=== PATIENT | female | born 1940 | race Caucasian/White ===

== ENCOUNTER 2017-12-04 14:44 | Inpatient (IN) | payer MEDICARE ==
--- NOTE | 2017-12-04 15:11 | RAD ---
PORTABLE CHEST 1 VIEW: Date: 12/04/17 Time: 1455 hours HISTORY: Shortness of breath. FINDINGS: The heart size is enlarged. The lungs are expanded without focal areas of consolidation, pneumothorax , or pleural effusions. There are bilateral shoulder arthroplasties and postop changes in the lower c ervical spine. IMPRESSION: Cardiomegaly. POS: BONILLA
[2017-12-04] MEDS ORDERED: methylPREDNISolone Sod Succ/PF 125 MG/2 ML VIAL ONE (15:17)
[2017-12-04 15:50] LABS: ALT (SGPT) 21 U/L (8-55); AST (SGOT) 22 U/L (5-34); Albumin 2.6 g/dL (3.4-4.8); Alkaline Phosphatase 228 U/L (40-150); Anion Gap 14 mmol/L (10-20); BUN (Urea Nitrogen) 74 mg/dL (9.8-20.1); Bilirubin, Total 1.3 mg/dL (0.2-1.2); Calc. Creatinine Clearance 0 mL/min (70-130); Calcium 8.4 mg/dL (7.8-10.44); Carbon Dioxide 23 mmol/L (23-31); Chloride 99 mmol/L (98-107); Estimated GFR-MDRD 12; Globulin 5.3 g/dL (2.4-3.5); Glucose 90 mg/dL (83-110); Potassium 3.6 mmol/L (3.5-5.1); Protein, Total 7.9 g/dL (6.0-8.3); Sodium 132 mmol/L (136-145)
[2017-12-04 15:55] LABS: CKMB 5.6 ng/mL (0-6.6); Troponin I 0.101 ng/mL (< 0.028)
[2017-12-04 16:10] LABS: #Basophils 0.1 thou/uL (0.0-0.2); #Eosinphils 0.4 thou/uL (0.0-0.7); #Lymphocytes 1.3 thou/uL (1.20-3.40); #Monocytes 1.3 thou/uL (0.11-0.59); #Neutrophils 11.7 thou/uL (1.40-6.50); %Basophils 0.4 % (0.0-1.0); %Lymphocytes 8.7 % (21.0-51.0); %Monocytes 8.6 % (0.0-10.0); %Neutrophils 79.3 % (42.0-75.0); Hemoglobin 7.7 g/dL (12.0-16.0); Mean Corpuscular HGB CONC 33.4 g/dL (32.0-36.0); Mean Corpuscular Hemoglobin 33.6 pg (27.0-31.0); Mean Platelet Volume 7.3 fL (7.4-10.4); Platelet Count 163 thou/uL (130-400); RBC Distribution Width 14.3 % (11.5-14.5); Red Blood Cell (RBC) Count 2.28 mill/uL (4.20-5.40); White Blood Cell (WBC) Count 14.8 thou/uL (4.8-10.8)
[2017-12-04] MEDS ORDERED: Ondansetron HCl/PF 4 MG/2 ML Vial IVP PRN ×2 (16:51)
[2017-12-04] MEDS ORDERED: Calcium Carbonate 500 MG ChewTAB PO PRN (16:51)
[2017-12-04] MEDS ORDERED: Nitroglycerin 0.4 MG TAB (25 Tab Bottle) SL PRN (16:51)
[2017-12-04] MEDS ORDERED: Mag-Al 1200 mg/1200 mg/30 ML UDCUP PO PRN (16:51)
[2017-12-04] MEDS ORDERED: Senokot 8.6 MG TAB PO PRN (16:51)
[2017-12-04] MEDS ORDERED: hydrALAZINE 20 MG/ML VIAL SLOW IVP PRN (16:51)
[2017-12-04] MEDS ORDERED: Benzonatate 100 MG CAP PO PRN (16:51)
[2017-12-04] MEDS ORDERED: Bisacodyl 5 MG TAB PO PRN (16:51)
[2017-12-04] MEDS ORDERED: cloNIDine 0.1 MG TAB PO PRN (16:51)
[2017-12-04] MEDS ORDERED: Furosemide 40 MG/4 ML VIAL SLOW IVP SCH (17:00)
[2017-12-04] MEDS ORDERED: Nitroglycerin 2% Ointment 1 INCH/1 GM Packet ONE (17:40)
[2017-12-04 17:56] LABS: Iron 36 ug/dL (50-170); Iron Binding Capacity, Total 201 mcg/dL (265-497)
--- NOTE | 2017-12-04 18:28 | HP ---
PRIMARY CARE PHYSICIAN: Zacarias Fontenot D.O. CHIEF COMPLAINT: Worsening shortness of breath and generalized weakness. HISTORY OF PRESENT ILLNESS: Ms. Green is a very pleasant 77-year-old female with past medical histor y of hypertension and asthma as well as history of chronic anemia, who presented to the emergency [facility] with above-mentioned complaint. History is mainly obtained by the patient herself and electronic edical records have been reviewed. Case has been discussed with admitting ER physician, Dr. Almonte. According to Ms. Green, she has been feeling poorly for quite some time now. She feels like she has no energy and has been progressively getting weak for the last 2-3 months. She started to feel reall y short of breath about 1 week ago and has been using all of her inhalers and nebulizers more frequen tly to no avail. Her breathing got worse and she presented to the ER with that. She otherwise denie s any chest pain, orthopnea, PND, or lower extremity swelling. She denies any fever, but did have so me chills a few days ago. She also feels that her urine smells bad, but denies any dysuria, frequenc y, or urgency. She denies any hematochezia, melena or hematemesis. She has no sick contacts. No ot her recent illnesses. She denies any cough. In the emergency room, she was found to be quite hypoxic with oxygen saturation of 84% on room air. Further workup included blood work which showed hemoglobin of 7.7 with a baseline around 8.5-9.5. Singh balderas was also found to have acute renal insufficiency with BUN of 74, creatinine of 3.62 as well as card iac enzyme in the indeterminate range of 0.101 and BNP of 855. Chest x-ray was done, which showed ca rdiomegaly but was otherwise unremarkable. Ms. Green reports that she follows up with [facility] at [facility] for History of paroxysmal atrial fibrillation that happened 1 year ago when she had pneumonia. It has not reoccurred. She act ually saw the assembler wire mesh gate only a week ago and her EKG was normal. EKG in our emergency room shows s inus rhythm, otherwise. In the emergency room, she has received aspirin, sublingual nitroglycerin, Solu-Medrol, nebulizer and Zofran. She is now being admitted for further evaluation of her dyspnea and acute hypoxia. PAST MEDICAL HISTORY: 1. Hypertension. 2. Asthma. 3. History of small bowel obstruction, status post repair in 1985. 4. Chronic iron deficiency anemia. PAST SURGICAL HISTORY: 1. Bilateral shoulder replacement. 2. L5-S1 laminectomy and diskectomy. 3. 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 4. Anterior cervical diskectomy and fusion in 2009. 5. Left humerus fracture with repair with plates and screws. 6. The patient had a colonoscopy done 10 years ago, which was normal. PSYCHIATRIC HISTORY: No anxiety, no depression. SOCIAL HISTORY: She is and lives with her family. She is independent with her ADLs and IADL s. No history of drug, tobacco or alcohol abuse. FAMILY HISTORY: Significant for colon cancer in her daughter, who at the age of 56. Two of her nephews also had colon cancer. ALLERGIES: HYDROCODONE. CURRENT MEDICATIONS: Lisinopril/hydrochlorothiazide 20/12.5 mg b.i.d., enalapril 10 mg daily, metopr olol tartrate 100 mg b.i.d., amlodipine 5 mg daily, albuterol 2 times a day, diclofenac sodium 75 mg b.i.d., dapsone 100 mg b.i.d., zolpidem 10 mg daily, iron unknown dose, Prilosec over the counter, mu ltivitamin. REVIEW OF SYSTEMS: The following complete review of systems was negative, unless otherwise mentioned in the HPI or below: Constitutional: Weight loss or gain, ability to conduct usual activities. Skin: Rash, itching. Eyes: Double vision, pain. ENT/Mouth: Nose bleeding, neck stiffness, pain, tenderness. Cardiovascular: Palpitations, dyspnea on exertion, orthopnea. Respiratory: Shortness of breath, wheezing, cough, hemoptysis, fever or night sweats. Gastrointestinal: Poor appetite, abdominal pain, heartburn, nausea, vomiting, constipation, or diarrhea. Genitourinary: Urgency, frequency, dysuria, nocturia. Musculoskeletal: Pain, swelling. Neurologic/Psychiatric: Anxiety, depression. Allergy/Immunologic: Skin rash, bleeding tendency. LABORATORY DATA: CBC shows leukocytosis with WBCs of 14.8 with left shift with neutrophils of 79%. Hemoglobin 7.7, it is largely macrocytic in nature. Platelet count normal. Serum chemistry shows so dium of 132, BUN 74, creatinine 3.62, total bilirubin 1.3, alkaline phosphatase 228. CK-MB normal. Troponin 0.101. BNP 855. Urinalysis is not available. Chest x-ray by my review shows no evidence o f pulmonary edema, effusion or infiltrate. Cardiomegaly is noticed. Twelve lead EKG by my review sh ows normal sinus rhythm without any acute ST or T-wave changes. T-waves are flattened in the inferio r leads. PHYSICAL EXAMINATION: VITAL SIGNS: Upon presentation, heart rate 76, saturating 84% on room air, blood pressure 140/60, pu lse of 74, respirations 15, temperature 98.1. GENERAL: She does look pale and easily gets winded with conversation as she is not wearing oxygen at the time of my interview. She is otherwise awake, alert, oriented x3, in no acute distress. HEENT: Mucous membranes are slightly dry. She appears to have some oral thrush on the tongue. No s cleral icterus. Conjunctival pallor is noticed. Head is normocephalic, atraumatic. Pupils equal, r eactive to light and accommodation. NECK: Supple without any lymphadenopathy, JVD or bruit. CARDIOVASCULAR: Rate and rhythm is regular without any murmur, rubs or gallops. RESPIRATORY: Clear to auscultation bilaterally without any wheezing, rales or rhonchi. ABDOMEN: Soft, nontender, nondistended with positive bowel sounds. No guarding, rebound or rigidity . EXTREMITIES: Free of any cyanosis, clubbing, or edema. NEUROLOGIC: Nonfocal. SKIN: Free of any rashes or bruises. I feel warm and dry to touch. PSYCHIATRIC: Normal affect. IMPRESSION AND PLAN: 1. Acute hypoxic respiratory failure. This seems to be multifactorial at this time. She most likel y has acute asthma exacerbation compounded by her anemia. Also at this time, cardiac causes could no t also be ruled out because of elevated BNP and troponin. We will continue to treat her with schedul ed and as needed nebulizers along with IV steroids for now. We will also obtain a transthoracic echo cardiogram to rule out cardiomyopathy or valvular abnormalities. She will also be worked up for her anemia, which seems to have worsened over the course of last few months. We will send iron indices a s well as B12 and folic acid. Transfuse if her hemoglobin drops below 7. Transfuse with IV iron if iron levels are low. Also, check for occult blood in the stools. I have alerted the patient that singh balderas should undergo a repeat colonoscopy as soon as this acute episode is over given her significant his tory of colon cancer. At this time, she denies any hematochezia or melena. 2. Acute renal insufficiency. This is most likely a combination of poor oral intake leading to dehy dration as well as continued use of TRINITY inhibitors and NSAIDs. I am not sure of the patient is on 2 different types of NSAIDs including the enalapril and the lisinopril, but those are listed in her migel e medications as per the ER record. At this time, we will hold all offending agents and avoid any fu rther nephrotoxic agents. She will be gently hydrated with IV fluids and we will consult Nephrology for further recommendations. Also check her urinalysis to rule out chronic kidney disease leading to glucosuria, proteinuria or infection. Also obtain a renal ultrasound to rule out any hydronephrosis or obstruction. Continue to monitor on a daily basis. 3. Troponin elevation, most likely secondary to dehydration and demand ischemia. She does not have any history of chronic coronary artery disease. We will obtain a transthoracic echocardiogram and co ntinue to trend serial cardiac enzymes. Continue aspirin full dose at this time. If necessary, we w ill request consultation with Cardiology. 4. Leukocytosis with left shift. Suspect urinary tract infection. Await final urinalysis and if po sitive, we will send it for culture and start empiric antibiotics. No other clear indication for any other infection at this time. 5. Elevated BNP. The patient does not appear to be volume overloaded. She actually appears volume contracted. At this time, we will obtain a transthoracic echocardiogram and resuscitate her with IV fluids. She does not have any history of congestive heart failure. 6. Acute asthma exacerbation. Continue with IV steroids, nebulizers and supplemental oxygen as abov e. 7. History of small bowel obstruction. 8. Code status: FULL CODE. Discussed with the patient.
[2017-12-04] MEDS ORDERED: IRON SUCROSE COMPLEX 100 MG/5 ML SLOW IVP SCH (19:00)
[2017-12-04] MEDS ORDERED: Sodium Ferric Gluconate 250 MG in Sodium Chloride 0.9% 100 ML IVPB SCH (19:15)
[2017-12-04 19:22] LABS: Troponin I 0.097 ng/mL (< 0.028)
[2017-12-04] MEDS: Famotidine 20 MG TAB PO SCH (20:10)
[2017-12-04 20:11] LABS: Folate (Folic Acid) 15.3 ng/mL (7.0-31.4)
[2017-12-04] MEDS: Sodium Chloride 0.9% 1,000 ML IV SCH (20:33)
--- NOTE | 2017-12-04 20:33 | ULT ---
RENAL ULTRASOUND: HISTORY: Acute kidney insufficiency. COMPARISON: None. TECHNIQUE: Sagittal and transverse imaging of the kidney is performed. FINDINGS: There is bilateral renal cortical thinning. No hydronephrosis. The right kidney measures 4.3 x 5 x 11.1 cm. The left kidney measures 5 x 4.9 x 11.5 cm. Pre-void volume is 136 mL. Bilateral ureteral jets are visualized. IMPRESSION: No hydronephrosis. POS: BONILLA
[2017-12-04] MEDS: Albumin 25% 25 GM/100 ML BOT IVPB SCH (23:50)
[2017-12-04] MEDS: Acetaminophen 325 MG TAB PO PRN (23:51)
[2017-12-04] MEDS: Diabetic Tussin 200 MG/10 ML UDCUP PO PRN (23:51)
[2017-12-05 00:38] LABS: Bilirubin Negative (Negative); Blood, Urine Moderate (Negative); Clarity CLEAR (Clear); Glucose, Urine (Dipstick) Negative (Negative); Leukocyte Small (Negative); Nitrite Negative (Negative); Protein, Urine (Dipstick) Negative (Neg-Trace); Specific Gravity, Urine 1.015 (1.002-1.036)
[2017-12-05 00:42] LABS: Bacteria/HPF 4+ HPF (None Seen); Hyaline Casts/LPF 0-3 HYALINE CAST LPF (0-3 Hyaline); Squamous Epithelial 0-3 HPF (0-3)
[2017-12-05 01:18] LABS: Renal Epithelial None Seen HPF (0-3); Transitional Epithelial NONE SEEN HPF (0-3)
[2017-12-05 01:47] LABS: Creatinine, Urine 50.88 mg/dL (47-110)
--- NOTE | 2017-12-05 01:56 | CON ---
DATE OF CONSULTATION: 12/04/2017 HISTORY OF PRESENT ILLNESS: Ms. Green is a 77-year-old white female who went to the ER with complain ts of shortness of breath on exertion. According to her, it started about a few days ago. Usually t he shortness of breath is precipitated by exertion. However, she denies any shortness of breath. Of interest, this patient has a history of asthma. She denies any associated chest pain, nausea, vomit ing with this. REVIEW OF SYSTEMS: Positive for shortness of breath on exertion, no chest pain, no diarrhea, no cons tipation, no headache, no diplopia, no fever or chills, no productive cough, no headache, no syncopal episode, no gross hematuria, no dysuria, no urinary frequency, no abdominal pain. Appetite and ener gy level is fair. Occasional joint pains. No new skin rash, no sore throat, no diplopia. HOME MEDICATIONS: Enalapril 10 mg daily, diclofenac 75 mg p.o. b.i.d., dapsone 100 mg p.o. b.i.d., a mlodipine 5 mg daily, lisinopril/hydrochlorothiazide 20/12.5 one tab b.i.d., ferrous sulfate 65 mg da sandeep, Prilosec 20 mg daily, multivitamin daily, metoprolol succinate 100 mg p.o. b.i.d. PAST MEDICAL HISTORY: Longstanding hypertension, DJD, asthma, status post rotator cuff injury, statu s post small-bowel obstruction, and chronic iron deficiency. PAST SURGICAL HISTORY: Status post colonoscopy, status post L5-S1 laminectomy, status post bilateral shoulder replacement, status post tumor removal of the right side of the spine, status post anterior cervical diskectomy and fusion, status post exploratory laparotomy secondary to bowel obstruction, s tatus post hysterectomy, status post left ORIF at the proximal humerus, recently status post hardware removal with reverse shoulder arthroplasty. SOCIAL HISTORY: The patient is and lives with her . She lives in [facility]. 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 Status post blood transfusion. No history of smoking, no IV drug abuse, no alcohol use. FAMILY HISTORY: No family history of ESRD. ALLERGIES: HYDROCODONE. TRAUMA: None. IMMUNIZATIONS: Up to date. HOSPITALIZATIONS: Please see past medical history. PHYSICAL EXAMINATION: VITAL SIGNS: Blood pressure is 132/62, heart rate 77, respiratory rate 18, temperature 97.8, and pul se ox 91%. GENERAL: Awake, alert, comfortable, not in distress. SKIN: Adequate turgor. HEENT: Slightly pale conjunctivae, anicteric sclerae. NECK: No neck mass, no carotid bruits, no JVD. CHEST: No deformities. LUNGS: Clear breath sounds, no wheezing, no crackles. HEART: Normal sinus rhythm. No murmur, no gallops, no rubs. ABDOMEN: Globular, soft, nontender, no masses. EXTREMITIES: No edema, no deformities. NEUROLOGIC: Awake, oriented to 3 spheres. Moving all extremities. No tremors, no asterixis, no josefina jose. LABORATORY DATA AND X-RAY FINDINGS: Laboratories of 12/04/2017, white count 14.8, hemoglobin 7.7. S odium 132, potassium 3.6, chloride 99, carbon dioxide 23, BUN 74, creatinine 3.62, glucose 90, calciu m 8.4, AST 22, ALT 21, albumin is 2.6, globulin 5.3. BNP is 855.6, 11/22/2017 creatinine 1.21. Chest x-ray of 12/04/2017 shows cardiomegaly; however, no infiltrates, no evidence of pleural effusio n. Renal ultrasound pending. ASSESSMENT AND PLAN: 1. Acute kidney injury - based on the history and physical exam, I am very suspicious for a hemodyna mically mediated renal dysfunction. Please note this patient has been taking TRINITY inhibitors and ARB as well as NSAIDs prior to the said admission. I would suggest we hold off those medications for the moment. In addition, I have started her on salt poor albumin infusion 25 grams IV q.6 hours. 2. Chronic anemia, currently on IV iron supplementation. 3. Shortness of breath exertion - rule out exacerbation of her asthma with history of chronic obstru ctive pulmonary disease. If needed, we may also need to rule out the possibility of any underlying c oronary artery disease with this patient. For the moment, agree with current management. There is n o indication for any dialytic intervention. Please note the urine chemistry has been ordered and uri nalysis.
[2017-12-05] MEDS: Albumin 25% 25 GM/100 ML BOT IVPB SCH ×3 (05:06→17:46)
[2017-12-05 05:32] LABS: Anion Gap 13 mmol/L (10-20); BUN (Urea Nitrogen) 69 mg/dL (9.8-20.1); Calc. Creatinine Clearance 23 mL/min (70-130); Carbon Dioxide 21 mmol/L (23-31); Chloride 102 mmol/L (98-107); Estimated GFR-MDRD 14; Glucose 138 mg/dL (83-110); Potassium 4.1 mmol/L (3.5-5.1); Sodium 132 mmol/L (136-145)
[2017-12-05 05:41] LABS: Band 11 % (5-11); Hemoglobin 6.5 g/dL (12.0-16.0); Lymphocytes 5 % (21-51); MDiff Complete? YES; Mean Corpuscular HGB CONC 33.1 g/dL (32.0-36.0); Mean Corpuscular Hemoglobin 33.4 pg (27.0-31.0); Mean Platelet Volume 7.3 fL (7.4-10.4); Myelocyte 1 % (0-0); Neutrophil 83 % (42-75); Platelet Count 136 thou/uL (130-400); RBC Distribution Width 14.4 % (11.5-14.5); Red Blood Cell (RBC) Count 1.95 mill/uL (4.20-5.40); White Blood Cell (WBC) Count 9.9 thou/uL (4.8-10.8)
[2017-12-05] MEDS: Sodium Chloride 0.9% 1,000 ML IV SCH ×2 (07:58→21:57)
[2017-12-05 08:09] LABS: Hemoglobin 6.5 g/dL (12.0-16.0)
[2017-12-05] MEDS: Amlodipine 5 MG TAB PO SCH (08:36)
[2017-12-05] MEDS: Ferrous Sulfate 325 MG TAB PO SCH (08:36)
[2017-12-05] MEDS: Multivit, Therapeutic 1 TAB PO SCH (08:37)
[2017-12-05] MEDS: Enoxaparin Sodium 30 MG/0.3 ML SYRINGE SC SCH (08:37)
--- NOTE | 2017-12-05 08:44 | PRG ---
DATE OF SERVICE: 12/05/2017 SUBJECTIVE: Ms. Green is a 77-year-old white female who was initially admitted for shortness of sisi th on exertion. We were consulted for acute kidney injury. I evaluated the patient last night. I f elt that the patient may have simply a hemodynamically mediated renal dysfunction. She was taking di uretics, TRINITY inhibitors and NSAIDs at home. This was discontinued. We are currently giving her yariel talloids and colloids. Also, this morning I noted her to have a significant anemia with hemoglobin 6 .5. No complaints of chest pain or any worsening shortness of breath. PHYSICAL EXAMINATION: VITAL SIGNS: Blood pressure is 145/65, heart rate 77, respiratory rate 20, temperature 97.9, pulse o x 90%. GENERAL: Noted to be awake, supine, comfortable, not in overt distress. SKIN: Adequate turgor. HEENT: Pale conjunctivae, anicteric sclerae. NECK: No neck mass, no carotid bruits, no JVD. CHEST: No deformities. LUNGS: Clear breath sounds, no wheezing, no crackles. HEART: Normal sinus rhythm. No murmur, no gallops, no rubs. ABDOMEN: Globular, soft, nontender, no masses. EXTREMITIES: No edema. MEDICATIONS: 12/05/2017 - Reviewed. LABORATORY: 12/05/2017 - White count 9.9, hemoglobin 6.5, sodium 132, potassium 4.1, chloride 102, c arbon dioxide 21, BUN 69, creatinine 3.14, glucose 138, calcium 8.0. TSH 1.9. Urinalysis shows RBC 7-10, WBC 11-20, 4+ bacteria, specific gravity 1.015, urine sodium 38, urine creatinine 50. Renal ultrasound of 12/04/2017 showed no hydronephrosis. There is finding of bilateral renal cortica l thinning. ASSESSMENT AND PLAN: 1. Acute kidney injury - I suspect a superimposed hemodynamically mediated renal dysfunction. Remi nue IV hydration with crystalloids and colloids. Continue to optimize hemodynamics. We will transfu se 2 units of packed RBC due to the severe anemia. In addition, continue to hold off any diuretics o r TRINITY inhibitors. 2. Chronic renal failure - renal ultrasound shows cortical thinning. This patient may have an under lying chronic renal problem. Please note that she has been on chronic NSAIDs in the past. Chronic i nterstitial nephritis remains a possibility. 3. Anemia. Two units of packed red blood cells today. Check stools for occult blood. Overall, I agree with current management.
[2017-12-05] MEDS ORDERED: cefTRIAXone\\ROCEPHIN 1 GM in Sodium Chloride 0.9% 100 ML IVPB SCH (08:45)
[2017-12-05] MEDS ORDERED: Aspirin 325 mg Enteric Coated Tablet PO SCH (09:00)
[2017-12-05] MEDS: cefTRIAXone\\ROCEPHIN 1 GM, Syringe 0.4 ML in Sterile Water 9.6 ML SLOW IVP SCH (09:45)
--- NOTE | 2017-12-05 13:15 | PDOC.PN ---
- Subjective Encounter Start Date: 12/05/17 Encounter Start Time: 13:13 Subjective: feels a little better.still weak and SOB - Objective MAR Reviewed: Yes Vital Signs & Weight: Vital Signs (12 hours) Temp Pulse Pulse Resp BP BP Pulse Ox 12/05/17 12:30 98.2 F 76 20 131/63 90 L 12/05/17 10:40 80 16 12/05/17 10:15 98.0 F 77 19 148/66 H 90 L 12/05/17 09:49 98.0 F 75 20 149/66 H 90 L 12/05/17 07:51 97.9 F 77 20 145/65 H 90 L 12/05/17 06:55 92 L 12/05/17 06:51 76 16 92 L 12/05/17 04:39 97.7 F 75 18 127/60 90 L 12/05/17 02:55 93 L 12/05/17 02:24 76 16 92 L Weight Weight 212 lb 3.2 oz I&O: 12/04/17 12/05/17 12/06/17 06:59 06:59 06:59 Intake Total 900 350 Output Total 550 Balance 350 350 Result Diagrams: 12/05/17 08:00 12/05/17 04:54 Additional Labs: Laboratory Tests 11/23/15 12/04/17 12/04/17 11:10 15:03 15:03 Creatinine 1.21 H 3.62 H Iron TIBC % Saturation Troponin I 0.101 H Vitamin B12 Folate TSH 3rd Generation 12/04/17 12/04/17 12/04/17 17:19 17:19 17:19 Creatinine Iron 36 L TIBC 201 L % Saturation 18 Troponin I Vitamin B12 1465 H Folate 15.30 TSH 3rd Generation [id number] 12/04/17 12/04/17 12/05/17 18:46 20:52 04:54 Creatinine 3.14 H Iron TIBC % Saturation Troponin I 0.097 H 0.080 H Vitamin B12 Folate TSH 3rd Generation Phys Exam - Physical Examination Constitutional: NAD HEENT: PERRLA, moist MMs, sclera anicteric, oral pharynx no lesions Neck: no nodes, no JVD, supple, full ROM Respiratory: no rales, no rhonchi, wheezing present, clear to auscultation bilateral Cardiovascular: RRR, no significant murmur Gastrointestinal: soft, non-tender, no distention, positive bowel sounds Musculoskeletal: no edema, pulses present Neurological: non-focal, normal sensation, moves all 4 limbs Psychiatric: normal affect, A&O x 3 Skin: no rash Dx/Plan (1) Acute respiratory failure with hypoxia Code(s): J96.01 - ACUTE RESPIRATORY FAILURE WITH HYPOXIA Status: Acute Comment: neil due to Acute asthma exacerbation.ECHO pending to r/o cardiac cause (2) CHRISTINA (acute kidney injury) Code(s): N17.9 - ACUTE KIDNEY FAILURE, UNSPECIFIED Status: Acute Comment: Likley multifactorial with dehydration,use of TRINITY-I,diuretics & NSAIDs with hypoperfusion due to anemia (3) Anemia Code(s): D64.9 - ANEMIA, UNSPECIFIED Status: Acute Qualifiers: Anemia type: iron deficiency Iron deficiency anemia type: unspecified iron deficiency Qualified Code(s): D50.9 - Iron deficiency anemia, unspecified Comment: s/p IV Iron yesterday. (4) UTI (urinary tract infection) Status: Acute Comment: Cx sent.start empiric ABx (5) Troponin level elevated Code(s): R74.8 - ABNORMAL LEVELS OF OTHER SERUM ENZYMES Status: Acute Comment: demand ischemia from anemia and hypoxia.ECHO pending (6) Acute asthma exacerbation Code(s): J45.901 - UNSPECIFIED ASTHMA WITH (ACUTE) EXACERBATION Status: Acute (7) Elevated brain natriuretic peptide (BNP) level Code(s): R79.89 - OTHER SPECIFIED ABNORMAL FINDINGS OF BLOOD CHEMISTRY Status : Acute (8) HTN (hypertension) Code(s): I10 - ESSENTIAL (PRIMARY) HYPERTENSION Status: Acute - Plan PT/OT, respiratory therapy, incentive spirometry, out of bed/ambulate, DVT proph w/SCDs start empiric Rocephin till final urine Cx ar eback. -: 2 units PRBc today as H/H even lower today -: renal Fx stable .cont IVF.watchful for fluid overload. -: nephrology following-appreciate input. -: cont solumedrol and duonebs,O2 prn. * .cardiac enzymes trended down. * Follow results of echo. * am labs * cont home meds as below Review of Systems - Review of Systems Constitutional: weakness, malaise. negative: fever, chills, sweats, other ENT: negative: Ear Pain, Ear Discharge, Nose Pain, Nose Discharge, Nose Congestion, Mouth Pain, Mouth Swelling, Throat Pain, Throat Swelling, Other Respiratory: Shortness of Breath, SOB with Excertion. negative: Cough, Dry, Hemoptysis, Pleuritic Pain, Sputum, Wheezing Cardiovascular: light headedness. negative: chest pain, palpitations, orthopnea , paroxysmal nocturnal dyspnea, edema, other Gastrointestinal: negative: Nausea, Vomiting, Abdominal Pain, Diarrhea, Constipation, Melena, Hematochezia, Other Genitourinary: negative: Dysuria, Frequency, Incontinence, Hematuria, Retention , Other Musculoskeletal: negative: Neck Pain, Shoulder Pain, Arm Pain, Back Pain, Hand Pain, Leg Pain, Foot Pain, Other Skin: negative: Rash, Lesions, Charles, Bruising, Other Neurological: negative: Weakness, Numbness, Incoordination, Change in Speech, Confusion, Seizures, Other - Medications/Allergies Allergies/Adverse Reactions: Allergies Allergy/AdvReac Type Severity Reaction Status Date / Time hydrocodone bitartrate Allergy Intermediate Emesis Verified 12/04/17 20:39 [From Vicodin] Medications: Current Medications Acetaminophen (Tylenol) 650 mg PO Q4H PRN PRN Reason: Headache/Fever or Pain Last Admin: 12/04/17 23:51 Dose: 650 mg Al Hydroxide/Mg Hydroxide (Maalox) 30 ml PO Q6H PRN PRN Reason: Heartburn or Indigestion Albumin Human (Albumin 25%) 25 gm IVPB Q6HR [facility] Stop: 12/07/17 23:59 Last Admin: 12/05/17 13:02 Dose: 25 gm Albuterol/Ipratropium (Duoneb) 3 ml NEB [id number] PRN PRN Reason: SOB &/or Wheezing Albuterol/Ipratropium (Duoneb) 3 ml NEB [id number] [facility] Last Admin: 12/05/17 10:40 Dose: 3 ml Amlodipine Besylate (Norvasc) 5 mg PO DAILY [facility] Last Admin: 12/05/17 08:36 Dose: 5 mg Aspirin (Ecotrin) 325 mg PO DAILY [facility] Last Admin: 12/05/17 08:36 Dose: 325 mg Benzonatate (Tessalon) 100 mg PO Q4H PRN PRN Reason: Cough Bisacodyl (Dulcolax) 10 mg PO DAILYPRN PRN PRN Reason: Constipation Calcium Carbonate (Tums) 1,000 mg PO Q4H PRN PRN Reason: Heartburn or Indigestion Clonidine (Catapres) 0.1 mg PO Q4H PRN PRN Reason: Systolic BP > 160 Dapsone (Dapsone) 100 mg PO BID [facility] Last Admin: 12/05/17 08:36 Dose: 100 mg Enoxaparin Sodium (Lovenox) 30 mg SC 0900 [facility] Last Admin: 12/05/17 08:37 Dose: 30 mg Famotidine (Pepcid) 20 mg PO QPM [facility] Last Admin: 12/04/17 20:10 Dose: 20 mg Ferrous Sulfate (Feosol) 325 mg PO QA-[facility] Last Admin: 12/05/17 08:36 Dose: 325 mg Guaifenesin (Robitussin Sf) 200 mg PO Q4H PRN PRN Reason: Cough Last Admin: 12/04/17 23:51 Dose: 200 mg Hydralazine HCl (Apresoline) 10 mg SLOW IVP Q4H PRN PRN Reason: Systolic BP > 170 Sodium Chloride (Normal Saline 0.9%) 1,000 mls @ 75 mls/hr IV .[id number] [facility] Last Admin: 12/05/17 07:58 Dose: 1,000 mls Ceftriaxone Sodium 1 gm/ (Syringe 0.4 ml/ Sterile Water) 10 mls @ 120 mls/hr SLOW IVP 1000 [facility] Last Admin: 12/05/17 09:45 Dose: 10 mls Loratadine (Claritin) 10 mg PO DAILYPRN PRN PRN Reason: Sinus Symptoms Methylprednisolone Sodium Succinate (Solu-Medrol) 40 mg IVP Q12H [facility] Last Admin: 12/05/17 13:02 Dose: 40 mg Metoprolol Succinate (Toprol Xl) 100 mg PO BID [facility] Last Admin: 12/05/17 08:36 Dose: 100 mg Multivitamins (Theragran) 1 tab PO DAILY [facility] Last Admin: 12/05/17 08:37 Dose: 1 tab Nitroglycerin (Nitrostat) 0.4 mg SL Q5MIN PRN PRN Reason: Chest Pain Ondansetron HCl (Zofran) 4 mg IVP Q6H PRN PRN Reason: Nausea/Vomiting Pantoprazole Sodium (Protonix) 40 mg PO DAILY [facility] Last Admin: 12/05/17 08:37 Dose: 40 mg Senna (Senokot) 2 tab PO HSPRN PRN PRN Reason: Constipation Sodium Chloride (Flush - Normal Saline) 10 ml IVF Q12HR [facility] Last Admin: 12/05/17 08:54 Dose: Not Given Sodium Chloride (Flush - Normal Saline) 10 ml IVF PRN PRN PRN Reason: Saline Flush
[2017-12-05] MEDS: Famotidine 20 MG TAB PO SCH (20:07)
[2017-12-05] MEDS: Acetaminophen 325 MG TAB PO PRN (20:08)
[2017-12-06] MEDS: Albumin 25% 25 GM/100 ML BOT IVPB SCH ×5 (00:06→23:52)
[2017-12-06 05:37] LABS: Anion Gap 17 mmol/L (10-20); BUN (Urea Nitrogen) 68 mg/dL (9.8-20.1); Calc. Creatinine Clearance 26 mL/min (70-130); Calcium 8.4 mg/dL (7.8-10.44); Carbon Dioxide 17 mmol/L (23-31); Chloride 104 mmol/L (98-107); Estimated GFR-MDRD 16; Glucose 137 mg/dL (83-110); Potassium 4.2 mmol/L (3.5-5.1); Sodium 134 mmol/L (136-145)
[2017-12-06 07:43] LABS: Hemoglobin 7.6 g/dL (12.0-16.0); Mean Corpuscular HGB CONC 33.9 g/dL (32.0-36.0); Mean Corpuscular Hemoglobin 32.7 pg (27.0-31.0); Mean Corpuscular Volume 96.4 fl (81.0-99.0); Mean Platelet Volume 7.9 fL (7.4-10.4); Platelet Count 166 thou/uL (130-400); RBC Distribution Width 16.9 % (11.5-14.5); Red Blood Cell (RBC) Count 2.32 mill/uL (4.20-5.40); White Blood Cell (WBC) Count 11.1 thou/uL (4.8-10.8)
[2017-12-06 09:15] LABS: Anisocytosis SLIGHT = 6-15 cells (100X) (0-5/hpf); Band 13 % (5-11); Lymphocytes 1 % (21-51); MDiff Complete? YES; Monocytes 6 % (0-10); Neutrophil 80 % (42-75); PLT Morphology Comment Appears Adequate; Polychromasia SLIGHT = 2-3 cells (100X) (0-2/hpf)
[2017-12-06] MEDS ORDERED: Epoetin (ESRD) 20,000 UNITS/ML SC SCH (09:15)
[2017-12-06] MEDS: Ferrous Sulfate 325 MG TAB PO SCH (09:21)
[2017-12-06] MEDS: Amlodipine 5 MG TAB PO SCH (09:21)
[2017-12-06] MEDS: Multivit, Therapeutic 1 TAB PO SCH (09:22)
[2017-12-06] MEDS: Acetaminophen 325 MG TAB PO PRN ×2 (09:24→13:44)
[2017-12-06] MEDS: Enoxaparin Sodium 30 MG/0.3 ML SYRINGE SC SCH (09:25)
--- NOTE | 2017-12-06 09:37 | PRG ---
DATE OF SERVICE: 12/06/2017 SUBJECTIVE: Ms. Green is a 77-year-old white female who was initially admitted for shortness of sisi th from presumed asthma exacerbation/? COPD. Cardiac echo was recently done which showed a normal EF . We have seen this patient for acute kidney injury on top of presumed chronic renal failure. Creat inine is slowly improving with volume repletion. She was also noted to be symptomatically anemic and was given 2 units of packed RBC yesterday. This morning, she is feeling better. She denies any wor sening shortness of breath or having chest pain. PHYSICAL EXAMINATION: VITAL SIGNS: Blood pressure is 160/74, heart rate 64, respiratory rate 24, pulse ox ranging from 90% -95%, and temperature 97.7. GENERAL: Awake, alert, sitting comfortable, not in overt distress. SKIN: Adequate turgor. HEENT: Slightly pale conjunctivae, anicteric sclerae. NECK: No neck mass, no carotid bruits, no JVD. CHEST: No deformities. LUNGS: Clear breath sounds. Occasional wheezing, but no crackles. HEART: Normal sinus rhythm. No murmur, no gallops, no rubs. ABDOMEN: Globular, soft, nontender, no masses. EXTREMITIES: No edema. MEDICATIONS: Medications of 12/06/2017 reviewed. LABORATORY DATA: Laboratories of 12/06/2017; white count 11.1, hemoglobin 7.6. Sodium 134, potassiu m 4.2, chloride 104, carbon dioxide 17, BUN is 68, creatinine 2.84, GFR 16 mL per minute, calcium 8.4 . TSH 1.9, troponin I 0.08. White count 11.1, hemoglobin 7.6. IMAGING DATA: Cardiac echo, normal EF. ASSESSMENT AND PLAN: 1. Acute kidney injury - superimposed prerenal azotemia. TRINITY inhibitors and nonsteroidal anti-infla mmatory drugs are currently on hold. Continue current management, continue gentle volume repletion. Continue to optimize hemodynamics. 2. Anemia, much improved - status post blood transfusion on iron supplementation. Awaiting results of stool cards for occult blood. 3. Chronic renal failure. Renal ultrasound showed thinning of renal cortex suggesting she has under lying chronic renal failure. Etiology of the chronic renal failure remains undefined. Possibility o f hypertensive nephropathy versus chronic interstitial nephritis remains with this patient. 4. Overall, agree with current management. Recheck basic metabolic panel and CBC in a.m. We will a lso do PTH and serum phosphorus.
[2017-12-06] MEDS: cefTRIAXone\\ROCEPHIN 1 GM, Syringe 0.4 ML in Sterile Water 9.6 ML SLOW IVP SCH (10:49)
--- NOTE | 2017-12-06 13:57 | PDOC.PN ---
- Subjective Encounter Start Date: 12/06/17 Encounter Start Time: 13:56 Subjective: still c/o feeling SOb but better overall -: no CP/fever/chills - Objective MAR Reviewed: Yes Vital Signs & Weight: Vital Signs (12 hours) Temp Pulse Resp BP Pulse Ox 12/06/17 12:15 98.7 F 69 22 H 152/73 H 12/06/17 10:22 72 16 12/06/17 09:21 74 12/06/17 09:10 97.7 F 24 L 24 H 160/74 H 90 L 12/06/17 08:00 97.7 F 74 24 H 90 L 12/06/17 06:21 95 12/06/17 06:13 71 16 12/06/17 05:49 93 L 12/06/17 04:00 97.4 F L 69 17 138/66 12/06/17 02:50 93 L 12/06/17 02:26 75 16 93 L Weight Weight 212 lb 3.2 oz I&O: 12/05/17 12/06/17 12/07/17 06:59 06:59 06:59 Intake Total 900 2840 Output Total 550 1350 Balance 350 1490 Result Diagrams: 12/06/17 04:02 12/06/17 04:02 Additional Labs: Microbiology 12/06/17 09:30 Stool Stool Occult Blood ([facility]ISE) - Final 12/05/17 00:02 Urine clean catch Urine Culture - Preliminary Gram Negative [facility] Tests 12/04/17 12/05/17 12/06/17 15:03 04:54 04:02 Creatinine 3.62 H 3.14 H 2.84 H Phys Exam - Physical Examination Constitutional: NAD HEENT: PERRLA, moist MMs, sclera anicteric, oral pharynx no lesions Neck: no nodes, no JVD, supple, full ROM Respiratory: no wheezing, no rales, no rhonchi, clear to auscultation bilateral Cardiovascular: RRR, no significant murmur, no rub, gallop Gastrointestinal: soft, non-tender, no distention, positive bowel sounds Musculoskeletal: no edema, pulses present Neurological: non-focal, normal sensation, moves all 4 limbs Psychiatric: normal affect, A&O x 3 Skin: no rash Dx/Plan (1) Acute respiratory failure with hypoxia Code(s): J96.01 - ACUTE RESPIRATORY FAILURE WITH HYPOXIA Status: Acute Comment: neil due to Acute asthma exacerbation.ECHO with mild iastolic dysfunction (2) CHRISTINA (acute kidney injury) Code(s): N17.9 - ACUTE KIDNEY FAILURE, UNSPECIFIED Status: Acute Comment: Neil multifactorial with dehydration,use of TRINITY-I,diuretics & NSAIDs with hypoperfusion due to anemia (3) Anemia Code(s): D64.9 - ANEMIA, UNSPECIFIED Status: Acute Qualifiers: Anemia type: iron deficiency Iron deficiency anemia type: unspecified iron deficiency Qualified Code(s): D50.9 - Iron deficiency anemia, unspecified Comment: s/p IV Iron yesterday.s/p 2 unit PRBC yesterday.FOBT negative.cont PO iron (4) UTI (urinary tract infection) Status: Acute Comment: Cx with GNR so far.Cont empiric ABx (5) Troponin level elevated Code(s): R74.8 - ABNORMAL LEVELS OF OTHER SERUM ENZYMES Status: Acute Comment: demand ischemia from anemia and hypoxia (6) Acute asthma exacerbation Code(s): J45.901 - UNSPECIFIED ASTHMA WITH (ACUTE) EXACERBATION Status: Acute (7) Elevated brain natriuretic peptide (BNP) level Code(s): R79.89 - OTHER SPECIFIED ABNORMAL FINDINGS OF BLOOD CHEMISTRY Status : Acute (8) HTN (hypertension) Code(s): I10 - ESSENTIAL (PRIMARY) HYPERTENSION Status: Acute - Plan continue antibiotics, PT/OT, respiratory therapy, incentive spirometry, out of bed/ambulate, DVT proph w/SCDs give trial of 1 dos elasix-discussed w Dr. rocha.suspect fluid overload -: cont nebs,steroids,O2 prn -: H/H daily.better post transfusion.neil chr JOSE D -: renal Fx improving w IVF.monitor.DC all TRINITY-I,nsaids permanantly -: restart albuterol PO per pt request.am labs * . Review of Systems - Review of Systems Constitutional: weakness, malaise Respiratory: Shortness of Breath, SOB with Excertion. negative: Cough, Dry, Hemoptysis, Pleuritic Pain, Sputum, Wheezing Cardiovascular: negative: chest pain, palpitations, orthopnea, paroxysmal nocturnal dyspnea, edema, light headedness, other Gastrointestinal: negative: Nausea, Vomiting, Abdominal Pain, Diarrhea, Constipation, Melena, Hematochezia, Other Genitourinary: negative: Dysuria, Frequency, Incontinence, Hematuria, Retention , Other Musculoskeletal: negative: Neck Pain, Shoulder Pain, Arm Pain, Back Pain, Hand Pain, Leg Pain, Foot Pain, Other Skin: negative: Rash, Lesions, Charles, Bruising, Other Neurological: negative: Weakness, Numbness, Incoordination, Change in Speech, Confusion, Seizures, Other - Medications/Allergies Allergies/Adverse Reactions: Allergies Allergy/AdvReac Type Severity Reaction Status Date / Time hydrocodone bitartrate Allergy Intermediate Emesis Verified 12/04/17 20:39 [From Vicodin] Medications: Current Medications Acetaminophen (Tylenol) 650 mg PO Q4H PRN PRN Reason: Headache/Fever or Pain Last Admin: 12/06/17 13:44 Dose: 650 mg Al Hydroxide/Mg Hydroxide (Maalox) 30 ml PO Q6H PRN PRN Reason: Heartburn or Indigestion Albumin Human (Albumin 25%) 25 gm IVPB Q6HR [facility] Stop: 12/07/17 23:59 Last Admin: 12/06/17 13:39 Dose: 25 gm Albuterol Sulfate (Ventolin) 4 mg PO TID [facility] Albuterol Sulfate (Ventolin) 4 mg PO NOW [facility] Stop: 12/06/17 16:00 Albuterol/Ipratropium (Duoneb) 3 ml NEB [id number] [facility] Last Admin: 12/06/17 10:22 Dose: 3 ml Amlodipine Besylate (Norvasc) 5 mg PO DAILY [facility] Last Admin: 12/06/17 09:21 Dose: 5 mg Benzonatate (Tessalon) 100 mg PO Q4H PRN PRN Reason: Cough Bisacodyl (Dulcolax) 10 mg PO DAILYPRN PRN PRN Reason: Constipation Calcium Carbonate (Tums) 1,000 mg PO Q4H PRN PRN Reason: Heartburn or Indigestion Clonidine (Catapres) 0.1 mg PO Q4H PRN PRN Reason: Systolic BP > 160 Dapsone (Dapsone) 100 mg PO BID [facility] Last Admin: 12/06/17 09:24 Dose: 100 mg Enoxaparin Sodium (Lovenox) 30 mg SC 0900 [facility] Last Admin: 12/06/17 09:25 Dose: 30 mg Epoetin Mahin (Procrit) 7,500 units SC Q7D [facility] Famotidine (Pepcid) 20 mg PO QPM [facility] Last Admin: 12/05/17 20:07 Dose: 20 mg Ferrous Sulfate (Feosol) 325 mg PO QAM-WM [facility] Last Admin: 12/06/17 09:21 Dose: 325 mg Furosemide (Lasix) 40 mg SLOW IVP ONE [facility] Guaifenesin (Robitussin Sf) 200 mg PO Q4H PRN PRN Reason: Cough Last Admin: 12/04/17 23:51 Dose: 200 mg Hydralazine HCl (Apresoline) 10 mg SLOW IVP Q4H PRN PRN Reason: Systolic BP > 170 Sodium Chloride (Normal Saline 0.9%) 1,000 mls @ 75 mls/hr IV .[id number] [facility] Last Admin: 12/05/17 21:57 Dose: Not Given Ceftriaxone Sodium 1 gm/ (Syringe 0.4 ml/ Sterile Water) 10 mls @ 120 mls/hr SLOW IVP 1000 [facility] Last Admin: 12/06/17 10:49 Dose: 10 mls Loratadine (Claritin) 10 mg PO DAILYPRN PRN PRN Reason: Sinus Symptoms Methylprednisolone Sodium Succinate (Solu-Medrol) 40 mg IVP Q12H [facility] Last Admin: 12/06/17 12:06 Dose: 40 mg Metoprolol Succinate (Toprol Xl) 100 mg PO BID [facility] Last Admin: 12/06/17 09:21 Dose: 100 mg Multivitamins (Theragran) 1 tab PO DAILY [facility] Last Admin: 12/06/17 09:22 Dose: 1 tab Nitroglycerin (Nitrostat) 0.4 mg SL Q5MIN PRN PRN Reason: Chest Pain Ondansetron HCl (Zofran) 4 mg IVP Q6H PRN PRN Reason: Nausea/Vomiting Pantoprazole Sodium (Protonix) 40 mg PO DAILY [facility] Last Admin: 12/06/17 09:21 Dose: 40 mg Senna (Senokot) 2 tab PO HSPRN PRN PRN Reason: Constipation Sodium Chloride (Flush - Normal Saline) 10 ml IVF Q12HR [facility] Last Admin: 12/06/17 09:27 Dose: Not Given Sodium Chloride (Flush - Normal Saline) 10 ml IVF PRN PRN PRN Reason: Saline Flush
[2017-12-06] MEDS ORDERED: Furosemide 40 MG/4 ML VIAL SLOW IVP SCH (14:00)
[2017-12-06] MEDS: Sodium Chloride 0.9% 1,000 ML IV SCH ×2 (17:42→21:22)
[2017-12-06] MEDS ORDERED: ALPRAZolam 0.25 MG TAB PO SCH (18:30)
[2017-12-06] MEDS: Famotidine 20 MG TAB PO SCH (21:19)
[2017-12-06] MEDS ORDERED: ALPRAZolam 0.25 MG TAB PO PRN (22:13)
[2017-12-07 05:10] LABS: Hemoglobin 7.4 g/dL (12.0-16.0)
[2017-12-07 05:34] LABS: Anion Gap 16 mmol/L (10-20); BUN (Urea Nitrogen) 65 mg/dL (9.8-20.1); Calc. Creatinine Clearance 26 mL/min (70-130); Calcium 8.8 mg/dL (7.8-10.44); Carbon Dioxide 17 mmol/L (23-31); Chloride 107 mmol/L (98-107); Estimated GFR-MDRD 16; Glucose 146 mg/dL (83-110); Phosphorus 3.7 mg/dL (2.3-4.7); Potassium 4.2 mmol/L (3.5-5.1); Sodium 136 mmol/L (136-145)
[2017-12-07] MEDS: Diabetic Tussin 200 MG/10 ML UDCUP PO PRN (08:22)
[2017-12-07] MEDS: cefTRIAXone\\ROCEPHIN 1 GM, Syringe 0.4 ML in Sterile Water 9.6 ML SLOW IVP SCH (08:22)
[2017-12-07] MEDS: Enoxaparin Sodium 30 MG/0.3 ML SYRINGE SC SCH (08:23)
[2017-12-07] MEDS: Ferrous Sulfate 325 MG TAB PO SCH (08:24)
[2017-12-07] MEDS: Amlodipine 5 MG TAB PO SCH (08:24)
[2017-12-07] MEDS: Multivit, Therapeutic 1 TAB PO SCH (08:24)
[2017-12-07] MEDS ORDERED: Sodium Chloride 0.9% 1,000 ML IV SCH (10:00)
--- NOTE | 2017-12-07 10:59 | PDOC.PN ---
- Subjective Encounter Start Date: 12/07/17 Encounter Start Time: 07:40 -: old records requested/rev pt is anxious, shaky, hypertensive, renal function improving, hypoxic - Objective MAR Reviewed: Yes Vital Signs & Weight: Vital Signs (12 hours) Temp Pulse Resp BP BP BP Pulse Ox 12/07/17 10:18 71 166/80 H 12/07/17 08:24 86 192/84 H 12/07/17 07:55 88 L 12/07/17 07:54 86 24 H 12/07/17 07:22 97.5 F L 74 20 192/84 H 92 L 12/07/17 04:00 98.0 F 74 20 152/73 H 92 L 12/06/17 23:39 98 Weight Weight 212 lb 3.2 oz I&O: 12/06/17 12/07/17 12/08/17 06:59 06:59 06:59 Intake Total 2840 2760 Output Total 1350 1100 Balance 1490 1660 Result Diagrams: 12/07/17 03:56 12/07/17 03:56 Radiology Reviewed by me: Yes (chest xray, echo) EKG Reviewed by me: Yes (nsr) Phys Exam - Physical Examination Constitutional: NAD HEENT: PERRLA, moist MMs, sclera anicteric Neck: no nodes, no JVD, supple, full ROM Respiratory: no rales, wheezing present Cardiovascular: RRR, no significant murmur, no rub Gastrointestinal: soft, non-tender, no distention, positive bowel sounds Musculoskeletal: no edema, pulses present Neurological: non-focal, normal sensation Lymphatic: no nodes Psychiatric: normal affect, A&O x 3 Skin: no rash, normal turgor Dx/Plan (1) CHRISTINA (acute kidney injury) Code(s): N17.9 - ACUTE KIDNEY FAILURE, UNSPECIFIED Status: Acute Comment: slowly improving, has CKD as well (2) Acute asthma exacerbation Code(s): J45.901 - UNSPECIFIED ASTHMA WITH (ACUTE) EXACERBATION Status: Acute Qualifiers: Asthma severity: moderate (3) Acute on chronic diastolic (congestive) heart failure Code(s): I50.33 - ACUTE ON CHRONIC DIASTOLIC (CONGESTIVE) HEART FAILURE Status : Acute (4) Acute respiratory failure with hypoxia Code(s): J96.01 - ACUTE RESPIRATORY FAILURE WITH HYPOXIA Status: Acute Comment: likley due to Acute asthma exacerbation.ECHO with mild iastolic dysfunction (5) Anemia Code(s): D64.9 - ANEMIA, UNSPECIFIED Status: Acute Qualifiers: Anemia type: iron deficiency Iron deficiency anemia type: unspecified iron deficiency Qualified Code(s): D50.9 - Iron deficiency anemia, unspecified Comment: (6) Moderate tricuspid regurgitation Code(s): I07.1 - RHEUMATIC TRICUSPID INSUFFICIENCY Status: Acute (7) Troponin level elevated Code(s): R74.8 - ABNORMAL LEVELS OF OTHER SERUM ENZYMES Status: Acute Comment: demand ischemia from anemia and hypoxia (8) UTI (urinary tract infection) Status: Acute Comment: (9) HTN (hypertension) Code(s): I10 - ESSENTIAL (PRIMARY) HYPERTENSION Status: Chronic (10) Obesity (BMI 30.0-34.9) Code(s): E66.9 - OBESITY, UNSPECIFIED Status: Chronic - Plan cont current plan of care, plan discussed w/ family, continue antibiotics, respiratory therapy * medication reviewed as below * symptomatic treatment * add xanax 0.5 mg po tid as per home dose * monitor renal function * wean off oxygen as tolerated * discussed with family * continue rocephin * continue respiratory therapy * reduce solumedrol * not ready for discharge. Review of Systems - Review of Systems Constitutional: negative: fever, chills, sweats, weakness, malaise, other Eyes: negative: Pain, Vision Change, Conjunctivae Inflammation, Eyelid Inflammation, Redness, Other ENT: negative: Ear Pain, Ear Discharge, Nose Pain, Nose Discharge, Nose Congestion, Mouth Pain, Mouth Swelling, Throat Pain, Throat Swelling, Other Respiratory: Cough, Shortness of Breath, SOB with Excertion. negative: Dry, Hemoptysis, Pleuritic Pain, Sputum, Wheezing Cardiovascular: negative: chest pain, palpitations, orthopnea, paroxysmal nocturnal dyspnea, edema, light headedness, other Gastrointestinal: negative: Nausea, Vomiting, Abdominal Pain, Diarrhea, Constipation, Melena, Hematochezia, Other Musculoskeletal: negative: Neck Pain, Shoulder Pain, Arm Pain, Back Pain, Hand Pain, Leg Pain, Foot Pain, Other Skin: negative: Rash, Lesions, Charles, Bruising, Other Neurological: negative: Weakness, Numbness, Incoordination, Change in Speech, Confusion, Seizures, Other - Medications/Allergies Allergies/Adverse Reactions: Allergies Allergy/AdvReac Type Severity Reaction Status Date / Time hydrocodone bitartrate Allergy Intermediate Emesis Verified 12/04/17 20:39 [From Vicodin] Medications: Current Medications Acetaminophen (Tylenol) 650 mg PO Q4H PRN PRN Reason: Headache/Fever or Pain Last Admin: 12/06/17 13:44 Dose: 650 mg Al Hydroxide/Mg Hydroxide (Maalox) 30 ml PO Q6H PRN PRN Reason: Heartburn or Indigestion Albuterol Sulfate (Ventolin) 4 mg PO TID [facility] Last Admin: 12/07/17 08:24 Dose: 4 mg Albuterol/Ipratropium (Duoneb) 3 ml NEB [id number] [facility] Last Admin: 12/07/17 07:54 Dose: 3 ml Alprazolam (Xanax) 0.5 mg PO TID [facility] Alprazolam (Xanax) 0.5 mg PO HSPRN PRN PRN Reason: Anxiety/Insomnia Amlodipine Besylate (Norvasc) 5 mg PO DAILY [facility] Last Admin: 12/07/17 08:24 Dose: 5 mg Benzonatate (Tessalon) 100 mg PO Q4H PRN PRN Reason: Cough Bisacodyl (Dulcolax) 10 mg PO DAILYPRN PRN PRN Reason: Constipation Calcium Carbonate (Tums) 1,000 mg PO Q4H PRN PRN Reason: Heartburn or Indigestion Clonidine (Catapres) 0.1 mg PO Q4H PRN PRN Reason: Systolic BP > 160 Last Admin: 12/06/17 22:51 Dose: 0.1 mg Dapsone (Dapsone) 100 mg PO BID [facility] Last Admin: 12/07/17 08:23 Dose: 100 mg Enoxaparin Sodium (Lovenox) 30 mg SC 0900 [facility] Last Admin: 12/07/17 08:23 Dose: 30 mg Epoetin Mahin (Procrit) 7,500 units SC Q7D [facility] Last Admin: 12/06/17 17:43 Dose: 7,500 units Famotidine (Pepcid) 20 mg PO QPM [facility] Last Admin: 12/06/17 21:19 Dose: 20 mg Ferrous Sulfate (Feosol) 325 mg PO QAM-F [facility] Last Admin: 12/07/17 08:24 Dose: 325 mg Guaifenesin (Robitussin Sf) 200 mg PO Q4H PRN PRN Reason: Cough Last Admin: 12/07/17 08:22 Dose: 200 mg Hydralazine HCl (Apresoline) 10 mg SLOW IVP Q4H PRN PRN Reason: Systolic BP > 170 Ceftriaxone Sodium 1 gm/ (Syringe 0.4 ml/ Sterile Water) 10 mls @ 120 mls/hr SLOW IVP 1000 [facility] Last Admin: 12/07/17 08:22 Dose: 10 mls Sodium Chloride (Normal Saline 0.9%) 1,000 mls @ 50 mls/hr IV .Q20H [facility] Last Admin: 12/07/17 10:27 Dose: Not Given Loratadine (Claritin) 10 mg PO DAILYPRN PRN PRN Reason: Sinus Symptoms Methylprednisolone Sodium Succinate (Solu-Medrol) 20 mg IVP Q8HR [facility] Metoprolol Succinate (Toprol Xl) 100 mg PO BID [facility] Last Admin: 12/07/17 08:24 Dose: 100 mg Multivitamins (Theragran) 1 tab PO DAILY [facility] Last Admin: 12/07/17 08:24 Dose: 1 tab Nitroglycerin (Nitrostat) 0.4 mg SL Q5MIN PRN PRN Reason: Chest Pain Ondansetron HCl (Zofran) 4 mg IVP Q6H PRN PRN Reason: Nausea/Vomiting Pantoprazole Sodium (Protonix) 40 mg PO DAILY [facility] Last Admin: 12/07/17 08:24 Dose: 40 mg Senna (Senokot) 2 tab PO HSPRN PRN PRN Reason: Constipation Sodium Chloride (Flush - Normal Saline) 10 ml IVF Q12HR [facility] Last Admin: 12/07/17 08:25 Dose: Not Given Sodium Chloride (Flush - Normal Saline) 10 ml IVF PRN PRN PRN Reason: Saline Flush
--- NOTE | 2017-12-07 12:46 | PRG ---
DATE OF SERVICE: 12/07/2017 SUBJECTIVE: Ms. Green is a 77-year-old white female, who was seen for her acute kidney injury on top of her chronic renal failure. She has been having intermittent episodes of shortness of breath. Pl ease note her cardiac echo showed a normal ejection fraction. She has been treated with DuoNeb as we ll as p.r.n. Lasix. This morning, her breathing is a little better. She complained of some leg cram ps. OBJECTIVE: VITAL SIGNS: Blood pressure is 166/80, heart rate is 86, respiratory rate 24, and O2 sat is ranging from 88% to 92%. GENERAL: Noted to be awake, sitting comfortable, not in overt distress. SKIN: Adequate turgor. HEENT: She has slightly pale conjunctivae, anicteric sclerae. NECK: No neck mass, no carotid bruits, no JVD. CHEST: No deformities. LUNGS: Decreased breath sounds. Occasional wheezing. HEART: Normal sinus rhythm. No murmur, no gallops, no rubs. ABDOMEN: Globular, soft, nontender, no masses. EXTREMITIES: No edema. MEDICATIONS: On 12/07/2017 was reviewed. LABORATORY DATA: On 12/07/2017, hemoglobin 7.4. Sodium 136, potassium 4.2, chloride 107, carbon dioxide 17, BUN is 65, creatinine 2.79, glucose 146, calcium is 8.8, phosphorus is 3.7, PTH is 207.1. Cardiac echo on 12/05/2017, normal EF. ASSESSMENT AND PLAN: 1. Anemia, multifactorial etiology. I have initiated Epogen with this patient. She continues to re ceive iron supplementation, p.r.n. blood transfusion. 2. Acute kidney injury on top of her chronic renal failure - superimposed prerenal azotemia. She ngo s received salt poor albumin. Renal function is stabilizing. Renal ultrasound did show increased ec hogenicity and some cortical thinning suggesting she does have chronic renal failure. The exact etio logy of her chronic renal failure remains undetermined, although hypertensive nephropathy is a possib ility with this patient. 3. Shortness of breath - consider the possibility of chronic obstructive pulmonary disease exacerbat ion. Currently, patient on steroids and DuoNeb. She is also on p.r.n. Lasix. We will recheck base met and CBC in a.m. Agree with current management. There is no indication for any dialytic intervention.
[2017-12-07] MEDS: Acetaminophen 325 MG TAB PO PRN ×2 (12:58→17:44)
[2017-12-07] MEDS ORDERED: ALPRAZolam 0.5 MG TAB PO SCH (15:00)
[2017-12-07] MEDS ORDERED: Sodium Bicarbonate Tab 325 MG TAB PO SCH (15:30)
[2017-12-07 15:38] LABS: Actual Bicarbonate (HCO3a) 18.8 mEq/L (22-26); Base Excess (BEa) -5.1 mEq/L (0 (+/-) 2.5); Hematocrit-ABG 28.4 % (36.0-47.0); Hemoglobin (Hb) 7.9 g/dL (12.0-16.0); O2 Tension (PaO2) 87.8 mmHg (80.0-100.0); pH, Arterial 7.41 (7.35-7.45)
[2017-12-07 15:39] LABS: Calcium, Ionized 1.2 mmol/L (1.12-1.30); Puncture Site RRA
[2017-12-07] MEDS ORDERED: Furosemide 100 MG/10 ML VIAL SLOW IVP SCH (16:15)
[2017-12-07] MEDS ORDERED: Morphine 4 MG/ML VIAL SLOW IVP SCH (16:45)
--- NOTE | 2017-12-07 17:15 | RAD ---
PORTABLE CHEST 12/07/17 PROVIDED CLINICAL HISTORY: Dyspnea. FINDINGS: Comparison 12/04/17. The cardiac silhouette remains enlarged. Prominence of the pulmonary vasculature and pulmonary inters titium noted. Obscuration of the left hemidiaphragm may reflect left basilar pleural and/or parenchym al opacity. No evidence for pneumothorax. IMPRESSION: 1. Findings suggesting congestive failure. 2. Left basilar pleural and/or parenchymal opacity. Followup is recommended. POS: [facility]
[2017-12-07] MEDS: Mometasone/Formoterol 120 PUFF INHALER INH SCH (18:28)
[2017-12-07] MEDS: Famotidine 20 MG TAB PO SCH (21:09)
[2017-12-07] MEDS: Sodium Bicarbonate Tab 325 MG TAB PO SCH (21:09)
[2017-12-07] MEDS: Nitroglycerin 2% Ointment 1 INCH/1 GM Packet TOP SCH (21:35)
[2017-12-07] MEDS: ALPRAZolam 0.5 MG TAB PO PRN (21:38)
[2017-12-08 04:49] LABS: #Eosinphils 0.1 thou/uL (0.0-0.7); #Lymphocytes 1.1 thou/uL (1.20-3.40); #Monocytes 0.9 thou/uL (0.11-0.59); #Neutrophils 9.2 thou/uL (1.40-6.50); %Basophils 0.1 % (0.0-1.0); %Eosinophils 0.8 % (0.0-10.0); %Monocytes 8.2 % (0.0-10.0); %Neutrophils 80.8 % (42.0-75.0); Hemoglobin 7.8 g/dL (12.0-16.0); Mean Corpuscular HGB CONC 33.2 g/dL (32.0-36.0); Mean Corpuscular Volume 99.5 fl (81.0-99.0); Mean Platelet Volume 6.8 fL (7.4-10.4); Platelet Count 262 thou/uL (130-400); RBC Distribution Width 17.3 % (11.5-14.5); Red Blood Cell (RBC) Count 2.36 mill/uL (4.20-5.40); White Blood Cell (WBC) Count 11.4 thou/uL (4.8-10.8)
[2017-12-08] MEDS: Diabetic Tussin 200 MG/10 ML UDCUP PO PRN (04:53)
[2017-12-08 05:07] LABS: Anion Gap 15 mmol/L (10-20); BUN (Urea Nitrogen) 66 mg/dL (9.8-20.1); Calc. Creatinine Clearance 29 mL/min (70-130); Calcium 9.1 mg/dL (7.8-10.44); Carbon Dioxide 19 mmol/L (23-31); Chloride 109 mmol/L (98-107); Estimated GFR-MDRD 19; Glucose 105 mg/dL (83-110); Phosphorus 3.9 mg/dL (2.3-4.7); Potassium 3.9 mmol/L (3.5-5.1); Sodium 139 mmol/L (136-145)
[2017-12-08] MEDS: Nitroglycerin 2% Ointment 1 INCH/1 GM Packet TOP SCH ×3 (05:13→22:20)
[2017-12-08] MEDS ORDERED: Furosemide 100 MG/10 ML VIAL SLOW IVP SCH (05:15)
--- NOTE | 2017-12-08 06:04 | PDOC.PN ---
- Subjective Encounter Start Date: 12/08/17 Encounter Start Time: 11:00 pt developed afib last night, still wheezing and still dyspnea - Objective MAR Reviewed: Yes Vital Signs & Weight: Vital Signs (12 hours) Temp Pulse Resp BP Pulse Ox 12/07/17 23:57 72 20 12/07/17 20:00 98.4 F 72 20 159/94 H 92 L 12/07/17 18:26 75 20 91 L Weight Weight 212 lb 3.2 oz I&O: 12/06/17 12/07/17 12/08/17 06:59 06:59 06:59 Intake Total 2840 2760 1430 Output Total 1350 1100 500 Balance 1490 1660 930 Result Diagrams: 12/08/17 04:13 12/08/17 04:13 EKG Reviewed by me: Yes (afib) Phys Exam - Physical Examination Constitutional: NAD HEENT: PERRLA, moist MMs, sclera anicteric Neck: no JVD, supple Respiratory: wheezing present rales+ Cardiovascular: no significant murmur, irregular Gastrointestinal: soft, non-tender, no distention, positive bowel sounds Musculoskeletal: no edema, pulses present Neurological: non-focal, normal sensation Lymphatic: no nodes Psychiatric: normal affect Skin: no rash, normal turgor Dx/Plan (1) Acute on chronic diastolic (congestive) heart failure Code(s): I50.33 - ACUTE ON CHRONIC DIASTOLIC (CONGESTIVE) HEART FAILURE Status : Acute (2) Acute asthma exacerbation Code(s): J45.901 - UNSPECIFIED ASTHMA WITH (ACUTE) EXACERBATION Status: Acute Qualifiers: Asthma severity: moderate (3) Acute respiratory failure with hypoxia Code(s): J96.01 - ACUTE RESPIRATORY FAILURE WITH HYPOXIA Status: Acute Comment: likley due to Acute asthma exacerbation.ECHO with mild iastolic dysfunction (4) CHRISTINA (acute kidney injury) Code(s): N17.9 - ACUTE KIDNEY FAILURE, UNSPECIFIED Status: Acute Comment: slowly improving, has CKD as well (5) Anemia Code(s): D64.9 - ANEMIA, UNSPECIFIED Status: Acute Qualifiers: Anemia type: iron deficiency Iron deficiency anemia type: unspecified iron deficiency Qualified Code(s): D50.9 - Iron deficiency anemia, unspecified Comment: (6) Moderate tricuspid regurgitation Code(s): I07.1 - RHEUMATIC TRICUSPID INSUFFICIENCY Status: Acute (7) Troponin level elevated Code(s): R74.8 - ABNORMAL LEVELS OF OTHER SERUM ENZYMES Status: Acute Comment: demand ischemia from anemia and hypoxia (8) UTI (urinary tract infection) Status: Acute Comment: (9) HTN (hypertension) Code(s): I10 - ESSENTIAL (PRIMARY) HYPERTENSION Status: Chronic (10) Obesity (BMI 30.0-34.9) Code(s): E66.9 - OBESITY, UNSPECIFIED Status: Chronic - Plan cont current plan of care, plan discussed w/ family, respiratory therapy * continue lasix * will need imcu transfer given respiratory distress * will need bipap * cardiology consult for afib * medication reviewed as below * symptomatic treatment * discussed with daughter. * one dose of zaroxolyn * monitor labs * pulmonary recommendation appreciated Review of Systems - Review of Systems Constitutional: negative: fever, chills, sweats, weakness, malaise, other Eyes: negative: Pain, Vision Change, Conjunctivae Inflammation, Eyelid Inflammation, Redness, Other ENT: negative: Ear Pain, Ear Discharge, Nose Pain, Nose Discharge, Nose Congestion, Mouth Pain, Mouth Swelling, Throat Pain, Throat Swelling, Other Respiratory: Cough, Shortness of Breath, SOB with Excertion, Wheezing. negative : Dry, Hemoptysis, Pleuritic Pain, Sputum Cardiovascular: orthopnea. negative: chest pain, palpitations, paroxysmal nocturnal dyspnea, edema, light headedness, other Gastrointestinal: negative: Nausea, Vomiting, Abdominal Pain, Diarrhea, Constipation, Melena, Hematochezia, Other Genitourinary: negative: Dysuria, Frequency, Incontinence, Hematuria, Retention , Other Musculoskeletal: negative: Neck Pain, Shoulder Pain, Arm Pain, Back Pain, Hand Pain, Leg Pain, Foot Pain, Other Skin: negative: Rash, Lesions, Charles, Bruising, Other - Medications/Allergies Allergies/Adverse Reactions: Allergies Allergy/AdvReac Type Severity Reaction Status Date / Time hydrocodone bitartrate Allergy Intermediate Emesis Verified 12/04/17 20:39 [From Vicodin] Medications: Current Medications Acetaminophen (Tylenol) 650 mg PO Q4H PRN PRN Reason: Headache/Fever or Pain Last Admin: 12/07/17 17:44 Dose: 650 mg Al Hydroxide/Mg Hydroxide (Maalox) 30 ml PO Q6H PRN PRN Reason: Heartburn or Indigestion Albuterol/Ipratropium (Duoneb) 3 ml NEB [id number] [facility] Last Admin: 12/07/17 23:57 Dose: 3 ml Albuterol/Ipratropium (Duoneb) 3 ml NEB [id number] PRN PRN Reason: SOB &/or Wheezing Last Admin: 12/07/17 15:56 Dose: 3 ml Alprazolam (Xanax) 0.5 mg PO HSPRN PRN PRN Reason: Anxiety/Insomnia Last Admin: 12/07/17 21:38 Dose: 0.5 mg Bisacodyl (Dulcolax) 10 mg PO DAILYPRN PRN PRN Reason: Constipation Calcium Carbonate (Tums) 1,000 mg PO Q4H PRN PRN Reason: Heartburn or Indigestion Clonidine (Catapres) 0.1 mg PO Q4H PRN PRN Reason: Systolic BP > 160 Last Admin: 12/06/17 22:51 Dose: 0.1 mg Dapsone (Dapsone) 100 mg PO BID [facility] Last Admin: 12/07/17 21:10 Dose: 100 mg Enoxaparin Sodium (Lovenox) 30 mg SC 0900 [facility] Last Admin: 12/07/17 08:23 Dose: 30 mg Epoetin Mahin (Procrit) 7,500 units SC Q7D [facility] Last Admin: 12/06/17 17:43 Dose: 7,500 units Famotidine (Pepcid) 20 mg PO QPM [facility] Last Admin: 12/07/17 21:09 Dose: 20 mg Ferrous Sulfate (Feosol) 325 mg PO QAM-[facility] Last Admin: 12/07/17 08:24 Dose: 325 mg Furosemide (Lasix) 60 mg SLOW IVP DAILY [facility] Guaifenesin (Robitussin Sf) 200 mg PO Q4H PRN PRN Reason: Cough Last Admin: 12/08/17 04:53 Dose: 200 mg Hydralazine HCl (Apresoline) 10 mg SLOW IVP Q4H PRN PRN Reason: Systolic BP > 170 Last Admin: 12/07/17 12:57 Dose: 10 mg Loratadine (Claritin) 10 mg PO DAILYPRN PRN PRN Reason: Sinus Symptoms Mometasone Furoate/Formoterol Fumar (Dulera 200 Mcg/5 Mcg Inhaler) 2 puff INH BID-RT [facility] Last Admin: 12/07/17 18:28 Dose: 2 puff Multivitamins (Theragran) 1 tab PO DAILY [facility] Last Admin: 12/07/17 08:24 Dose: 1 tab Nitroglycerin (Nitrostat) 0.4 mg SL Q5MIN PRN PRN Reason: Chest Pain Nitroglycerin (Nitro-Bid 2% Ointment) 0.5 inch TOP Q8HR [facility] Last Admin: 12/08/17 05:13 Dose: 0.5 inch Ondansetron HCl (Zofran) 4 mg IVP Q6H PRN PRN Reason: Nausea/Vomiting Pantoprazole Sodium (Protonix) 40 mg PO DAILY [facility] Last Admin: 12/07/17 08:24 Dose: 40 mg Senna (Senokot) 2 tab PO HSPRN PRN PRN Reason: Constipation Sodium Bicarbonate (Bicarbonate, Sodium) 650 mg PO BID [facility] Last Admin: 12/07/17 21:09 Dose: 650 mg Sodium Chloride (Flush - Normal Saline) 10 ml IVF Q12HR [facility] Last Admin: 12/07/17 21:10 Dose: 10 ml Sodium Chloride (Flush - Normal Saline) 10 ml IVF PRN PRN PRN Reason: Saline Flush
[2017-12-08] MEDS: Mometasone/Formoterol 120 PUFF INHALER INH SCH ×2 (08:03→19:03)
[2017-12-08] MEDS ORDERED: Metolazone 5 MG TAB PO SCH (08:15)
[2017-12-08] MEDS: Ferrous Sulfate 325 MG TAB PO SCH (10:04)
[2017-12-08] MEDS: Furosemide 100 MG/10 ML VIAL SLOW IVP SCH (10:04)
[2017-12-08] MEDS: Multivit, Therapeutic 1 TAB PO SCH (10:04)
[2017-12-08] MEDS: Sodium Bicarbonate Tab 325 MG TAB PO SCH ×2 (10:05→20:20)
[2017-12-08] MEDS: Enoxaparin Sodium 30 MG/0.3 ML SYRINGE SC SCH (10:05)
--- NOTE | 2017-12-08 11:07 | CON ---
DATE OF CONSULTATION: 12/07/2017 SERVICE: Pulmonary Medicine. REASON FOR CONSULTATION: Respiratory failure. HISTORY OF PRESENT ILLNESS: The patient is a 77-year-old white female with past medical history significant for chronic bronchitis/asthma. This has been treated for a long period of time with p.o. and HFA albuterol. She will use on an as needed basis. Roughly 2 days prior to admission, she woke up in the middle of the night acutely winded. She presented to the Emergency Department with what felt like an asthma attack at that time. She was coughing, but not bringing up anything more than white phlegm. She was put in the hospital with a COPD exacerbation. She was given some IV fluids for hydration. She was started on some antibiotics as well as steroids. After the first day, she got a little bit better, but over the last 2 days, she subsequently got worse. She denies any current fevers or chills. She is not coughing up any sputum. She had no fevers or overnight events. She is not having any dysuria, nausea, vomiting, or diarrhea. She says that she feels like her lungs are filling up with fluid and that she needed her Lasix again. PAST MEDICAL HISTORY: 1. Hypertension. 2. Asthma with likely chronic obstruction. 3. Iron deficiency anemia. 4. Chronic kidney disease, new diagnosis. 5. History of small-bowel obstruction status post repair. PAST SURGICAL HISTORY: 1. Shoulder replacement, bilateral. 2. L5-S1 laminectomy and diskectomy. 3. 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 4. Anterior cervical diskectomy and fusion in 2009. 5. Left humerus fracture with open reduction internal fixation. 6. Remote colonoscopy. SOCIAL HISTORY: Negative for alcohol, tobacco, or illicit drug use. She is independent in her ADLs. She has no exposure to chemicals, dust asbestos, or tuberculosis. Whenever she is exposed to freshly mowed lawn, that her typical asthma trigger. She has never had any nighttime symptoms. FAMILY HISTORY: Noncontributory. ALLERGIES: HYDROCODONE. MEDICATIONS: List of her inpatient and outpatient medications were reviewed. Multiple updates were made. REVIEW OF SYSTEMS: General, head, ears, eyes, nose, throat, cardiovascular, respiratory, GI, , musculoskeletal, neurologic and skin is negative except as mentioned in the HPI. PHYSICAL EXAMINATION: VITAL SIGNS: Afebrile, pulse 72, blood pressure 156/76, respirations 20, and saturation 90% on 4 liters nasal cannula. GENERAL: The patient is in mild to moderate respiratory distress. She is using accessory muscles. HEENT: Normocephalic, atraumatic. Sclerae are white, conjunctivae pink. Oral and nasal mucosa is moist without lesions. LUNGS: Reduced air entry. There is a prolonged expiratory phase. Polyphonic wheezing are present, which masks the bibasilar crackles. HEART: Normal rate, regular. ABDOMEN: Soft, nontender, nondistended. Bowel sounds are positive. MUSCULOSKELETAL: No cyanosis or clubbing. There is 2+ pitting in the bilateral lower extremities. NEUROLOGIC: Grossly nonfocal. LABORATORY DATA: WBC 11.1, hemoglobin 7.6 and roughly stable. Platelets 166, 000. Band count is up trending to 13%. PH 7.41, pCO2 of 30, pO2 of 87, corresponding to saturation 97% on 36% FiO2. Creatinine 2.79 and gently down trending, BUN 65. Basic metabolic profile and phosphorus are unremarkable. PTH is 207, troponin 0.08. Iron and TIBC are low. Present saturation is also low. BNP 855 from the 12/04/2017. B12 and folate fall within the normal limits. TSH is also normal. Original cardiac enzymes were downtrending down to 0.08. Lactate was unremarkable. Liver function studies were unremarkable except for minimally elevated alkaline phosphatase. IMAGIN. Chest x-ray demonstrates bilateral pleural effusions, which are freely layering. She is got pulmonary vascular congestion. 2. Echocardiogram demonstrates normal ejection fraction with 1/3 diastolic dysfunction. 3. Renal ultrasound demonstrates no obstruction, but there is cortical thinning suggestive of chronic medical renal disease. ASSESSMENT: 1. Acute hypoxic respiratory failure. 2. Acute on chronic diastolic heart failure. 3. Chronic kidney disease, suspected. 4. Anemia, normocytic. 5. Non-ST elevation myocardial infarction. 6. Asthma with acute exacerbation, nearly completed that treatment course. PLAN: I will convert the steroids over to p.o. prednisone, this will only be provided in the morning. Antibiotics will be discontinued. We will give her dose of Lasix right now and first thing in the morning. If she gets any worse, we will move her to the [facility] in order to provide her with noninvasive ventilation. My suspicion, however, is that she will turn around fairly quickly. I will continue her nebulized medications, will back off q.6 hours. We will provide her with p.r.n. albuterol if needed. Pulmonary Critical Care will continue to follow along for the time being. 70 minutes have been devoted to this patient in various activities. I personally reviewed all imaging studies and laboratory data noted within this document. For fifty percent of this time, I was interacting with the patient at the bedside or coordinating care with the care team. For the remainder of the time I was immediately available to the patient in the hospital unit. JOSE
[2017-12-08] MEDS: Loratadine 10 MG TAB PO PRN (15:08)
[2017-12-08] MEDS: ALPRAZolam 0.5 MG TAB PO PRN (15:08)
[2017-12-08] MEDS: Dextrose 5% in Water 1,000 ML IV SCH (15:23)
[2017-12-08] MEDS ORDERED: Magnesium Sulfate 2 GM in Sodium Chloride 0.9% 250 ML 250 ML IVPB SCH (15:45)
[2017-12-08] MEDS ORDERED: Digoxin 0.5 MG/2 ML AMP SLOW IVP SCH (16:00)
[2017-12-08] MEDS: Metoprolol Tartrate 50 MG TAB PO SCH (20:20)
[2017-12-08] MEDS: Cefdinir 300 MG CAP PO SCH (20:20)
[2017-12-08] MEDS: Famotidine 20 MG TAB PO SCH (20:20)
[2017-12-09] MEDS: Acetaminophen 325 MG TAB PO PRN ×2 (03:28→23:16)
[2017-12-09] MEDS: Nitroglycerin 2% Ointment 1 INCH/1 GM Packet TOP SCH ×2 (05:57→14:26)
[2017-12-09] MEDS: Mometasone/Formoterol 120 PUFF INHALER INH SCH ×2 (07:32→19:43)
[2017-12-09 07:56] LABS: #Basophils 0.1 thou/uL (0.0-0.2); #Eosinphils 0.3 thou/uL (0.0-0.7); #Lymphocytes 1.3 thou/uL (1.20-3.40); #Neutrophils 9.1 thou/uL (1.40-6.50); %Basophils 1.2 % (0.0-1.0); %Eosinophils 2.8 % (0.0-10.0); %Lymphocytes 10.9 % (21.0-51.0); %Monocytes 8.2 % (0.0-10.0); %Neutrophils 76.9 % (42.0-75.0); Hemoglobin 8.2 g/dL (12.0-16.0); Mean Corpuscular HGB CONC 32.8 g/dL (32.0-36.0); Mean Corpuscular Hemoglobin 32.5 pg (27.0-31.0); Mean Corpuscular Volume 99.1 fl (81.0-99.0); Mean Platelet Volume 6.3 fL (7.4-10.4); Platelet Count 285 thou/uL (130-400); RBC Distribution Width 17.3 % (11.5-14.5); Red Blood Cell (RBC) Count 2.51 mill/uL (4.20-5.40); White Blood Cell (WBC) Count 11.8 thou/uL (4.8-10.8)
[2017-12-09 08:11] LABS: Anion Gap 10 mmol/L (10-20); BUN (Urea Nitrogen) 64 mg/dL (9.8-20.1); Calc. Creatinine Clearance 26 mL/min (70-130); Carbon Dioxide 27 mmol/L (23-31); Chloride 104 mmol/L (98-107); Estimated GFR-MDRD 17; Glucose 131 mg/dL (83-110); Potassium 3.8 mmol/L (3.5-5.1); Sodium 137 mmol/L (136-145)
[2017-12-09] MEDS: Calcitriol 0.25 MCG CAP PO SCH (09:09)
[2017-12-09] MEDS: Ferrous Sulfate 325 MG TAB PO SCH (09:09)
[2017-12-09] MEDS: Cefdinir 300 MG CAP PO SCH ×2 (09:09→20:27)
[2017-12-09] MEDS: Multivit, Therapeutic 1 TAB PO SCH (09:09)
[2017-12-09] MEDS: Enoxaparin Sodium 30 MG/0.3 ML SYRINGE SC SCH (09:10)
[2017-12-09] MEDS: Sodium Bicarbonate Tab 325 MG TAB PO SCH ×2 (09:10→20:27)
[2017-12-09] MEDS: Furosemide 100 MG/10 ML VIAL SLOW IVP SCH (09:11)
[2017-12-09] MEDS: Metoprolol Tartrate 50 MG TAB PO SCH ×2 (09:21→20:27)
--- NOTE | 2017-12-09 10:40 | PDOC.PN ---
- Subjective Encounter Start Date: 12/09/17 Encounter Start Time: 10:00 today pt feels better, last night she converted to nsr - Objective MAR Reviewed: Yes Vital Signs & Weight: Vital Signs (12 hours) Temp Pulse Resp BP Pulse Ox 12/09/17 07:32 79 20 98 12/09/17 07:31 98.9 F 71 19 155/67 H 95 12/09/17 07:29 79 20 98 12/09/17 06:01 66 15 145/63 H 96 12/09/17 04:07 98.1 F 70 16 149/66 H 96 12/09/17 02:25 68 16 162/65 H 94 L 12/09/17 02:05 63 95 12/09/17 02:04 95 12/09/17 00:14 98.2 F 63 16 147/69 H 96 Weight Weight 201 lb 8 oz I&O: 12/08/17 12/09/17 12/10/17 06:59 06:59 06:59 Intake Total 1670 1202 Output Total 1500 2700 Balance 170 -1498 Result Diagrams: 12/09/17 07:40 12/09/17 07:40 Phys Exam - Physical Examination Constitutional: NAD HEENT: PERRLA, moist MMs, sclera anicteric Neck: no JVD, supple Respiratory: no rales, wheezing present Cardiovascular: RRR, no significant murmur, no rub Gastrointestinal: soft, non-tender, no distention, positive bowel sounds Musculoskeletal: no edema, pulses present Neurological: non-focal, normal sensation Lymphatic: no nodes Psychiatric: normal affect Skin: no rash, normal turgor Dx/Plan (1) Acute on chronic diastolic (congestive) heart failure Code(s): I50.33 - ACUTE ON CHRONIC DIASTOLIC (CONGESTIVE) HEART FAILURE Status : Acute (2) Acute asthma exacerbation Code(s): J45.901 - UNSPECIFIED ASTHMA WITH (ACUTE) EXACERBATION Status: Acute Qualifiers: Asthma severity: moderate (3) Acute respiratory failure with hypoxia Code(s): J96.01 - ACUTE RESPIRATORY FAILURE WITH HYPOXIA Status: Acute Comment: likley due to Acute asthma exacerbation.ECHO with mild iastolic dysfunction (4) CHRISTINA (acute kidney injury) Code(s): N17.9 - ACUTE KIDNEY FAILURE, UNSPECIFIED Status: Acute Comment: slowly improving, has CKD as well (5) Anemia Code(s): D64.9 - ANEMIA, UNSPECIFIED Status: Acute Qualifiers: Anemia type: iron deficiency Iron deficiency anemia type: unspecified iron deficiency Qualified Code(s): D50.9 - Iron deficiency anemia, unspecified Comment: (6) Moderate tricuspid regurgitation Code(s): I07.1 - RHEUMATIC TRICUSPID INSUFFICIENCY Status: Acute (7) Troponin level elevated Code(s): R74.8 - ABNORMAL LEVELS OF OTHER SERUM ENZYMES Status: Acute Comment: demand ischemia from anemia and hypoxia (8) UTI (urinary tract infection) Status: Acute Comment: (9) HTN (hypertension) Code(s): I10 - ESSENTIAL (PRIMARY) HYPERTENSION Status: Chronic (10) Obesity (BMI 30.0-34.9) Code(s): E66.9 - OBESITY, UNSPECIFIED Status: Chronic (11) Paroxysmal atrial fibrillation Code(s): I48.0 - PAROXYSMAL ATRIAL FIBRILLATION Status: Acute - Plan cont current plan of care, plan discussed w/ family, respiratory therapy * continue bipap * cardiology to see * she will need chronic anticoagulation * medication reviewed as below * symptomatic treatment * will monitor in IMCU * still has dyspnea and wheezing * discussed with family. Review of Systems - Review of Systems Constitutional: negative: fever, chills, sweats, weakness, malaise, other Eyes: negative: Pain, Vision Change, Conjunctivae Inflammation, Eyelid Inflammation, Redness, Other ENT: negative: Ear Pain, Ear Discharge, Nose Pain, Nose Discharge, Nose Congestion, Mouth Pain, Mouth Swelling, Throat Pain, Throat Swelling, Other Respiratory: Shortness of Breath, SOB with Excertion, Wheezing. negative: Cough , Dry, Hemoptysis, Pleuritic Pain, Sputum Cardiovascular: negative: chest pain, palpitations, orthopnea, paroxysmal nocturnal dyspnea, edema, light headedness, other Gastrointestinal: negative: Nausea, Vomiting, Abdominal Pain, Diarrhea, Constipation, Melena, Hematochezia, Other Genitourinary: negative: Dysuria, Frequency, Incontinence, Hematuria, Retention , Other Musculoskeletal: negative: Neck Pain, Shoulder Pain, Arm Pain, Back Pain, Hand Pain, Leg Pain, Foot Pain, Other Skin: negative: Rash, Lesions, Charles, Bruising, Other - Medications/Allergies Allergies/Adverse Reactions: Allergies Allergy/AdvReac Type Severity Reaction Status Date / Time hydrocodone bitartrate Allergy Intermediate Emesis Verified 12/04/17 20:39 [From Vicodin] Medications: Current Medications Acetaminophen (Tylenol) 650 mg PO Q4H PRN PRN Reason: Headache/Fever or Pain Last Admin: 12/09/17 03:28 Dose: 650 mg Al Hydroxide/Mg Hydroxide (Maalox) 30 ml PO Q6H PRN PRN Reason: Heartburn or Indigestion Albuterol/Ipratropium (Duoneb) 3 ml NEB [id number] Last Admin: 12/09/17 07:29 Dose: 3 ml Albuterol/Ipratropium (Duoneb) 3 ml NEB [id number] PRN PRN Reason: SOB &/or Wheezing Last Admin: 12/07/17 15:56 Dose: 3 ml Alprazolam (Xanax) 0.5 mg PO HSPRN PRN PRN Reason: Anxiety/Insomnia Last Admin: 12/08/17 15:08 Dose: 0.5 mg Bisacodyl (Dulcolax) 10 mg PO DAILYPRN PRN PRN Reason: Constipation Calcitriol (Rocaltrol) 0.25 mcg PO DAILY [facility] Last Admin: 12/09/17 09:09 Dose: 0.25 mcg Calcium Carbonate (Tums) 1,000 mg PO Q4H PRN PRN Reason: Heartburn or Indigestion Cefdinir (Omnicef) 300 mg PO BID [facility] Stop: 12/13/17 21:01 Last Admin: 12/09/17 09:09 Dose: 300 mg Clonidine (Catapres) 0.1 mg PO Q4H PRN PRN Reason: Systolic BP > 160 Last Admin: 12/06/17 22:51 Dose: 0.1 mg Dapsone (Dapsone) 100 mg PO BID [facility] Last Admin: 12/09/17 09:10 Dose: 100 mg Enoxaparin Sodium (Lovenox) 30 mg SC 0900 [facility] Last Admin: 12/09/17 09:10 Dose: 30 mg Epoetin Mahin (Procrit) 7,500 units SC Q7D [facility] Last Admin: 12/06/17 17:43 Dose: 7,500 units Famotidine (Pepcid) 20 mg PO QPM [facility] Last Admin: 12/08/17 20:20 Dose: 20 mg Ferrous Sulfate (Feosol) 325 mg PO QAM-WM [facility] Last Admin: 12/09/17 09:09 Dose: 325 mg Furosemide (Lasix) 60 mg SLOW IVP DAILY [facility] Last Admin: 12/09/17 09:11 Dose: 60 mg Guaifenesin (Robitussin Sf) 200 mg PO Q4H PRN PRN Reason: Cough Last Admin: 12/08/17 04:53 Dose: 200 mg Hydralazine HCl (Apresoline) 10 mg SLOW IVP Q4H PRN PRN Reason: Systolic BP > 170 Last Admin: 12/07/17 12:57 Dose: 10 mg Dextrose/Water (D5w) 1,000 mls @ 25 mls/hr IV .Q24H [facility] Last Admin: 12/08/17 15:23 Dose: 1,000 mls Loratadine (Claritin) 10 mg PO DAILYPRN PRN PRN Reason: Sinus Symptoms Last Admin: 12/08/17 15:08 Dose: 10 mg Metoprolol Tartrate (Lopressor) 50 mg PO BID [facility] Last Admin: 12/09/17 09:21 Dose: 50 mg Mometasone Furoate/Formoterol Fumar (Dulera 200 Mcg/5 Mcg Inhaler) 2 puff INH BID-RT [facility] Last Admin: 12/09/17 07:32 Dose: 2 puff Multivitamins (Theragran) 1 tab PO DAILY [facility] Last Admin: 12/09/17 09:09 Dose: 1 tab Nitroglycerin (Nitrostat) 0.4 mg SL Q5MIN PRN PRN Reason: Chest Pain Nitroglycerin (Nitro-Bid 2% Ointment) 0.5 inch TOP Q8HR [facility] Last Admin: 12/09/17 05:57 Dose: 0.5 inch Ondansetron HCl (Zofran) 4 mg IVP Q6H PRN PRN Reason: Nausea/Vomiting Pantoprazole Sodium (Protonix) 40 mg PO DAILY [facility] Last Admin: 12/09/17 09:10 Dose: 40 mg Senna (Senokot) 2 tab PO HSPRN PRN PRN Reason: Constipation Sodium Bicarbonate (Bicarbonate, Sodium) 650 mg PO BID [facility] Last Admin: 12/09/17 09:10 Dose: 650 mg Sodium Chloride (Flush - Normal Saline) 10 ml IVF Q12HR [facility] Last Admin: 12/09/17 09:11 Dose: 10 ml Sodium Chloride (Flush - Normal Saline) 10 ml IVF PRN PRN PRN Reason: Saline Flush
--- NOTE | 2017-12-09 10:52 | PRG ---
DATE OF SERVICE: 12/09/2017 SUBJECTIVE: Ms. Green is a 77-year-old white female that was seen by the Renal Service for acute kid herman injury on top of her chronic renal failure. Yesterday, she developed SVT. Her heart rate is now much improved. She has been started Lopressor at 50 mg b.i.d. Cardiology is going to follow up thi s patient. No other complaints. She feels better. She also had a superimposed congestive heart failure and cur rently on a diuretic regimen. OBJECTIVE: VITAL SIGNS: Blood pressure is 155/67, heart rate 71, respiratory rate 19, temperature 98.9, and pul se ox 94%. GENERAL: Awake, alert, comfortable, not in distress. SKIN: Adequate turgor. HEENT: Slightly pale conjunctivae, anicteric sclerae. NECK: No neck mass, no carotid bruits, no JVD. CHEST: No deformities. LUNGS: Decreased breath sounds. HEART: Normal sinus rhythm. No murmur, no gallops, no rubs. ABDOMEN: Globular, soft, nontender, no masses. EXTREMITIES: No edema. MEDICATIONS: On 12/09/2017 - Reviewed. LABORATORY DATA: On 12/09/2017 - White count 11.8, hemoglobin 3.2. Sodium 137, potassium 3.8, chlor lianna 104, carbon dioxide 27, BUN 64, and creatinine 2.67. Calcium 9.7. ASSESSMENT AND PLAN: 1. Shortness of breath multifactorial. Chronic obstructive pulmonary disease exacerbation with poss ible congestive heart failure, currently on diuretic regimen and on neb treatment. Feeling better. 2. Supraventricular tachycardia - resolved. Currently on beta donald. Cardiology is to follow. 3. Chronic anemia - patient on Epogen and iron supplementation. 4. Hypertension, fair control. 5. Acute kidney injury/chronic renal failure. Stabilizing renal function. But I did note the creat inine is slightly high at 2.67 from 2.5 yesterday. This could be a reflection of the current diureti c regimen. Please note patient came in with a creatinine 3.14. My suspicion is that chronic renal f ailure secondary to hypertensive nephropathy. Continue supportive care.
--- NOTE | 2017-12-09 12:14 | PRG ---
DATE OF SERVICE: 12/09/2017 SERVICE: Pulmonary Medicine. INTERVAL HISTORY: The patient is doing fine from a breathing standpoint. She denies any chest pain, nausea, vomiting, fevers or chills. She is actually coughing up quite a bit of yellow sputum. If s he does this, she feels better. She is no longer in atrial fibrillation and her rate is under much b cosmo control. She has been working to move around a little bit. She wore BiPAP last night. PHYSICAL EXAMINATION: VITAL SIGNS: Afebrile, pulse 69, blood pressure 140/51, respirations 18, saturation 92% on 3 liters nasal cannula. GENERAL: The patient is awake, alert, no apparent distress. LUNGS: Excellent air entry bilaterally. There is a prolonged expiratory phase. Wheezing and rhonch i are both present. They clear with cough. Dependent crackles are minimal. HEART: Normal rate and regular. ABDOMEN: Soft, nontender, nondistended. Bowel sounds are positive. MUSCULOSKELETAL: No cyanosis or clubbing. There is no pitting in the bilateral lower extremities. NEUROLOGIC: Grossly nonfocal. LABORATORY DATA: WBC 11.8, hemoglobin 8.2, platelets 285,000. Creatinine 2.67 and up trending gentl y, BUN 64, sodium 137, chloride 104. Bicarbonate has improved to 27, magnesium 1.6. E. coli is grow ing mostly sensitive organism. ASSESSMENT: 1. Acute hypoxic respiratory failure. 2. Acute on chronic diastolic heart failure. 3. Atrial fibrillation with rapid ventricular response. 4. Chronic kidney disease, suspected. 5. Normocytic anemia. 6. Non-ST elevation myocardial infarction. 7. Asthma with acute exacerbation. 8. Urinary tract infection. PLAN: We will continue our antibiotics, steroids, and nebulized medications. I will leave the patie nt in the IMCU for an additional 24 hours while we work on mobilizing her. She remains rate controll ed. I do believe that she has chronic renal failure. At this point, we will continue to diurese her down to euvolemia, but do once daily. I will continue to free water for an additional 24 hours.
--- NOTE | 2017-12-09 12:38 | PRG ---
DATE OF SERVICE: 12/09/2017 SUBJECTIVE: Ms. Green is a 77-year-old white female being followed up for her acute kidney injury on top of her chronic renal failure. Renal function has been stabilizing. Pulmonary saw and evaluated her. A repeat chest x-ray shows CHF. Her cardiac echo was within normal, but there may be a degree of diastolic dysfunction. She has received some more diuretics. She also went into AFib recently. OBJECTIVE: VITAL SIGNS: Blood pressure is 194/96, heart rate 82, respiratory rate 20, pulse ox 92%. GENERAL: Exam noted to be awake, supine, comfortable, not in overt distress. SKIN: Adequate turgor. HEENT: Slightly pale conjunctivae. Anicteric sclerae. NECK: No neck mass. No carotid bruits. No JVD. LUNGS: Decreased breath sounds. Occasional wheezing. HEART: Normal sinus rhythm. No murmur, no gallops, no rubs. ABDOMEN: Globular, soft, nontender. No masses. EXTREMITIES: No edema. No deformities. MEDICATIONS: On 12/08/2017 - reviewed. LABORATORY DATA: On 12/08/2017 - White count 11.4, hemoglobin 7.8, hematocrit 23.5. Sodium 139, pot assium 3.9, chloride 109, carbon dioxide 19, BUN 66, creatinine 2.5. Calcium 9.1, phosphorus 3.9. P TH is 146.4. A chest x-ray showed CHF. ASSESSMENT AND PLAN: 1. Shortness of breath - multifactorial etiology. Repeat chest x-ray now shows some fluid. Pulmona ry following. The patient is being diuresed. 2. New onset atrial fibrillation - patient on Lovenox. Cardiology consult as needed. 3. Anemia, currently on weekly Epogen. 4. Acute kidney injury on top of her chronic renal failure - slowly improving renal function. Creat inine now noted at 2.5. Continue supportive care. She does have evidence of chronic renal failure b ased on the renal ultrasound, which showed increased echogenicity and thinning of the cortex. Awaiting Cardiology input for the new onset AFib. I agree with current management.
[2017-12-09 13:07] LABS: ANA Symphony (Qualitative) Negative (Negative)
[2017-12-09] MEDS: Loratadine 10 MG TAB PO PRN (16:00)
[2017-12-09] MEDS: Famotidine 20 MG TAB PO SCH (20:27)
[2017-12-09] MEDS: Dextrose 5% in Water 1,000 ML IV SCH (20:32)
--- NOTE | 2017-12-10 04:29 | CON ---
DATE OF CONSULTATION: 12/09/2017 HISTORY: Delisa Green is a 77-year-old white female with history of asthma, chronic anemia, and hypertension who presented to the emergency room complaining of shortness of breath and some edema. She has been trying nebulizers and inhalers at home for increased shortness of breath which has not help. She denies any chest discomfort. She came to the emergency room and was found to have O2 saturation of 84% on room air. She also was anemic with hemoglobin of 7.7. She has history of paroxysmal atrial fibrillation and had one episode a year ago with pneumonia. She denies ever being placed on any anticoagulants. Then, yesterday morning at approximately 06:30, she went into atrial fibrillation. She has since converted back to sinus rhythm. PAST MEDICAL HISTORY: Hypertension, asthma, and history of one previous episode of atrial fibrillation before the one on this admission. 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 MEDICATIONS: At home include; albuterol 4 mg t.i.d., Norvasc 5 mg daily, dapsone 100 b.i.d., ferrous sulfate 65 daily, lisinopril/hydrochlorothiazide 20/ 12.5 daily, metoprolol 100 b.i.d., multivitamin daily, and Prilosec 20 daily. ALLERGIES: HYDROCODONE. SOCIAL HISTORY: She does not smoke or drink. FAMILY HISTORY: Negative for myocardial infarction. REVIEW OF SYSTEMS: A 12-point review of systems is unremarkable. PHYSICAL EXAMINATION: VITAL SIGNS: Blood pressure 169/75, pulse is 75. HEENT: PERRL. CHEST: Reveal expiratory wheezing. CARDIOVASCULAR: S1 and S2 are normal, without any S3, S4 or murmurs. Carotid upstrokes are normal without bruits. ABDOMEN: Normal bowel sounds, without tenderness. EXTREMITIES: Revealed trace pretibial edema. NEUROLOGIC: Grossly intact. LABORATORY DATA: EKG revealed normal sinus rhythm with nonspecific T-wave changes. Sodium 137, potassium 3.8, chloride 104, carbon dioxide 27, BUN 64, and creatinine 2.67. Cardiac enzymes revealed troponin I 0.097. Hemoglobin 8.2 , hematocrit 24.9, white count 11,800, and platelets 285,000. Echocardiogram revealed evidence for diastolic dysfunction, ejection fraction of 60%-65%, left atrial enlargement, mitral annular calcification, mild to moderate mitral regurgitation, and aortic valvular sclerosis. IMPRESSION: 1. Paroxysmal atrial fibrillation. She had an episode approximately a year ago and another one here. She has never been on anticoagulants and is probably a very poor candidate for that with her severe chronic iron deficiency anemia. 2. Diastolic heart failure. 3. Acute hypoxic respiratory failure, which is multifactorial. 4. Severe anemia. 5. Renal insufficiency. 6. History of asthma. 7. Hypertension. PLAN: Ms. Green appears to be a poor candidate for chronic anticoagulation with severe anemia. She has had 2 episodes of atrial fibrillation by 1 year. She denies any palpitations at home, although it is certainly possible that she may be having silent episodes. Since she has converted back to sinus rhythm at this time, I would continue with her same medications. She will continue to be gently diuresed. LISETD
--- NOTE | 2017-12-10 04:45 | CON ---
DATE OF FOLLOW UP NOTE: 12/08/2017 SERVICE: Pulmonary Medicine. INTERVAL HISTORY: The patient was doing fairly well yesterday from a respiratory standpoint. Overnight, she had a little bit of confusion. She was agitated and pulling on lines. Either way, this morning, she had a little bit of increase of work of breathing, though she appears much more comfortable to me. She denies any current fevers or chills. She is coughing up a little bit of sputum. We moved her to the [facility] for closer observation. OBJECTIVE: VITAL SIGNS: Afebrile, pulse 120, blood pressure 144/98, respirations 17, saturation 94% on 2 L nasal cannula. GENERAL: The patient is awake and alert. She is in mild distress. HEENT: Normocephalic, atraumatic. Sclerae white. Conjunctiva pink. Oral mucosa is moist without lesions. LUNGS: Much improved air entry. There is a prolonged expiratory phase and polyphonic wheezing. Dependent crackles are still present. HEART: Tachycardic, irregular. ABDOMEN: Soft, nontender, nondistended. Bowel sounds are positive. MUSCULOSKELETAL: No cyanosis or clubbing. Pitting edema has resolved. GENITOURINARY: No Calderon. NEUROLOGIC: Grossly nonfocal. LABORATORIES: Hemoglobin 7.8, WBC 11.4, platelets 262,000. A pH 7.41, pCO2 30 , PO2 87. Creatinine 2.50, BUN 66. Anion gap is 15 and down trending. Bicarb has improved up to 19, chloride and sodium up trending as well. Magnesium 1.6. Urinalysis is positive. The urine culture is growing E. Coli. This is an essentially a pansensitive organisms and is susceptible to the second and third generation cephalosporins. ASSESSMENT: 1. Acute hypoxic respiratory failure. 2. Acute on chronic diastolic heart failure. 3. Atrial fibrillation with RVR. 4. Acute kidney injury on chronic kidney disease. 5. Anemia, normocytic. 6. Non ST-elevation myocardial infarction. 7. Asthma with acute exacerbation. 8. Urinary tract infection secondary to Escherichia coli. 9. Delirium with intermittent agitation and sedation. PLAN: I will continue her inhaled steroids, nebulized medications, and antibiotics. We will treat her urinary tract infection for total duration of 7 days. I will put her on and off of BiPAP. We are going to give her medications for rate control. I will ask later medications for rate control. Pulmonary Critical Care will continue to follow along while she remains in the IMCU. JOSE
[2017-12-10] MEDS: Mometasone/Formoterol 120 PUFF INHALER INH SCH ×2 (07:27→19:08)
[2017-12-10 08:38] LABS: #Eosinphils 0.4 thou/uL (0.0-0.7); #Lymphocytes 1.6 thou/uL (1.20-3.40); #Monocytes 0.9 thou/uL (0.11-0.59); #Neutrophils 9.7 thou/uL (1.40-6.50); %Basophils 0.1 % (0.0-1.0); %Eosinophils 3.2 % (0.0-10.0); %Lymphocytes 12.6 % (21.0-51.0); %Monocytes 6.8 % (0.0-10.0); %Neutrophils 77.3 % (42.0-75.0); Hemoglobin 8.9 g/dL (12.0-16.0); Mean Corpuscular HGB CONC 32.1 g/dL (32.0-36.0); Mean Corpuscular Hemoglobin 32.3 pg (27.0-31.0); Mean Platelet Volume 6.8 fL (7.4-10.4); Platelet Count 336 thou/uL (130-400); RBC Distribution Width 17.1 % (11.5-14.5); Red Blood Cell (RBC) Count 2.77 mill/uL (4.20-5.40); White Blood Cell (WBC) Count 12.5 thou/uL (4.8-10.8)
[2017-12-10 09:01] LABS: Anion Gap 14 mmol/L (10-20); BUN (Urea Nitrogen) 54 mg/dL (9.8-20.1); Calc. Creatinine Clearance 30 mL/min (70-130); Calcium 8.9 mg/dL (7.8-10.44); Carbon Dioxide 26 mmol/L (23-31); Chloride 98 mmol/L (98-107); Estimated GFR-MDRD 21; Glucose 164 mg/dL (83-110); Potassium 3.8 mmol/L (3.5-5.1); Sodium 134 mmol/L (136-145)
[2017-12-10] MEDS: Sodium Bicarbonate Tab 325 MG TAB PO SCH ×2 (09:46→21:22)
[2017-12-10] MEDS: Cefdinir 300 MG CAP PO SCH ×2 (09:47→21:22)
[2017-12-10] MEDS: Multivit, Therapeutic 1 TAB PO SCH (09:47)
[2017-12-10] MEDS: Calcitriol 0.25 MCG CAP PO SCH (09:47)
[2017-12-10] MEDS: Metoprolol Tartrate 50 MG TAB PO SCH ×2 (09:47→21:22)
[2017-12-10] MEDS: Ferrous Sulfate 325 MG TAB PO SCH (09:47)
[2017-12-10] MEDS: Enoxaparin Sodium 30 MG/0.3 ML SYRINGE SC SCH (09:48)
[2017-12-10] MEDS: Furosemide 100 MG/10 ML VIAL SLOW IVP SCH (09:48)
--- NOTE | 2017-12-10 09:53 | PRG ---
DATE OF SERVICE: 12/10/2017 SERVICE: Pulmonary Medicine. INTERVAL HISTORY: The patient is doing fantastic from a respiratory standpoint. She denies any ches t pain, nausea, vomiting, or chills. Otherwise, she is moving in the right direction. She has been able to get up to the bathroom with a little bit of assistance. PHYSICAL EXAMINATION: VITAL SIGNS: Afebrile with T-max of 99.1, pulse 76, blood pressure 156/64, respirations 20, saturati on 92% on 4 liters nasal cannula. GENERAL: The patient is awake, alert, no apparent distress. LUNGS: Excellent air entry. There is no prolonged expiratory phase or wheezing present. HEART: Normal rate and regular. ABDOMEN: Soft, nontender, and nondistended. Bowel sounds are positive. MUSCULOSKELETAL: No cyanosis or clubbing. There is no pitting in the bilateral lower extremities. NEUROLOGIC: Grossly nonfocal. LABORATORY DATA: WBC 12.5, hemoglobin 8.9, and platelets 336,000. Creatinine 2.27, BUN 54, sodium 1 34, magnesium 1.6. SHANE screen is positive. She has an anti-double stranded antibody at 14. Urine c ulture is positive for E. coli which is essentially sensitive to cephalosporins. ASSESSMENT: 1. Acute hypoxic respiratory failure. 2. Acute on chronic diastolic heart failure. 3. Atrial fibrillation with rapid ventricular response. 4. Chronic kidney disease, suspected. 5. Abnormal SHANE. 6. Non-ST elevation myocardial infarction. 7. Asthma with acute exacerbation. 8. Urinary tract infection secondary to Escherichia coli. DISCUSSION AND PLAN: We will continue our antibiotics, nebulized medications and steroids. She is r eturning to euvolemia. As such, I will back off on her Lasix and change her over to p.o. She can be transitioned to the floor today. Otherwise, supportive measurements measures will be continued.
--- NOTE | 2017-12-10 11:58 | PRG ---
DATE OF SERVICE: 12/10/2017 RENAL MEDICINE SUBJECTIVE: Ms. Green a 77-year-old white female who was seen for her acute kidney injury on top of her chronic renal failure. During this hospitalization, she also developed transient atrial fibrilla tion which resolved. Cardiology has evaluated her. Due to her significant anemia, no recommendation for anticoagulation. She has also gone into acute respiratory distress and was empirically treated for CHF from a diastolic dysfunction. This morning she is breathing better. No other complaints, no chest pain. Her shortness of breath is baseline. PHYSICAL EXAMINATION: VITAL SIGNS: Blood pressure is 156/64, heart rate 76, respiratory rate 20, temperature 99.1, pulse o x 92%. GENERAL: Noted to be awake, supine, comfortable. SKIN: Adequate turgor. HEENT: She has slightly pale conjunctivae, anicteric sclerae. NECK: No neck mass, no carotid bruits, no JVD. CHEST: No deformities. LUNGS: Decreased breath sounds. HEART: Normal sinus rhythm. No murmurs, no gallops, no rubs. ABDOMEN: Globular, soft, nontender. No masses. EXTREMITIES: No edema. MEDICATIONS: Medications of 12/10/2017 reviewed. LABORATORY DATA: Laboratories of 12/10/2017; white count 12.5, hemoglobin 8.9, and hematocrit 27.8. Sodium 134, potassium 3.8, chloride 98, carbon dioxide 26, BUN 54, creatinine 2.27, glucose 164, elvis cium 8.9. ASSESSMENT AND PLAN: 1. Acute kidney injury on top of her chronic renal failure, stabilizing renal function. Patient mos t likely has underlying prerenal azotemia on top of her hypertensive nephropathy. Continue supportiv e care. No indication for any dialytic intervention. 2. Anemia - on iron supplementation and patient has been started on weekly Epogen. 3. Atrial fibrillation - transient in nature. Due to the resolution of atrial fibrillation, this ma y help with the cardiac output resulting improved creatinine. 4. Diastolic congestive heart failure - stable, clinically improving. Currently on a diuretic regim en. 5. Secondary hyperparathyroidism - patient has been started on calcitriol at 0.25 mcg tab every day. Agree with current management.
[2017-12-10] MEDS: Acetaminophen 325 MG TAB PO PRN (12:32)
[2017-12-10] MEDS: Loratadine 10 MG TAB PO PRN (12:32)
[2017-12-10] MEDS ORDERED: Diltiazem HCl 125 MG, Admixture Fee 1 EACH in Sodium Chloride 0.9% 100 ML IVPB SCH (21:00)
[2017-12-11] MEDS: Acetaminophen 325 MG TAB PO PRN ×2 (01:47→21:37)
[2017-12-11 05:17] LABS: #Eosinphils 0.2 thou/uL (0.0-0.7); #Lymphocytes 1.4 thou/uL (1.20-3.40); #Neutrophils 8.2 thou/uL (1.40-6.50); %Basophils 0.1 % (0.0-1.0); %Lymphocytes 13.2 % (21.0-51.0); %Monocytes 8.9 % (0.0-10.0); %Neutrophils 75.7 % (42.0-75.0); Hemoglobin 8.4 g/dL (12.0-16.0); Mean Corpuscular HGB CONC 32.1 g/dL (32.0-36.0); Mean Corpuscular Hemoglobin 32.3 pg (27.0-31.0); Mean Platelet Volume 6.6 fL (7.4-10.4); Platelet Count 318 thou/uL (130-400); RBC Distribution Width 17.1 % (11.5-14.5); Red Blood Cell (RBC) Count 2.59 mill/uL (4.20-5.40); White Blood Cell (WBC) Count 10.9 thou/uL (4.8-10.8)
[2017-12-11 05:28] LABS: Anion Gap 12 mmol/L (10-20); BUN (Urea Nitrogen) 51 mg/dL (9.8-20.1); Calc. Creatinine Clearance 34 mL/min (70-130); Calcium 8.5 mg/dL (7.8-10.44); Carbon Dioxide 30 mmol/L (23-31); Chloride 98 mmol/L (98-107); Estimated GFR-MDRD 24; Glucose 114 mg/dL (83-110); Potassium 3.6 mmol/L (3.5-5.1); Sodium 136 mmol/L (136-145)
[2017-12-11] MEDS: Mometasone/Formoterol 120 PUFF INHALER INH SCH ×2 (06:57→18:41)
[2017-12-11] MEDS: Multivit, Therapeutic 1 TAB PO SCH (08:45)
[2017-12-11] MEDS: Furosemide 40 MG TAB PO SCH (08:45)
[2017-12-11] MEDS: Metoprolol Tartrate 50 MG TAB PO SCH ×2 (08:45→20:39)
[2017-12-11] MEDS: Sodium Bicarbonate Tab 325 MG TAB PO SCH ×2 (08:45→20:39)
[2017-12-11] MEDS: Calcitriol 0.25 MCG CAP PO SCH (08:45)
[2017-12-11] MEDS: Enoxaparin Sodium 30 MG/0.3 ML SYRINGE SC SCH (08:45)
[2017-12-11] MEDS: Cefdinir 300 MG CAP PO SCH ×2 (08:45→20:39)
[2017-12-11] MEDS: Ferrous Sulfate 325 MG TAB PO SCH (08:45)
--- NOTE | 2017-12-11 08:53 | PRG ---
DATE OF SERVICE: 12/11/2017 SUBJECTIVE: Ms. Green is a 77-year-old white female being followed by the Renal Service for acute ki dney injury on top of her chronic renal failure. Initially, the feeling was that she may have a supe rimposed hemodynamically mediated renal dysfunction on top of her chronic renal failure. She was als o found to have a diastolic congestive heart failure. Furthermore, she may have an underlying chroni c obstructive pulmonary disease/asthma. She is being treated for her CHF and ? asthma exacerbation. Clinically improving over time. 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 She does have atria l fibrillation - transient - and the feeling by Cardiology is that she is not a candidate for anticoa gulation due to her chronic anemia. We have also started her on Epogen. During the subsequent feliberto p, she was found to have on renal ultrasound bilateral renal cortical thinning that this suggestive o f chronic renal failure with this patient. Furthermore, an SHANE screen was done and she was positive and had an elevated anti-double stranded DNA. Her breathing this morning is much improved. Her creatinine is also significantly much improved. PHYSICAL EXAMINATION: VITAL SIGNS: Blood pressure is 146/65, heart rate 77, respiratory rate 20, temperature 98.6, pulse o x 95%. GENERAL: Noted to be awake, comfortable, not in distress. SKIN: Adequate turgor. HEENT: Slightly pale conjunctivae, anicteric sclerae. NECK: No neck mass, no carotid bruits, no JVD. CHEST: No deformities. LUNGS: Clear breath sounds. No wheezing, no crackles. HEART: Normal sinus rhythm. No murmur, no gallops or rubs. ABDOMEN: Globular, soft, nontender, no masses. EXTREMITIES: No edema, no deformities. MEDICATIONS: 12/11/2017 - Reviewed. LABORATORY: 12/11/2017 - White count 10.9, hemoglobin 8.4, hematocrit 26.1. Sodium 136, potassium 3 .6, chloride 98, carbon dioxide 30, BUN 51, creatinine 1.99, glucose 114, calcium 8.5. ASSESSMENT AND PLAN: 1. Acute kidney injury - superimposed hemodynamically mediated renal dysfunction. The congestive he art failure may have contributed to decreased renal perfusion. However, with improving congestive he art failure, her renal function is slowly improving. The creatinine of 1.99 is the best value so far . There is no indication for any dialytic intervention. 2. Chronic renal failure - unclear etiology, although hypertensive nephropathy is a close differenti al with this patient. Chronic interstitial nephritis source also a possibility. With the finding of a positive SHANE and an elevated anti-double stranded DNA, the possibility of lupus nephritis remains on this patient. Of interest, the patient is not spilling any protein. This makes it less likely th at we should initiate any immunosuppressive medication at the present time with this patient. She pr obably will need a rheumatological evaluation. I am hesitant to proceed with a renal biopsy due to t he cortical thinning and this might not be beneficial at the present time. I will be discussing this at length with the patient and her friend. 3. Anemia. We are continuing weekly Epogen with this patient with p.r.n. blood transfusion. We will be rechecking a base met CBC in the a.m.
--- NOTE | 2017-12-11 13:12 | PDOC.PN ---
- Subjective Encounter Start Date: 12/10/17 Encounter Start Time: 10:00 Patient is seen today, drowsy and Disoriented. No other concern snoted. - Objective MAR Reviewed: Yes Vital Signs & Weight: Vital Signs (12 hours) Temp Pulse Resp BP Pulse Ox 12/11/17 12:13 74 16 92 L 12/11/17 07:39 98.6 F 77 20 146/65 H 95 12/11/17 06:57 71 18 93 L 12/11/17 06:56 71 16 93 L 12/11/17 03:05 99.2 F 77 15 151/69 H 96 12/11/17 01:21 77 16 96 Weight Weight 195 lb 14.4 oz I&O: 12/10/17 12/11/17 12/12/17 06:59 06:59 06:59 Intake Total 25083 891 Output Total 300 1250 Balance 63682 -359 Result Diagrams: 12/11/17 04:30 12/11/17 04:30 Radiology Reviewed by me: Yes Phys Exam - Physical Examination HEENT: PERRLA, moist MMs Neck: no nodes, no JVD Respiratory: no wheezing, no rales Cardiovascular: RRR, no significant murmur Gastrointestinal: soft, non-tender Musculoskeletal: no edema, pulses present Dx/Plan (1) CHRISTINA (acute kidney injury) Code(s): N17.9 - ACUTE KIDNEY FAILURE, UNSPECIFIED Status: Acute Comment: slowly improving, has CKD as well (2) Acute asthma exacerbation Code(s): J45.901 - UNSPECIFIED ASTHMA WITH (ACUTE) EXACERBATION Status: Acute Qualifiers: Asthma severity: moderate Comment: Improved with IV steroids and NEbs (3) Acute on chronic diastolic (congestive) heart failure Code(s): I50.33 - ACUTE ON CHRONIC DIASTOLIC (CONGESTIVE) HEART FAILURE Status : Acute Comment: Continue on IV lasix, will dania monitor Renal fcuntions. (4) Acute respiratory failure with hypoxia Code(s): J96.01 - ACUTE RESPIRATORY FAILURE WITH HYPOXIA Status: Acute Comment: likley due to Acute asthma exacerbation.ECHO with mild iastolic dysfunction (5) Anemia Code(s): D64.9 - ANEMIA, UNSPECIFIED Status: Acute Qualifiers: Anemia type: iron deficiency Iron deficiency anemia type: unspecified iron deficiency Qualified Code(s): D50.9 - Iron deficiency anemia, unspecified Comment: (6) Troponin level elevated Code(s): R74.8 - ABNORMAL LEVELS OF OTHER SERUM ENZYMES Status: Acute Comment: demand ischemia from anemia and hypoxia (7) UTI (urinary tract infection) Status: Acute Comment: Ecoli senstive to Cephalopsporins. - Plan cont current plan of care, plan discussed w/ family, continue antibiotics, PT/OT , social services aide, respiratory therapy, incentive spirometry, DVT proph w/ lovenox * . - Discharge Day Encounter end time: 10:35 Review of Systems - Review of Systems Eyes: negative: Pain, Vision Change, Conjunctivae Inflammation, Eyelid Inflammation, Redness, Other ENT: negative: Ear Pain, Ear Discharge, Nose Pain, Nose Discharge, Nose Congestion, Mouth Pain, Mouth Swelling, Throat Pain, Throat Swelling, Other Respiratory: negative: Cough, Dry, Shortness of Breath, Hemoptysis, SOB with Excertion, Pleuritic Pain, Sputum, Wheezing Cardiovascular: negative: chest pain, palpitations, orthopnea, paroxysmal nocturnal dyspnea, edema, light headedness, other Gastrointestinal: negative: Nausea, Vomiting, Abdominal Pain, Diarrhea, Constipation, Melena, Hematochezia, Other Musculoskeletal: negative: Neck Pain, Shoulder Pain, Arm Pain, Back Pain, Hand Pain, Leg Pain, Foot Pain, Other - Medications/Allergies Allergies/Adverse Reactions: Allergies Allergy/AdvReac Type Severity Reaction Status Date / Time hydrocodone bitartrate Allergy Intermediate Emesis Verified 12/04/17 20:39 [From Vicodin] Medications: Current Medications Acetaminophen (Tylenol) 650 mg PO Q4H PRN PRN Reason: Headache/Fever or Pain Last Admin: 12/11/17 01:47 Dose: 650 mg Al Hydroxide/Mg Hydroxide (Maalox) 30 ml PO Q6H PRN PRN Reason: Heartburn or Indigestion Albuterol/Ipratropium (Duoneb) 3 ml NEB [id number] Last Admin: 12/11/17 12:13 Dose: 3 ml Albuterol/Ipratropium (Duoneb) 3 ml NEB [id number] PRN PRN Reason: SOB &/or Wheezing Last Admin: 12/07/17 15:56 Dose: 3 ml Alprazolam (Xanax) 0.5 mg PO HSPRN PRN PRN Reason: Anxiety/Insomnia Last Admin: 12/08/17 15:08 Dose: 0.5 mg Bisacodyl (Dulcolax) 10 mg PO DAILYPRN PRN PRN Reason: Constipation Calcitriol (Rocaltrol) 0.25 mcg PO DAILY [facility] Last Admin: 12/11/17 08:45 Dose: 0.25 mcg Calcium Carbonate (Tums) 1,000 mg PO Q4H PRN PRN Reason: Heartburn or Indigestion Cefdinir (Omnicef) 300 mg PO BID [facility] Stop: 12/13/17 21:01 Last Admin: 12/11/17 08:45 Dose: 300 mg Clonidine (Catapres) 0.1 mg PO Q4H PRN PRN Reason: Systolic BP > 160 Last Admin: 12/06/17 22:51 Dose: 0.1 mg Dapsone (Dapsone) 100 mg PO BID [facility] Last Admin: 12/11/17 08:45 Dose: 100 mg Enoxaparin Sodium (Lovenox) 30 mg SC 0900 [facility] Last Admin: 12/11/17 08:45 Dose: 30 mg Epoetin Mahin (Procrit) 7,500 units SC Q7D [facility] Last Admin: 12/06/17 17:43 Dose: 7,500 units Ferrous Sulfate (Feosol) 325 mg PO QAM-[facility] Last Admin: 12/11/17 08:45 Dose: 325 mg Furosemide (Lasix) 40 mg PO DAILY-[facility] Last Admin: 12/11/17 08:45 Dose: 40 mg Guaifenesin (Robitussin Sf) 200 mg PO Q4H PRN PRN Reason: Cough Last Admin: 12/08/17 04:53 Dose: 200 mg Hydralazine HCl (Apresoline) 10 mg SLOW IVP Q4H PRN PRN Reason: Systolic BP > 170 Last Admin: 12/07/17 12:57 Dose: 10 mg Diltiazem HCl 125 mg/Miscellaneous Medication 1 each/ Sodium Chloride 125 mls @ 5 mls/hr IVPB INF [facility] PRN Reason: Protocol Last Admin: 12/10/17 21:21 Dose: 125 mls Loratadine (Claritin) 10 mg PO DAILYPRN PRN PRN Reason: Sinus Symptoms Last Admin: 12/10/17 12:32 Dose: 10 mg Metoprolol Tartrate (Lopressor) 50 mg PO BID [facility] Last Admin: 12/11/17 08:45 Dose: 50 mg Mometasone Furoate/Formoterol Fumar (Dulera 200 Mcg/5 Mcg Inhaler) 2 puff INH BID-RT [facility] Last Admin: 12/11/17 06:57 Dose: 2 puff Multivitamins (Theragran) 1 tab PO DAILY [facility] Last Admin: 12/11/17 08:45 Dose: 1 tab Nitroglycerin (Nitrostat) 0.4 mg SL Q5MIN PRN PRN Reason: Chest Pain Ondansetron HCl (Zofran) 4 mg IVP Q6H PRN PRN Reason: Nausea/Vomiting Pantoprazole Sodium (Protonix) 40 mg PO DAILY [facility] Last Admin: 12/11/17 08:45 Dose: 40 mg Senna (Senokot) 2 tab PO HSPRN PRN PRN Reason: Constipation Sodium Bicarbonate (Bicarbonate, Sodium) 650 mg PO BID [facility] Last Admin: 12/11/17 08:45 Dose: 650 mg Sodium Chloride (Flush - Normal Saline) 10 ml IVF Q12HR [facility] Last Admin: 12/11/17 08:46 Dose: 10 ml Sodium Chloride (Flush - Normal Saline) 10 ml IVF PRN PRN PRN Reason: Saline Flush
[2017-12-11] MEDS: Loratadine 10 MG TAB PO PRN (13:38)
--- NOTE | 2017-12-11 14:34 | PDOC.PN ---
- Subjective Encounter Start Date: 12/11/17 Encounter Start Time: 13:00 Patent is seen today, alert and orientd. She is on 4l of oxygen, no Home oxygen. Pt wants o go home when ready. - Objective MAR Reviewed: Yes Vital Signs & Weight: Vital Signs (12 hours) Temp Pulse Resp BP Pulse Ox 12/11/17 12:40 98.2 F 72 22 H 147/65 H 95 12/11/17 12:13 74 16 92 L 12/11/17 07:40 98.2 F 72 22 H 95 12/11/17 07:39 98.6 F 77 20 146/65 H 95 12/11/17 06:57 71 18 93 L 12/11/17 06:56 71 16 93 L 12/11/17 03:05 99.2 F 77 15 151/69 H 96 Weight Weight 195 lb 14.4 oz I&O: 12/10/17 12/11/17 12/12/17 06:59 06:59 06:59 Intake Total 32518 891 Output Total 300 1250 Balance 51245 -359 Result Diagrams: 12/11/17 04:30 12/11/17 04:30 Radiology Reviewed by me: Yes Phys Exam - Physical Examination HEENT: PERRLA, moist MMs Neck: no nodes, no JVD Respiratory: no wheezing, no rales, clear to auscultation bilateral Cardiovascular: RRR, no significant murmur Gastrointestinal: soft, non-tender Musculoskeletal: no edema, pulses present Neurological: non-focal, normal sensation Dx/Plan (1) CHRISTINA (acute kidney injury) Code(s): N17.9 - ACUTE KIDNEY FAILURE, UNSPECIFIED Status: Acute Comment: slowly improving, has CKD as well (2) Acute asthma exacerbation Code(s): J45.901 - UNSPECIFIED ASTHMA WITH (ACUTE) EXACERBATION Status: Acute Qualifiers: Asthma severity: moderate Comment: Improved with IV steroids and NEbs, remains on 4 LO oxygen will wean it down to keep Sats>92% (3) Acute on chronic diastolic (congestive) heart failure Code(s): I50.33 - ACUTE ON CHRONIC DIASTOLIC (CONGESTIVE) HEART FAILURE Status : Acute Comment: Continue on IV lasix, will closley monitor Renal fcuntions. (4) Acute respiratory failure with hypoxia Code(s): J96.01 - ACUTE RESPIRATORY FAILURE WITH HYPOXIA Status: Acute Comment: likley due to Acute asthma exacerbation.ECHO with mild iastolic dysfunction, If remains on oxygen, will have to arrnage Home oxygen. (5) Anemia Code(s): D64.9 - ANEMIA, UNSPECIFIED Status: Acute Qualifiers: Anemia type: iron deficiency Iron deficiency anemia type: unspecified iron deficiency Qualified Code(s): D50.9 - Iron deficiency anemia, unspecified Comment: (6) Troponin level elevated Code(s): R74.8 - ABNORMAL LEVELS OF OTHER SERUM ENZYMES Status: Acute Comment: demand ischemia from anemia and hypoxia (7) UTI (urinary tract infection) Status: Acute Comment: Ecoli senstive to Cephalopsporins. 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 - Discharge Day Encounter end time: 13:35 Review of Systems - Review of Systems Eyes: negative: Pain, Vision Change, Conjunctivae Inflammation, Eyelid Inflammation, Redness, Other ENT: negative: Ear Pain, Ear Discharge, Nose Pain, Nose Discharge, Nose Congestion, Mouth Pain, Mouth Swelling, Throat Pain, Throat Swelling, Other Respiratory: Cough, SOB with Excertion Cardiovascular: negative: chest pain, palpitations, orthopnea, paroxysmal nocturnal dyspnea, edema, light headedness, other Gastrointestinal: negative: Nausea, Vomiting, Abdominal Pain, Diarrhea, Constipation, Melena, Hematochezia, Other Genitourinary: negative: Dysuria, Frequency, Incontinence, Hematuria, Retention , Other Musculoskeletal: negative: Neck Pain, Shoulder Pain, Arm Pain, Back Pain, Hand Pain, Leg Pain, Foot Pain, Other - Medications/Allergies Allergies/Adverse Reactions: Allergies Allergy/AdvReac Type Severity Reaction Status Date / Time hydrocodone bitartrate Allergy Intermediate Emesis Verified 12/04/17 20:39 [From Vicodin] Medications: Current Medications Acetaminophen (Tylenol) 650 mg PO Q4H PRN PRN Reason: Headache/Fever or Pain Last Admin: 12/11/17 01:47 Dose: 650 mg Al Hydroxide/Mg Hydroxide (Maalox) 30 ml PO Q6H PRN PRN Reason: Heartburn or Indigestion Albuterol/Ipratropium (Duoneb) 3 ml NEB [id number] Last Admin: 12/11/17 12:13 Dose: 3 ml Albuterol/Ipratropium (Duoneb) 3 ml NEB [id number] PRN PRN Reason: SOB &/or Wheezing Last Admin: 12/07/17 15:56 Dose: 3 ml Alprazolam (Xanax) 0.5 mg PO HSPRN PRN PRN Reason: Anxiety/Insomnia Last Admin: 12/08/17 15:08 Dose: 0.5 mg Bisacodyl (Dulcolax) 10 mg PO DAILYPRN PRN PRN Reason: Constipation Calcitriol (Rocaltrol) 0.25 mcg PO DAILY [facility] Last Admin: 12/11/17 08:45 Dose: 0.25 mcg Calcium Carbonate (Tums) 1,000 mg PO Q4H PRN PRN Reason: Heartburn or Indigestion Cefdinir (Omnicef) 300 mg PO BID [facility] Stop: 12/13/17 21:01 Last Admin: 12/11/17 08:45 Dose: 300 mg Clonidine (Catapres) 0.1 mg PO Q4H PRN PRN Reason: Systolic BP > 160 Last Admin: 12/06/17 22:51 Dose: 0.1 mg Dapsone (Dapsone) 100 mg PO BID [facility] Last Admin: 12/11/17 08:45 Dose: 100 mg Enoxaparin Sodium (Lovenox) 30 mg SC 0900 [facility] Last Admin: 12/11/17 08:45 Dose: 30 mg Epoetin Mahin (Procrit) 7,500 units SC Q7D [facility] Last Admin: 12/06/17 17:43 Dose: 7,500 units Ferrous Sulfate (Feosol) 325 mg PO QAM-WM [facility] Last Admin: 12/11/17 08:45 Dose: 325 mg Furosemide (Lasix) 40 mg PO DAILY-AC [facility] Last Admin: 12/11/17 08:45 Dose: 40 mg Guaifenesin (Robitussin Sf) 200 mg PO Q4H PRN PRN Reason: Cough Last Admin: 12/08/17 04:53 Dose: 200 mg Hydralazine HCl (Apresoline) 10 mg SLOW IVP Q4H PRN PRN Reason: Systolic BP > 170 Last Admin: 12/07/17 12:57 Dose: 10 mg Diltiazem HCl 125 mg/Miscellaneous Medication 1 each/ Sodium Chloride 125 mls @ 5 mls/hr IVPB INF KOBI PRN Reason: Protocol Last Admin: 12/10/17 21:21 Dose: 125 mls Loratadine (Claritin) 10 mg PO DAILYPRN PRN PRN Reason: Sinus Symptoms Last Admin: 12/11/17 13:38 Dose: 10 mg Metoprolol Tartrate (Lopressor) 50 mg PO BID [facility] Last Admin: 12/11/17 08:45 Dose: 50 mg Mometasone Furoate/Formoterol Fumar (Dulera 200 Mcg/5 Mcg Inhaler) 2 puff INH BID-RT [facility] Last Admin: 12/11/17 06:57 Dose: 2 puff Multivitamins (Theragran) 1 tab PO DAILY [facility] Last Admin: 12/11/17 08:45 Dose: 1 tab Nitroglycerin (Nitrostat) 0.4 mg SL Q5MIN PRN PRN Reason: Chest Pain Ondansetron HCl (Zofran) 4 mg IVP Q6H PRN PRN Reason: Nausea/Vomiting Pantoprazole Sodium (Protonix) 40 mg PO DAILY [facility] Last Admin: 12/11/17 08:45 Dose: 40 mg Senna (Senokot) 2 tab PO HSPRN PRN PRN Reason: Constipation Sodium Bicarbonate (Bicarbonate, Sodium) 650 mg PO BID [facility] Last Admin: 12/11/17 08:45 Dose: 650 mg Sodium Chloride (Flush - Normal Saline) 10 ml IVF Q12HR [facility] Last Admin: 12/11/17 08:46 Dose: 10 ml Sodium Chloride (Flush - Normal Saline) 10 ml IVF PRN PRN PRN Reason: Saline Flush
--- NOTE | 2017-12-11 22:32 | PRG ---
DATE OF SERVICE: 12/11/2017 SERVICE: Pulmonary Medicine. INTERVAL HISTORY: The patient is doing fantastic from a respiratory standpoint. Her strength is imp roving. She is actually got up and walked around with physical therapy today. She felt extraordinar sandeep weak, but she was able to do this. Otherwise, there has been no significant interval change to h er condition. She denies any chest pain or productive sputum. PHYSICAL EXAMINATION: VITAL SIGNS: Afebrile, pulse 81, blood pressure 145/66, respirations 20, saturation 96% on 4 liters nasal cannula. GENERAL: The patient is awake, alert, in no apparent distress. LUNGS: Decent air entry. There is prolonged expiratory phase with minimal wheezing. Dependent crac kles are present. No rhonchi today. HEART: Normal rate, regular. ABDOMEN: Soft, nontender, nondistended. Bowel sounds are positive. MUSCULOSKELETAL: No cyanosis or clubbing. No pitting in the bilateral lower extremities. NEUROLOGIC: Grossly nonfocal. LABORATORY DATA: WBC 10.9, hemoglobin 8.4, and platelets 318,000. Creatinine 1.99, which continues to improve. Basic metabolic profile is otherwise unremarkable. Urinalysis is unremarkable. E. coli is growing in the urine, which is essentially pansensitive except to the fluoroquinolones. ASSESSMENT: 1. Acute hypoxic respiratory failure, resolving. 2. Acute on chronic diastolic heart failure. 3. Atrial fibrillation with rapid ventricular response, currently normal sinus rhythm. 4. Chronic kidney disease, suspected. 5. Abnormal SHANE. 6. Non-ST elevation myocardial infarction. 7. Asthma with acute exacerbation, resolving. 8. Urinary tract infection secondary to Escherichia coli. 9. Severe sepsis. PLAN: I will continue her antibiotics, nebulized medications, and steroids. We will continue to diu rese her until she returns to euvolemia which she is fast approaching. We will work with physical eris in order to regain lost strength. I prefer that she not take cough suppressant. She is having a cough occasionally bring up a little bit of clear sputum. As such, we will provide her with a dos e of Mucinex to help liberate that stuff.
[2017-12-12 05:10] LABS: #Eosinphils 0.2 thou/uL (0.0-0.7); #Lymphocytes 1.4 thou/uL (1.20-3.40); #Monocytes 1.2 thou/uL (0.11-0.59); #Neutrophils 5.4 thou/uL (1.40-6.50); %Basophils 0.4 % (0.0-1.0); %Eosinophils 2.8 % (0.0-10.0); %Lymphocytes 16.8 % (21.0-51.0); %Monocytes 14.6 % (0.0-10.0); %Neutrophils 65.4 % (42.0-75.0); Hemoglobin 7.9 g/dL (12.0-16.0); Mean Corpuscular Hemoglobin 32.2 pg (27.0-31.0); Mean Platelet Volume 6.4 fL (7.4-10.4); Platelet Count 301 thou/uL (130-400); RBC Distribution Width 16.3 % (11.5-14.5); Red Blood Cell (RBC) Count 2.44 mill/uL (4.20-5.40); White Blood Cell (WBC) Count 8.3 thou/uL (4.8-10.8)
[2017-12-12 05:25] LABS: Anion Gap 12 mmol/L (10-20); BUN (Urea Nitrogen) 48 mg/dL (9.8-20.1); Calc. Creatinine Clearance 35 mL/min (70-130); Calcium 8.8 mg/dL (7.8-10.44); Carbon Dioxide 33 mmol/L (23-31); Chloride 98 mmol/L (98-107); Estimated GFR-MDRD 26; Glucose 103 mg/dL (83-110); Potassium 3.5 mmol/L (3.5-5.1); Sodium 139 mmol/L (136-145)
[2017-12-12] MEDS: Mometasone/Formoterol 120 PUFF INHALER INH SCH ×2 (06:26→19:40)
[2017-12-12] MEDS: Enoxaparin Sodium 30 MG/0.3 ML SYRINGE SC SCH (08:07)
[2017-12-12] MEDS: Metoprolol Tartrate 50 MG TAB PO SCH ×2 (08:08→20:30)
[2017-12-12] MEDS: Furosemide 40 MG TAB PO SCH (08:08)
[2017-12-12] MEDS: Sodium Bicarbonate Tab 325 MG TAB PO SCH ×2 (08:08→20:30)
[2017-12-12] MEDS: Multivit, Therapeutic 1 TAB PO SCH (08:08)
[2017-12-12] MEDS: Cefdinir 300 MG CAP PO SCH ×2 (08:08→20:29)
[2017-12-12] MEDS: guaiFENesin ER 600 MG TAB PO SCH ×2 (08:08→20:30)
[2017-12-12] MEDS: Calcitriol 0.25 MCG CAP PO SCH (08:08)
[2017-12-12] MEDS: Ferrous Sulfate 325 MG TAB PO SCH (08:08)
--- NOTE | 2017-12-12 09:41 | PRG ---
DATE OF SERVICE: 12/12/2017 SERVICE: Renal Medicine. SUBJECTIVE: Ms. Green is a 77-year-old white female, which has been seen by the Renal Service for her acute kidney injury on top of her chronic renal failure. Over the last several days, her renal function has been stabilizing. Her creatinine today of 1.9 is of best value. She has been stable with this creatinine for the last 48 hours. In addition, she developed transient atrial fibrillation, which has resolved spontaneously. She was felt by Cardiology not to be a candidate for anticoagulation. She also was in CHF with COPD exacerbation. From a pulmonary standpoint, she is much improved. No new complaints today. She is still needing O2 supplementation. PHYSICAL EXAMINATION: VITAL SIGNS: Blood pressure 154/72, heart rate 73, respiratory rate 20, temperature 97.5, pulse ox 97%. GENERAL EXAM: Noted to be awake, sitting comfortable, not in distress. SKIN: Adequate turgor. HEENT: Slightly pale conjunctivae. Anicteric sclerae. NECK: No neck mass, no carotid bruits, no JVD. CHEST: No deformities. LUNGS: Decreased breath sounds. HEART: Normal sinus rhythm. No murmur, no gallops, no rubs. ABDOMEN: Globular, soft, nontender, no masses. EXTREMITIES: Positive for edema, no deformities. Medications of 12/12/2017 reviewed. LABORATORY DATA: Laboratories 12/12/2017, white count 8.2, hemoglobin 7.9, hematocrit 24.6. Sodium 139, potassium 3.5, chloride 98, carbon dioxide 33, BUN 48, creatinine 1.91, GFR 26 mL per minute, glucose 103, calcium 8.8. ASSESSMENT AND PLAN: 1. Acute kidney injury/chronic renal failure, a superimposed prerenal azotemia , slowly improving over time. Creatinine now is noted at 1.91 and she is currently at stage 4 chronic renal failure, no indication for any dialytic intervention. Continue current management. 2. Positive SHANE - patient will have an outpatient rheumatological evaluation. 3. Shortness of breath - multifactorial etiology - congestive heart failure? of underlying chronic lung problem. Pulmonary following. Improving over time. 4. Chronic anemia - the patient has been maintained on weekly Epogen. In addition, she is to receive iron supplementation. Overall, agree with current management. We will check basic metabolic panel and CBC in a.m. MTDD
[2017-12-12] MEDS ORDERED: Potassium Chloride 20 MEQ TAB PO SCH (13:15)
--- NOTE | 2017-12-12 13:21 | PRG ---
DATE OF SERVICE: 12/12/2017 SERVICE: Pulmonary Medicine INTERVAL HISTORY: The patient is doing fantastic from a respiratory standpoint. Her strength is imp roving. She is moving around much easier. She has no complaints of chest pain, nausea, vomiting, fe vers or chills. PHYSICAL EXAMINATION: VITAL SIGNS: Afebrile, pulse 67, blood pressure 149/68, respirations 20, saturation 96% on 3 liters nasal cannula. GENERAL: The patient is alert, in no apparent distress. LUNGS: Decent air entry. There is minimally prolonged expiratory phase. No wheezing, rhonchi, or c rackles are appreciated. HEART: Normal rate, regular. ABDOMEN: Soft, nontender, nondistended. Bowel sounds are positive. MUSCULOSKELETAL: No cyanosis or clubbing. There is no pitting in the bilateral lower extremities. NEUROLOGIC: Nonfocal. LABORATORY DATA: WBC 8.3, hemoglobin 7.9 and stable, platelets 301,000. Creatinine 1.91 and roughly stable. Basic metabolic profile is otherwise unremarkable. Potassium 3.5. SHANE is positive. Urine culture is growing E. coli. ASSESSMENT: 1. Acute hypoxic respiratory failure, resolving. 2. Acute on chronic diastolic heart failure. 3. Atrial fibrillation with rapid ventricular response, currently normal sinus rhythm. 4. Chronic kidney disease suspected. 5. Abnormal SHANE. 6. Non-ST elevation myocardial infarction. 7. Asthma with acute exacerbation, resolved. 8. Urinary tract infection secondary to Escherichia coli. 9. Severe sepsis. PLAN: I will put the patient on Dulera. When she leaves the hospital, I would like for her to go ou t on Breo 200/25 one inhalation daily. I will have her walk on a daily basis. I will replace the po tassium, but from my perspective, from a purely respiratory perspective, she is stable for transition out of the hospital. I would like for her to follow up with me in the outpatient setting, so that jacinto balderas can optimize some of her lung medications. She is on p.o. albuterol 3 times daily and there is sim ply better medications out there these days that I would like to convert her onto, if she tolerates t hat transition.
--- NOTE | 2017-12-12 13:56 | PDOC.PN ---
- Subjective Encounter Start Date: 12/12/17 Encounter Start Time: 11:00 Patient is seen today, alert and oriented. No other concerns noted. She is admitted with Asthma Exacerbation, with continued use of Oxygen at 4 liters. - Objective MAR Reviewed: Yes Vital Signs & Weight: Vital Signs (12 hours) Temp Pulse Pulse Pulse Resp BP BP 12/12/17 13:16 73 16 12/12/17 11:55 98.3 F 67 20 12/12/17 10:16 63 144/65 H 12/12/17 08:10 72 80 154/72 H 138/65 12/12/17 08:05 97.5 F L 73 20 12/12/17 06:29 74 16 12/12/17 06:26 74 18 12/12/17 03:18 98.8 F 67 20 BP Pulse Ox Pulse Ox Pulse Ox 12/12/17 13:16 93 L 12/12/17 11:55 149/68 H 96 12/12/17 10:16 92 L 12/12/17 08:10 98 98 12/12/17 08:05 154/72 H 97 12/12/17 06:29 93 L 12/12/17 06:26 93 L 12/12/17 03:18 139/65 93 L Weight Weight 199 lb 11.2 oz I&O: 12/11/17 12/12/17 12/13/17 06:59 06:59 06:59 Intake Total 891 1255 Output Total 1250 900 Balance -359 355 Result Diagrams: 12/12/17 04:26 12/12/17 04:26 Radiology Reviewed by me: Yes Phys Exam - Physical Examination HEENT: PERRLA, moist MMs Neck: no nodes, no JVD, supple Respiratory: wheezing present Gastrointestinal: soft, non-tender Musculoskeletal: no edema, pulses present Neurological: non-focal, normal sensation Skin: no rash, normal turgor Dx/Plan (1) CHRISTINA (acute kidney injury) Code(s): N17.9 - ACUTE KIDNEY FAILURE, UNSPECIFIED Status: Acute Comment: slowly improving, has CKD as well, With [place] , DsDNA positive pt is closley evalauted (2) Acute asthma exacerbation Code(s): J45.901 - UNSPECIFIED ASTHMA WITH (ACUTE) EXACERBATION Status: Acute Qualifiers: Asthma severity: moderate Comment: Improved with IV steroids and NEbs, remains on 4 LO oxygen will wean it down to keep Sats>92% (3) Acute on chronic diastolic (congestive) heart failure Code(s): I50.33 - ACUTE ON CHRONIC DIASTOLIC (CONGESTIVE) HEART FAILURE Status : Acute Comment: Continue on IV lasix, will dania monitor Renal fcuntions. (4) Acute respiratory failure with hypoxia Code(s): J96.01 - ACUTE RESPIRATORY FAILURE WITH HYPOXIA Status: Acute Comment: likley due to Acute asthma exacerbation.ECHO with mild iastolic dysfunction, If remains on oxygen, will have to arrnage Home oxygen. (5) Anemia Code(s): D64.9 - ANEMIA, UNSPECIFIED Status: Acute Qualifiers: Anemia type: iron deficiency Iron deficiency anemia type: unspecified iron deficiency Qualified Code(s): D50.9 - Iron deficiency anemia, unspecified Comment: (6) Troponin level elevated Code(s): R74.8 - ABNORMAL LEVELS OF OTHER SERUM ENZYMES Status: Acute Comment: demand ischemia from anemia and hypoxia (7) UTI (urinary tract infection) Status: Acute Comment: Ecoli senstive to Cephalopsporins. - Plan cont current plan of care, continue antibiotics, out of bed/ambulate * . - Discharge Day Encounter end time: 11:30 Review of Systems - Review of Systems ENT: negative: Ear Pain, Ear Discharge, Nose Pain, Nose Discharge, Nose Congestion, Mouth Pain, Mouth Swelling, Throat Pain, Throat Swelling, Other Respiratory: Shortness of Breath, SOB with Excertion, Wheezing. negative: Cough , Dry, Hemoptysis, Pleuritic Pain, Sputum Cardiovascular: negative: chest pain, palpitations, orthopnea, paroxysmal nocturnal dyspnea, edema, light headedness, other Gastrointestinal: negative: Nausea, Vomiting, Abdominal Pain, Diarrhea, Constipation, Melena, Hematochezia, Other Genitourinary: negative: Dysuria, Frequency, Incontinence, Hematuria, Retention , Other Musculoskeletal: negative: Neck Pain, Shoulder Pain, Arm Pain, Back Pain, Hand Pain, Leg Pain, Foot Pain, Other - Medications/Allergies Allergies/Adverse Reactions: Allergies Allergy/AdvReac Type Severity Reaction Status Date / Time hydrocodone bitartrate Allergy Intermediate Emesis Verified 12/04/17 20:39 [From Vicodin] Medications: Current Medications Acetaminophen (Tylenol) 650 mg PO Q4H PRN PRN Reason: Headache/Fever or Pain Last Admin: 12/11/17 21:37 Dose: 650 mg Al Hydroxide/Mg Hydroxide (Maalox) 30 ml PO Q6H PRN PRN Reason: Heartburn or Indigestion Albuterol/Ipratropium (Duoneb) 3 ml NEB [id number] [facility] Last Admin: 12/12/17 13:16 Dose: 3 ml Albuterol/Ipratropium (Duoneb) 3 ml NEB [id number] PRN PRN Reason: SOB &/or Wheezing Last Admin: 12/07/17 15:56 Dose: 3 ml Alprazolam (Xanax) 0.5 mg PO HSPRN PRN PRN Reason: Anxiety/Insomnia Last Admin: 12/08/17 15:08 Dose: 0.5 mg Bisacodyl (Dulcolax) 10 mg PO DAILYPRN PRN PRN Reason: Constipation Calcitriol (Rocaltrol) 0.25 mcg PO DAILY [facility] Last Admin: 12/12/17 08:08 Dose: 0.25 mcg Calcium Carbonate (Tums) 1,000 mg PO Q4H PRN PRN Reason: Heartburn or Indigestion Cefdinir (Omnicef) 300 mg PO BID [facility] Stop: 12/13/17 21:01 Last Admin: 12/12/17 08:08 Dose: 300 mg Clonidine (Catapres) 0.1 mg PO Q4H PRN PRN Reason: Systolic BP > 160 Last Admin: 12/06/17 22:51 Dose: 0.1 mg Dapsone (Dapsone) 100 mg PO BID [facility] Last Admin: 12/12/17 09:00 Dose: 100 mg Enoxaparin Sodium (Lovenox) 30 mg SC 0900 [facility] Last Admin: 12/12/17 08:07 Dose: 30 mg Epoetin Mahin (Procrit) 7,500 units SC Q7D [facility] Last Admin: 12/06/17 17:43 Dose: 7,500 units Ferrous Sulfate (Feosol) 325 mg PO QAM-WM [facility] Last Admin: 12/12/17 08:08 Dose: 325 mg Furosemide (Lasix) 40 mg PO DAILY-AC [facility] Last Admin: 12/12/17 08:08 Dose: 40 mg Guaifenesin (Robitussin Sf) 200 mg PO Q4H PRN PRN Reason: Cough Last Admin: 12/08/17 04:53 Dose: 200 mg Guaifenesin (Mucinex) 600 mg PO Q12HR [facility] Last Admin: 12/12/17 08:08 Dose: 600 mg Hydralazine HCl (Apresoline) 10 mg SLOW IVP Q4H PRN PRN Reason: Systolic BP > 170 Last Admin: 12/07/17 12:57 Dose: 10 mg Loratadine (Claritin) 10 mg PO DAILYPRN PRN PRN Reason: Sinus Symptoms Last Admin: 12/11/17 13:38 Dose: 10 mg Metoprolol Tartrate (Lopressor) 50 mg PO BID [facility] Last Admin: 12/12/17 08:08 Dose: 50 mg Mometasone Furoate/Formoterol Fumar (Dulera 200 Mcg/5 Mcg Inhaler) 2 puff INH BID-RT [facility] Last Admin: 12/12/17 06:26 Dose: 2 puff Multivitamins (Theragran) 1 tab PO DAILY [facility] Last Admin: 12/12/17 08:08 Dose: 1 tab Nitroglycerin (Nitrostat) 0.4 mg SL Q5MIN PRN PRN Reason: Chest Pain Ondansetron HCl (Zofran) 4 mg IVP Q6H PRN PRN Reason: Nausea/Vomiting Pantoprazole Sodium (Protonix) 40 mg PO DAILY [facility] Last Admin: 12/12/17 08:08 Dose: 40 mg Potassium Chloride (K-Dur) 40 meq PO NOW [facility] Stop: 12/12/17 16:00 Senna (Senokot) 2 tab PO HSPRN PRN PRN Reason: Constipation Sodium Bicarbonate (Bicarbonate, Sodium) 650 mg PO BID [facility] Last Admin: 12/12/17 08:08 Dose: 650 mg Sodium Chloride (Flush - Normal Saline) 10 ml IVF Q12HR [facility] Last Admin: 12/12/17 08:09 Dose: 10 ml Sodium Chloride (Flush - Normal Saline) 10 ml IVF PRN PRN PRN Reason: Saline Flush
[2017-12-12 15:40] VITALS: BMI 28.6
[2017-12-12] MEDS: Loratadine 10 MG TAB PO PRN (20:29)
[2017-12-12] MEDS: Acetaminophen 325 MG TAB PO PRN (22:24)
[2017-12-13 05:06] LABS: #Eosinphils 0.2 thou/uL (0.0-0.7); #Lymphocytes 1.6 thou/uL (1.20-3.40); #Monocytes 1.1 thou/uL (0.11-0.59); #Neutrophils 4.7 thou/uL (1.40-6.50); %Eosinophils 2.7 % (0.0-10.0); %Lymphocytes 21.2 % (21.0-51.0); %Monocytes 14.7 % (0.0-10.0); %Neutrophils 61.4 % (42.0-75.0); Hemoglobin 7.2 g/dL (12.0-16.0); Mean Corpuscular HGB CONC 31.9 g/dL (32.0-36.0); Mean Platelet Volume 6.6 fL (7.4-10.4); Platelet Count 277 thou/uL (130-400); RBC Distribution Width 16.2 % (11.5-14.5); Red Blood Cell (RBC) Count 2.24 mill/uL (4.20-5.40); White Blood Cell (WBC) Count 7.6 thou/uL (4.8-10.8)
[2017-12-13 05:16] LABS: Anion Gap 8 mmol/L (10-20); BUN (Urea Nitrogen) 50 mg/dL (9.8-20.1); Calc. Creatinine Clearance 37 mL/min (70-130); Calcium 8.5 mg/dL (7.8-10.44); Carbon Dioxide 31 mmol/L (23-31); Chloride 98 mmol/L (98-107); Estimated GFR-MDRD 27; Glucose 105 mg/dL (83-110); Potassium 3.6 mmol/L (3.5-5.1); Sodium 133 mmol/L (136-145)
[2017-12-13] MEDS: Mometasone/Formoterol 120 PUFF INHALER INH SCH ×2 (07:37→18:57)
[2017-12-13] MEDS: Sodium Bicarbonate Tab 325 MG TAB PO SCH ×2 (08:30→21:09)
[2017-12-13] MEDS: Multivit, Therapeutic 1 TAB PO SCH (08:30)
[2017-12-13] MEDS: Metoprolol Tartrate 50 MG TAB PO SCH ×2 (08:31→21:08)
[2017-12-13] MEDS: Calcitriol 0.25 MCG CAP PO SCH (08:31)
[2017-12-13] MEDS: Ferrous Sulfate 325 MG TAB PO SCH (08:31)
[2017-12-13] MEDS: Cefdinir 300 MG CAP PO SCH ×2 (08:31→21:09)
[2017-12-13] MEDS: guaiFENesin ER 600 MG TAB PO SCH ×2 (08:31→21:08)
[2017-12-13] MEDS: Furosemide 40 MG TAB PO SCH (08:32)
[2017-12-13] MEDS ORDERED: Epoetin (NON-ESRD) 10,000 UNITS/ML VIAL SC SCH (09:00)
--- NOTE | 2017-12-13 09:31 | PRG ---
DATE OF SERVICE: 12/13/2017 RENAL MEDICINE SUBJECTIVE: Ms. Green is a 77-year-old white female who was initially admitted for shortness of sisi th. She was seen by the Renal Service for acute kidney injury on top of her chronic renal failure. She had a superimposed hemodynamically mediated renal dysfunction on top of her chronic renal failure . The etiology of her chronic renal failure is unclear although hypertensive nephropathy is a possib ility. However, with a positive SHANE and positive double stranded antiDNA, possibility of chronic matthew merulonephritis remains such as lupus nephritis. This patient will be referred to Hematology in an o utpatient setting. In the interim, she has also received several units of packed RBC. She has alrea dy been initiated on Epogen. Today, I will be increasing her Epogen to 10,000 units subcutaneously e very week. No other complaints. The patient is feeling better. Her shortness of breath is much imp roved. She is being followed up by pulmonary medicine. PHYSICAL EXAMINATION: VITAL SIGNS: Blood pressure is 132/60, heart rate 80, respiratory rate 18, temperature 98.6, pulse o x 91%. GENERAL: Awake, sitting comfortable, not in distress. SKIN: Adequate turgor. HEENT: Slightly pale conjunctivae, anicteric sclerae. NECK: No neck mass, no carotid bruits, no JVD. CHEST: No deformities. LUNGS: Clear breath sounds, no wheezing, no crackles. HEART: Normal sinus rhythm. No murmurs, no gallops, no rubs. ABDOMEN: Globular, soft, nontender. No masses. EXTREMITIES: No edema, no deformities. MEDICATIONS: Medications of 12/13/2017 reviewed. LABORATORY DATA: Laboratories of 12/13/2017; white count 7.6, hemoglobin 7.2. Sodium 133, potassium 3.6, chloride 98, carbon dioxide 31, BUN 50, creatinine 1.84, glucose 105 and calcium 8.5. ASSESSMENT AND PLAN: 1. Acute kidney injury - hemodynamically mediated renal dysfunction, much improved. 2. Chronic renal failure - unclear etiology. Hypertensive nephropathy is a possibility. In additio n, due to the positive SHANE, hematuria, possibility of possible underlying chronic glomerulonephritis - ? of lupus nephritis. 3. Positive SHANE - patient to be referred to Rheumatology as an outpatient. 4. Chronic anemia - Epogen has been initiated. We will increase Epogen to 10,000 units subcutaneous ly every week. This patient may eventually need referral to Hematology for her regular Procrit shots as an outpatient. 5. Shortness of breath, multifactorial etiology - clinically improving on neb treatment. Pulmonary following. Overall, agree with current management. Please note patient's renal function has stabilized. There is no indication for any dialytic intervention.
[2017-12-13] MEDS: Enoxaparin Sodium 30 MG/0.3 ML SYRINGE SC SCH (09:57)
[2017-12-13] MEDS ORDERED: Potassium Chloride 20 MEQ TAB PO SCH (14:00)
--- NOTE | 2017-12-13 14:13 | PRG ---
DATE OF SERVICE: 12/13/2017 SERVICE: Pulmonary Medicine. INTERVAL HISTORY: The patient is doing fantastic from a cardiovascular and respiratory standpoint. She is breathing comfortably. Her strength is improving dramatically. She is excited about possibly going home tomorrow. We have been weaning her oxygen as tolerated, but she still maintains a need f or about 1-2 liters nasal cannula. She has a cough and is bringing up a little bit of sputum. That being said, she is moving much better air and is not struggling to breathe. PHYSICAL EXAMINATION: VITAL SIGNS: Afebrile, pulse 76, blood pressure 154/71, respirations 18, saturation 93% on 2 liters nasal cannula. GENERAL: The patient is awake, alert, no apparent distress. LUNGS: Excellent air entry. Today, there is no prolonged expiratory phase or wheezing. A little bi t of rhonchi are present, but clear with cough. HEART: Normal rate and regular. ABDOMEN: Soft, nontender, nondistended. Bowel sounds are positive. MUSCULOSKELETAL: No cyanosis or clubbing. There is no pitting in the bilateral lower extremities. NEUROLOGIC: Grossly nonfocal. LABORATORY DATA: WBC 7.6, hemoglobin 7.2, and platelets 277,000. Creatinine 1.84 and gently down tr ending, BUN 50. Basic metabolic profile is otherwise unremarkable/stable. Occult blood is unremarka ble. E. coli is growing in the urine, which is sensitive to the cephalosporins. ASSESSMENT: 1. Acute hypoxic respiratory failure, resolving. 2. Acute on chronic diastolic heart failure. 3. Atrial fibrillation with rapid ventricular response, currently normal sinus rhythm. 4. Asthma with acute exacerbation, resolved. 5. Chronic kidney disease, suspected. 6. Abnormal SHANE. 7. Non-ST elevation myocardial infarction. 8. Severe sepsis, resolved. 9. Urinary tract infection secondary to Escherichia coli. PLAN: On discharge, the patient needs to go out on Breo 200/25 one inhalation daily. We will contin ue to encourage mobility as much as tolerated. From my perspective, she is stable for transition out of the hospital. She needs to return to see me in 2-3 weeks in the outpatient setting, so that we c an optimize some of her lung medications. Anemia workup needs to occur in the outpatient setting if it does not recover with Epogen. Laboratory holiday will be provided tomorrow morning.
--- NOTE | 2017-12-13 14:28 | PDOC.PN ---
- Subjective Encounter Start Date: 12/13/17 Encounter Start Time: 10:00 Patient is seen today, She is still on oxygen, admitted with Respiratory fsailure from Acute on Chronic asthma, Will plan for home oxygen evaluation. - Objective MAR Reviewed: Yes Vital Signs & Weight: Vital Signs (12 hours) Temp Pulse Resp BP BP Pulse Ox 12/13/17 14:17 85 20 92 L 12/13/17 12:31 98.5 F 76 18 154/71 H 93 L 12/13/17 08:25 98.6 F 80 18 132/60 91 L 12/13/17 07:41 93 L 12/13/17 07:39 72 18 93 L 12/13/17 07:37 77 16 93 L 12/13/17 03:16 97.9 F 72 17 138/64 91 L Weight Admit Weight 189 lb Weight 196 lb 8 oz I&O: 12/12/17 12/13/17 12/14/17 06:59 06:59 06:59 Intake Total 1255 1440 Output Total 900 1100 Balance 355 340 Result Diagrams: 12/13/17 04:15 12/13/17 04:16 Radiology Reviewed by me: Yes Phys Exam - Physical Examination HEENT: PERRLA, moist MMs Neck: no nodes, no JVD Respiratory: no wheezing, no rales Cardiovascular: RRR, no significant murmur Gastrointestinal: soft, non-tender Musculoskeletal: no edema, pulses present Neurological: non-focal, normal sensation Lymphatic: no nodes Psychiatric: normal affect Dx/Plan (1) CHRISTINA (acute kidney injury) Code(s): N17.9 - ACUTE KIDNEY FAILURE, UNSPECIFIED Status: Acute Comment: slowly improving, has CKD as well, With [place] , DsDNA positive pt is dania evalauted (2) Acute asthma exacerbation Code(s): J45.901 - UNSPECIFIED ASTHMA WITH (ACUTE) EXACERBATION Status: Acute Qualifiers: Asthma severity: moderate Comment: Improved with IV steroids and NEbs, remains on 4 LO oxygen will wean it down to keep Sats>92% (3) Acute on chronic diastolic (congestive) heart failure Code(s): I50.33 - ACUTE ON CHRONIC DIASTOLIC (CONGESTIVE) HEART FAILURE Status : Acute Comment: Continue on IV lasix, will dania monitor Renal fcuntions. (4) Acute respiratory failure with hypoxia Code(s): J96.01 - ACUTE RESPIRATORY FAILURE WITH HYPOXIA Status: Acute Comment: likley due to Acute asthma exacerbation.ECHO with mild iastolic dysfunction, If remains on oxygen, will have to arrnage Home oxygen. (5) Anemia Code(s): D64.9 - ANEMIA, UNSPECIFIED Status: Acute Qualifiers: Anemia type: iron deficiency Iron deficiency anemia type: unspecified iron deficiency Qualified Code(s): D50.9 - Iron deficiency anemia, unspecified Comment: (6) Troponin level elevated Code(s): R74.8 - ABNORMAL LEVELS OF OTHER SERUM ENZYMES Status: Acute Comment: demand ischemia from anemia and hypoxia (7) UTI (urinary tract infection) Status: Acute Comment: Ecoli senstive to Cephalopsporins. - Plan cont current plan of care, continue antibiotics, PT/OT, manager social (Home oxygen evalaution today,), respiratory therapy, DVT proph w/lovenox * . - Discharge Day Encounter end time: 10:35 Review of Systems - Review of Systems Eyes: negative: Pain, Vision Change, Conjunctivae Inflammation, Eyelid Inflammation, Redness, Other Respiratory: Shortness of Breath, SOB with Excertion. negative: Cough, Dry, Hemoptysis, Pleuritic Pain, Sputum, Wheezing Cardiovascular: negative: chest pain, palpitations, orthopnea, paroxysmal nocturnal dyspnea, edema, light headedness, other Gastrointestinal: negative: Nausea, Vomiting, Abdominal Pain, Diarrhea, Constipation, Melena, Hematochezia, Other Genitourinary: negative: Dysuria, Frequency, Incontinence, Hematuria, Retention , Other Musculoskeletal: negative: Neck Pain, Shoulder Pain, Arm Pain, Back Pain, Hand Pain, Leg Pain, Foot Pain, Other - Medications/Allergies Allergies/Adverse Reactions: Allergies Allergy/AdvReac Type Severity Reaction Status Date / Time hydrocodone bitartrate Allergy Intermediate Emesis Verified 12/04/17 20:39 [From Vicodin] Medications: Current Medications Acetaminophen (Tylenol) 650 mg PO Q4H PRN PRN Reason: Headache/Fever or Pain Last Admin: 12/12/17 22:24 Dose: 650 mg Al Hydroxide/Mg Hydroxide (Maalox) 30 ml PO Q6H PRN PRN Reason: Heartburn or Indigestion Albuterol/Ipratropium (Duoneb) 3 ml NEB [id number] Last Admin: 12/13/17 14:17 Dose: 3 ml Albuterol/Ipratropium (Duoneb) 3 ml NEB [id number] PRN PRN Reason: SOB &/or Wheezing Last Admin: 12/07/17 15:56 Dose: 3 ml Alprazolam (Xanax) 0.5 mg PO HSPRN PRN PRN Reason: Anxiety/Insomnia Last Admin: 12/08/17 15:08 Dose: 0.5 mg Bisacodyl (Dulcolax) 10 mg PO DAILYPRN PRN PRN Reason: Constipation Calcitriol (Rocaltrol) 0.25 mcg PO DAILY [facility] Last Admin: 12/13/17 08:31 Dose: 0.25 mcg Calcium Carbonate (Tums) 1,000 mg PO Q4H PRN PRN Reason: Heartburn or Indigestion Cefdinir (Omnicef) 300 mg PO BID [facility] Stop: 12/13/17 21:01 Last Admin: 12/13/17 08:31 Dose: 300 mg Clonidine (Catapres) 0.1 mg PO Q4H PRN PRN Reason: Systolic BP > 160 Last Admin: 12/06/17 22:51 Dose: 0.1 mg Dapsone (Dapsone) 100 mg PO BID [facility] Last Admin: 12/13/17 09:57 Dose: 100 mg Enoxaparin Sodium (Lovenox) 30 mg SC 0900 [facility] Last Admin: 12/13/17 09:57 Dose: 30 mg Epoetin Mahin (Procrit) 10,000 units SC Q7D [facility] Last Admin: 12/13/17 09:59 Dose: 10,000 units Ferrous Sulfate (Feosol) 325 mg PO QAM-WM [facility] Last Admin: 12/13/17 08:31 Dose: 325 mg Furosemide (Lasix) 40 mg PO DAILY-AC [facility] Last Admin: 12/13/17 08:32 Dose: 40 mg Guaifenesin (Robitussin Sf) 200 mg PO Q4H PRN PRN Reason: Cough Last Admin: 12/08/17 04:53 Dose: 200 mg Guaifenesin (Mucinex) 600 mg PO Q12HR [facility] Last Admin: 12/13/17 08:31 Dose: 600 mg Hydralazine HCl (Apresoline) 10 mg SLOW IVP Q4H PRN PRN Reason: Systolic BP > 170 Last Admin: 12/07/17 12:57 Dose: 10 mg Loratadine (Claritin) 10 mg PO DAILYPRN PRN PRN Reason: Sinus Symptoms Last Admin: 12/12/17 20:29 Dose: 10 mg Metoprolol Tartrate (Lopressor) 50 mg PO BID [facility] Last Admin: 12/13/17 08:31 Dose: 50 mg Mometasone Furoate/Formoterol Fumar (Dulera 200 Mcg/5 Mcg Inhaler) 2 puff INH BID-RT [facility] Last Admin: 12/13/17 07:37 Dose: 2 puff Multivitamins (Theragran) 1 tab PO DAILY [facility] Last Admin: 12/13/17 08:30 Dose: 1 tab Nitroglycerin (Nitrostat) 0.4 mg SL Q5MIN PRN PRN Reason: Chest Pain Ondansetron HCl (Zofran) 4 mg IVP Q6H PRN PRN Reason: Nausea/Vomiting Pantoprazole Sodium (Protonix) 40 mg PO DAILY [facility] Last Admin: 12/13/17 08:32 Dose: 40 mg Potassium Chloride (K-Dur) 40 meq PO NOW [facility] Stop: 12/13/17 16:00 Senna (Senokot) 2 tab PO HSPRN PRN PRN Reason: Constipation Sodium Bicarbonate (Bicarbonate, Sodium) 650 mg PO BID [facility] Last Admin: 12/13/17 08:30 Dose: 650 mg Sodium Chloride (Flush - Normal Saline) 10 ml IVF Q12HR [facility] Last Admin: 12/13/17 08:33 Dose: 10 ml Sodium Chloride (Flush - Normal Saline) 10 ml IVF PRN PRN PRN Reason: Saline Flush
[2017-12-13] MEDS: Loratadine 10 MG TAB PO PRN (17:38)
[2017-12-14] MEDS: Acetaminophen 325 MG TAB PO PRN (00:46)
[2017-12-14] MEDS: ALPRAZolam 0.5 MG TAB PO PRN (03:20)
[2017-12-14] MEDS: Mometasone/Formoterol 120 PUFF INHALER INH SCH (08:16)
[2017-12-14 10:36] LABS: #Basophils 0.1 thou/uL (0.0-0.2); #Eosinphils 0.1 thou/uL (0.0-0.7); #Lymphocytes 1.2 thou/uL (1.20-3.40); #Neutrophils 5.1 thou/uL (1.40-6.50); %Basophils 1.2 % (0.0-1.0); %Eosinophils 1.5 % (0.0-10.0); %Lymphocytes 15.7 % (21.0-51.0); %Monocytes 13.7 % (0.0-10.0); %Neutrophils 67.9 % (42.0-75.0); Hemoglobin 7.4 g/dL (12.0-16.0); Mean Corpuscular HGB CONC 33.6 g/dL (32.0-36.0); Mean Corpuscular Hemoglobin 33.7 pg (27.0-31.0); Mean Platelet Volume 6.4 fL (7.4-10.4); Platelet Count 252 thou/uL (130-400); Red Blood Cell (RBC) Count 2.19 mill/uL (4.20-5.40); White Blood Cell (WBC) Count 7.5 thou/uL (4.8-10.8)
[2017-12-14 10:55] LABS: Anion Gap 13 mmol/L (10-20); BUN (Urea Nitrogen) 39 mg/dL (9.8-20.1); Calc. Creatinine Clearance 37 mL/min (70-130); Calcium 8.9 mg/dL (7.8-10.44); Carbon Dioxide 27 mmol/L (23-31); Chloride 102 mmol/L (98-107); Estimated GFR-MDRD 27; Glucose 106 mg/dL (83-110); Potassium 4.1 mmol/L (3.5-5.1); Sodium 138 mmol/L (136-145)
[2017-12-14 11:24] VITALS: BP 161/73; TEMP 97.9
[2017-12-14] MEDS: Enoxaparin Sodium 30 MG/0.3 ML SYRINGE SC SCH (11:25)
[2017-12-14] MEDS: guaiFENesin ER 600 MG TAB PO SCH (11:26)
[2017-12-14] MEDS: Metoprolol Tartrate 50 MG TAB PO SCH (11:26)
[2017-12-14] MEDS: Calcitriol 0.25 MCG CAP PO SCH (11:26)
[2017-12-14] MEDS: Sodium Bicarbonate Tab 325 MG TAB PO SCH (11:27)
[2017-12-14] MEDS: Furosemide 40 MG TAB PO SCH (11:27)
[2017-12-14] MEDS: Multivit, Therapeutic 1 TAB PO SCH (11:27)
[2017-12-14] MEDS: Ferrous Sulfate 325 MG TAB PO SCH (11:27)
--- NOTE | 2017-12-14 13:45 | HP ---
HISTORY OF PRESENT ILLNESS: Ms. Green is a 77-year-old white female, who was initially seen by the [facility] for her acute kidney injury on top of her chronic renal failure. Renal function establi shed over time. She had a superimposed prerenal azotemia. She was also found to have shortness of b reath secondary to CHF/COPD exacerbation. She has also been seen to have chronic anemia. During the workup, she was found to have positive SHANE. Currently, this morning she is feeling better. Renal f unction is much improved. PHYSICAL EXAMINATION: VITAL SIGNS: Blood pressure is 129/61, heart rate 76, respiratory rate 18, pulse ox 96%, and tempera ture 97.7. GENERAL: Awake, alert, comfortable, not in distress. SKIN: Adequate turgor. HEENT: Slightly pale conjunctivae, anicteric sclerae. NECK: No neck mass, no carotid bruits, no JVD. CHEST: No deformities. LUNGS: Decreased breath sounds. HEART: Normal sinus rhythm. No murmur, no gallops or rubs. ABDOMEN: Globular, soft, nontender, no masses. EXTREMITIES: No edema, no deformities. LABORATORY AND X-RAY FINDINGS: On 12/13/2017, BUN 50, creatinine 1.84, potassium 3.6, hemoglobin 7.2 , hematocrit 22.4. ASSESSMENT AND PLAN: 1. Acute kidney injury, superimposed hemodynamically mediated renal function, much improved. 2. Chronic renal failure, uncertain etiology, although chronic glomerulonephritis versus hypertensiv e nephropathy is a past stability. Due to the positive antinuclear antibody and double stranded anti -DNA, patient will be referred to Hematology as an outpatient. 3. Chronic anemia, currently on Epogen and p.r.n blood transfusion. Consider referring to Hematolog y for maintenance of Epogen. 4. Shortness of breath, multifactorial etiology - congestive heart failure/chronic obstructive pulmo nary disease exacerbation. Overall, agree with current management. The patient instructed to follow up at the [facility] in 1 -2 weeks.
--- NOTE | 2017-12-14 14:17 | PRG ---
DATE OF SERVICE: 12/14/2017 SUBJECTIVE: This morning, she is better, less short of breath, less coughing, less wheezing. OBJECTIVE: VITAL SIGNS: Sats are 98.3% on room air, temperature 97, pulse 81, respiration rate 18, blood pressu re is 161/73. CHEST: No wheezing. CARDIAC: Normal S1, S2. ABDOMEN: Soft. LABORATORY DATA: Creatinine is 1.8. White count 7000, H&H 7 and 22, platelet count is normal. IMPRESSION: 1. Renal failure. 2. Respiratory failure with diastolic dysfunction. 3. Asthma. PLAN: She has been discharged home to be followed by Dr. Tillman. He suggested the patient go home on steroids. We will see you in office in a week.
--- NOTE | 2017-12-14 16:56 | DIS ---
DATE OF ADMISSION: 12/04/2017 DATE OF DISCHARGE: 12/14/2017 ADMITTING DIAGNOSIS: Acute hypoxic respiratory failure. DISCHARGE DIAGNOSIS: Acute hypoxic respiratory failure secondary to acute on chronic asthma. SECONDARY DIAGNOSES: 1. Hypertension. 2. 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 3. Iron deficiency anemia. 4. History of small-bowel obstruction, status post repair. CONSULTATIONS: Consultants involved in the care: 1. Rohan Tillman MD 2. Vini Abebe M.D. HISTORY OF PRESENT ILLNESS AND HOSPITAL COURSE: In brief, this is a 77-year-old white female with a past medical history of chronic bronchitis and asthma and has been treated with HFA albuterol. She w yoselin up in the middle of the night and acutely winded and she presented to the ED with acute asthma at [facility], [place] and she was brought to the ER and initially was diagnosed with COPD exacerbation and was started on IV fluids and hydration. She will also start on some antibiotics and IV steroids. The patient w as given a lot of fluids in the ER and following which she started noticing worsening pulmonary edema in her lungs and had signs of congestive heart failure. A chest x-ray at that time showed an eviden ce of bilateral pleural effusions and the patient was admitted to the IMCU. The patient was on BiPAP and was closely monitored. The patient showed good improvement with IV Lasix and with nebulizer rod atments along with IV steroids, but her kidney functions were getting worse and the patient had Nephr ology consultation and Dr. Abebe ordered some basic tests, which showed the patient had a very low GFR and SHANE was positive and double-stranded antibody was also positive, which were leading towards the l upus nephritis, but the patient's renal functions did improve slowly and her creatinine has been stab ilized at 1.8 on the day of discharge. The patient also had good improvement in her breathing and on the day of the discharge, she was sent home with home oxygen as the patient persistently dropped sat urations on walking less than 86%. The patient was discharged home in stable condition. PHYSICAL EXAMINATION: VITAL SIGNS: Blood pressure 161/73, heart rate is 81, respiratory rate is 18, and saturation 93%. CARDIOVASCULAR: S1, S2 normal. No murmurs, rubs or gallops. LUNGS: Bilateral air entry was equal. No wheezing, no crackles. ABDOMEN: Soft, nontender, no guarding, no rebound tenderness. Bowel sounds normal. MUSCULOSKELETAL: No calf tenderness. No pedal edema. No joint tenderness, no joint swelling. SKIN: No cyanosis, no erythema, no rash, no pallor. DISCHARGE MEDICATIONS: Omnicef 300 mg p.o. b.i.d. NEW MEDICATIONS: 1. Ferrous sulfate 65 mg p.o. b.i.d. 2. Lasix 20 mg p.o. daily. 3. Dulera 200/5 one puff inhalation b.i.d. 4. Potassium chloride 10 mEq p.o. daily. OTHER HOME MEDICATIONS: 1. Albuterol inhalation. 2. Amlodipine 5 mg p.o. daily. 3. Dapsone 100 mg p.o. b.i.d. 4. Enalapril 10 mg p.o. daily. 5. Lisinopril/hydrochlorothiazide 20/12.5 mg p.o. daily. 6. Metoprolol 100 mg p.o. b.i.d. 7. Omeprazole 20 mg p.o. daily. DISCHARGE INSTRUCTIONS: Continue activity as tolerated. Advised to follow up with the primary care physician in 1-2 weeks. Advised to follow up with Nephrology in 1-2 weeks. Advised to follow up fiona Tillman in 1 week. I spent 35 minutes with this patient on the day of discharge.
== END 2017-12-14 15:21 | disposition home or self-care (01) | DRG 280 ==
LOC: ERS 14:44 → 2NO 17:01 → IMCU/EMU 12-08 11:36 → 2NO 12-11 00:47
PROVIDERS: ADMIT Internal Medicine; ATTEND Internal Medicine
DX: I13.0 Hypertensive heart and chronic kidney disease with heart failure and stage 1 through stage 4 chronic kidney disease, or unspecified chronic kidney disease (principal); I50.33 Acute on chronic diastolic (congestive) heart failure; I21.4 Non-ST elevation (NSTEMI) myocardial infarction; J96.21 Acute and chronic respiratory failure with hypoxia; N17.9 Acute kidney failure, unspecified; J44.1 Chronic obstructive pulmonary disease with (acute) exacerbation; J45.901 Unspecified asthma with (acute) exacerbation; N39.0 Urinary tract infection, site not specified; I47.2 Ventricular tachycardia; N25.81 Secondary hyperparathyroidism of renal origin; N18.9 Chronic kidney disease, unspecified; I48.0 Paroxysmal atrial fibrillation; D50.9 Iron deficiency anemia, unspecified; E86.0 Dehydration; B96.20 Unspecified Escherichia coli [E. coli] as the cause of diseases classified elsewhere; I07.1 Rheumatic tricuspid insufficiency; E66.9 Obesity, unspecified; Z96.611 Presence of right artificial shoulder joint; Z96.612 Presence of left artificial shoulder joint
CPT/HCPCS: 36415; 36430; 71045; 76770; 80048; 80053; 81001; 82274; 82553; 82570; 82607; 82746; 82805; 83540; 83550; 83605; 83735; 83880; 83970; 84100; 84300; 84443; 84484; 85014; 85018; 85025; 86038; 86225; 86850; 86900; 86901; 87077; 87086; 87186; 93005; 93306; 93798; 94640; 94660; 96374; A4216; G8978-GP-CJ; G8978-GP-CL; G8979-GP-CJ; G8980-GP-CJ; G8987-GO-CJ; G8988-GO-CH; J0360; J0696; J0885; J1650; J1940; J2270; J2916; J2920; J2930; J3475; J7050; J7620; P9016; P9047; Q4081

== ENCOUNTER 2018-01-20 16:51 | Outpatient (CLI) | payer MEDICARE | END 2018-01-20 16:52 | disposition home or self-care (01) | LOC: BICRAD 16:51 | PROVIDERS: ATTEND Internal Medicine Medical Oncology | DX: C90.00 Multiple myeloma not having achieved remission (principal); D50.8 Other iron deficiency anemias; Z98.890 Other specified postprocedural states | CPT/HCPCS: 77075 ==

== ENCOUNTER 2018-05-15 13:17 | Outpatient (CLI) | payer MEDICARE ==
--- NOTE | 2018-05-15 16:35 | RAD ---
PA AND LATERAL VIEWS OF CHEST: Date: 05/15/18 HISTORY: Dyspnea. FINDINGS: Comparison made with exam of 12/07/17. The heart size is mildly enlarged. The aorta is tortuous. The lungs are well expanded without lobar c onsolidation, pneumothoraces, juanjose pulmonary edema, or pleural effusions. There are degenerative mita nges in the spine. There are bilateral shoulder arthroplasties. IMPRESSION: No acute process. POS: [facility]
== END 2018-05-15 13:18 | disposition home or self-care (01) ==
LOC: RAD 13:17
PROVIDERS: ATTEND Internal Medicine
DX: R06.00 Dyspnea, unspecified (principal)
CPT/HCPCS: 71046

== ENCOUNTER 2018-07-10 13:39 | Outpatient (CLI) | payer MEDICARE ==
--- NOTE | 2018-07-10 15:49 | ULT ---
LEFT LOWER EXTREMITY VENOUS DUPLEX EXAM: Date: 07/10/18 HISTORY: Leg pain and swelling. FINDINGS: Real-time color Doppler evaluation of the left lower extremity was performed from groin to calf. This includes evaluation of the common femoral, superficial and profunda femoral, saphenous, popliteal, a nd trifurcation veins. Fairly extensive thrombus within deep venous system begins at the common femor al vein with nonocclusive thrombus. Superficial femoral vein through the high is almost completely in cluded. There is some minimal flow demonstrated. Popliteal was noncompressible. IMPRESSION: Fairly extensive deep venous thrombosis of the left lower extremity. Findings telephoned to Dr. Coyle. CODE CR. POS: [facility]
== END 2018-07-10 13:40 | disposition home or self-care (01) ==
LOC: BICULT 13:39
PROVIDERS: ATTEND Internal Medicine Medical Oncology
DX: I82.402 Acute embolism and thrombosis of unspecified deep veins of left lower extremity (principal); M79.605 Pain in left leg; R60.0 Localized edema; M79.89 Other specified soft tissue disorders

== ENCOUNTER 2018-12-29 14:59 | Outpatient (CLI) | payer MEDICARE ==
--- NOTE | 2018-12-29 15:52 | ULT ---
BILATERAL LOWER EXTREMITY VENOUS ULTRASOUND: COMPARISON: 07/10/2018. HISTORY: Known DVT in the left leg. TECHNIQUE: Multiplanar, bridges scale, and color Doppler images were obtained in the bilateral lower extremity veno us ultrasound. Spectral analysis of the Doppler waveforms was performed. FINDINGS: The right lower extremity is unremarkable without evidence of thrombus. This involves the common fem oral vein, profunda femoral vein, superficial femoral vein, and popliteal vein. The right posterior tibial vein and greater saphenous vein are also patent. The left lower extremity again demonstrates a visible thrombus within the common femoral vein, profun da femoral vein, and superficial femoral vein. As well as partial thrombus in the [id number] vein on the left. The posterior tibial vein and greater saphenous vein are patent on the left. Posterior to the left knee there is a 3.6 cm cystic structure which likely represents a Gamboa's cyst. IMPRESSION: 1. Stable left lower extremity deep vein thrombosis. 2. Left Gamboa's cyst. POS: [facility]
== END 2018-12-29 15:00 | disposition home or self-care (01) ==
LOC: BICULT 14:59
PROVIDERS: ATTEND Internal Medicine Medical Oncology
DX: I82.90 Acute embolism and thrombosis of unspecified vein (principal); R60.0 Localized edema; M79.605 Pain in left leg; M79.604 Pain in right leg; I82.402 Acute embolism and thrombosis of unspecified deep veins of left lower extremity; M71.22 Synovial cyst of popliteal space [Baker], left knee
CPT/HCPCS: 93970

== ENCOUNTER 2019-03-04 10:42 | Outpatient (CLI) | payer MEDICARE ==
--- NOTE | 2019-03-04 10:59 | RAD ---
EXAM: 3 views of the fourth toe HISTORY: Fourth toe infection COMPARISON: None FINDINGS: There is no evidence of acute fracture or dislocation. A screw is seen in the proximal phal anx of the fourth toe. There are erosions and partial absence of the bone of the distal most portion of the fourth toe. Moderate diffuse soft tissue swelling is seen. IMPRESSION: Bony changes involving the distal aspect of the bone of the fourth toe are concerning for possible osteomyelitis.
== END 2019-03-04 10:43 | disposition home or self-care (01) ==
LOC: BICRAD 10:42
PROVIDERS: ATTEND Physician Assistant
DX: S90.934A Unspecified superficial injury of right lesser toe(s), initial encounter (principal); L08.9 Local infection of the skin and subcutaneous tissue, unspecified
CPT/HCPCS: 87070; 87077; 87205

== ENCOUNTER 2019-03-23 14:48 | Inpatient (IN) | payer MEDICARE, MEDICAID ==
[2019-03-23 16:22] LABS: #Eosinphils 0.1 thou/uL (0.0-0.7); #Lymphocytes 1.1 thou/uL (1.20-3.40); #Monocytes 0.7 thou/uL (0.11-0.59); #Neutrophils 6.6 thou/uL (1.40-6.50); %Basophils 0.1 % (0.0-1.0); %Eosinophils 0.7 % (0.0-10.0); %Lymphocytes 13.1 % (21.0-51.0); %Monocytes 8.3 % (0.0-10.0); %Neutrophils 77.9 % (42.0-75.0); Hemoglobin 10.8 g/dL (12.0-16.0); Mean Corpuscular HGB CONC 33.1 g/dL (32.0-36.0); Mean Corpuscular Hemoglobin 31.3 pg (27.0-31.0); Mean Corpuscular Volume 94.4 fL (78.0-98.0); Mean Platelet Volume 8.9 fL (7.4-10.4); Platelet Count 168 thou/uL (130-400); RBC Distribution Width 16.3 % (11.5-14.5); Red Blood Cell (RBC) Count 3.45 mill/uL (4.20-5.40); White Blood Cell (WBC) Count 8.5 thou/uL (4.8-10.8)
[2019-03-23] MEDS ORDERED: ISOVUE-370 76%-LOCM 1 ML ONE (16:29)
[2019-03-23] MEDS ORDERED: Iopamidol 370 76% 50 ML VIAL FS ONE (16:30)
[2019-03-23 16:43] LABS: ALT (SGPT) 11 U/L (8-55); AST (SGOT) 18 U/L (5-34); Albumin 3.4 g/dL (3.4-4.8); Alkaline Phosphatase 169 U/L (40-150); Anion Gap 11 mmol/L (10-20); BUN (Urea Nitrogen) 29 mg/dL (9.8-20.1); Bilirubin, Total 0.4 mg/dL (0.2-1.2); Calc. Creatinine Clearance 0 mL/min (70-130); Calcium 9.3 mg/dL (7.8-10.44); Carbon Dioxide 26 mmol/L (23-31); Chloride 94 mmol/L (98-107); Estimated GFR-MDRD 38; Globulin 3.4 g/dL (2.4-3.5); Glucose 116 mg/dL (83-110); Lipase 43 U/L (8-78); Potassium 4.1 mmol/L (3.5-5.1); Protein, Total 6.8 g/dL (6.0-8.3); Sodium 127 mmol/L (136-145)
[2019-03-23 18:20] LABS: Bilirubin Negative (Negative); Blood, Urine Large (Negative); Glucose, Urine (Dipstick) Negative (Negative); Leukocyte Large (Negative); Nitrite Negative (Negative); Protein, Urine (Dipstick) 30 mg/dL (Neg-Trace); Urobilinogen 0.2 mg/dL (Less than 2)
[2019-03-23 18:27] LABS: Clarity Turbid (Clear)
[2019-03-23 18:31] LABS: Bacteria/HPF 2+ HPF (None Seen); Squamous Epithelial 0-3 HPF (0-3); WBC/HPF Greater Than 50 HPF (0-3)
--- NOTE | 2019-03-23 19:21 | CT ---
CT ABDOMEN AND PELVIS WITH IV CONTRAST: 03/23/2019 PROVIDED CLINICAL HISTORY: Evidence for fistula. FINDINGS: The visualized lung bases are free of significant opacity. A simple appearing cyst involves the superior pole of the left kidney. Multiple calcified granulomat a are demonstrated, involving the spleen, which is at the upper limits of normal in size. The patien t is status post cholecystectomy with associated mild prominence of the intrahepatic and extrahepatic biliary system. The pancreas and adrenal glands appear unremarkable. There is mass-like soft tissue density present involving the descending duodenum, apparently producin g narrowing of the duodenal lumen. There is no evidence for associated gastric obstruction. There is inflammatory fat stranding present within the pelvis, about the sigmoid colon and rectosigmo id junction. Numerous sigmoid colonic diverticula are seen. There is gas density present within the vaginal cuff. There is no evidence for gas density within the urinary bladder. There is no evidence for small bowel or colonic obstruction. There is no free fluid or free air appa rent. Scattered vascular calcifications are seen. The osseous structures demonstrate no concerning lytic or blastic lesions. IMPRESSION: 1. Inflammatory fat stranding within the pelvis, about the sigmoid colon, presumably reflecting buitrago ges of diverticulitis. 2. Gas density within the vaginal cuff is nonspecific but, given the provided clinical history, sugg ests a colovaginal fistula. 3. Mass-like soft tissue prominence in the region of the descending duodenum. Follow-up upper gastr ointestinal study or endoscopy is recommended. POS: [facility]
[2019-03-23] MEDS ORDERED: MEROPENEM 1 GM/50 ML BAG IVPB SCH (20:15)
[2019-03-23] MEDS ORDERED: Sodium Chloride 0.9% 1,000 ML IV SCH (22:45)
[2019-03-24 00:42] VITALS: BMI 21.8
[2019-03-24] MEDS ORDERED: Calcium Carbonate 500 MG ChewTAB PO PRN (01:28)
[2019-03-24] MEDS ORDERED: Ondansetron PF 4 MG/2 ML Vial IVP PRN (01:28)
[2019-03-24] MEDS ORDERED: Acetaminophen 325 MG TAB PO PRN (01:28)
[2019-03-24] MEDS ORDERED: Ondansetron ODT 4 MG TAB PO PRN (01:28)
[2019-03-24] MEDS ORDERED: Mometasone/Formoterol 120 PUFF INHALER INH PRN (01:33)
[2019-03-24] MEDS ORDERED: hydrALAZINE 20 MG/ML VIAL SLOW IVP PRN (01:35)
[2019-03-24] MEDS: ALPRAZolam 0.25 MG TAB PO PRN ×2 (02:04→22:39)
--- NOTE | 2019-03-24 02:24 | HP ---
PRIMARY CARE PHYSICIAN: Lalo Bedolla DO. CHIEF COMPLAINT: Abdominal discomfort. The patient was sent from PCP's office to the emergency room. HISTORY OF PRESENT ILLNESS: The patient is a 78-year-old female, with multiple myeloma on chemotherapy, CKD, lower extremity DVT on 2.5 mg Eliquis daily, and hysterectomy in the past, presented to the emergency room from the primary care physician's office with above complaints. Over the past few days, the patient has been feeling generally weak and fatigued. Over the past 2 days, she noticed brownish discharge on her pad. She denies any odor or itching. She has a history of urinary incontinence. She also felt some pressure over the bladder recently. No significant abdominal pain reported. She had some chills with sweating yesterday. She did not record a temperature. She took some Tylenol at home. No nausea, vomiting, diarrhea, or constipation reported. She had a normal bowel movement yesterday. She denies having any EGD in the past. She had a colonoscopy 10 to 15 years ago at [facility], which was normal. She was told to have a repeat colonoscopy after 10 years. PAST MEDICAL HISTORY: 1. Multiple myeloma, on chemotherapy as well as dexamethasone. 2. Left lower extremity DVT, on anticoagulation. Eliquis dose was reduced to 2.5 mg daily due to bleeding per patient report. 3. Mild persistent asthma. 4. Hypertension. 5. Chronic insomnia. 6. Iron-deficiency anemia. 7. Hypertension. 8. Recent toe infection, resolved. The patient was seen by Podiatry. 9. CKD, followed by Dr. Abebe. PAST SURGICAL HISTORY: 1. Bilateral shoulder replacement. 2. L5-S1 laminectomy and diskectomy. 3. Anterior cervical diskectomy with fusion in 2009. 4. Left humerus fracture surgery. 5. Small bowel obstruction repair in 1985. 6. Hysterectomy. 7. Bilateral feet surgery. 8. Cataract surgery. ALLERGIES: THE PATIENT IS ALLERGIC TO HYDROCODONE THAT CAUSES VOMITING. CURRENT HOME MEDICATIONS: 1. Eliquis 2.5 mg daily. 2. Dexamethasone 24 mg every week. 3. Xanax 0.25 mg at bedtime. 4. Enalapril 5 mg daily. 5. Lisinopril/hydrochlorothiazide 20/12.5 mg daily. 6. Dulera 200 mcg/5 mcg two puffs b.i.d. as needed. 7. Singulair 10 mg at bedtime. 8. Multivitamin 1 tablet daily. 9. Prilosec 20 mg daily. 10. Valtrex 500 mg daily. 11. Ferrous sulfate 65 mg b.i.d.. SOCIAL HISTORY: The patient currently lives at home with her family. She is independent of activities of daily living. She is a nonsmoker. She is full code and makes her own decision with the help of her family. FAMILY HISTORY: Father with prostate cancer. Mother with breast cancer. Daughter of colon cancer. REVIEW OF SYSTEMS: All other review of systems was reviewed and were found negative. PHYSICAL EXAMINATION: VITAL SIGNS: Temperature 97.8, respirations 18, pulse of 105, blood pressure 125/76, O2 saturation 98% on room air. GENERAL: A 78-year-old female, in no apparent distress. HEENT: Head; atraumatic and normocephalic. Sclerae anicteric. Moist mucous membranes. No oral lesion. NECK: Supple. No JVD appreciated. No carotid bruit. LUNGS: Clear to auscultation bilaterally. No wheezing, rales, or rhonchi. HEART: S1, S2 present. Regular rate and rhythm. No murmurs, rubs, or gallops appreciated. ABDOMEN: Soft. Minimal tenderness over the suprapubic region in the left lower quadrant. No rebound or guarding. No costovertebral angle tenderness. EXTREMITIES: No edema or calf tenderness. GENITOURINARY: Examination performed at the primary care physician office was consistent with large amount of brown liquid stool noted in the vaginal vault with small amount of bleeding. There was tenderness to palpation in the vagina with bimanual palpation per primary care physician's office report. SKIN: Warm and dry. LYMPH NODES: No palpable lymph nodes in the neck. NEUROLOGIC: Grossly nonfocal. PSYCHIATRY: Alert, awake, and oriented x3. LABORATORY FINDINGS: WBC 8.5 with hemoglobin 10.8, hematocrit 32.6, platelet 168. Chemistry showed sodium 127, potassium 4.1, chloride 94, bicarb 26, BUN 29, creatinine 1.35. LFTs in normal range except for alkaline phosphatase 169. Lipase was normal. Urinalysis showed greater than 50 wbc's with 2+ bacteria, large amount of leukocyte esterase. The urine was turbid. CT scan of the abdomen and pelvis by my review showed changes consistent with possible diverticulitis in the sigmoid colon along with gas density within the vaginal cuff. There was also a masslike soft tissue prominence in the region of the descending duodenum. IMPRESSION: 1. Acute sigmoid diverticulitis. 2. 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 3. Suspected duodenal mass on the CT. 4. Multiple myeloma on chemotherapy. 5. History of deep venous thrombosis on low-dose Eliquis (2.5 mg) daily, last dose was on 23 March 2019 in a.m. 6. Mild persistent asthma. 7. Hypertension. 8. Chronic kidney disease stage 3, followed by Dr. Abebe. 9. Suspected urinary tract infection versus colonization from colovaginal fistula. 10. Amywv-ra-mhdvwms hyponatremia. Her sodium 4 days ago was 127. Usual sodium runs between 131 to 133. 11. Chronic anemia. 12. History of small bowel obstruction status post repair. PLAN: The patient will be monitored on the surgical floor. She will be kept n.p.o. IV hydration. Meropenem 1 g q.12 due to CKD. We will consult General Surgery, Gastroenterology as well as IMAGE EDITOR. Recheck PT/INR in a.m. We will consult dietitian for dietary modification for diverticulosis. We will hold steroids for now. The patient takes dexamethasone once a week. Plan of care was discussed with the patient in detail. She stated understanding. Job ID: [id number]
[2019-03-24] MEDS: Sodium Chloride 0.9% 1,000 ML IV SCH ×3 (03:23→19:27)
[2019-03-24] MEDS: MEROPENEM 1 GM/50 ML 1 GM in Premix Bag 1 BAG IVPB SCH ×2 (03:26→14:26)
[2019-03-24 07:17] LABS: #Eosinphils 0.1 thou/uL (0.0-0.7); #Lymphocytes 0.7 thou/uL (1.20-3.40); #Monocytes 0.4 thou/uL (0.11-0.59); #Neutrophils 2.8 thou/uL (1.40-6.50); %Basophils 0.4 % (0.0-1.0); %Eosinophils 1.3 % (0.0-10.0); %Lymphocytes 18.3 % (21.0-51.0); %Monocytes 10.8 % (0.0-10.0); %Neutrophils 69.2 % (42.0-75.0); Hemoglobin 9.7 g/dL (12.0-16.0); Mean Corpuscular HGB CONC 33.3 g/dL (32.0-36.0); Mean Corpuscular Hemoglobin 31.4 pg (27.0-31.0); Mean Corpuscular Volume 94.3 fL (78.0-98.0); Platelet Count 137 thou/uL (130-400); RBC Distribution Width 16.4 % (11.5-14.5); Red Blood Cell (RBC) Count 3.08 mill/uL (4.20-5.40)
[2019-03-24 07:21] LABS: Prothrombin Time 13.1 SEC (12.0-14.7)
[2019-03-24 07:39] LABS: Anion Gap 11 mmol/L (10-20); BUN (Urea Nitrogen) 20 mg/dL (9.8-20.1); Calc. Creatinine Clearance 48 mL/min (70-130); Calcium 8.9 mg/dL (7.8-10.44); Carbon Dioxide 24 mmol/L (23-31); Chloride 101 mmol/L (98-107); Estimated GFR-MDRD 50; Glucose 99 mg/dL (83-110); Magnesium 1.6 mg/dL (1.6-2.6); Potassium 4.2 mmol/L (3.5-5.1); Sodium 132 mmol/L (136-145)
--- NOTE | 2019-03-24 08:45 | PDOC.EVN ---
Event Note - Event Note Event Note: OBGYN Consult Time: 844 Reason for consult (informal): Possible RV fistula Patient consult requested by Дмитрий Latham (Medicine) Postmenopuasal patient with DVT HX and s/p prior HYST with multiple medical issues. 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 I tiger texted Dr Latham for report and gave this recommendation: RV fistula not repaired by our team but requires Urogyn referral. No specific eval necessary at this time but may need specialist referral. I have notified Dr Latham of this. If Gen Surgery seeks surgical eval, we will be present for that intraop eval.
--- NOTE | 2019-03-24 08:59 | PRG ---
DATE OF SERVICE: 03/24/2019 SUBJECTIVE: The patient is seen and examined at bedside. She does not have much complaints to offer. She does not have pain in her abdomen/pelvis. She is n.p.o., except medications. OBJECTIVE: VITAL SIGNS: Blood pressure is 136/75, pulse is 80, respirations are 16, O2 saturation is 96% on room air, and temperature is 97.5. HEENT: Head is atraumatic and normocephalic. Eyes are PERRLA. Sclerae are nonicteric. Oral mucosa is moist. NECK: Supple. LUNGS: Clear. HEART: S1 and S2 normal. ABDOMEN: Soft, nontender, nondistended. Bowel sounds are present. No organomegaly. EXTREMITIES: No clubbing, cyanosis, or edema. NEUROLOGICAL: She is alert and oriented x4. There are no any motor or sensory deficits present. Cranial nerves are intact. LABORATORY DATA: Her labs showed white count of 4.0, hemoglobin of 9.7, hematocrit of 29.0, platelet count is 137,000. Chemistry is normal, except for sodium which is 132. IMPRESSION: 1. Acute sigmoid diverticulitis. The pain is gone at this point. We are waiting for consultants to see the patient. 2. 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 M[employer]ICAN [employer] MAKER is consulted. 3. Suspected duodenal mass based on the CT of the abdomen findings. GI is consulted. 4. Multiple myeloma on chemotherapy. 5. History of deep venous thrombosis. 6. Hypertension. 7. Chronic kidney disease, stage 3. 8. Suspected urinary tract infection. 9. Acute on chronic hyponatremia, improved with IV fluids. Her sodium is up to 132 this morning. 10. Chronic anemia, likely related to multiple myeloma. 11. History of small bowel obstruction and status post repair. PLAN: Plan is to continue her IV fluids. Continue meropenem 1 g q.12 hours. We are awaiting for General surgery, Gastroenterology, and M[employer] MAKER consultation. I will keep her on n.p.o. for possible procedure this morning. Job ID: [id number]
[2019-03-24] MEDS ORDERED: Famotidine 20 MG TAB PO SCH (09:00)
[2019-03-24] MEDS: valACYclovir 500 MG TAB PO SCH (09:34)
[2019-03-24] MEDS: Multivitamin W/ Minerals 1 TAB PO SCH (09:34)
--- NOTE | 2019-03-24 14:32 | CON ---
DATE OF CONSULTATION: 03/24/2019 REQUESTING PHYSICIAN: Darrell Latham MD HISTORY OF PRESENT ILLNESS: This is a 78-year-old woman, who was in her usual state of health up until 4 days ago when she noticed brownish discharge from her vaginal pad. She did not have any urinary frequency, dysuria, or urgency. There was no smell to the discharge. The patient reported feeling some malaise the next day, Saturday, and has some chills overnight, although did not have any recorded fever. She presented to her primary care physician yesterday with the same complaint and had a pelvic examination performed, following which the patient was referred to the emergency department. She was evaluated and admitted to the Medicine Service. I have been asked to see the patient for surgical consultation. At the time of my evaluation, she is awake and alert. She denies any abdominal pain. She denies any urinary frequency, urgency, or dysuria. She has had no fevers or chills over the last 48 hours. The patient admits to 17-pound weight loss, which she attributes to recently diagnosed multiple myeloma, for which she has been on chemotherapy since March of 2018. OTHER PERTINENT PAST MEDICAL HISTORY: Includes essential hypertension, iron-deficiency anemia, and chronic kidney disease. PAST SURGICAL HISTORY: Pertinent for bilateral shoulder arthroplasty, L5-S1 laminectomy and diskectomy, anterior cervical diskectomy with fusion in 2009, total abdominal hysterectomy with bilateral salpingo-oophorectomy, exploratory laparotomy for small-bowel obstruction, and bilateral intraocular lens implant. SOCIAL HISTORY: She denies any cigarette smoking, ethanol, or illicit drug abuse. FAMILY HISTORY: Notable for mother and 3 sisters with breast carcinoma. She has 1 daughter, who in her 50s with complications of colon cancer. Father had history of prostate carcinoma. PRE-HOSPITALIZATION MEDICATIONS: Include: 1. Alprazolam 0.25 mg p.o. at bedtime. 2. Dexamethasone 24 mg q.7 days. 3. Ferrous sulfate 65 mg p.o. b.i.d. 4. Eliquis 2.5 mg p.o. daily. 5. Lisinopril/hydrochlorothiazide combination 20/12.5 mg p.o. daily. 6. Omeprazole 20 mg p.o. daily. ALLERGIES: ALLERGIES TO HYDROCODONE. REVIEW OF SYSTEMS: 10-point review of systems is essentially unremarkable except as stated in past medical history and chief complaint. PHYSICAL EXAMINATION: GENERAL: This reveals a 78-year-old normally-developed woman, who is otherwise coherent, interactive, and appears stated age. The patient is alert and oriented x3. She appears to be in no acute distress at the time of my evaluation. VITAL SIGNS: Today, include blood pressure 138/78, pulse is 84, respiratory rate is 18, temperature 97.9 degrees Fahrenheit, and oxygen saturation is 96% on room air. HEENT: Reveals normocephalic and atraumatic. Pupils are equal, round, and reactive to light and accommodation. HEART: Reveals regular rate and rhythm. No murmurs or gallops auscultated. LUNGS: Clear to auscultation bilaterally. Her breathing is regular and nonlabored. ABDOMEN: Soft, nontender, and nondistended. Bowel sounds in all 4 quadrants appear normoactive. Liver and spleen nonpalpable below costal margin. She has a healed infraumbilical midline incision consistent with previous history of total abdominal hysterectomy. NEUROLOGIC: Reveals no focal deficits present. LABORATORY FINDINGS: Today, include a CBC with 4000 white blood cells, hemoglobin and hematocrit 9.7 and 29.0 respectively. Platelet count is 137,000. Metabolic profile; sodium 132, potassium 4.2, chloride is 101, bicarb is 24, BUN is 20, creatinine is 1.07, and glucose is 99. I have personally reviewed the CT scan of the abdomen and pelvis, which is remarkable for inflammatory fat stranding within the pelvis involving the sigmoid colon. This is associated with multiple sigmoid colon diverticula. There is also some gas density within the vaginal cuff. There is also some abnormal soft tissue prominence in the third portion of the descending colon of undetermined etiology. IMPRESSION: 1. Acute on chronic sigmoid colon diverticulitis. 2. 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 3. Abnormal density within the duodenum, etiology is uncertain at this time. RECOMMENDATIONS: 1. Antibiotics for 10 days 2. GI consult for upper and lower endoscopy once diverticulitis resolves 3. Elective sigmoidectomy with Primary anastomosis and closure of colovaginal fistula Thanks again Dr Latham for allowing me to participate in the care of this patient. Job ID: [id number] [facility]
[2019-03-24] MEDS ORDERED: Montelukast Sodium 10 mg Tablet PO SCH (21:00)
--- NOTE | 2019-03-25 00:07 | CON ---
DATE OF CONSULTATION: 03/24/2019 REASON FOR CONSULTATION: Colovesicular fistula. HISTORY OF PRESENT ILLNESS: Ms. Green is a 78-year-old female, who was admitted from her physician's office yesterday. Over this past week again, she noticed passing brown stool and air with urination. She did notice some lower abdominal pelvic discomfort, but without any significant pain. She does not have any altered bowel function. She has not noted any abnormal vaginal discharge. She noticed brownish urine in her pad. She also noticed some brownish material with wiping after urination. The patient denies having had any previous diverticulitis. Her last colonoscopy was 10 years ago at [facility]. Last year, she lost her only daughter to colon cancer. Otherwise she is doing fine from a GI standpoint. She denies any nausea, vomiting, or abdominal pain. She has lost 17 pounds over the last year, which she attributed to stress from undergoing treatment for multiple myeloma. PAST MEDICAL HISTORY: 1. Multiple myeloma. 2. History of DVT, on Eliquis. 3. Mild asthma. 4. Hypertension. 5. Chronic kidney disease. 6. Status post lumbar laminectomy and diskectomy. 7. Shoulder replacement. 8. History of small bowel obstruction in 1985. 9. Status post hysterectomy. ALLERGY: Hydrocodone. MEDICATIONS: At home include: 1. Lisinopril/HCTZ. 2. Dulera. 3. Singulair. 4. Multivitamin. 5. Prilosec. 6. Valtrex. 7. Eliquis. 8. Dexamethasone. 9. Enalapril. SOCIAL HISTORY: The patient lives at home with her . She denies any tobacco or alcohol usage. FAMILY HISTORY: Daughter with colon cancer, otherwise no other GI problem, liver disease, or GI malignancy. REVIEW OF SYSTEMS: Ten-point review of systems did not show any other pertinent positives or negatives. PHYSICAL EXAMINATION: VITAL SIGNS: Temperature is 97.7, blood pressure 139/74, pulse of 92. GENERAL: She is alert, conversant, no distress. HEENT: Shows anicteric sclerae. Oropharynx is clear and moist. NECK: Supple. CV: Shows normal S1, S2. Regular rate and rhythm. CHEST: Shows breath sounds clear to auscultation. ABDOMEN: Soft, nontender. No distention. No tympany. She has active bowel sounds. EXTREMITIES: Shows no edema. LABORATORY DATA: CBC is normal except hemoglobin of 9.7 and MCV of 94.3. Electrolytes within normal range. Creatinine 1.07. Urinalysis is turbid with large amount of blood, leukocyte esterase, and WBCs. CT of abdomen and pelvis with IV contrast showed pericolonic inflammatory stranding in the region of the sigmoid colon along with diverticulosis in addition to gas density within the vaginal cuff. Incidentally, she has a mass-like soft tissue prominence in the descending duodenum. ASSESSMENT: 1. 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 2. CT suggestion of noncomplicated diverticulitis. Clinically, patient does not have much pain nor tenderness on exam. 3. Incidental finding of mass-like soft tissue prominence in the descending duodenum. Clinically, she does not have any upper GI symptoms. RECOMMENDATIONS: 1. The patient can be discharged to home in the next day or two on oral antibiotics (Cipro/metronidazole) for 10 days. 2. We will schedule outpatient EGD and colonoscopy in approximately 2 weeks. 3. If no significant finding on endoscopies, can proceed with surgery. Job ID: [id number]
[2019-03-25] MEDS: MEROPENEM 1 GM/50 ML 1 GM in Premix Bag 1 BAG IVPB SCH (02:31)
[2019-03-25] MEDS ORDERED: Cipro 250 MG TAB PO SCH ×2 (09:00→20:00)
[2019-03-25] MEDS ORDERED: metroNIDAZOLE 500 MG TAB PO SCH (09:00)
[2019-03-25] MEDS: valACYclovir 500 MG TAB PO SCH (09:07)
[2019-03-25] MEDS: Multivitamin W/ Minerals 1 TAB PO SCH (09:07)
[2019-03-25] MEDS: Sodium Chloride 0.9% 1,000 ML IV SCH (09:08)
[2019-03-25 09:09] LABS: #Eosinphils 0.1 thou/uL (0.0-0.7); #Lymphocytes 0.5 thou/uL (1.20-3.40); #Monocytes 0.4 thou/uL (0.11-0.59); %Basophils 0.6 % (0.0-1.0); %Eosinophils 2.6 % (0.0-10.0); %Lymphocytes 16.9 % (21.0-51.0); %Monocytes 12.6 % (0.0-10.0); %Neutrophils 67.3 % (42.0-75.0); Anion Gap 8 mmol/L (10-20); BUN (Urea Nitrogen) 17 mg/dL (9.8-20.1); Calc. Creatinine Clearance 51 mL/min (70-130); Calcium 8.9 mg/dL (7.8-10.44); Carbon Dioxide 25 mmol/L (23-31); Chloride 106 mmol/L (98-107); Estimated GFR-MDRD 53; Glucose 105 mg/dL (83-110); Hemoglobin 9.2 g/dL (12.0-16.0); MDiff Complete? YES; Mean Corpuscular HGB CONC 33.5 g/dL (32.0-36.0); Mean Corpuscular Hemoglobin 31.3 pg (27.0-31.0); Mean Corpuscular Volume 93.3 fL (78.0-98.0); Mean Platelet Volume 8.7 fL (7.4-10.4); Platelet Count 115 thou/uL (130-400); Platelet Morphology Comment Appears Decreased; Polychromasia SLIGHT = 2-3 cells (100X) (0-2/hpf); RBC Distribution Width 16.2 % (11.5-14.5); Red Blood Cell (RBC) Count 2.94 mill/uL (4.20-5.40); Sodium 135 mmol/L (136-145); White Blood Cell (WBC) Count 2.9 thou/uL (4.8-10.8)
[2019-03-25 11:07] VITALS: BP 154/78; TEMP 97.9
--- NOTE | 2019-03-25 13:21 | PRG ---
DATE OF SERVICE: SUBJECTIVE: This is a 78-year-old woman who remains on the surgical floor. The patient denies any overnight events. The patient continues to tolerate a diet. The patient continues to deny any abdominal pain, urinary frequency, urgency, or dysuria. The patient remains afebrile. OBJECTIVE: VITAL SIGNS: Blood pressure 136/75, temperature 97.7, pulse 73, respirations 18, SpO2 of 96% on room air. GENERAL: The patient awake, alert, in no distress, the patient interactive, the patient appears stated age. The patient is alert and oriented x4. No acute distress. HEENT: Normocephalic and atraumatic. HEART: Regular rate, regular rhythm. LUNGS: Clear bilaterally, breathing is regular and nonlabored. ABDOMEN: Soft, nontender, nondistended, healed abdominal umbilical midline incision consistent with previous history of total abdominal hysterectomy. NEUROLOGIC: No focal deficits. IMPRESSION: 1. Acute on chronic sigmoid colon diverticulitis. 2. 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 3. Abnormal density within the duodenum, etiology is unclear at this time. RECOMMENDATIONS: Cipro and Flagyl p.o. for 10 days. Follow up with Dr. Humphrey in the Surgery Clinic in 2 weeks. Elective sigmoidectomy with primary anastomosis and closure of colovaginal fistula. We will coordinate care with GI, so the patient is only prepped one time. Surgery will sign off at this time. The patient can be discharged home from a surgical standpoint. The patient was examined with Dr. Humphrey during morning rounds. Plan was discussed with the patient who agrees. Thank you again for allowing us to participate in the patient's care. Job ID: [id number] [facility]
--- NOTE | 2019-03-26 04:39 | DIS ---
DATE OF ADMISSION: 03/23/2019 DATE OF DISCHARGE: 03/25/2019 FINAL DIAGNOSES: 1. Acute diverticulitis, not complicated. 2. History of colovesicular fistula. 3. Multiple myeloma. 4. History of deep vein thrombosis, on Eliquis. 5. Hypertension. 6. Chronic kidney disease. 7. Mild asthma. CONSULTANTS: Dr. Lopez, Gastrointestinal Service and Dr. Humphrey, General Surgery. FINAL DIAGNOSES: 1. Suspected duodenal mass on the CT of the abdomen and pelvis. 2. Acute on chronic hyponatremia. 3. Chronic anemia. 4. History of small-bowel obstruction, status post repair. 5. 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 HOSPITAL COURSE: The patient is a 78-year-old female admitted to the hospital with abdominal pain. Apparently, she has multiple myeloma. She is on chemotherapy. Also, her diagnoses include CKD, lower extremity DVT, presently on Eliquis, hypertension, iron deficiency anemia. During ER evaluation, her white count was 8.5, hemoglobin 10.8, hematocrit 32.6, platelet count 168,000. Sodium 127, potassium 4.1, chloride 94, bicarb 26, BUN 29, creatinine 1.35. LFTs were within normal limits except for alkaline phosphatase which was 169. Lipase was normal. Urinalysis showed greater than 50 wbc's with 2+ bacteria, large amount of leukocyte esterase. The CT scan of the abdomen and pelvis showed changes consistent with possible diverticulitis in the sigmoid colon along with gas density within the vaginal cuff. Also, there was a masslike soft tissue prominence in the region of the descending duodenum. The patient got admitted to the hospital. She was placed on IV fluids, meropenem 1 g every 12 hours IV piggyback. General Surgery and wrapping machine helper were consulted along with [employer] COURT REPORTER. The patient was seen by Dr. Humphrey for General Surgery evaluation, he recommended continuation of antibiotics and then surgical evaluation and repairment to be done later after the patient is discharged from the hospital. Also, she was seen by Dr. Lopez, who recommended scoping after diverticulitis is under control which means approximately 2 weeks. PHYSICAL EXAMINATION: GENERAL: Physically, she is doing fine. She does not have much complaints to offer. No pain. VITAL SIGNS: At this point, her blood pressure is 163/73, pulse is 73, temperature is 97.7, respirations 18, O2 saturation 96% on room air. LUNGS: Clear. HEART: S1 and S2 normal. No S3. No S4. ABDOMEN: Soft, nontender, nondistended. Bowel sounds are present. No organomegaly. DISCHARGE CONDITION: The patient is sent home in good condition. ACTIVITIES: As tolerated. DIET: Low salt diet. FOLLOWUP: Follow up with Dr. Lopez in [address] Humphrey in 3 weeks. MEDICATIONS: At the time of discharge; 1. Cipro 500 mg twice a day for 10 days. 2. Metronidazole 500 mg 3 times a day for 10 days. 3. Enalapril 5 mg once a day. 4. Dulera 200 mcg/5 mcg inhalers 2 puffs twice a day. 5. Montelukast 10 mg once a day. 6. Multivitamin once a day. 7. Omeprazole 20 mg once a day. 8. Valacyclovir one tablet 500 mg once a day. 9. Alprazolam 0.25 mg 1 tablet at bedtime. 10. Apixaban 2.5 mg. 11. Eliquis daily. 12. Dexamethasone 4 mg 6 tablets q.7 days. 13. Ferrous sulfate 325 mg twice a day. 14. Lisinopril/hydrochlorothiazide one tablet daily. The patient was going to keep her regular appointments with her oncologist. STUDY PERFORMED: Time spent on this discharge is less than 30 minutes. Job ID: [id number]
== END 2019-03-25 12:00 | disposition home or self-care (01) | DRG 392 ==
LOC: ERS 14:48 → SURG A 22:18
PROVIDERS: ADMIT Family Medicine; ATTEND Family Medicine
DX: K57.32 Diverticulitis of large intestine without perforation or abscess without bleeding (principal); N82.3 Fistula of vagina to large intestine; C90.00 Multiple myeloma not having achieved remission; E87.1 Hypo-osmolality and hyponatremia; J45.30 Mild persistent asthma, uncomplicated; G47.00 Insomnia, unspecified; D50.9 Iron deficiency anemia, unspecified; D63.0 Anemia in neoplastic disease; N18.3 Chronic kidney disease, stage 3 (moderate); I12.9 Hypertensive chronic kidney disease with stage 1 through stage 4 chronic kidney disease, or unspecified chronic kidney disease; Z96.611 Presence of right artificial shoulder joint; Z96.612 Presence of left artificial shoulder joint; Z98.1 Arthrodesis status; Z90.710 Acquired absence of both cervix and uterus; Z79.899 Other long term (current) drug therapy; Z86.718 Personal history of other venous thrombosis and embolism; Z79.01 Long term (current) use of anticoagulants; Z88.8 Allergy status to other drugs, medicaments and biological substances; Z98.890 Other specified postprocedural states; Z90.722 Acquired absence of ovaries, bilateral; Z97.3 Presence of spectacles and contact lenses
CPT/HCPCS: 36415; 74177; 80048; 80053; 81003; 81015; 83690; 83735; 85025; 85610; 96365; 99214; G0463; J2185; Q9966; Q9967

== ENCOUNTER 2019-04-15 10:28 | Observation (INO) | payer MEDICARE ==
--- NOTE | 2019-04-15 11:04 | RAD ---
Exam: Chest one view: HISTORY: Back pain and generalized weakness Comparison FINDINGS: Bilateral reverse shoulder arthroplasty changes and anterior cervical fusion changes of the lower cer vical spine. Heart size is normal. The lungs are clear. IMPRESSION: No significant acute intrathoracic disease. Atherosclerosis of the aorta.
[2019-04-15 11:14] LABS: #Basophils 0.1 thou/uL (0.0-0.2); #Eosinphils 0.2 thou/uL (0.0-0.7); #Lymphocytes 2.1 thou/uL (1.20-3.40); #Monocytes 0.8 thou/uL (0.11-0.59); #Neutrophils 5.4 thou/uL (1.40-6.50); %Basophils 0.8 % (0.0-1.0); %Eosinophils 1.9 % (0.0-10.0); %Lymphocytes 25.1 % (21.0-51.0); %Monocytes 9.4 % (0.0-10.0); %Neutrophils 62.8 % (42.0-75.0); Hemoglobin 10.7 g/dL (12.0-16.0); Mean Corpuscular HGB CONC 32.7 g/dL (32.0-36.0); Mean Corpuscular Hemoglobin 30.3 pg (27.0-31.0); Mean Corpuscular Volume 92.7 fL (78.0-98.0); Platelet Count 235 thou/uL (130-400); RBC Distribution Width 16.5 % (11.5-14.5); Red Blood Cell (RBC) Count 3.54 mill/uL (4.20-5.40); White Blood Cell (WBC) Count 8.5 thou/uL (4.8-10.8)
[2019-04-15 11:30] LABS: ALT (SGPT) 13 U/L (8-55); AST (SGOT) 22 U/L (5-34); Albumin 3.7 g/dL (3.4-4.8); Alkaline Phosphatase 105 U/L (40-150); Anion Gap 16 mmol/L (10-20); BUN (Urea Nitrogen) 41 mg/dL (9.8-20.1); Bilirubin, Total 0.4 mg/dL (0.2-1.2); Calc. Creatinine Clearance 0 mL/min (70-130); Calcium 9.4 mg/dL (7.8-10.44); Carbon Dioxide 22 mmol/L (23-31); Chloride 96 mmol/L (98-107); Estimated GFR-MDRD 35; Globulin 2.9 g/dL (2.4-3.5); Glucose 138 mg/dL (83-110); Magnesium 1.6 mg/dL (1.6-2.6); Potassium 3.5 mmol/L (3.5-5.1); Protein, Total 6.6 g/dL (6.0-8.3); Sodium 130 mmol/L (136-145)
[2019-04-15 12:12] LABS: Bacteria/HPF 3+ HPF (None Seen); Bilirubin Negative (Negative); Blood, Urine Trace (Negative); Clarity Turbid (Clear); Glucose, Urine (Dipstick) Normal (Negative); Leukocyte Negative Leu/uL (Negative); Nitrite Negative (Negative); Protein, Urine (Dipstick) 50 mg/dL (Neg-Trace); RBC/HPF 0-3 HPF (0-3); Squamous Epithelial 0-3 HPF (0-3); Urobilinogen Normal mg/dL (Less than 2)
[2019-04-15] MEDS ORDERED: cefTRIAXone\\ROCEPHIN 2 GM VIAL ONE (12:52)
[2019-04-15] MEDS ORDERED: Sodium Chloride 0.9% 100 ML ONE (12:52)
--- NOTE | 2019-04-15 13:08 | CT ---
CT PULMONARY ANGIOGRAM WITH IV CONTRAST AND 3D POSTPROCESSING: Date: 04/15/19 HISTORY: Elevated D-Dimer of 11.34. Bilateral leg pain and weakness, and lower back pain. Multiple myeloma. FINDINGS: No filling defects are seen in the pulmonary arterial vasculature to suggest pulmonary embolism. The thoracic aorta is opacified without aneurysm or dissection. Vascular calcifications are present. No p leural or pericardial effusions are identified. No pneumothoraces or lobar consolidation seen. There is a calcified granuloma in the right upper lobe. Upper abdominal tomograms demonstrate calcified gra nulomas in the liver and spleen, and changes of previous cholecystectomy. There are degenerative buitrago ges in the spine. IMPRESSION: No CT evidence of pulmonary embolism. POS: [facility]
--- NOTE | 2019-04-15 13:09 | RAD ---
LUMBAR SPINE THREE VIEWS: 04/15/19 INDICATION: History of back pain and generalized weakness. COMPARISON: None. FINDINGS: There is mild levoscoliosis of the lumbar spine. There is advanced multilevel disc degenerative disea se at all lumbar intervertebral levels. There is grade I anterolisthesis of L4 on L5. There is mild r etrolisthesis of L2 on L3. No acute fracture is evident. IMPRESSION: Multilevel severe spondylosis. No acute fracture or subluxation. POS: [facility]
[2019-04-15] MEDS ORDERED: Ondansetron ODT 4 MG TAB PO PRN (14:17)
[2019-04-15] MEDS ORDERED: Ondansetron PF 4 MG/2 ML Vial IVP PRN (14:17)
[2019-04-15] MEDS ORDERED: Mometasone/Formoterol 120 PUFF INHALER INH PRN (14:27)
[2019-04-15 15:19] VITALS: BMI 22.5
[2019-04-15] MEDS: cefTRIAXone\\ROCEPHIN 1 GM in Sodium Chloride 0.9% 100 ML IVPB SCH (15:42)
[2019-04-15] MEDS: Lidocaine 5% Patch TD SCH (16:09)
[2019-04-15] MEDS ORDERED: ISOVUE-370 76%-LOCM 1 ML ONE (16:40)
[2019-04-15] MEDS ORDERED: FERROUS SULFATE 65 MG PO SCH (17:00)
[2019-04-15] MEDS ORDERED: Morphine 4 MG/ML VIAL ONE (17:48)
--- NOTE | 2019-04-15 19:10 | HP ---
PRIMARY CARE PHYSICIAN: Dave Strong. CHIEF COMPLAINT: Generalized weakness and lower back pain. HISTORY OF PRESENT ILLNESS: Ms. Green is a 78-year-old female with past medical history of multiple myeloma; left lower extremity DVT, on Eliquis; mild persistent asthma; hypertension; chronic insomnia; iron deficiency anemia; and CKD along with a newly diagnosed colovesicular fistula, who was scheduled for followup with GI and General Surgery next week for surgery. She had presented to [facility] earlier today due to worsening generalized weakness and lower back pain. She had denied any fall or recent trauma to her back, now she states that she has history of arthritis of her back that she has had back surgeries done in the past. She states that she was started on an antibiotic for this fistula due to it causing UTI last month. However, she had finished this oral antibiotic and had no known symptoms return. She also reports some frequency and urgency using the restroom along with some mild dysuria. Urinalysis in the ED showed 3+ bacteria, 7 to 10 wbc's, trace blood. She was treated with IV ceftriaxone along with some IV fluid with normal saline. Her workup included a portable chest x-ray, which was clear; a lumbar spine x-ray, which showed multilevel severe spondylolysis without acute fracture or subluxation; and a CTA of the chest that had ruled out PE due to the patient's D-dimer being elevated at 11.34, which was likely secondary to her known DVT. She states that over the last 2 to 3 days, she had felt the legs kind of given out on her and she had noticed that the lower back pain was worse than usual. She states that this has been somewhat a problem for her over the last 1 to 2 years and it usually comes and causes pain for a few days and it usually goes away on its own. She had denied any fever, chills, headache, blurred vision, dizziness, any chest pain, palpitations, shortness of breath, abdominal pain, nausea, vomiting, or any change in her stool. Her lab also showed that she had a mild CHRISTINA on CKD with a creatinine of 1.44 with a BUN of 41, and estimated GFR of 35, which looks to be right around her baseline. Lactic acid was normal at 1.7. REVIEW OF SYSTEMS: All other systems were reviewed and found to be negative unless mentioned in the HPI. PAST MEDICAL HISTORY: Multiple myeloma, left lower extremity DVT, asthma, hypertension, iron deficiency anemia, and CKD, which she sees Dr. Abebe for. PAST SURGICAL HISTORY: Bilateral shoulder replacement, L5-S1 laminectomy and diskectomy, anterior cervical diskectomy with fusion in 2009, left humerus fracture surgery, small bowel obstruction repair in 1985, hysterectomy, bilateral feet surgery, and cataract surgery. SOCIAL HISTORY: The patient lives at home with her . She is usually independent. She is a nonsmoker, nondrinker, and she is full code. PSYCHIATRIC HISTORY: None. ALLERGIES: HYDROCODONE. CURRENT HOME MEDICATIONS: 1. Eliquis 2.5 mg oral daily. 2. Dexamethasone 24 mg every week. 3. Xanax 0.25 mg oral at bedtime. 4. Enalapril 5 mg oral daily. 5. Lisinopril/hydrochlorothiazide 20/12.5 mg daily. 6. Dulera 200 mcg/5 mcg two puffs b.i.d. as needed. 7. Singulair 10 mg p.o. at bedtime. 8. Multivitamin one tab daily. 9. Prilosec 20 mg oral daily. 10. Valtrex 500 mg daily. 11. Ferrous sulfate 65 mg p.o. b.i.d. PHYSICAL EXAMINATION: VITAL SIGNS: Blood pressure 138/74, pulse 82, respirations 14, temperature 97.7, and O2 saturation 98% on room air. GENERAL: The patient is awake, alert, and oriented x3. She is currently lying comfortably in bed and in no acute distress. Her is at bedside. HEENT: Atraumatic and normocephalic. Pupils are round and reactive to light. Extraocular muscles intact. Moist mucous membranes noted. NECK: Soft and supple. Trachea midline. CARDIOVASCULAR: Positive S1 and S2. Regular rate and rhythm. No murmur auscultated. LUNGS: Clear to auscultation bilaterally. No wheezes, rales, or rhonchi. ABDOMEN: Soft, nontender. Bowel sounds present. No rebound. No guarding. No rigidity. EXTREMITIES: Moves all extremities equal. No edema. No calf tenderness. GENITOURINARY: Does have some mild suprapubic tenderness, however, no CVA tenderness noted. SKIN: Warm, dry, and intact. NEUROLOGIC: Cranial nerves 2 through 12 grossly intact. No focal deficits noted. Speech intact and normal. Gait not assessed. PSYCHIATRIC: Good mood and affect. LABORATORY DATA: WBC 8.5, RBC 3.54, hemoglobin 10.7, hematocrit 32.8, platelet 235. D-dimer 11.34. Sodium 130, potassium 3.5, anion gap 16, BUN 41, creatinine 1.44, estimated GFR 35, glucose 138. Lactic acid 1.7. Troponin less than 0.010. BNP 11.0. Urinalysis showed 3+ bacteria, 7 to 10 wbc, trace blood, 50 protein. DIAGNOSTIC IMAGING: Lumbar two to three view x-ray showed multilevel severe spondylosis with no acute fracture or subluxation noted. There was a grade 1 anterolisthesis of L4 and L5, mild retrolisthesis of L2 and L3. A portable chest x-ray showed no significant acute intrathoracic disease and CT of the chest showed no CT evidence of pulmonary embolism. ASSESSMENT AND PLAN: 1. Urinary tract infection. She will be treated with IV ceftriaxone and urine culture was sent and pending at this time. She will likely be switched over to oral antibiotic prior to discharge. 2. Acute on chronic back pain. We will order PT and OT and p.r.n. pain medications at this time. 3. Colovesicular fistula, currently stable at this time. She is to follow up with GI and General Surgery next week for further surgical repair. 4. Known deep venous thrombosis. The patient is on low-dose Eliquis. 5. History of asthma, currently stable at this time. Continue to monitor and add DuoNeb as needed. 6. Hypertension, currently stable. Continue home regimen. 7. Acute on chronic kidney disease stage 3. The patient follows with Dr. Abebe. Continue IV fluids at this time. Hold nephrotoxic medications and recheck BMP in the morning. 8. Acute on chronic hyponatremia. As above, continue on IV fluids and recheck BMP in the morning. 9. Deep venous thrombosis and gastrointestinal prophylaxis. CODE STATUS: 1. Code status, full code. 2. Surrogate decision maker is her , Heriberto. 3. Disposition, pending further workup and clinical findings, the patient will likely be discharged home in the next 1 to 2 days pending her progress. Job ID: [id number]
[2019-04-15] MEDS: Acetaminophen 325 MG TAB PO PRN (19:34)
[2019-04-15] MEDS: ALPRAZolam 0.25 MG TAB PO SCH (22:03)
[2019-04-15] MEDS: Montelukast Sodium 10 mg Tablet PO SCH (22:03)
[2019-04-16] MEDS ORDERED: Lidocaine Patch Removal 1 EACH TOP SCH (03:00)
[2019-04-16 06:18] LABS: #Eosinphils 0.1 thou/uL (0.0-0.7); #Lymphocytes 1.2 thou/uL (1.20-3.40); #Monocytes 0.7 thou/uL (0.11-0.59); #Neutrophils 3.2 thou/uL (1.40-6.50); %Basophils 0.4 % (0.0-1.0); %Eosinophils 2.4 % (0.0-10.0); %Lymphocytes 22.6 % (21.0-51.0); %Monocytes 12.8 % (0.0-10.0); %Neutrophils 61.9 % (42.0-75.0); Hemoglobin 9.3 g/dL (12.0-16.0); Mean Corpuscular HGB CONC 32.5 g/dL (32.0-36.0); Mean Corpuscular Hemoglobin 30.5 pg (27.0-31.0); Mean Platelet Volume 8.2 fL (7.4-10.4); Platelet Count 177 thou/uL (130-400); RBC Distribution Width 16.5 % (11.5-14.5); Red Blood Cell (RBC) Count 3.04 mill/uL (4.20-5.40); White Blood Cell (WBC) Count 5.1 thou/uL (4.8-10.8)
[2019-04-16 06:40] LABS: Anion Gap 12 mmol/L (10-20); BUN (Urea Nitrogen) 34 mg/dL (9.8-20.1); Calc. Creatinine Clearance 43 mL/min (70-130); Calcium 8.9 mg/dL (7.8-10.44); Carbon Dioxide 25 mmol/L (23-31); Chloride 99 mmol/L (98-107); Estimated GFR-MDRD 44; Glucose 105 mg/dL (83-110); Sodium 132 mmol/L (136-145)
[2019-04-16] MEDS: Acetaminophen 325 MG TAB PO PRN ×2 (08:36→20:32)
[2019-04-16] MEDS: Apixaban 2.5 MG TAB PO SCH (08:36)
[2019-04-16] MEDS: Famotidine 20 MG TAB PO SCH (08:36)
[2019-04-16] MEDS: valACYclovir 500 MG TAB PO SCH (08:36)
[2019-04-16] MEDS ORDERED: Docusate 100 MG CAP PO PRN (10:29)
[2019-04-16] MEDS ORDERED: Cyclobenzaprine 10 MG TAB PO PRN (10:42)
--- NOTE | 2019-04-16 10:45 | PDOC.HOSPP ---
- Subjective Encounter Date: 04/16/19 Subjective: still complain of her back pain - Objective Vital Signs & Weight: Vital Signs (12 hours) Temp Pulse Resp BP BP Pulse Ox 04/16/19 07:24 98.8 F 96 20 156/81 H 97 04/16/19 03:40 92 18 120/62 95 04/15/19 23:42 97.8 F 87 20 143/59 H 96 Weight Weight 152 lb 7 oz I&O: 04/15/19 04/16/19 04/17/19 06:59 06:59 06:59 Intake Total 200 Balance 200 Result Diagrams: 04/16/19 05:57 04/16/19 05:57 Hospitalist ROS - Medication Medications: Active Medications Generic Name Dose Route Start Last Admin Trade Name Freq PRN Reason Stop Dose Admin Acetaminophen 650 mg 04/15/19 14:17 04/16/19 08:36 Tylenol PO 650 mg Q4H PRN Administration Headache/Fever/Mild Pain (1-3) Alprazolam 0.25 mg 04/15/19 21:00 04/15/19 22:03 Xanax PO 0.25 mg HS KOBI Administration Apixaban 2.5 mg 04/16/19 09:00 04/16/19 08:36 Eliquis PO 2.5 mg DAILY KOBI Administration Famotidine 20 mg 04/16/19 09:00 04/16/19 08:36 Pepcid PO 20 mg DAILY KOBI Administration Ceftriaxone Sodium 1 gm/ 100 mls @ 200 mls/hr 04/15/19 13:00 04/15/19 15:42 Sodium Chloride IVPB Not Given Q24HR KOBI Lidocaine 1 patch 04/15/19 15:00 04/15/19 16:09 Lidoderm 5% Patch TD 1 patch Q24HR KOBI Administration Montelukast Sodium 10 mg 04/15/19 21:00 04/15/19 22:03 Singulair PO 10 mg HS KOBI Administration Valacyclovir HCl 500 mg 04/16/19 09:00 04/16/19 08:36 Valtrex PO 500 mg DAILY KOBI Administration - Exam General Appearance: NAD, awake alert Eye: PERRL, anicteric sclera ENT: normocephalic atraumatic, no oropharyngeal lesions, moist mucosa Neck: supple, symmetric, no JVD, no thyromegaly, no lymphadenopathy, no carotid bruit Heart: RRR, no murmur, no gallops, no rubs, normal peripheral pulses Respiratory: CTAB, no wheezes, no rales, no ronchi, normal chest expansion, no tachypnea, normal percussion Gastrointestinal: soft, non-tender, non-distended, normal bowel sounds, no palpable masses, no hepatomegaly, no splenomegaly, no bruit Extremities: no cyanosis, no clubbing, no edema Neurological: CN's grossly intact (slight weakness of the LLE), normal sensation to touch, no weakness, no focal deficits, no new deficit Hosp A/P (1) Back pain Code(s): M54.9 - DORSALGIA, UNSPECIFIED Status: Acute (2) UTI (urinary tract infection) Status: Acute (3) HTN (hypertension) Code(s): I10 - ESSENTIAL (PRIMARY) HYPERTENSION Status: Chronic - Plan patient main complaint is her back pain ---she is known to have MM----will do an MRI of the LS spine----will start Tramadol PRN which she takes at home---- add Flexeril PRN. weakly positive urine in a patient that has a recto-vesical fistula----I will continue Rocephin. SCD Asthma---stable --continue meds slight worsening of her kidney function----will continue withholding her TRINITY inhi and diuretics---will use hydralazine for the BP.
[2019-04-16] MEDS ORDERED: hydrALAZINE 20 MG/ML VIAL SLOW IVP PRN (10:50)
[2019-04-16] MEDS: traMADol HCl 50 MG TAB PO PRN ×2 (11:08→20:31)
[2019-04-16] MEDS ORDERED: Morphine 2 MG/ML SYRINGE SLOW IVP PRN (11:16)
[2019-04-16] MEDS: cefTRIAXone\\ROCEPHIN 1 GM in Sodium Chloride 0.9% 100 ML IVPB SCH (14:48)
[2019-04-16] MEDS: Lidocaine 5% Patch TD SCH (14:49)
--- NOTE | 2019-04-16 16:45 | MRI ---
MRI OF LUMBAR SPINE WITHOUT CONTRAST: 04/16/19 INDICATION: Low back pain radiating to the left hip and leg. COMPARISON: Radiographs dated . FINDINGS: The conus is seen to terminate at approximately T12-L1. There is anterolisthesis of L4 on L5. There i s mild retrolisthesis of L2 on L3. There is loss of the normal disc signal height at all lumbar inter vertebral levels. Small suspected cyst involving the superior pole of the left kidney. There is a broad based disc osteophyte complex and facet joint degenerative change at L5-S1 inducing mild left neural foraminal narrowing. At L4-5, there is moderate to severe central canal narrowing due to broad based bulge, grade I marty listhesis and facet degenerative change. There is moderate to severe bilateral neural foraminal narro wing. At L3-4, there is a broad based disc osteophyte complex and facet joint degenerative change inducing moderate right and mild left neural foraminal narrowing. At L2-3, there is a broad based bulge with mild facet joint degenerative change inducing mild to mode rate right and mild left neural foraminal narrowing with mild central canal narrowing. At L1-2, there is a broad based bulge but no appreciable central canal or neural foraminal narrowing. At T12-L1, there is a mild broad based bulge but no appreciable central canal or neural foraminal charline rowing. IMPRESSION: 1. Moderate to severe central canal narrowing at L4-5 due to facet joint degenerative change, li gamentum flavum hypertrophy, grade I anterolisthesis and broad based pseudobulge. 2. Prominent neural foraminal narrowing at L4-5. 3. Multilevel neural foraminal narrowing as detailed above. POS: TPC
[2019-04-16] MEDS: ALPRAZolam 0.25 MG TAB PO SCH (20:31)
[2019-04-16] MEDS: Montelukast Sodium 10 mg Tablet PO SCH (20:31)
[2019-04-17] MEDS: traMADol HCl 50 MG TAB PO PRN ×2 (03:03→09:11)
[2019-04-17] MEDS: Acetaminophen 325 MG TAB PO PRN ×2 (03:04→09:11)
[2019-04-17 05:04] LABS: #Eosinphils 0.2 thou/uL (0.0-0.7); #Lymphocytes 1.5 thou/uL (1.20-3.40); #Monocytes 0.7 thou/uL (0.11-0.59); #Neutrophils 2.9 thou/uL (1.40-6.50); %Basophils 0.5 % (0.0-1.0); %Eosinophils 3.1 % (0.0-10.0); %Lymphocytes 28.5 % (21.0-51.0); %Monocytes 13.5 % (0.0-10.0); %Neutrophils 54.4 % (42.0-75.0); Hemoglobin 9.5 g/dL (12.0-16.0); Mean Corpuscular HGB CONC 33.7 g/dL (32.0-36.0); Mean Corpuscular Hemoglobin 31.7 pg (27.0-31.0); Mean Platelet Volume 8.1 fL (7.4-10.4); Platelet Count 183 thou/uL (130-400); RBC Distribution Width 16.2 % (11.5-14.5); Red Blood Cell (RBC) Count 2.98 mill/uL (4.20-5.40); White Blood Cell (WBC) Count 5.3 thou/uL (4.8-10.8)
[2019-04-17 05:25] LABS: Anion Gap 12 mmol/L (10-20); BUN (Urea Nitrogen) 36 mg/dL (9.8-20.1); Calc. Creatinine Clearance 46 mL/min (70-130); Calcium 8.8 mg/dL (7.8-10.44); Carbon Dioxide 24 mmol/L (23-31); Chloride 101 mmol/L (98-107); Estimated GFR-MDRD 47; Glucose 98 mg/dL (83-110); Potassium 3.8 mmol/L (3.5-5.1); Sodium 133 mmol/L (136-145)
[2019-04-17] MEDS: Famotidine 20 MG TAB PO SCH (09:11)
[2019-04-17] MEDS: Apixaban 2.5 MG TAB PO SCH (09:11)
[2019-04-17] MEDS: valACYclovir 500 MG TAB PO SCH (09:11)
[2019-04-17 12:22] VITALS: BP 127/66; TEMP 97.7
[2019-04-17] MEDS: cefTRIAXone\\ROCEPHIN 1 GM in Sodium Chloride 0.9% 100 ML IVPB SCH (15:02)
--- NOTE | 2019-04-18 02:52 | DIS ---
DATE OF ADMISSION: 04/15/2019 DATE OF DISCHARGE: 04/17/2019 DISCHARGE DIAGNOSES: 1. Back pain. 2. Urinary tract infection. 3. Mild acute kidney injury. HOSPITAL COURSE: The patient is a 78-year-old female who initially presented to the hospital with complaints of significant lower back pain and generalized weakness. She initially was found to possibly have a urinary tract infection. She was given IV antibiotics and the patient is supposed to have her colovesicular fistula fixed next week by General Surgery. She also has history of DVT and she has been on Eliquis. The patient did undergo a CTA which did not indicate any acute pulmonary emboli. The patient continued to have significant lower back pain. Given history of multiple myeloma, she underwent a lumbar MRI which indicated that she had [id number] canal narrowing at L4-L5 and degenerative changes, ligamentum flavum hypertrophy, grade 1 anterolisthesis and broad-based pseudo bulge. This was explained to the patient. The patient on the day of discharge stated that she felt well. She has chronic weakness to her left lower extremity; however, this was not new. The patient stated that she will follow up with the neurosurgeon as an outpatient. The patient stated that her pain was improved. She was able to ambulate without any issues. The patient will follow up with the primary care doctor and also will follow up with Neurosurgery as needed. HOME MEDICATIONS: 1. Tramadol 50 mg q.6 hours p.r.n. 2. Flexeril 10 mg t.i.d. p.r.n. 3. Apixaban one p.o. daily. 4. Singulair one tab p.o. at bedtime. 5. Omeprazole 20 mg daily. 6. Valacyclovir one tab p.o. daily. 7. Multivitamin one p.o. daily. 8. Lisinopril/hydrochlorothiazide 20/12.5 one p.o. daily. PHYSICAL EXAMINATION: VITAL SIGNS: Temperature 97.7, pulse 81, respiratory rate 20, O2 sat 98% on room air, and blood pressure 127/66. GENERAL: She is awake, alert, and oriented x3. Does not appear in any distress. CV: S1, S2 present. No murmurs, rubs, or gallops. ABDOMEN: Soft and nontender. Bowel sounds are present x2. Her urine did not show any growth in 48 hours. Therefore, her antibiotics were discontinued. I have communicated this with the patient. The patient understands if she starts having symptoms of lower abdominal pain or back pain or any fevers or any dysuria, she is supposed to call her primary care doctor or her surgeon. I have also provided her with a number for Neurosurgery to follow up and if her symptoms of lower back pain or her weakness or incontinence occur, she needs to come into the ER for further evaluation. Job ID: [id number]
--- NOTE | 2019-04-19 01:03 | EKG ---
Test Reason : SEPSIS Blood Pressure : / mmHG Vent. Rate : 096 BPM Atrial Rate : 096 BPM P-R Int : 184 ms QRS Dur : 090 ms QT Int : 366 ms P-R-T Axes : 048 -24 027 degrees QTc Int : 462 ms Normal sinus rhythm Possible Left atrial enlargement Cannot rule out Inferior infarct , age undetermined Abnormal ECG Confirmed by DEBORA RO ([id number]), associate editor JANN BEY ([id number]) on 04/19/2019 1:02:11 AM Referred By: Confirmed By:DEBORA RO
== END 2019-04-17 14:25 | disposition home or self-care (01) ==
LOC: ERS 10:28 → 2SW 12:58
PROVIDERS: ADMIT Family Medicine; ATTEND Family Medicine
DX: N39.0 Urinary tract infection, site not specified (principal); G89.29 Other chronic pain; M54.5 Low back pain; I12.9 Hypertensive chronic kidney disease with stage 1 through stage 4 chronic kidney disease, or unspecified chronic kidney disease; N18.3 Chronic kidney disease, stage 3 (moderate); N17.9 Acute kidney failure, unspecified; D50.9 Iron deficiency anemia, unspecified; E87.1 Hypo-osmolality and hyponatremia; I70.0 Atherosclerosis of aorta; M41.9 Scoliosis, unspecified; M43.16 Spondylolisthesis, lumbar region; M47.816 Spondylosis without myelopathy or radiculopathy, lumbar region; Z79.01 Long term (current) use of anticoagulants; Z79.899 Other long term (current) drug therapy; Z88.5 Allergy status to narcotic agent
CPT/HCPCS: 36415; 51701; 71045; 71275; 72100; 72148; 80048; 80053; 81003; 81015; 83605; 83735; 83880; 84484; 85025; 85379; 87040; 87086; 93005; 96361; 96365; 96375; A4353; J0696; J2270; J3490; Q9966

== ENCOUNTER 2019-04-17 14:59 | Outpatient (CLI) | payer MEDICARE ==
[2019-04-17 17:13] LABS: PTT 34.6 SEC (22.9-36.1); Prothrombin Time 13.3 SEC (12.0-14.7)
== END 2019-04-17 15:00 | disposition home or self-care (01) ==
LOC: LABBT 14:59
PROVIDERS: ATTEND Surgery
DX: Z01.812 Encounter for preprocedural laboratory examination (principal); N82.3 Fistula of vagina to large intestine
CPT/HCPCS: 83036; 85610; 85730

== ENCOUNTER 2019-04-24 09:15 | Inpatient (IN) | payer MEDICARE ==
[2019-04-28] MEDS ORDERED: Fentanyl 100 MCG/2 ML VIAL ONE (08:14)
[2019-04-28] MEDS ORDERED: Dexamethasone 4 mg/ml Vial ONE (08:14)
[2019-04-28] MEDS ORDERED: Midazolam HCl 2 mg/2 ml Vial ONE (08:14)
[2019-04-28] MEDS ORDERED: cefOXitin 2 GM VIAL ONE (08:28)
[2019-04-28] MEDS ORDERED: Sodium Chloride 0.9% 100 ML ONE (08:29)
[2019-04-28] MEDS ORDERED: Bupivacaine/Epinephrine 0.25% 30 ML VIAL ONE (09:07)
[2019-04-28] MEDS ORDERED: SUGAMMADEX SODIUM 500 MG/5 ML VIAL ONE (10:09)
[2019-04-28] MEDS ORDERED: Dextrose 50% Abboject 50 ML SYRINGE SLOW IVP PRN (10:58)
[2019-04-28] MEDS ORDERED: Dextrose 5% in Water 1,000 ML IV PRN (10:58)
[2019-04-28] MEDS ORDERED: Promethazine HCl 25 MG/ML VIAL IM PRN (10:58)
[2019-04-28] MEDS ORDERED: Morphine 2 MG/ML SYRINGE SLOW IVP PRN (10:58)
[2019-04-28] MEDS ORDERED: Mometasone/Formoterol 120 PUFF INHALER INH PRN (10:58)
[2019-04-28] MEDS ORDERED: Morphine 4 MG/ML VIAL SLOW IVP PRN (10:58)
[2019-04-28] MEDS ORDERED: Ondansetron PF 4 MG/2 ML Vial IVP PRN (10:58)
[2019-04-28] MEDS ORDERED: hydrALAZINE 20 MG/ML VIAL SLOW IVP PRN (10:58)
[2019-04-28] MEDS ORDERED: Iopamidol 370 76% 100 ML VIAL ONE (11:06)
[2019-04-28 11:12] LABS: Hemoglobin 8.2 g/dL (12.0-16.0)
[2019-04-28] MEDS ORDERED: hydrALAZINE 20 MG/ML VIAL ONE (11:24)
[2019-04-28] MEDS ORDERED: Labetalol HCl 100 MG/20 ML VIAL ONE (12:16)
--- NOTE | 2019-04-28 16:03 | CT ---
CT ABDOMEN AND PELVIS WITH IV CONTRAST 04/28/2019 CLINICAL INFORMATION: Hemoperitoneum. Possible splenic injury. Patient fell 3 days ago. COMPARISON: 03/23/2019 and CTA chest on 04/15/2019 Technique: Multiple contiguous axial CT images are obtained through the abdomen and pelvis with IV contrast. Cor onal reformatted images are provided. FINDINGS: Lower Chest: Small right and tiny left pleural effusions are seen with associated passive atelectasis which were not identified on prior exams. No pneumothorax is seen at either lung base. Vessels: Vascular calcifications are seen in the abdominal aorta. There is a tubular appearing calcif ications seen in the left common femoral vein partially extending to the left superficial femoral vein which may be related to remote thrombus in this vein. This was also present on prior exam. Abdomen: Portal vein:Patent Gallbladder: Surgically absent. There is intra and extrahepatic biliary duct dilatation likely relate d to reservoir effect similar to prior exam. Liver: Few calcified granulomata are seen. There is no evidence of a parenchymal hematoma or lacerati on involving the liver. Spleen: Multiple splenic granulomata are present. The spleen is not enlarged, and no parenchymal sple angel laceration or hematoma is appreciated. Pancreas: within normal limits. Adrenals: within normal limits. Kidneys: The kidneys are lobulated bilaterally likely due to lobulation and probable areas of s carring. Cyst in the superior pole left kidney is again seen. Bowel: Normal caliber.. This previous examination questioned the possibility of a mass within the pro ximal duodenum, but this is not appreciated on today's examination. Appendix: Not visualized, but no secondary signs are seen to suggest appendicitis. Peritoneum: There is small amount of increased density fluid seen within the upper abdomen adjacent t o the liver and spleen suggesting small amount of hemorrhage. This was not present on study of 03/23/2019. In addition, there is intraperitoneal free gas present likely related to recent postsurgic al change. Mesentery and Retroperitoneum: No enlarged mesenteric or retroperitoneal lymph nodes. Abdominal Wall: Focus of gas is seen in the subcutaneous soft tissues left anterolateral abdominal wa ll likely due to recent postsurgical change. Pelvis: Reproductive Organs: Evidence of hysterectomy. Pelvis within normal limits. Bladder: Distended with gas in the nondependent portion urinary bladder. This may be related to recen t catheterization, clinical correlation is recommended. Bones: Multilevel degenerative changes are again seen in the spine and left convex scoliosis. Appeara nce of the osseous structures is unchanged from prior exam. IMPRESSION: 1. Small right and tiny left pleural effusions and associated passive atelectasis which was not prese nt on prior study. 2. Increased density fluid adjacent to the liver and spleen suggesting small amount of hemorrhage. Th is was not present on the prior exam. 3. Free intraperitoneal gas in the abdomen which is likely postsurgical in origin. 4. Distention urinary bladder with gas which is likely due to recent catheterization. 5. Above findings discussed with Dr. Kim on 04/28/2019 at 1557 hours.
[2019-04-28] MEDS ORDERED: Bupivacaine HCl 0.5%/Epinephrine 1:200,000/PF 30 ml Vial ONE (16:13)
[2019-04-28] MEDS ORDERED: Glycopyrrolate 0.2 MG/ML 5 ML SYRINGE ONE (16:16)
[2019-04-28] MEDS ORDERED: Ondansetron PF 4 MG/2 ML Vial ONE (16:16)
[2019-04-28] MEDS ORDERED: Lidocaine 1% PF 5 ML VIAL ONE (16:16)
[2019-04-28] MEDS ORDERED: PROPOFOL 200 MG/20 ML VIAL ONE (16:16)
[2019-04-28] MEDS ORDERED: Rocuronium Bromide 10 MG/ML (10ML VIAL) ONE (16:16)
[2019-04-28] MEDS: D5 1/2 NS w/20 mEq KCL 1,000 ML IV SCH (18:54)
[2019-04-28] MEDS: ALPRAZolam 0.25 MG TAB PO SCH (22:12)
[2019-04-28] MEDS: Montelukast Sodium 10 mg Tablet PO SCH (22:12)
[2019-04-29 05:31] LABS: #Basophils 0.1 thou/uL (0.0-0.2); #Lymphocytes 1.2 thou/uL (1.20-3.40); #Monocytes 0.4 thou/uL (0.11-0.59); #Neutrophils 3.6 thou/uL (1.40-6.50); %Basophils 1.1 % (0.0-1.0); %Eosinophils 0.1 % (0.0-10.0); %Lymphocytes 22.5 % (21.0-51.0); %Monocytes 7.4 % (0.0-10.0); %Neutrophils 68.9 % (42.0-75.0); Mean Corpuscular HGB CONC 32.4 g/dL (32.0-36.0); Mean Corpuscular Hemoglobin 30.6 pg (27.0-31.0); Mean Corpuscular Volume 94.6 fL (78.0-98.0); Mean Platelet Volume 7.7 fL (7.4-10.4); Platelet Count 157 thou/uL (130-400); RBC Distribution Width 16.3 % (11.5-14.5); Red Blood Cell (RBC) Count 2.62 mill/uL (4.20-5.40); White Blood Cell (WBC) Count 5.2 thou/uL (4.8-10.8)
[2019-04-29 05:52] LABS: Anion Gap 13 mmol/L (10-20); BUN (Urea Nitrogen) 16 mg/dL (9.8-20.1); Calc. Creatinine Clearance 42 mL/min (70-130); Calcium 7.9 mg/dL (7.8-10.44); Carbon Dioxide 21 mmol/L (23-31); Chloride 104 mmol/L (98-107); Estimated GFR-MDRD 44; Glucose 133 mg/dL (83-110); Potassium 3.5 mmol/L (3.5-5.1); Sodium 134 mmol/L (136-145)
[2019-04-29] MEDS ORDERED: Prevnar 13-Val Conj/PF 0.5 ML SYRINGE IM ONE (09:00)
[2019-04-29] MEDS: Famotidine 20 MG TAB PO SCH (09:11)
[2019-04-29] MEDS: Lisinopril/Hydrochlorothiazide 20 mg/12.5 mg Tablet PO SCH (09:11)
[2019-04-29] MEDS: Famotidine/PF 20 mg/2ml Vial SLOW IVP SCH (09:12)
[2019-04-29] MEDS: valACYclovir 500 MG TAB PO SCH (09:13)
[2019-04-29] MEDS: D5 1/2 NS w/20 mEq KCL 1,000 ML IV SCH ×2 (09:16→23:13)
[2019-04-29] MEDS ORDERED: traMADol HCl 50 MG TAB PO PRN (11:29)
--- NOTE | 2019-04-29 11:32 | PDOC.GSPN ---
Surgery Progress Note: Subj - Subjective Patient reports: no new complaints Surgery Progress Note: Obj - Vital signs Vital signs: Vital Signs - Most Recent Temp Pulse Resp BP Pulse Ox 97.8 F 83 16 134/74 95 04/29/19 07:37 04/29/19 09:11 04/29/19 07:37 04/29/19 09:11 04/29/19 07:37 - Physical Exam General: no distress Cardiovascular: regular rate and rhythm Respiratory: clear to auscultation Abdomen: soft, non tender Surgery Progress Note: Results - Labs Result Diagrams: 04/29/19 04:24 04/29/19 04:24 Lab results: Laboratory Results - last 24 hr 04/29/19 04/29/19 04:24 04:24 WBC 5.2 RBC 2.62 L Hgb 8.0 L Hct 24.7 L MCV 94.6 MCH 30.6 MCHC 32.4 RDW 16.3 H Plt Count 157 MPV 7.7 Neutrophils % 68.9 Lymphocytes % 22.5 Monocytes % 7.4 Eosinophils % 0.1 Basophils % 1.1 H Neutrophils # 3.6 Lymphocytes # 1.2 Monocytes # 0.4 Eosinophils # 0.0 Basophils # 0.1 Sodium 134 L Potassium 3.5 Chloride 104 Carbon Dioxide 21 L Anion Gap 13 BUN 16 Creatinine 1.18 H Estimated GFR (MDRD) 44 Glucose 133 H Calcium 7.9 Surgery Progress Note: A/P - Problem (1) Colovaginal fistula Current Visit: Yes Code(s): N82.4 - OTHER FEMALE INTESTINAL-GENITAL TRACT FISTULAE Status: Acute - Plan Plan: CT abdomen/pelvis shows no splenic laceration -Back on schedule for tomorrow
[2019-04-29] MEDS: traMADol HCl 50 MG TAB PO PRN ×2 (13:07→19:14)
[2019-04-29] MEDS: Acetaminophen 325 MG TAB PO PRN ×2 (13:08→19:15)
[2019-04-29] MEDS: Montelukast Sodium 10 mg Tablet PO SCH (21:45)
[2019-04-29] MEDS: ALPRAZolam 0.25 MG TAB PO SCH (21:46)
[2019-04-30] MEDS: Acetaminophen 325 MG TAB PO PRN ×2 (01:38→08:49)
[2019-04-30] MEDS: traMADol HCl 50 MG TAB PO PRN ×2 (01:39→08:49)
[2019-04-30] MEDS: Famotidine/PF 20 mg/2ml Vial SLOW IVP SCH (08:49)
[2019-04-30] MEDS: valACYclovir 500 MG TAB PO SCH (08:50)
[2019-04-30] MEDS: Lisinopril/Hydrochlorothiazide 20 mg/12.5 mg Tablet PO SCH (08:50)
[2019-04-30] MEDS: Famotidine 20 MG TAB PO SCH (08:51)
[2019-04-30] MEDS ORDERED: Fentanyl 100 MCG/2 ML VIAL ONE ×5 (10:34→16:14)
[2019-04-30] MEDS ORDERED: Bupivacaine HCl 0.5%/Epinephrine 1:200,000/PF 30 ml Vial ONE (11:16)
[2019-04-30] MEDS ORDERED: Lidocaine 1% PF 5 ML VIAL ONE (11:50)
[2019-04-30] MEDS ORDERED: Rocuronium Bromide 10 MG/ML (10ML VIAL) ONE (11:50)
[2019-04-30] MEDS ORDERED: Glycopyrrolate 0.2 MG/ML 5 ML SYRINGE ONE (11:50)
[2019-04-30] MEDS ORDERED: Ondansetron PF 4 MG/2 ML Vial ONE (11:50)
[2019-04-30] MEDS ORDERED: Dexamethasone 20 MG/5 ML VIAL ONE (11:50)
[2019-04-30] MEDS ORDERED: PROPOFOL 200 MG/20 ML VIAL ONE (11:50)
[2019-04-30] MEDS ORDERED: Midazolam HCl 2 mg/2 ml Vial ONE (12:01)
[2019-04-30] MEDS ORDERED: Dexamethasone 4 mg/ml Vial ONE (12:01)
[2019-04-30] MEDS ORDERED: Bupivacaine/Epinephrine 0.25% 30 ML VIAL ONE (12:11)
[2019-04-30] MEDS ORDERED: cefOXitin 2 GM VIAL ONE (12:44)
[2019-04-30] MEDS ORDERED: Sodium Chloride 0.9% 100 ML ONE (12:44)
[2019-04-30] MEDS: D5 1/2 NS w/20 mEq KCL 1,000 ML IV SCH ×2 (14:04→20:55)
[2019-04-30] MEDS ORDERED: Ondansetron HCl/PF 4 MG/2 ML Vial IVP PRN (16:42)
[2019-04-30] MEDS ORDERED: Promethazine HCl 25 MG/ML VIAL SLOW IVP PRN (16:42)
[2019-04-30] MEDS ORDERED: Promethazine HCl 25 MG/ML VIAL IM PRN (16:42)
[2019-04-30] MEDS: Acetaminophen 1,000 MG in Premix Bag 1 BAG IVPB SCH ×2 (17:18→23:15)
[2019-04-30] MEDS: hydrALAZINE 20 MG/ML VIAL SLOW IVP PRN ×2 (17:19→23:15)
[2019-04-30] MEDS: Ondansetron PF 4 MG/2 ML Vial IVP PRN (17:21)
[2019-04-30] MEDS: Fentanyl 100 MCG/2 ML VIAL SLOW IVP PRN ×2 (18:46→20:54)
[2019-04-30] MEDS: Montelukast Sodium 10 mg Tablet PO SCH (20:54)
[2019-04-30] MEDS: cefOXitin Sodium 1 GM in Sodium Chloride 0.9% 100 ML IVPB SCH (20:55)
[2019-04-30] MEDS: ALPRAZolam 0.25 MG TAB PO SCH (20:55)
[2019-04-30] MEDS: Promethazine HCl 25 MG/ML VIAL IM PRN (20:59)
[2019-05-01] MEDS: Fentanyl 100 MCG/2 ML VIAL SLOW IVP PRN ×5 (02:44→20:59)
[2019-05-01 05:06] LABS: #Monocytes 0.9 thou/uL (0.11-0.59); #Neutrophils 10.3 thou/uL (1.40-6.50); %Basophils 0.2 % (0.0-1.0); %Eosinophils 0.1 % (0.0-10.0); %Lymphocytes 8.1 % (21.0-51.0); %Monocytes 7.4 % (0.0-10.0); %Neutrophils 84.2 % (42.0-75.0); Hemoglobin 8.6 g/dL (12.0-16.0); Mean Corpuscular HGB CONC 32.6 g/dL (32.0-36.0); Mean Corpuscular Hemoglobin 30.7 pg (27.0-31.0); Mean Platelet Volume 7.4 fL (7.4-10.4); Platelet Count 181 thou/uL (130-400); RBC Distribution Width 16.5 % (11.5-14.5); White Blood Cell (WBC) Count 12.2 thou/uL (4.8-10.8)
[2019-05-01] MEDS: Ondansetron PF 4 MG/2 ML Vial IVP PRN (05:16)
[2019-05-01] MEDS: Acetaminophen 1,000 MG in Premix Bag 1 BAG IVPB SCH (05:16)
[2019-05-01] MEDS: cefOXitin Sodium 1 GM in Sodium Chloride 0.9% 100 ML IVPB SCH (05:17)
[2019-05-01 05:25] LABS: Anion Gap 13 mmol/L (10-20); BUN (Urea Nitrogen) 13 mg/dL (9.8-20.1); Calc. Creatinine Clearance 48 mL/min (70-130); Calcium 8.3 mg/dL (7.8-10.44); Carbon Dioxide 19 mmol/L (23-31); Chloride 106 mmol/L (98-107); Estimated GFR-MDRD 51; Glucose 158 mg/dL (83-110); Potassium 3.9 mmol/L (3.5-5.1); Sodium 134 mmol/L (136-145)
[2019-05-01] MEDS: Lisinopril/Hydrochlorothiazide 20 mg/12.5 mg Tablet PO SCH (07:49)
[2019-05-01] MEDS: Famotidine/PF 20 mg/2ml Vial SLOW IVP SCH (07:50)
[2019-05-01] MEDS ORDERED: Famotidine 20 MG TAB PO SCH (09:00)
[2019-05-01] MEDS ORDERED: traMADol HCl 50 MG TAB PO PRN (09:27)
[2019-05-01] MEDS: valACYclovir 500 MG TAB PO SCH (10:08)
[2019-05-01] MEDS: Amlodipine 5 MG TAB PO SCH (10:15)
[2019-05-01] MEDS ORDERED: Amlodipine 5 MG TAB PO SCH (10:15)
[2019-05-01] MEDS: traMADol HCl 50 MG TAB PO PRN ×2 (10:17→17:34)
[2019-05-01] MEDS: Acetaminophen 325 MG TAB PO PRN ×2 (10:18→17:34)
[2019-05-01] MEDS: D5 1/2 NS w/20 mEq KCL 1,000 ML IV SCH (10:24)
--- NOTE | 2019-05-01 11:02 | PDOC.GSPN ---
Surgery Progress Note: Subj - Subjective Patient reports: pain well controlled Surgery Progress Note: Obj - Vital signs Vital signs: Vital Signs - Most Recent Temp Pulse Resp BP Pulse Ox 98.5 F 100 20 166/89 H 96 05/01/19 08:00 05/01/19 10:19 05/01/19 08:00 05/01/19 08:00 05/01/19 08:00 - Physical Exam General: no distress Cardiovascular: regular rate and rhythm Respiratory: clear to auscultation Abdomen: soft, appropriately tender Wound: healing well, ostomy/colostomy (viable) Surgery Progress Note: Results - Labs Result Diagrams: 05/01/19 04:18 05/01/19 04:18 Lab results: Laboratory Results - last 24 hr 05/01/19 05/01/19 04:18 04:18 WBC 12.2 H RBC 2.80 L Hgb 8.6 L Hct 26.3 L MCV 94.0 MCH 30.7 MCHC 32.6 RDW 16.5 H Plt Count 181 MPV 7.4 Neutrophils % 84.2 H Lymphocytes % 8.1 L Monocytes % 7.4 Eosinophils % 0.1 Basophils % 0.2 Neutrophils # 10.3 H Lymphocytes # 1.0 L Monocytes # 0.9 H Eosinophils # 0.0 Basophils # 0.0 Sodium 134 L Potassium 3.9 Chloride 106 Carbon Dioxide 19 L Anion Gap 13 BUN 13 Creatinine 1.04 Estimated GFR (MDRD) 51 Glucose 158 H Calcium 8.3 Surgery Progress Note: A/P - Problem (1) Colovaginal fistula Current Visit: Yes Code(s): N82.4 - OTHER FEMALE INTESTINAL-GENITAL TRACT FISTULAE Status: Acute - Plan Plan: POD 1 sigmoid colectomy/colostomy (Too much inflammation for definitive surgery) -advance to full liquids -cystogram tomorrow before pulling catheter' -encouraged ambulation
--- NOTE | 2019-05-01 11:59 | OP ---
DATE OF PROCEDURE: 04/30/2019 PREOPERATIVE DIAGNOSES: Colovaginal fistula, acute on chronic diverticulitis. POSTOPERATIVE DIAGNOSES: Colovaginal fistula, acute on chronic diverticulitis. PROCEDURES PERFORMED: Open sigmoid colectomy and end colostomy (Atlu's procedure), repair of bladder. ANESTHESIA: General. ESTIMATED BLOOD LOSS: Minimal. COMPLICATIONS: None. SPECIMENS: None. DESCRIPTION OF PROCEDURE: The patient was taken to the operating room, laid supine on the operating room table. After a general anesthetic was obtained, a Calderon was placed. The abdomen was prepped and draped in a sterile fashion. The left subcostal 5-mm Optiview trocar was placed in usual fashion and high-flow pneumoperitoneum was obtained. The patient had significant dense lower abdominal adhesions. Decision was made to open. Midline incision was made from above umbilicus down towards the pubis. Cautery was used to dissect down and into the abdominal cavity very carefully. There were lots of adhesions to the posterior abdominal wall. These were taken down sharply. Towards the lower aspect of the incision, there was an area of dense adhesions with small intestine. The intestine was sharply dissected off the peritoneum. There appeared to be a small opening made into a cavity in this area and so after full dissection, it was deemed to be the dome of the bladder. The upper bladder was completely mobilized by getting in the space of Retzius and the small abdominal bladder opening was fully characterized. The rest of the adhesions in the abdomen were all taken down going down into the pelvis. The bladder was closed in 2 layers using running Vicryl. A Lembert second layer of Vicryl was performed as well. Bookwalter retractor was placed. The left colon was mobilized on the white line of Toldt. The left ureter was found and excluded from the dissection. Dissecting down into the pelvis, there was very dense adhesions found. The lowest point of the sigmoid, upper rectum junction was fused to the bladder posteriorly. The area of fistula was in the upper sigmoid that had looped down into the pelvis. This was easily taken down. However, the distal rectum was not going to be able to be dissected out given the amount of dense scarring in the area secondary to the fistula. Decision was made to resect the infected sigmoid and divert only. Contour stapler was fired across the lowest point of the sigmoid just above this area of severe inflammatory change. Mesentery was taken using Veronica clamps and silk ties. Just above the areas of most severe sigmoid chronic diverticulitis, stapler was fired as well. The specimen was sent to Path. Ellipse of the skin taken out in the left abdomen and the proximal colon brought up through here, this would be the location of the end colostomy. The abdomen was irrigated. All instrument counts, needle counts, and lap counts were correct. There was no ongoing bleeding. A small little bit of omental fat in the area of the bladder repair was sutured to the bladder using Vicryl suture. The midline fascia was closed using #1 PDS from the top and the bottom and tied in the middle. The subcutaneous tissues were irrigated and closed using 3-0 Vicryl, 4-0 Monocryl, and Dermabond. The colostomy was then matured in the usual fashion using 3-0 Vicryl and an ostomy device was placed. The patient was sent to Recovery in stable condition. All instrument counts, needle counts, and lap counts were correct. Job ID: [id number]
[2019-05-01] MEDS: Simethicone Chewable 80 MG TAB PO PRN ×3 (12:15→21:02)
[2019-05-01] MEDS: Enoxaparin Sodium 40 MG/0.4 ML SYRINGE SC SCH (20:59)
[2019-05-01] MEDS: Montelukast Sodium 10 mg Tablet PO SCH (20:59)
[2019-05-01] MEDS: ALPRAZolam 0.25 MG TAB PO SCH (20:59)
[2019-05-02] MEDS: traMADol HCl 50 MG TAB PO PRN ×4 (00:30→20:37)
[2019-05-02] MEDS: D5 1/2 NS w/20 mEq KCL 1,000 ML IV SCH (00:31)
[2019-05-02] MEDS: Acetaminophen 325 MG TAB PO PRN ×4 (00:31→20:37)
[2019-05-02 04:40] LABS: Anion Gap 10 mmol/L (10-20); BUN (Urea Nitrogen) 11 mg/dL (9.8-20.1); Calc. Creatinine Clearance 63 mL/min (70-130); Calcium 8.1 mg/dL (7.8-10.44); Carbon Dioxide 22 mmol/L (23-31); Chloride 102 mmol/L (98-107); Estimated GFR-MDRD 69; Glucose 110 mg/dL (83-110); Potassium 3.5 mmol/L (3.5-5.1); Sodium 130 mmol/L (136-145)
[2019-05-02 04:40] LABS: #Lymphocytes 1.1 thou/uL (1.20-3.40); #Monocytes 0.7 thou/uL (0.11-0.59); #Neutrophils 5.8 thou/uL (1.40-6.50); %Eosinophils 0.6 % (0.0-10.0); %Lymphocytes 13.8 % (21.0-51.0); %Monocytes 9.6 % (0.0-10.0); Hemoglobin 7.9 g/dL (12.0-16.0); Mean Corpuscular Hemoglobin 31.2 pg (27.0-31.0); Mean Corpuscular Volume 94.8 fL (78.0-98.0); Mean Platelet Volume 7.2 fL (7.4-10.4); Platelet Count 111 thou/uL (130-400); Platelet Morphology Comment Appears Decreased; RBC Distribution Width 16.4 % (11.5-14.5); Red Blood Cell (RBC) Count 2.52 mill/uL (4.20-5.40); White Blood Cell (WBC) Count 7.6 thou/uL (4.8-10.8)
[2019-05-02] MEDS: valACYclovir 500 MG TAB PO SCH (08:41)
[2019-05-02] MEDS: Lisinopril/Hydrochlorothiazide 20 mg/12.5 mg Tablet PO SCH (08:41)
[2019-05-02] MEDS: Famotidine/PF 20 mg/2ml Vial SLOW IVP SCH (08:41)
[2019-05-02] MEDS: Amlodipine 5 MG TAB PO SCH (08:41)
[2019-05-02] MEDS: Ondansetron PF 4 MG/2 ML Vial IVP PRN ×2 (10:08→17:52)
--- NOTE | 2019-05-02 10:25 | PRG ---
DATE OF SERVICE: 05/02/2019 SUBJECTIVE: Ms. Green is doing overall well. She is complaining of mild bloating. No nausea. She is ambulatory. OBJECTIVE: Her abdomen soft, minimally distended. She has small amount of air and stool in her bag. Her urine is clear. Her wounds are healing well. LABORATORY DATA: Her hemoglobin today is 7.9. Sodium is 130. ASSESSMENT: Postop sigmoid colectomy, colostomy, bladder repair. PLAN: Cystogram tomorrow. To evaluate bladder repair before pulling catheter. Stay on full liquids for now until bloating improves. Job ID: [id number]
[2019-05-02] MEDS: Simethicone Chewable 80 MG TAB PO PRN ×2 (15:02→20:37)
[2019-05-02] MEDS: ALPRAZolam 0.25 MG TAB PO SCH (20:36)
[2019-05-02] MEDS: Montelukast Sodium 10 mg Tablet PO SCH (20:36)
[2019-05-02] MEDS: Enoxaparin Sodium 40 MG/0.4 ML SYRINGE SC SCH (20:37)
[2019-05-03] MEDS: Ondansetron PF 4 MG/2 ML Vial IVP PRN ×2 (02:35→11:07)
[2019-05-03 06:07] LABS: #Eosinphils 0.4 thou/uL (0.0-0.7); #Lymphocytes 1.4 thou/uL (1.20-3.40); #Monocytes 0.9 thou/uL (0.11-0.59); #Neutrophils 6.4 thou/uL (1.40-6.50); %Basophils 0.1 % (0.0-1.0); %Eosinophils 4.3 % (0.0-10.0); %Lymphocytes 15.3 % (21.0-51.0); %Monocytes 9.6 % (0.0-10.0); %Neutrophils 70.8 % (42.0-75.0); Hemoglobin 7.7 g/dL (12.0-16.0); Mean Corpuscular Hemoglobin 31.2 pg (27.0-31.0); Mean Corpuscular Volume 94.6 fL (78.0-98.0); Mean Platelet Volume 7.2 fL (7.4-10.4); Platelet Count 156 thou/uL (130-400); RBC Distribution Width 16.2 % (11.5-14.5); Red Blood Cell (RBC) Count 2.46 mill/uL (4.20-5.40)
[2019-05-03 06:28] LABS: Anion Gap 11 mmol/L (10-20); BUN (Urea Nitrogen) 14 mg/dL (9.8-20.1); Calc. Creatinine Clearance 55 mL/min (70-130); Calcium 8.1 mg/dL (7.8-10.44); Carbon Dioxide 24 mmol/L (23-31); Chloride 98 mmol/L (98-107); Estimated GFR-MDRD 57; Glucose 107 mg/dL (83-110); Potassium 3.7 mmol/L (3.5-5.1); Sodium 129 mmol/L (136-145)
[2019-05-03] MEDS: Lisinopril/Hydrochlorothiazide 20 mg/12.5 mg Tablet PO SCH (08:47)
[2019-05-03] MEDS: valACYclovir 500 MG TAB PO SCH (08:47)
[2019-05-03] MEDS: Famotidine/PF 20 mg/2ml Vial SLOW IVP SCH (08:48)
[2019-05-03] MEDS: Amlodipine 5 MG TAB PO SCH (08:48)
[2019-05-03] MEDS: Acetaminophen 325 MG TAB PO PRN ×2 (09:02→17:46)
[2019-05-03] MEDS: traMADol HCl 50 MG TAB PO PRN ×2 (09:03→17:47)
[2019-05-03] MEDS: Simethicone Chewable 80 MG TAB PO PRN (09:35)
--- NOTE | 2019-05-03 09:58 | PRG ---
DATE OF SERVICE: 05/03/2019 SUBJECTIVE: Ms. Green feels good today. She says her nausea is improved. She has less bloating. OBJECTIVE: VITAL SIGNS: She is afebrile. Her vital signs are stable. ABDOMEN: Soft. She has active bowel sounds. She has minimal stool and air in her bag. Her wounds are healing well. ASSESSMENT: Postop sigmoid colectomy, colostomy, bladder repair. PLAN: Cystogram today, then remove Calderon. Advance to full liquid diet. Continue to mobilize. Job ID: [id number]
[2019-05-03] MEDS: Fentanyl 100 MCG/2 ML VIAL SLOW IVP PRN (11:12)
--- NOTE | 2019-05-03 11:18 | RAD ---
EXAM: XR Cystogram STANDARD PROVIDED CLINICAL HISTORY: Recent repair of urinary bladder and colectomy. COMPARISON: None FINDINGS: Calderon catheter is present within the urinary bladder which was placed prior to this procedure. The ur inary bladder was distended with approximately 250 mL of Isovue-300 contrast. AP and oblique imaging was performed. There is no extravasation of contrast seen from the urinary bladder. Urinary b ladder was drained, and there is no abnormal collection of contrast seen. Author image demonstrates left lower quadrant colostomy with vascular calcifications overlying the pel vis. Mild gaseous distention of loops of bowel are seen in the pelvis. IMPRESSION: 1. Distention of the urinary bladder without extravasation of contrast seen to suggest a leak.
[2019-05-03] MEDS ORDERED: ISOVUE-370 76%-LOCM 1 ML ONE (12:56)
[2019-05-03] MEDS: Enoxaparin Sodium 40 MG/0.4 ML SYRINGE SC SCH (20:40)
[2019-05-03] MEDS: ALPRAZolam 0.25 MG TAB PO SCH (20:42)
[2019-05-03] MEDS: Montelukast Sodium 10 mg Tablet PO SCH (20:42)
[2019-05-04] MEDS: traMADol HCl 50 MG TAB PO PRN ×4 (00:05→21:35)
[2019-05-04] MEDS: Acetaminophen 325 MG TAB PO PRN ×4 (00:06→21:35)
--- NOTE | 2019-05-04 08:27 | PDOC.GSPN ---
Surgery Progress Note: Subj - Subjective Patient reports: no new complaints, pain well controlled (No nausea) Surgery Progress Note: Obj - Vital signs Vital signs: Vital Signs - Most Recent Temp Pulse Resp BP Pulse Ox 97.7 F 88 14 124/72 96 05/04/19 07:52 05/04/19 07:52 05/04/19 07:52 05/04/19 07:52 05/04/19 07:52 - Physical Exam General: no distress Cardiovascular: regular rate and rhythm Respiratory: clear to auscultation Abdomen: soft, nondistended, appropriately tender Wound: healing well, ostomy/colostomy (mucosa swollen, no stool) Surgery Progress Note: Results - Labs Result Diagrams: 05/03/19 05:40 05/03/19 05:40 Surgery Progress Note: A/P - Problem (1) Colovaginal fistula Current Visit: Yes Code(s): N82.4 - OTHER FEMALE INTESTINAL-GENITAL TRACT FISTULAE Status: Acute - Plan Plan: Doing well Calderon out cysto normal advance to gi soft milk of magnesium to help start colostomy output
[2019-05-04] MEDS ORDERED: Milk Of Magnesia 30 ML UDCUP PO SCH (08:30)
[2019-05-04] MEDS: valACYclovir 500 MG TAB PO SCH (08:54)
[2019-05-04] MEDS: Amlodipine 5 MG TAB PO SCH (08:54)
[2019-05-04] MEDS: Lisinopril/Hydrochlorothiazide 20 mg/12.5 mg Tablet PO SCH (08:54)
[2019-05-04] MEDS: Famotidine/PF 20 mg/2ml Vial SLOW IVP SCH (08:54)
[2019-05-04] MEDS: Fentanyl 100 MCG/2 ML VIAL SLOW IVP PRN (13:08)
[2019-05-04] MEDS: Simethicone Chewable 80 MG TAB PO PRN ×3 (13:52→22:19)
[2019-05-04] MEDS: Ondansetron PF 4 MG/2 ML Vial IVP PRN (18:17)
[2019-05-04] MEDS: Enoxaparin Sodium 40 MG/0.4 ML SYRINGE SC SCH (21:35)
[2019-05-04] MEDS: Promethazine HCl 25 MG/ML VIAL IM PRN (21:40)
[2019-05-04] MEDS: Montelukast Sodium 10 mg Tablet PO SCH (22:19)
[2019-05-04] MEDS: ALPRAZolam 0.25 MG TAB PO SCH (22:20)
[2019-05-05] MEDS: Simethicone Chewable 80 MG TAB PO PRN ×3 (02:04→20:53)
[2019-05-05] MEDS: Ondansetron PF 4 MG/2 ML Vial IVP PRN ×3 (02:04→20:53)
[2019-05-05] MEDS: traMADol HCl 50 MG TAB PO PRN ×2 (04:55→18:04)
[2019-05-05] MEDS: Acetaminophen 325 MG TAB PO PRN ×2 (04:55→18:03)
[2019-05-05] MEDS: Amlodipine 5 MG TAB PO SCH (08:29)
[2019-05-05] MEDS: Lisinopril/Hydrochlorothiazide 20 mg/12.5 mg Tablet PO SCH (08:29)
[2019-05-05] MEDS: valACYclovir 500 MG TAB PO SCH (08:30)
[2019-05-05] MEDS: Famotidine/PF 20 mg/2ml Vial SLOW IVP SCH (08:30)
[2019-05-05] MEDS ORDERED: Milk Of Magnesia 30 ML UDCUP PO SCH (10:15)
--- NOTE | 2019-05-05 10:23 | PRG ---
DATE OF SERVICE: 05/05/2019 SUBJECTIVE: Ms. Green vomited once overnight. She is hungry. She has no nausea this morning. Still not having any colostomy output. OBJECTIVE: VITAL SIGNS: Her pulse is 110, but her blood pressure is 122/77, she is afebrile, and O2 saturation 98% on room air. GENERAL: She is voiding regularly. ABDOMEN: Soft. No significant distention. She does have active bowel sounds. There is a small amount of air but no stool in her colostomy bag. ASSESSMENT: Postop sigmoid colectomy, colostomy with lysis of adhesions, resolving ileus, although had nausea and vomited once and no significant ostomy output. PLAN: Another dose of milk of magnesia today. She needs to stay until she has more colostomy output. Job ID: [id number]
[2019-05-05] MEDS: Montelukast Sodium 10 mg Tablet PO SCH (21:15)
[2019-05-05] MEDS: ALPRAZolam 0.25 MG TAB PO SCH (22:13)
[2019-05-05] MEDS: Promethazine HCl 25 MG/ML VIAL IM PRN (22:42)
[2019-05-06] MEDS: traMADol HCl 50 MG TAB PO PRN ×3 (01:43→21:24)
[2019-05-06] MEDS: Acetaminophen 325 MG TAB PO PRN ×3 (01:43→21:25)
[2019-05-06] MEDS: Simethicone Chewable 80 MG TAB PO PRN ×2 (01:44→20:18)
[2019-05-06 06:27] LABS: #Basophils 0.1 thou/uL (0.0-0.2); #Eosinphils 0.4 thou/uL (0.0-0.7); #Monocytes 0.8 thou/uL (0.11-0.59); #Neutrophils 6.8 thou/uL (1.40-6.50); %Lymphocytes 11.1 % (21.0-51.0); %Monocytes 8.2 % (0.0-10.0); %Neutrophils 74.7 % (42.0-75.0); Hemoglobin 8.1 g/dL (12.0-16.0); Mean Corpuscular HGB CONC 33.9 g/dL (32.0-36.0); Mean Corpuscular Hemoglobin 31.4 pg (27.0-31.0); Mean Corpuscular Volume 92.8 fL (78.0-98.0); Mean Platelet Volume 7.2 fL (7.4-10.4); Platelet Count 209 thou/uL (130-400); RBC Distribution Width 16.3 % (11.5-14.5); Red Blood Cell (RBC) Count 2.59 mill/uL (4.20-5.40)
[2019-05-06 06:58] LABS: Anion Gap 10 mmol/L (10-20); BUN (Urea Nitrogen) 21 mg/dL (9.8-20.1); Calc. Creatinine Clearance 42 mL/min (70-130); Carbon Dioxide 27 mmol/L (23-31); Chloride 93 mmol/L (98-107); Estimated GFR-MDRD 43; Glucose 117 mg/dL (83-110); Potassium 3.9 mmol/L (3.5-5.1); Sodium 126 mmol/L (136-145)
[2019-05-06] MEDS: valACYclovir 500 MG TAB PO SCH (08:33)
[2019-05-06] MEDS: Amlodipine 5 MG TAB PO SCH (08:34)
[2019-05-06] MEDS: Famotidine/PF 20 mg/2ml Vial SLOW IVP SCH (08:35)
[2019-05-06] MEDS: Lisinopril/Hydrochlorothiazide 20 mg/12.5 mg Tablet PO SCH (08:35)
[2019-05-06] MEDS: Ondansetron PF 4 MG/2 ML Vial IVP PRN ×2 (08:36→20:18)
[2019-05-06] MEDS: Apixaban 2.5 MG TAB PO SCH (08:39)
--- NOTE | 2019-05-06 11:16 | PDOC.GSPN ---
Surgery Progress Note: Subj - Subjective Narrative: Still complaining of mild nausea. She is having more colostomy output now. No vomitting Surgery Progress Note: Obj - Vital signs Vital signs: Vital Signs - Most Recent Temp Pulse Resp BP Pulse Ox 98.2 F 89 15 152/85 H 96 05/06/19 08:02 05/06/19 08:35 05/06/19 08:02 05/06/19 08:35 05/06/19 08:02 - Physical Exam General: no distress Cardiovascular: regular rate and rhythm Respiratory: clear to auscultation Abdomen: soft, positive bowel sounds, appropriately tender, distended Wound: healing well, ostomy/colostomy (viable with stool in bag) Surgery Progress Note: Results - Labs Result Diagrams: 05/06/19 05:38 05/06/19 05:38 Lab results: Laboratory Results - last 24 hr 05/06/19 05/06/19 05:38 05:38 WBC 9.0 RBC 2.59 L Hgb 8.1 L Hct 24.0 L MCV 92.8 MCH 31.4 H MCHC 33.9 RDW 16.3 H Plt Count 209 MPV 7.2 L Neutrophils % 74.7 Lymphocytes % 11.1 L Monocytes % 8.2 Eosinophils % 5.0 Basophils % 1.0 Neutrophils # 6.8 H Lymphocytes # 1.0 L Monocytes # 0.8 H Eosinophils # 0.4 Basophils # 0.1 Sodium 126 L Potassium 3.9 Chloride 93 L Carbon Dioxide 27 Anion Gap 10 BUN 21 H Creatinine 1.21 H Estimated GFR (MDRD) 43 Glucose 117 H Calcium 9.0 Surgery Progress Note: A/P - Problem (1) Colovaginal fistula Current Visit: Yes Code(s): N82.4 - OTHER FEMALE INTESTINAL-GENITAL TRACT FISTULAE Status: Acute - Plan Plan: Expected postop ileus slowly resolving. -I suspect she will be ready for DC tomorrow.
[2019-05-06] MEDS: Fentanyl 100 MCG/2 ML VIAL SLOW IVP PRN (12:29)
[2019-05-06] MEDS: Promethazine HCl 25 MG/ML VIAL IM PRN ×2 (12:32→21:19)
[2019-05-06] MEDS: Montelukast Sodium 10 mg Tablet PO SCH (20:18)
[2019-05-06] MEDS: ALPRAZolam 0.25 MG TAB PO SCH (21:10)
[2019-05-07] MEDS: Lisinopril/Hydrochlorothiazide 20 mg/12.5 mg Tablet PO SCH (09:20)
[2019-05-07] MEDS: Amlodipine 5 MG TAB PO SCH (09:21)
[2019-05-07] MEDS: Apixaban 2.5 MG TAB PO SCH (09:21)
[2019-05-07] MEDS: valACYclovir 500 MG TAB PO SCH (09:22)
[2019-05-07] MEDS: Famotidine/PF 20 mg/2ml Vial SLOW IVP SCH (09:22)
--- NOTE | 2019-05-07 10:47 | PDOC.GSPN ---
Surgery Progress Note: Subj - Subjective Narrative: Still having nausea at times Surgery Progress Note: Obj - Vital signs Vital signs: Vital Signs - Most Recent Temp Pulse Resp BP Pulse Ox 97.9 F 103 H 14 148/80 H 98 05/07/19 08:16 05/07/19 09:21 05/07/19 08:16 05/07/19 08:16 05/07/19 08:16 - Physical Exam General: no distress Cardiovascular: regular rate and rhythm Respiratory: clear to auscultation Abdomen: soft, non tender, nondistended Wound: ostomy/colostomy (stool in bag) Surgery Progress Note: Results - Labs Result Diagrams: 05/06/19 05:38 05/06/19 05:38 Surgery Progress Note: A/P - Problem (1) Colovaginal fistula Current Visit: Yes Code(s): N82.4 - OTHER FEMALE INTESTINAL-GENITAL TRACT FISTULAE Status: Acute - Plan Plan: Expected postop ileus slowly resolving. -I suspect she will be ready for DC tomorrow.
[2019-05-07 14:44] VITALS: BMI 21.3
[2019-05-07] MEDS: Acetaminophen 325 MG TAB PO PRN ×2 (14:54→23:11)
[2019-05-07] MEDS: traMADol HCl 50 MG TAB PO PRN ×2 (14:54→20:52)
[2019-05-07] MEDS: Mag-Al 1200 mg/1200 mg/30 ML UDCUP PO PRN ×3 (14:55→20:52)
[2019-05-07] MEDS: Simethicone Chewable 80 MG TAB PO PRN ×2 (18:07→23:11)
[2019-05-07] MEDS: Montelukast Sodium 10 mg Tablet PO SCH (20:53)
[2019-05-07] MEDS: ALPRAZolam 0.25 MG TAB PO SCH (20:53)
[2019-05-08] MEDS: traMADol HCl 50 MG TAB PO PRN ×2 (05:27→14:36)
[2019-05-08] MEDS: Mag-Al 1200 mg/1200 mg/30 ML UDCUP PO PRN ×2 (05:27→11:09)
[2019-05-08] MEDS: Acetaminophen 325 MG TAB PO PRN ×2 (05:27→14:36)
[2019-05-08 07:54] VITALS: TEMP 97.8
[2019-05-08] MEDS: Lisinopril/Hydrochlorothiazide 20 mg/12.5 mg Tablet PO SCH (09:02)
[2019-05-08] MEDS: Amlodipine 5 MG TAB PO SCH (09:03)
[2019-05-08] MEDS: Famotidine/PF 20 mg/2ml Vial SLOW IVP SCH (09:03)
[2019-05-08] MEDS: valACYclovir 500 MG TAB PO SCH (09:03)
[2019-05-08] MEDS: Apixaban 2.5 MG TAB PO SCH (09:12)
--- NOTE | 2019-05-08 10:55 | DIS ---
DATE OF ADMISSION: 04/28/2019 DATE OF DISCHARGE: 05/08/2019 ADMIT DIAGNOSIS: Colovaginal fistula. DISCHARGE DIAGNOSIS: Colovaginal fistula. PROCEDURES: Sigmoid colectomy and colostomy by Julio without complication. CONDITION ON DISCHARGE: Improved. STAFF: Julio. HOSPITAL COURSE: The patient's postop course was complicated by expected postoperative ileus, this slowly resolved. On the day of discharge, she is doing well and is tolerating regular diet. She is having stool function. Her wound is clear. No evidence of infection. She is being discharged to home. She has tramadol at home already, so no prescription for pain medicine is sent. She will follow up with me in 2 weeks. Job ID: [id number]
[2019-05-08 11:55] VITALS: BP 121/73
--- NOTE | 2019-05-11 04:13 | PQF ---
[employer] Crystal Reports Valente WalterLILLI TAPIA MD [id number] SURG A- [id number] CLINICAL DOCUMENTATION CLARIFICATION FORM: POST DISCHARGE Addendum to original discharge summary date: ____ Late entry note date: __ DATE: 05/11/2019 ATTN: LILLI CHEN MD Please exercise your independent, professional judgment in responding to the clarification form. Clinical indicators are provided on the bottom of this form for your review Please check appropriate box(s): [ ] Hyponatremia please specify etiology, if known [ ] Hyponatremia due to SIADH (Syndrome of Inappropriate Secretion of Antidiuretic Hormone) [ ] Other diagnosis [ X ] Unable to determine In addition, please specify: Present on Admission (POA): [ ] Yes [ ] No [ X ] Unable to determine CLINICAL INDICATORS - SIGNS / SYMPTOMS / LABS -Sodium: 129L, 126L, Laboratory, 05/03, 05/06 -Expected postoperative ileus-DS, 05/08, LILLI CHEN MD -Colovaginal fistula-OP report, 04/30, LILLI CHEN MD RISK FACTORS - Open sigmoid colectomy and colostomy-OP report, 04/30, LILLI CHEN MD - Acute on chronic diverticulitis- OP report, 04/30, LILLI CHEN MD TREATMENTS: - Sodium chloride.IV-MAR, 04/30 (This form is maintained as a part of the permanent medical record) 2014 [employer]. All Rights Reserved Yane Liao [not provided] [not provided] JOSE
== END 2019-05-08 15:30 | disposition home or self-care (01) | DRG 330 ==
LOC: SURG A 04-28 06:44
PROVIDERS: ADMIT Surgery; ATTEND Surgery
PROC: 0DTN0ZZ Resection of Sigmoid Colon, Open Approach (ICD-10-PCS; principal; 2019-05-01)
PROC: 0D1N0Z4 Bypass Sigmoid Colon to Cutaneous, Open Approach (ICD-10-PCS; 2019-05-01)
PROC: 0TQB0ZZ Repair Bladder, Open Approach (ICD-10-PCS; 2019-05-01)
PROC: 0DJD4ZZ Inspection of Lower Intestinal Tract, Percutaneous Endoscopic Approach (ICD-10-PCS; 2019-05-01)
PROC: BT101ZZ Fluoroscopy of Bladder using Low Osmolar Contrast (ICD-10-PCS; 2019-05-03)
DX: N82.3 Fistula of vagina to large intestine (principal); K56.7 Ileus, unspecified; C90.00 Multiple myeloma not having achieved remission; K57.80 Diverticulitis of intestine, part unspecified, with perforation and abscess without bleeding; Z96.611 Presence of right artificial shoulder joint; Z96.612 Presence of left artificial shoulder joint; F41.9 Anxiety disorder, unspecified; I10 Essential (primary) hypertension; D50.9 Iron deficiency anemia, unspecified; Z90.49 Acquired absence of other specified parts of digestive tract; Z90.710 Acquired absence of both cervix and uterus; Z88.8 Allergy status to other drugs, medicaments and biological substances
CPT/HCPCS: 36415; 36416; 51600; 74177; 74430; 80048; 85014; 85018; 85025; 86850; 86900; 86901; 88305; 88307; 88312; J0131; J0360; J0670; J0694; J1100; J1650; J2001; J2250; J2270; J2405; J2550; J2704; J3010; J3490; Q9966; Q9967; S0028

== ENCOUNTER 2019-04-27 06:41 | Day surgery (SDC) | payer MEDICARE ==
[2019-04-17 15:23] VITALS: BMI 22.7
[2019-04-27] MEDS ORDERED: Famotidine/PF 20 mg/2ml Vial ONE (07:16)
--- NOTE | 2019-04-27 11:25 | OP ---
DATE OF PROCEDURE: 04/27/2019 PROCEDURE PERFORMED: Esophagogastroduodenoscopy with biopsy and push enteroscopy and colonoscopy. PREOPERATIVE DIAGNOSIS: Abnormal CT scan of the abdomen showing a possible soft tissue mass in the third portion of the duodenum. 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 DESCRIPTION OF PROCEDURE: Informed consent was obtained from the patient. She was sedated with total intravenous anesthesia. A bite block was placed and the colonoscope was then passed to the proximal jejunum. The mucosa of the jejunum and the entire duodenum was normal. The pylorus was normal. The stomach had diffuse erythematous gastritis, which was slightly atrophic. Biopsies were obtained to rule out Helicobacter pylori. Retroflexed views in the stomach were normal. The GE junction and esophagus were normal. The patient was turned around. Rectal exam was performed and was unremarkable. The colonoscope was advanced to the distal sigmoid; however, there was a fixed flexure through which the colonoscope could not be advanced proximally. I made an exchange then for the more flexible diagnostic upper endoscope. The endoscope was then advanced all the way to the terminal ileum. The preparation quality was fair originally, and extensive irrigation and suctioning was performed such that the overall prep was good in the end. There were two stool balls in the sigmoid colon that obscured visualization into small areas, but otherwise the entire colonic mucosa was well visualized. The mucosa of the terminal ileum was normal. The ileocecal valve and appendiceal orifice were clearly identified. The colonic mucosa was normal throughout. Retroflex views in the rectum were normal. IMPRESSION: 1. Nonerosive diffuse erythematous gastritis, atrophic, biopsied to rule out Helicobacter pylori. 2. Otherwise, normal push enteroscopy to the proximal jejunum. There is no mass in the third portion of the duodenum. 3. Fixed distal sigmoid flexure through which the colonoscope could not be advanced. 4. Complete colonoscopy to the terminal ileum was performed with the yet more flexible diagnostic upper endoscope. The terminal ileum and colonic mucosa were normal throughout. Retroflexed views in the rectum were normal. PLAN: 1. Await histopathology. 2. Surgery is scheduled for tomorrow for colovaginal fistula. 3. Repeat colonoscopy in 10 years for screening; however, based on age, this actually should not be necessary. Job ID: [id number]
[2019-04-27] MEDS ORDERED: PROPOFOL 200 MG/20 ML VIAL ONE (16:37)
[2019-04-28] MEDS ORDERED: Midazolam HCl 2 mg/2 ml Vial ONE (09:02)
[2019-04-28] MEDS ORDERED: Fentanyl 100 MCG/2 ML VIAL ONE (09:02)
== END 2019-04-27 11:30 | disposition home or self-care (01) ==
LOC: SDC 06:41
PROVIDERS: ATTEND Internal Medicine Gastroenterology
PROC: 0DB58ZX Excision of Esophagus, Via Natural or Artificial Opening Endoscopic, Diagnostic (ICD-10-PCS; principal; 2019-04-27)
PROC: 0DJD8ZZ Inspection of Lower Intestinal Tract, Via Natural or Artificial Opening Endoscopic (ICD-10-PCS; 2019-04-27)
DX: K57.92 Diverticulitis of intestine, part unspecified, without perforation or abscess without bleeding (principal); N32.1 Vesicointestinal fistula; K31.89 Other diseases of stomach and duodenum; I12.9 Hypertensive chronic kidney disease with stage 1 through stage 4 chronic kidney disease, or unspecified chronic kidney disease; N18.9 Chronic kidney disease, unspecified; K21.9 Gastro-esophageal reflux disease without esophagitis; D64.9 Anemia, unspecified; M19.90 Unspecified osteoarthritis, unspecified site; Z79.01 Long term (current) use of anticoagulants; Z79.899 Other long term (current) drug therapy; Z88.5 Allergy status to narcotic agent
CPT/HCPCS: 88305; 88312; S0028

== ENCOUNTER 2019-07-31 10:30 | Inpatient (IN) | payer MEDICARE ==
[2019-08-03 13:27] VITALS: BMI 20.7
[2019-08-06] MEDS ORDERED: ceFOXitin 2 GM/50 ML Duplex BAG ONE (06:29)
[2019-08-06] MEDS ORDERED: Midazolam HCl 2 mg/2 ml Vial ONE ×2 (06:51→08:15)
[2019-08-06] MEDS ORDERED: Fentanyl 100 MCG/2 ML VIAL ONE ×4 (06:51→12:26)
[2019-08-06] MEDS ORDERED: Lidocaine 1% (PF) 30 ML VIAL ONE (06:52)
[2019-08-06] MEDS ORDERED: Lidocaine 1% w/Epinephrine 1:100K 20 ML VIAL ONE (08:13)
[2019-08-06] MEDS ORDERED: Bupivacaine 0.25% HCL 30 ML VIAL ONE (08:13)
[2019-08-06] MEDS ORDERED: Hetastarch 6% 500 ML 500 ML ONE (10:48)
[2019-08-06] MEDS ORDERED: Promethazine HCl 25 MG/ML VIAL IM PRN (11:59)
[2019-08-06] MEDS ORDERED: Ondansetron HCl/PF 4 MG/2 ML Vial IVP PRN (11:59)
[2019-08-06] MEDS ORDERED: Promethazine HCl 25 MG/ML VIAL SLOW IVP PRN (11:59)
--- NOTE | 2019-08-06 12:01 | OP ---
DATE OF PROCEDURE: 08/06/2019 This is a 79-year-old white female. This is an intraoperative consult and a procedure note. This patient was in the OR asleep, having a colostomy takedown by Dr. Kim. She in April of this year had diverticular abscess draining into the vagina, so she had a colovaginal fistula, and he at that point removed the fistulous tract and did a colostomy and she is coming back in now for takedown of the colostomy and reanastomosis. Down in the pelvis on the left side, there was an area of concern for ureteral injury. It did not appear to be full thickness, but Dr. Kim noted it and asked me to come and evaluate. I have looked at her in the OR. It is not a full thickness. It does not appear that the mucosa itself has been violated. The surrounding ureter appears healthy. There is not a lot of adventitial tissue just right around this site, but there is a good segment of omentum that can easily be brought down in this region. She has no history of pelvic radiation. She was already prepped and draped actually vaginally, so we were able to just do a cystoscopy, examined her bladder. There was no evidence of bladder tumor, foreign body, stone, or bladder fistula. The ureteral orifices were normal in position. There were 2 of them. The left ureter was cannulated with a guidewire and fed up the ureter. Looking at the ureter as we fed up the ureter from inside of her belly, easily went by this point and there was not any evidence of tear in the mucosa in this region. A small dilan in just the adventitia of the ureter in this region was not widely , but actually right next to itself on both the proximal and distal aspect of it. We went ahead and fed a 5-Djiboutian Pollack catheter over the wire. The patient is about 5 feet 7 or 8 inches, and we selected a 26-Djiboutian double-J stent to use. The open-ended catheter was removed and then the stent was passed over the guidewire, pushed up to place with the aid of a pusher, so that the proximal end presumably has coiled in the renal pelvis and distal end coiled in the bladder. There was no difficulty in passing this. We then went ahead and rescrubbed and joined Dr. Kim, looked at the area now that the stent was in. It was not felt there was enough of any injury there to put any stitches into the ureter wall itself. The edge where the slight little dilan had been was not through into the lumen and the edges were just pretty much well-approximated already. I do not feel like we helped by trying to put a stitch in, but most maybe would cause further trouble. There was plenty of omentum and Dr. Kim will tack some omentum down around this to separate this area from the colon after he does the colon reanastomosis. I do not see obvious reason for drain to be placed unless he is going to place one from his procedure. I talked with him and recommended we will leave the stent in for 6 weeks and will remove it in the operating room and do a retrograde study to be sure this area drains well. I did review her CAT scan after and she has normal kidneys and ureters on her CAT scan in April. No evidence of hydronephrosis or stones or renal masses. She has some lobulation, but nothing else of any significance from a genitourinary standpoint. Job ID: [id number]
[2019-08-06] MEDS ORDERED: PHENYLEPHRINE-NS 100 MCG/ML 10 ML SYRINGE ONE ×2 (12:05→13:48)
--- NOTE | 2019-08-06 12:11 | RAD ---
XR Abdomen 1 View/KUB CLINICAL INDICATION: Ureteral stent FINDINGS: Left ureteral stent is present, proximal coil overlying left renal shadow, and distal coil overlying expected region of urinary bladder. Nonspecific bowel gas pattern. Metallic clips are present right upper abdomen. Degenerative change of the osseous structures, and levoscoliosis of the imaged lumbar spine. Small calcific patient overlying left upper abdomen suggest granulomatous calcification. IMPRESSION: Left ureteral stent in place.
[2019-08-06] MEDS ORDERED: Fentanyl 100 MCG/2 ML VIAL SLOW IVP PRN (13:05)
[2019-08-06] MEDS ORDERED: Mometasone/Formoterol 120 PUFF INHALER INH PRN (13:05)
[2019-08-06] MEDS ORDERED: Ondansetron PF 4 MG/2 ML Vial ONE ×2 (13:07→13:48)
[2019-08-06] MEDS ORDERED: Promethazine HCl 25 MG/ML VIAL ONE (13:20)
[2019-08-06] MEDS ORDERED: Dexamethasone 20 MG/5 ML VIAL ONE (13:48)
[2019-08-06] MEDS ORDERED: ePHEDrine/0.9% NaCl/PF SYRINGE 50 mg/10 ml ONE (13:48)
[2019-08-06] MEDS ORDERED: Glycopyrrolate 0.2 MG/ML 5 ML SYRINGE ONE (13:48)
[2019-08-06] MEDS ORDERED: PROPOFOL 200 MG/20 ML VIAL ONE (13:48)
[2019-08-06] MEDS ORDERED: Rocuronium Bromide 10 MG/ML (10ML VIAL) ONE (13:48)
[2019-08-06] MEDS ORDERED: Lidocaine 1% PF 5 ML VIAL ONE (13:48)
[2019-08-06] MEDS ORDERED: Ketorolac Tromethamine 30 MG/ML VIAL ONE (13:48)
[2019-08-06] MEDS ORDERED: Bupivacaine HCl 0.5%/Epinephrine 1:200,000/PF 30 ml Vial ONE (13:50)
[2019-08-06] MEDS ORDERED: cefOXitin 2 GM in Sodium Chloride 0.9% 100 ML IVPB SCH (14:00)
[2019-08-06] MEDS: D5 1/2 NS w/20 mEq KCL 1,000 ML IV SCH (14:46)
[2019-08-06] MEDS: Acetaminophen 1,000 MG in Premix Bag 1 BAG IVPB SCH ×2 (14:48→20:07)
[2019-08-06] MEDS: cefOXitin Sodium/Dextrose,Iso 2 GM in Premix Bag 1 BAG IVPB SCH ×2 (14:52→22:15)
[2019-08-06] MEDS: Ondansetron PF 4 MG/2 ML Vial IVP PRN (17:28)
[2019-08-06] MEDS: Promethazine HCl 25 MG/ML VIAL IM PRN (19:25)
[2019-08-06] MEDS: Lisinopril/Hydrochlorothiazide 20 mg/12.5 mg Tablet PO SCH (20:07)
[2019-08-06] MEDS: Famotidine 20 MG TAB PO SCH (20:07)
[2019-08-06] MEDS: Montelukast Sodium 10 mg Tablet PO SCH (20:08)
[2019-08-06] MEDS: Mirtazapine 15 MG TAB PO SCH (20:08)
[2019-08-06] MEDS: Famotidine/PF 20 mg/2ml Vial SLOW IVP SCH (20:14)
[2019-08-07] MEDS: Acetaminophen 1,000 MG in Premix Bag 1 BAG IVPB SCH ×2 (02:16→14:11)
[2019-08-07] MEDS: D5 1/2 NS w/20 mEq KCL 1,000 ML IV SCH ×3 (02:25→16:01)
[2019-08-07 06:26] LABS: Hemoglobin 5.4 g/dL (12.0-16.0); Mean Corpuscular HGB CONC 33.3 g/dL (32.0-36.0); Mean Corpuscular Hemoglobin 31.8 pg (27.0-31.0); Mean Corpuscular Volume 95.7 fL (78.0-98.0); Mean Platelet Volume 7.6 fL (7.4-10.4); Platelet Count 116 thou/uL (130-400); White Blood Cell (WBC) Count 11.3 thou/uL (4.8-10.8)
[2019-08-07 06:41] LABS: #Lymphocytes 0.7 thou/uL (1.20-3.40); #Monocytes 0.8 thou/uL (0.11-0.59); #Neutrophils 9.9 thou/uL (1.40-6.50); %Basophils 0.2 % (0.0-1.0); %Eosinophils 0.1 % (0.0-10.0); %Lymphocytes 5.7 % (21.0-51.0); %Monocytes 6.6 % (0.0-10.0); %Neutrophils 87.4 % (42.0-75.0)
[2019-08-07 06:43] LABS: Anion Gap 9 mmol/L (10-20); BUN (Urea Nitrogen) 18 mg/dL (9.8-20.1); Calc. Creatinine Clearance 20 mL/min (70-130); Calcium 6.7 mg/dL (7.8-10.44); Carbon Dioxide 21 mmol/L (23-31); Chloride 103 mmol/L (98-107); Estimated GFR-MDRD 20; Glucose 167 mg/dL (83-110); Potassium 3.9 mmol/L (3.5-5.1); Sodium 129 mmol/L (136-145)
[2019-08-07 07:19] LABS: Hemoglobin 5.7 g/dL (12.0-16.0)
[2019-08-07] MEDS: Ondansetron PF 4 MG/2 ML Vial IVP PRN (09:45)
--- NOTE | 2019-08-07 09:45 | OP ---
DATE OF PROCEDURE: 08/06/2019 PREOPERATIVE DIAGNOSES: 1. History of sigmoid diverticulitis with colovaginal fistula. 2. Attention to colostomy. POSTOPERATIVE DIAGNOSES: 1. History of sigmoid diverticulitis with colovaginal fistula. 2. Attention to colostomy. 3. Rule out iatrogenic injury to left ureter. PROCEDURES PERFORMED: 1. Colostomy takedown involving extensive lysis of intraabdominal adhesions. 2. Small bowel resection and anastomosis. 3. Repair of enterotomy, multiple. ANESTHESIA: General. ESTIMATED BLOOD LOSS: 250 mL. COMPLICATIONS: In mobilizing small bowel out of the pelvis, there was potential for left ureter injury, and so intraoperative urology consult, Dr. Blum came in and placed a stent. It turns out it was not a full-thickness injury. DESCRIPTION OF PROCEDURE: The patient was taken to the operating room and laid supine on the operating room table. After general anesthetic was obtained, a Calderon was placed. She is placed in lithotomy position. Her abdomen was prepped and draped in a sterile fashion. A midline incision was made, cautery dissected down into the abdominal cavity. There were some intraabdominal adhesion and lysis was extensive. There was significant small bowel adhesions present. Some of the small bowel was down into the pelvis in the area of previous inflammatory change. In mobilizing some small bowel out of the left hemipelvis after it was pulled up, the ureter was found to have potential injury. Dr. Blum was called, who performed an intraoperative consult and left stent placement. It turned out there was no significant injury, but a stent was left in. The rectum was mobilized at the previous rectal stump and a Contour stapler was fired across the rectum just distal to the rectosigmoid junction. The colostomy segment was taken down and dropped back down into the abdominal cavity. The patient had previous splenic flexure mobilization. The adhesions from this mobilizations were taken down, allowing the colon to reach down in the pelvis under no tension. The 31 EEA was used to perform the anastomosis. The anvil was passed proximally through the end of the colostomy segment, its sharp pin brought on the antimesenteric surface of the colon proximal. Contour stapler was fired just distal to that. This colon segment was able to be brought down into the pelvis under no tension. The base of the EEA was brought up through the anus and sharp end brought on the antimesenteric surface of the rectal stump below. Anastomosis was performed. There was no air leakage by testing it underwater. In the most dense area of adhesiolysis, there was 2 small bowel enterotomies and a full-thickness injury to the small bowel. The 2 enterotomies were closed using 3-0 Vicryl and then 3-0 silk sutures. A small bowel resection was performed in the area of greater than 50% circumferential injury. A VANDA 75 was fired across the small bowel proximal and distal. The mesentery was taken using the LigaSure. The small bowel ends were brought together in antimesenteric fashion. Anastomosis was performed in a [id number] manner. The common enterotomy was closed using TA60 stapler. There were no obvious injuries to the small bowel. The small bowel was run to the ligament of Treitz and the ileocecal valve without evidence of further injury. The abdomen was irrigated. In taking down the splenic flexure again, there was a small serosal tear of the spleen. It was controlled using Surgicel. There was no ongoing bleeding. The omentum was able to be dropped down on top of the area of thinning of the ureteral wall. All instrument counts, needle counts, and lap counts were correct. The former colostomy site fascia was closed anterior and posterior using PDS. Midline fascia was closed using #1 PDS from the top and bottom and tied in the middle. Subcutaneous tissues were irrigated copiously and the skin was closed using 3-0 Vicryl, 4-0 Monocryl, and Dermabond. The colostomy skin was closed using pursestring of Prolene. A [place] was placed in the middle of the wound. Sterile dressings were placed. The patient was sent to Recovery in stable condition. All instrument counts, needle counts, and lap counts were correct. Job ID: [id number]
[2019-08-07] MEDS: valACYclovir 500 MG TAB PO SCH (09:48)
[2019-08-07] MEDS: Famotidine 20 MG TAB PO SCH ×2 (09:48→20:19)
[2019-08-07] MEDS: traMADol HCl 50 MG TAB PO PRN ×2 (09:48→15:40)
[2019-08-07] MEDS: Lisinopril/Hydrochlorothiazide 20 mg/12.5 mg Tablet PO SCH ×2 (09:48→19:51)
--- NOTE | 2019-08-07 11:14 | PDOC.GSPN ---
Surgery Progress Note: Subj - Subjective Narrative: Pain controlled. Patient would like to switch to oral. Tolerating clears without nausea Surgery Progress Note: Obj - Vital signs Vital signs: Vital Signs - Most Recent Temp Pulse Resp BP Pulse Ox 98.5 F 88 16 134/68 98 08/07/19 10:02 08/07/19 10:02 08/07/19 10:02 08/07/19 10:02 08/07/19 09:21 - Physical Exam General: no distress Respiratory: clear to auscultation Abdomen: soft, appropriately tender Wound: healing well Surgery Progress Note: Results - Labs Result Diagrams: 08/07/19 06:42 08/07/19 05:48 Lab results: Laboratory Results - last 24 hr 08/07/19 08/07/19 08/07/19 05:48 05:48 06:42 WBC 11.3 H RBC 1.70 L Hgb 5.4 L* 5.7 L* Hct 16.2 L 17.7 L MCV 95.7 MCH 31.8 H MCHC 33.3 RDW 15.0 H Plt Count 116 L MPV 7.6 Neutrophils % 87.4 H Neutrophils % (Manual) Not Reportable Lymphocytes % 5.7 L Monocytes % 6.6 Eosinophils % 0.1 Basophils % 0.2 Neutrophils # 9.9 H Lymphocytes # 0.7 L Monocytes # 0.8 H Eosinophils # 0.0 Basophils # 0.0 Sodium 129 L Potassium 3.9 Chloride 103 Carbon Dioxide 21 L Anion Gap 9 L BUN 18 Creatinine 2.36 H Estimated GFR (MDRD) 20 Glucose 167 H Calcium 6.7 L Blood Type Antibody Screen Crossmatch 08/07/19 07:55 WBC RBC Hgb Hct MCV MCH MCHC RDW Plt Count MPV Neutrophils % Neutrophils % (Manual) Lymphocytes % Monocytes % Eosinophils % Basophils % Neutrophils # Lymphocytes # Monocytes # Eosinophils # Basophils # Sodium Potassium Chloride Carbon Dioxide Anion Gap BUN Creatinine Estimated GFR (MDRD) Glucose Calcium Blood Type O POSITIVE Antibody Screen NEGATIVE Crossmatch See Detail Surgery Progress Note: A/P - Problem (1) Colovaginal fistula Current Visit: No Code(s): N82.4 - OTHER FEMALE INTESTINAL-GENITAL TRACT FISTULAE Status: Acute Assessment and Plan: Now post op colostomy takedown - Plan Plan: POD 1 -clears today -Hgb down. 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 Transfuse 2 units -Stent placed during surgery for left ureter involvment, watch creatinine, uop ok -Encouraged her to be up and ambulate today -add tramadol
[2019-08-07] MEDS: Famotidine/PF 20 mg/2ml Vial SLOW IVP SCH ×2 (11:35→19:52)
--- NOTE | 2019-08-07 13:22 | PRG ---
DATE OF SERVICE: 08/07/2019 She is postoperative day one from a colostomy takedown and cysto and left stent placement. She is afebrile and vital signs appear stable. Says she is relatively comfortable today, not having any great deal of discomfort. She has produced what looks like about only 250 mL of urine output yesterday, so she may be somewhat behind in her fluid. She has had a low hemoglobin today and she has had problems with low hemoglobins, was down in the 5 range and she has been transfused with 2 units of blood. Her normal hemoglobin is in the 8 to 9 range. It looks like she has a mildly elevated white count. Her platelet count was normal. Creatinine is also increased, normally it is around 1.1, it is in the 2.3 range and this also may be related to fluid hydration status and prerenal causes. I would assume that this was correct. Her urine to me looks clear. I talked with her about her surgery and the need for stent for about six weeks and we will get a visit set up to see her in about four weeks in my office and at that time, we will check her urine culture and get her set up for cysto and removal of the stent. I am going to sign off at this time. However, as I will be leaving [facility], however, there is Urology available should they be necessary, please just contact the urologist on-call regarding further urologic care on her behalf. Job ID: [id number]
[2019-08-07] MEDS: Fentanyl 100 MCG/2 ML VIAL SLOW IVP PRN ×4 (14:02→21:24)
[2019-08-07] MEDS: Acetaminophen 1,000 MG in Premix Bag 1 BAG IVPB PRN (19:42)
[2019-08-07] MEDS: Montelukast Sodium 10 mg Tablet PO SCH (19:52)
[2019-08-07] MEDS: Mirtazapine 15 MG TAB PO SCH (19:53)
[2019-08-07] MEDS: hydrALAZINE 20 MG/ML VIAL SLOW IVP PRN (20:10)
[2019-08-07] MEDS ORDERED: Naloxone HCl 0.4 mg/ml Vial IV PRN (21:22)
[2019-08-07] MEDS ORDERED: Ondansetron PF 4 MG/2 ML Vial IVP PRN (21:22)
[2019-08-07] MEDS ORDERED: Promethazine HCl 25 MG/ML VIAL IM PRN (21:22)
[2019-08-07] MEDS ORDERED: Zolpidem Tartrate 5 MG TAB PO PRN (21:22)
[2019-08-07] MEDS ORDERED: diphenhydrAMINE 25 MG CAP PO PRN (21:22)
[2019-08-07] MEDS ORDERED: diphenhydrAMINE 50 MG/ML VIAL IVP PRN (21:22)
[2019-08-07] MEDS ORDERED: diphenhydrAMINE 50 MG/ML VIAL IM PRN (21:22)
[2019-08-07] MEDS ORDERED: Communication Order-Pharmacy FS SCH (21:30)
[2019-08-07] MEDS: fentaNYL Citrate/PF 2,000 MCG in Sodium Chloride 0.9% 60 ML IV PRN (22:10)
[2019-08-08] MEDS: D5 1/2 NS w/20 mEq KCL 1,000 ML IV SCH ×3 (02:23→15:24)
[2019-08-08 07:11] LABS: #Eosinphils 0.1 thou/uL (0.0-0.7); #Lymphocytes 0.7 thou/uL (1.20-3.40); #Monocytes 0.8 thou/uL (0.11-0.59); #Neutrophils 8.6 thou/uL (1.40-6.50); %Basophils 0.1 % (0.0-1.0); %Eosinophils 0.9 % (0.0-10.0); %Lymphocytes 7.2 % (21.0-51.0); %Monocytes 7.4 % (0.0-10.0); %Neutrophils 84.4 % (42.0-75.0); Hemoglobin 8.2 g/dL (12.0-16.0); Mean Corpuscular HGB CONC 33.2 g/dL (32.0-36.0); Mean Corpuscular Hemoglobin 30.9 pg (27.0-31.0); Mean Platelet Volume 7.7 fL (7.4-10.4); Platelet Count 155 thou/uL (130-400); RBC Distribution Width 15.2 % (11.5-14.5); Red Blood Cell (RBC) Count 2.66 mill/uL (4.20-5.40); White Blood Cell (WBC) Count 10.2 thou/uL (4.8-10.8)
[2019-08-08 07:27] LABS: Anion Gap 10 mmol/L (10-20); BUN (Urea Nitrogen) 23 mg/dL (9.8-20.1); Calc. Creatinine Clearance 22 mL/min (70-130); Calcium 7.3 mg/dL (7.8-10.44); Carbon Dioxide 20 mmol/L (23-31); Chloride 104 mmol/L (98-107); Estimated GFR-MDRD 22; Glucose 98 mg/dL (83-110); Potassium 4.4 mmol/L (3.5-5.1); Sodium 130 mmol/L (136-145)
[2019-08-08] MEDS: Acetaminophen 1,000 MG in Premix Bag 1 BAG IVPB PRN (08:14)
[2019-08-08] MEDS: Ondansetron PF 4 MG/2 ML Vial IVP PRN ×2 (08:16→15:38)
--- NOTE | 2019-08-08 09:05 | PRG ---
DATE OF SERVICE: 08/08/2019 SUBJECTIVE: Ms. Green feels slightly better today. She is still having some hiccuping. No significant nausea. She has not been out of bed. 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 OBJECTIVE: VITAL SIGNS: Her pulse is 99, respirations 18, blood pressure is 165/82. Urine output is good at 650 overnight. Her IV fluids are running at 75. ABDOMEN: Soft. Her midline wound is healing well without evidence of infection. There is some drainage in the dressings on the left lower quadrant. LABORATORY DATA: Her white count is 2, hemoglobin 8.2, platelet count is 155, normal differential. Sodium 130; potassium 4.4; creatinine is 2.15, down from 2.36; glucose 98. ASSESSMENT: Postop day 2 colostomy reversal, small-bowel resection, and left ureteral stent placement. PLAN: I expect more of a prolonged ileus in her at this time given the small-bowel resection and the extensive lysis of adhesions. We will allow clear liquids for now. We will work on getting her up and moving today. We will continue to follow the creatinine in the urine output. Job ID: [id number]
[2019-08-08] MEDS: Lisinopril/Hydrochlorothiazide 20 mg/12.5 mg Tablet PO SCH ×2 (09:27→21:41)
[2019-08-08] MEDS: Famotidine 20 MG TAB PO SCH ×2 (09:27→21:41)
[2019-08-08] MEDS: Famotidine/PF 20 mg/2ml Vial SLOW IVP SCH ×2 (09:28→21:51)
[2019-08-08] MEDS: valACYclovir 500 MG TAB PO SCH (11:49)
[2019-08-08] MEDS: Promethazine HCl 25 MG/ML VIAL IM PRN (17:26)
[2019-08-08] MEDS: Mirtazapine 15 MG TAB PO SCH (21:41)
[2019-08-08] MEDS: Montelukast Sodium 10 mg Tablet PO SCH (21:41)
[2019-08-09] MEDS: Ondansetron PF 4 MG/2 ML Vial IVP PRN ×2 (03:27→10:55)
[2019-08-09] MEDS: D5 1/2 NS w/20 mEq KCL 1,000 ML IV SCH ×2 (03:31→17:52)
[2019-08-09] MEDS: fentaNYL Citrate/PF 2,000 MCG in Sodium Chloride 0.9% 60 ML IV PRN (03:58)
[2019-08-09] MEDS: hydrALAZINE 20 MG/ML VIAL SLOW IVP PRN (05:00)
[2019-08-09 06:32] LABS: #Eosinphils 0.3 thou/uL (0.0-0.7); #Lymphocytes 0.9 thou/uL (1.20-3.40); #Monocytes 0.6 thou/uL (0.11-0.59); #Neutrophils 8.5 thou/uL (1.40-6.50); %Basophils 0.1 % (0.0-1.0); %Eosinophils 2.6 % (0.0-10.0); %Lymphocytes 8.7 % (21.0-51.0); %Monocytes 6.3 % (0.0-10.0); %Neutrophils 82.5 % (42.0-75.0); Hemoglobin 8.4 g/dL (12.0-16.0); Mean Corpuscular HGB CONC 33.9 g/dL (32.0-36.0); Mean Corpuscular Hemoglobin 31.4 pg (27.0-31.0); Mean Corpuscular Volume 92.5 fL (78.0-98.0); Mean Platelet Volume 7.4 fL (7.4-10.4); Platelet Count 180 thou/uL (130-400); Red Blood Cell (RBC) Count 2.67 mill/uL (4.20-5.40); White Blood Cell (WBC) Count 10.3 thou/uL (4.8-10.8)
[2019-08-09 06:53] LABS: Anion Gap 10 mmol/L (10-20); BUN (Urea Nitrogen) 19 mg/dL (9.8-20.1); Calc. Creatinine Clearance 33 mL/min (70-130); Calcium 7.8 mg/dL (7.8-10.44); Carbon Dioxide 18 mmol/L (23-31); Chloride 105 mmol/L (98-107); Estimated GFR-MDRD 34; Glucose 96 mg/dL (83-110); Potassium 4.3 mmol/L (3.5-5.1); Sodium 129 mmol/L (136-145)
--- NOTE | 2019-08-09 08:17 | PRG ---
DATE OF SERVICE: 08/09/2019 SUBJECTIVE: Ms. Green is doing better today. She denies nausea. She was out of bed to the chair. Urine output remains excellent. OBJECTIVE: VITAL SIGNS: Her blood pressure is 172/83, her pulse is 93. She is afebrile. ABDOMEN: Soft, nondistended, appropriately tender. Midline wound healing well. Left lower quadrant dressing has quite a bit of drainage on it as expected with the Regine. LABORATORY DATA: White blood cell count is 10, hemoglobin 8.4. Creatinine 1.48. ASSESSMENT: 1. Postop colostomy takedown, small bowel resection. 2. Resolving acute on chronic renal insufficiency. PLAN: Advance to full liquids. Decrease IV fluids. Discontinue Calderon. Change dressings. Job ID: [id number]
[2019-08-09] MEDS: Famotidine 20 MG TAB PO SCH ×2 (09:25→20:11)
[2019-08-09] MEDS: Enoxaparin Sodium 40 MG/0.4 ML SYRINGE SC SCH (09:25)
[2019-08-09] MEDS: Lisinopril/Hydrochlorothiazide 20 mg/12.5 mg Tablet PO SCH ×2 (09:25→20:10)
[2019-08-09] MEDS: Famotidine/PF 20 mg/2ml Vial SLOW IVP SCH ×2 (09:26→20:11)
[2019-08-09] MEDS: valACYclovir 500 MG TAB PO SCH (09:26)
[2019-08-09] MEDS: Montelukast Sodium 10 mg Tablet PO SCH (20:11)
[2019-08-09] MEDS: Mirtazapine 15 MG TAB PO SCH (20:11)
[2019-08-10] MEDS: Ondansetron PF 4 MG/2 ML Vial IVP PRN (00:28)
[2019-08-10] MEDS: hydrALAZINE 20 MG/ML VIAL SLOW IVP PRN (01:18)
[2019-08-10] MEDS: Promethazine HCl 25 MG/ML VIAL IM PRN (02:26)
[2019-08-10] MEDS: fentaNYL Citrate/PF 2,000 MCG in Sodium Chloride 0.9% 60 ML IV PRN (05:03)
[2019-08-10 05:59] LABS: Anion Gap 10 mmol/L (10-20); BUN (Urea Nitrogen) 14 mg/dL (9.8-20.1); Calc. Creatinine Clearance 39 mL/min (70-130); Calcium 8.1 mg/dL (7.8-10.44); Carbon Dioxide 20 mmol/L (23-31); Chloride 104 mmol/L (98-107); Estimated GFR-MDRD 43; Glucose 101 mg/dL (83-110); Potassium 3.9 mmol/L (3.5-5.1); Sodium 130 mmol/L (136-145)
[2019-08-10 07:53] LABS: #Eosinphils 0.3 thou/uL (0.0-0.7); #Lymphocytes 0.7 thou/uL (1.20-3.40); #Monocytes 0.7 thou/uL (0.11-0.59); #Neutrophils 8.7 thou/uL (1.40-6.50); %Basophils 0.1 % (0.0-1.0); %Eosinophils 2.6 % (0.0-10.0); %Lymphocytes 7.1 % (21.0-51.0); %Neutrophils 83.2 % (42.0-75.0); Hemoglobin 8.3 g/dL (12.0-16.0); Mean Corpuscular HGB CONC 33.8 g/dL (32.0-36.0); Mean Corpuscular Hemoglobin 31.4 pg (27.0-31.0); Mean Corpuscular Volume 92.8 fL (78.0-98.0); Mean Platelet Volume 7.2 fL (7.4-10.4); Platelet Count 177 thou/uL (130-400); RBC Distribution Width 14.8 % (11.5-14.5); Red Blood Cell (RBC) Count 2.64 mill/uL (4.20-5.40); White Blood Cell (WBC) Count 10.4 thou/uL (4.8-10.8)
[2019-08-10] MEDS: Lisinopril/Hydrochlorothiazide 20 mg/12.5 mg Tablet PO SCH ×2 (09:11→21:43)
[2019-08-10] MEDS: Enoxaparin Sodium 40 MG/0.4 ML SYRINGE SC SCH (09:11)
[2019-08-10] MEDS: valACYclovir 500 MG TAB PO SCH (09:11)
[2019-08-10] MEDS ORDERED: traMADol HCl 50 MG TAB PO PRN (09:24)
[2019-08-10] MEDS ORDERED: Fentanyl 250 MCG/5 ML VIAL SLOW IVP PRN (09:25)
[2019-08-10] MEDS: Acetaminophen 325 MG TAB PO SCH ×3 (13:44→21:44)
[2019-08-10] MEDS: traMADol HCl 50 MG TAB PO PRN ×2 (13:44→20:33)
--- NOTE | 2019-08-10 14:42 | PRG ---
DATE OF SERVICE: 08/10/2019 SUBJECTIVE: Ms. Green's pain is improved. 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 She has had multiple loose stools. She tolerated the full liquid diet without any vomiting. OBJECTIVE: VITAL SIGNS: Blood pressure 146/80, pulse 105, respirations 18, and temperature is afebrile. Multiple loose stools. Multiple urinary voids. LABORATORY DATA: White count is 10, hemoglobin 8, platelets are 177, normal differential. Sodium 130, potassium 3.9, and creatinine 1.22. ASSESSMENT: 1. Postop colostomy reversal with extensive lysis of adhesions, small bowel resection and anastomosis with questionable injury to left ureter, status post left stent placement. 2. Chronic hyponatremia. 3. Acute on chronic renal insufficiency. PLAN: Slow improvement. Advance to GI soft diet. FUEL OIL CLERK has been discontinued. She is on her usual tramadol that she takes. I think she needs a few more days of hospitalization. Dr. Nguyen will be covering for me for the next week while I am out of town. Job ID: [id number]
[2019-08-10] MEDS: D5 1/2 NS w/20 mEq KCL 1,000 ML IV SCH (17:01)
--- NOTE | 2019-08-10 17:06 | EKG ---
Test Reason : Blood Pressure : / mmHG Vent. Rate : 102 BPM Atrial Rate : 102 BPM P-R Int : 160 ms QRS Dur : 082 ms QT Int : 354 ms P-R-T Axes : 060 -13 056 degrees QTc Int : 461 ms nsr with Premature supraventricular complexes When compared with ECG of 15-APR-2019 10:55, Premature supraventricular complexes are now Present Minimal criteria for Inferior infarct are no longer Present Confirmed by DR. Jacob GARNER ([id number]) on 08/10/2019 5:06:00 PM Referred By: APRIL Confirmed By:DR. Jacob GARNER
[2019-08-10] MEDS: Famotidine 20 MG TAB PO SCH (21:43)
[2019-08-10] MEDS: Mirtazapine 15 MG TAB PO SCH (21:43)
[2019-08-10] MEDS: Montelukast Sodium 10 mg Tablet PO SCH (21:44)
[2019-08-10] MEDS ORDERED: Diltiazem 125 MG in Sodium Chloride 0.9% 100 ML IVPB SCH (22:38)
[2019-08-10] MEDS ORDERED: Enoxaparin Sodium 60 MG/0.6 ML SYRINGE SC SCH (22:45)
--- NOTE | 2019-08-10 23:19 | CON ---
DATE OF CONSULTATION: PRIMARY CARE PHYSICIAN: Physician of [facility]. CHIEF COMPLAINT: Atrial fibrillation. HISTORY OF PRESENT ILLNESS: Ms. Green is a very pleasant 79-year-old female, who has a history of hypertension as well as myeloma, she is currently undergoing treatment. She was admitted for takedown of a colostomy. She was diagnosed about 3 months ago with a diverticular abscess. 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 This was treated with the placement of a temporary colostomy. She was subsequently admitted on this admission that is for takedown of the colostomy. She had this done on August 06. The procedure was complicated by a slight dilan of the ureter in which she has had ureteral stent placed. She has been doing well postoperatively and says that she was starting to actually feel better. She had just a little episode of nausea. She has noted some loose stools. Prior to this, she was feeling okay. She says on routine vital sign check, it was noted that her heart rate was rapid. An EKG was done and it was found that she was in atrial fibrillation with rapid ventricular response. Currently, she has no complaints. She denies any chest pain, no shortness of breath, no palpitations, no dizziness, no lightheadedness. In fact, she says she feels fine. The patient also denies any leg pain or leg swelling. REVIEW OF SYSTEMS: All systems were reviewed and are negative except for that mentioned in the history of present illness. PAST MEDICAL HISTORY: Significant for multiple myeloma. She is treated by Dr. Coyle for this. She also has chronic anemia secondary to that. History of deep vein thrombosis in which she is on Eliquis. Has a history of asthma, hypertension, and colovaginal fistula as well as chronic kidney disease stage 3. PAST SURGICAL HISTORY: She has had surgery on both of her feet, bilateral shoulder replacement, L5-S1 laminectomy and diskectomy, anterior cervical diskectomy, left humerus fracture repair, small bowel obstruction with repair of this cataract surgery. ALLERGIES: TO HYDROCODONE, WHICH CAUSES VOMITING. FAMILY HISTORY: No history of any heritable diseases. SOCIAL HISTORY: She is . She is a nonsmoker and nondrinker. She would like to be a full code. MEDICATIONS: In prior to admission include: 1. Tramadol 50 mg q.6 as needed. 2. Iron sulfate 325 mg daily. 3. Valtrex 500 mg daily. 4. Prilosec 20 mg daily. 5. Multivitamin once a day. 6. Singulair 10 mg at bedtime. 7. Dulera 200/5 two puffs twice daily. 8. Mirtazapine 15 mg at bedtime. 9. Lisinopril hydrochlorothiazide 20/12.5, one tablet twice daily. 10. Calcitriol 0.25 mcg p.o. daily. 11. Eliquis 2.5 mg daily. 12. Alprazolam 0.25 mg at bedtime. PHYSICAL EXAMINATION: GENERAL: She is alert and oriented. She appears to be in no acute distress. She is well developed and well nourished. VITAL SIGNS: Blood pressure is 136/79, heart rate is approximately 110 to 120, respiratory rate of 16. She is afebrile with a temperature of 98.2 and O2 saturation of 100% on room air. HEENT: Pupils are equal, round, and reactive to light. Extraocular muscles are intact. Her sclerae are anicteric. Throat, no erythema, no exudates. NECK: No adenopathy. No bruits. LUNGS: Clear to auscultation. No wheezing. No rales. No rhonchi. CARDIOVASCULAR: Heart rate is rapid and irregular. There is slight grade 2/6 systolic murmur. ABDOMEN: Soft, slightly distended, but nontender. Positive for bowel sounds. EXTREMITIES: There is no clubbing or cyanosis. No edema. NEUROLOGICAL: The exam is grossly nonfocal. SKIN AND INTEGUMENT: No skin changes. No rashes. LABORATORY DATA: Sodium is 130, potassium 3.9, chloride is 104, CO2 is 20, BUN of 14, creatinine 1.2, glucose is 101. White blood cell count is 10.4, hemoglobin 8.3, hematocrit is 24.5, and platelet count is 177. EKG was atrial fibrillation with rapid ventricular response. ASSESSMENT: This is a pleasant 79-year-old female, who is approximately four days postop. She was having an uneventful postoperative course until today when she developed atrial fibrillation. She has no known history of any heart disease or atrial fibrillation. She will be moved to the telemetry for closer monitoring. We will place her on a Cardizem drip. Check an echocardiogram, as well as thyroid function test. Consult Cardiology. She has been cleared for full anticoagulation from her postop status and therefore will be placing her on Lovenox full dose and this will be dosed for her creatinine clearance. Further recommendations to follow. We will be happy to follow along with you. Thanks for allowing us to participate in the care of this very nice lady. Job ID: [id number]
--- NOTE | 2019-08-10 23:19 | PDOC.EVN ---
Event Note - Event Note Event Note: RN called - Pt converted to SR before starting the drip. Will dc Drip order Start PO Cardizem 30 mg ACHS with extra dose PRN for HR >120
[2019-08-11] MEDS: Acetaminophen 325 MG TAB PO SCH ×4 (00:41→12:02)
[2019-08-11] MEDS: D5 1/2 NS w/20 mEq KCL 1,000 ML IV SCH (00:42)
[2019-08-11 05:38] LABS: Free T4 (Free Thyroxine) 0.95 ng/dL (0.70-1.48); Thyroid Stimulating Hormone 1.8046 uIU/mL (0.35-4.94)
[2019-08-11] MEDS: valACYclovir 500 MG TAB PO SCH (08:35)
[2019-08-11] MEDS: Lisinopril/Hydrochlorothiazide 20 mg/12.5 mg Tablet PO SCH ×2 (08:35→20:26)
[2019-08-11] MEDS: Enoxaparin Sodium 60 MG/0.6 ML SYRINGE SC SCH ×2 (08:36→20:26)
[2019-08-11 08:57] LABS: #Eosinphils 0.5 thou/uL (0.0-0.7); #Lymphocytes 0.9 thou/uL (1.20-3.40); #Monocytes 0.8 thou/uL (0.11-0.59); #Neutrophils 5.3 thou/uL (1.40-6.50); %Basophils 0.2 % (0.0-1.0); %Eosinophils 6.9 % (0.0-10.0); %Lymphocytes 11.6 % (21.0-51.0); %Monocytes 10.3 % (0.0-10.0); %Neutrophils 70.9 % (42.0-75.0); Hemoglobin 8.2 g/dL (12.0-16.0); Mean Corpuscular HGB CONC 32.4 g/dL (32.0-36.0); Mean Corpuscular Volume 95.7 fL (78.0-98.0); Mean Platelet Volume 7.4 fL (7.4-10.4); Platelet Count 171 thou/uL (130-400); RBC Distribution Width 14.8 % (11.5-14.5); Red Blood Cell (RBC) Count 2.65 mill/uL (4.20-5.40); White Blood Cell (WBC) Count 7.5 thou/uL (4.8-10.8)
[2019-08-11 09:13] LABS: Anion Gap 8 mmol/L (10-20); BUN (Urea Nitrogen) 13 mg/dL (9.8-20.1); Calc. Creatinine Clearance 39 mL/min (70-130); Calcium 8.1 mg/dL (7.8-10.44); Carbon Dioxide 22 mmol/L (23-31); Chloride 104 mmol/L (98-107); Estimated GFR-MDRD 41; Glucose 102 mg/dL (83-110); Potassium 3.4 mmol/L (3.5-5.1); Sodium 131 mmol/L (136-145)
[2019-08-11] MEDS: traMADol HCl 50 MG TAB PO PRN ×2 (12:12→20:28)
[2019-08-11] MEDS ORDERED: Ibuprofen 600 MG TAB PO PRN (12:55)
--- NOTE | 2019-08-11 13:30 | PRG ---
DATE OF SERVICE: 08/11/2019 SUBJECTIVE: Delisa Green is doing well today. She had an episode of atrial fibrillation Cardizem drip. She converted and she is now on Cardizem p.o. She is doing well. She is asymptomatic. She has not had any nausea or vomiting. She has good bowel function. She is tolerated her diet. Dr. Kim has already called in Tylenol and tramadol for her. OBJECTIVE: LUNGS: Clear to auscultation. CARDIAC: Regular rate and rhythm without murmur or gallop. ABDOMEN: Soft and nontender. Surgical wound well healed. VITAL SIGNS: Temperature 98 degrees, heart rate 78, and blood pressure 170/74. ASSESSMENT: Doing well after colostomy reversal. PLAN: I could plan discharge home tomorrow on oral antiarrhythmics per hospitalist. She has oral analgesics at home. She can be discharged home from surgical standpoint tomorrow. Diet as tolerated. Activity, no lifting over 25 pounds for 6 weeks. Job ID: [id number]
--- NOTE | 2019-08-11 14:38 | PDOC.HOSPP ---
- Subjective Encounter Date: 08/11/19 Encounter Time: 14:36 Subjective: Ms. Green was seen today in follow-up of Aftrial fibrillation and RVR. She has now converted into sinus, no complaints. - Objective Vital Signs & Weight: Vital Signs (12 hours) Temp Pulse Resp BP Pulse Ox 08/11/19 12:08 98.0 F 78 16 170/74 H 100 08/11/19 08:33 97.6 F 89 11 L 160/72 H 96 08/11/19 04:00 98.0 F 81 18 117/64 97 Weight Weight 145 lb I&O: 08/10/19 08/11/19 08/12/19 06:59 06:59 06:59 Intake Total 2528 Output Total 1050 300 Balance 1478 -300 Result Diagrams: 08/11/19 08:27 08/11/19 08:26 Hospitalist ROS - Medication Medications: Active Medications Generic Name Dose Route Start Last Admin Trade Name Freq PRN Reason Stop Dose Admin Diltiazem HCl 30 mg 08/11/19 07:30 08/11/19 12:02 Cardizem PO 30 mg ACHS KOBI Administration Enoxaparin Sodium 60 mg 08/11/19 09:00 08/11/19 08:36 Lovenox SC 60 mg 0900,2100 KOBI Administration Famotidine 20 mg 08/10/19 21:00 08/10/19 21:43 Pepcid PO 20 mg 2100 KOBI Administration Lisinopril/HCTZ 1 tab 08/06/19 21:00 08/11/19 08:35 Prinizide 20-12.5 PO 1 tab BID KOBI Administration Hydralazine HCl 10 mg 08/06/19 13:05 08/10/19 01:18 Apresoline SLOW IVP 10 mg Q4H PRN Administration SBP > 170 or DBP > 100 Mirtazapine 15 mg 08/06/19 21:00 08/10/19 21:43 Remeron PO 15 mg HS KOBI Administration Montelukast Sodium 10 mg 08/06/19 21:00 08/10/19 21:44 Singulair PO 10 mg HS KOBI Administration Ondansetron HCl 4 mg 08/06/19 13:05 08/10/19 00:28 Zofran IVP 4 mg Q6H PRN Administration Nausea/Vomiting Valacyclovir HCl 500 mg 08/07/19 09:00 08/11/19 08:35 Valtrex PO 500 mg DAILY KOBI Administration - Exam Eye: PERRL Heart: RRR, no murmur, no gallops, no rubs, normal peripheral pulses Respiratory: CTAB, no wheezes, no rales, no ronchi, normal chest expansion, no tachypnea, normal percussion Gastrointestinal: soft, non-tender, non-distended, normal bowel sounds, no palpable masses, no hepatomegaly, no splenomegaly Extremities: no cyanosis, no edema Hosp A/P (1) Atrial fibrillation Code(s): I48.91 - UNSPECIFIED ATRIAL FIBRILLATION Status: Acute (2) History of DVT (deep vein thrombosis) Code(s): Z86.718 - PERSONAL HISTORY OF OTHER VENOUS THROMBOSIS AND EMBOLISM Status: Chronic (3) Colovaginal fistula Code(s): N82.4 - OTHER FEMALE INTESTINAL-GENITAL TRACT FISTULAE Status: Acute (4) HTN (hypertension) Code(s): I10 - ESSENTIAL (PRIMARY) HYPERTENSION Status: Chronic - Plan * Atrial fibrillation- she has now converted to sinus * await Echo results * HTN- blood pressure is stable * She has been advanced to a solid diet, and tolerating this * Await Cardiology input.
--- NOTE | 2019-08-11 16:58 | CON ---
DATE OF CONSULTATION: HISTORY OF PRESENT ILLNESS: Delisa Green is a 79-year-old white female, who in approximately 2016 developed atrial fibrillation when she had an episode of pneumonia. She was then admitted in November 2017 for increased shortness of breath. She denies any chest discomfort. Her O2 saturation was 84% on room air and she was anemic with a hemoglobin of 7.7. She went into atrial fibrillation during that hospitalization and converted back to sinus rhythm. At that time, she was on metoprolol 100 mg b.i.d. and that was resumed. She was seen once in the office in February 2018. Denies any palpitations or shortness of breath. It was felt that she was a poor anticoagulation candidate because of her chronic iron deficiency anemia. She did, however, developed left leg deep venous thrombosis in June 2018 and was placed on Eliquis. In April 2019, she underwent repair of a colovaginal fistula and [id number] diverticulitis. She had open sigmoid colectomy and end colostomy and repair of bladder. She now is admitted for takedown of her colostomy. She underwent this and was noted to have very rapid heartbeat on EKG and was found to have atrial fibrillation with fast ventricular response. She was transferred to telemetry, started on Cardizem drip, and has since returned to sinus rhythm. Ms. Green is not certain when metoprolol 100 mg b.i.d. was stopped, but it was a while back. She also is not certain why it was stopped. She denies any chest discomfort or shortness of breath. She was not aware that she was in atrial fibrillation. At home, she does state that occasionally she will have some palpitations. PAST MEDICAL HISTORY: Hypertension, asthma, 2 previous episodes of atrial fibrillation, multiple myeloma, chronic anemia, left leg DVT. PAST SURGICAL HISTORY: Repair of colovaginal fistula with placement of a colostomy and then takedown of the colostomy, history of small bowel obstruction, bilateral shoulder replacement, laminectomy, removal of spinal tumor in 2007 and in 2008, cervical diskectomy, left humeral fracture with ORIF. HOME MEDICATIONS: 1. Eliquis 2.5 mg daily. 2. Alprazolam 1 tab q.h.s. 3. Feosol 65 mg b.i.d. 4. Lisinopril/hydrochlorothiazide 20/12.5 b.i.d. 5. Mirtazapine 15 mg q.h.s. 6. Singulair 10 mg q.h.s. 7. Multivitamin. 8. Prilosec 20 mg daily. 9. Ultram 50 mg q.6 hours p.r.n. 10. Valtrex daily. ALLERGIES: VICODIN, HYDROCODONE. SOCIAL HISTORY: She does not smoke or drink. FAMILY HISTORY: Negative for myocardial infarction. REVIEW OF SYSTEMS: A 12-point review of systems is otherwise unremarkable. PHYSICAL EXAMINATION: VITAL SIGNS: Blood pressure 170/74, pulse 78, although on the monitor time she will be sinus tachycardia at the rate in the 130s. HEENT: PERRL. NECK: Supple. CHEST: Clear. CARDIAC: S1 and S2 normal without any S3, S4, or murmurs. ABDOMEN: Normal bowel sounds without tenderness or organomegaly. EXTREMITIES: Reveal no clubbing, cyanosis, or edema. NEUROLOGIC: Grossly intact. LABORATORY DATA: EKG revealed atrial fibrillation with fast ventricular response of 160 per minute, nonspecific ST and T-wave changes. Hemoglobin 8.2, hematocrit 25.3, white count 7500, platelets 171,000. Sodium 131, potassium 3.4, chloride 104, carbon dioxide 22, BUN 13, creatinine 1.25. IMPRESSION: 1. Paroxysmal atrial fibrillation. At times, she does have fast ventricular response. 2. Chronic iron deficiency anemia. 3. History of deep venous thrombosis. At the present time, she is taking Eliquis 2.5 daily for prophylaxis, the dose really should be 2.5 b.i.d. This should be resumed whenever surgeons feel that it should. 4. Hypertension, somewhat poorly controlled at this time. 5. History of diastolic heart failure. 6. History of asthma. 7. Renal insufficiency. 8. Multiple myeloma. PLAN: The patient will be started on metoprolol 50 mg b.i.d. Also, Eliquis 2.5 mg b.i.d. should be resumed when approved by the surgeons. I feel that she may go home in 1 to 2 days if she remains in sinus rhythm. Job ID: [id number] MTDD
[2019-08-11] MEDS: Metoprolol Tartrate 50 MG TAB PO SCH (20:26)
[2019-08-11] MEDS: Montelukast Sodium 10 mg Tablet PO SCH (20:27)
[2019-08-11] MEDS: Mirtazapine 15 MG TAB PO SCH (20:27)
[2019-08-11] MEDS: Famotidine 20 MG TAB PO SCH (20:27)
[2019-08-11] MEDS: Acetaminophen 500 MG TAB PO PRN (20:40)
[2019-08-12] MEDS: traMADol HCl 50 MG TAB PO PRN ×2 (08:59→17:04)
[2019-08-12] MEDS: Lisinopril/Hydrochlorothiazide 20 mg/12.5 mg Tablet PO SCH (09:00)
[2019-08-12] MEDS: Metoprolol Tartrate 50 MG TAB PO SCH (09:00)
[2019-08-12] MEDS: valACYclovir 500 MG TAB PO SCH (09:00)
[2019-08-12] MEDS: Enoxaparin Sodium 60 MG/0.6 ML SYRINGE SC SCH (09:01)
--- NOTE | 2019-08-12 09:28 | EKG ---
Test Reason : Blood Pressure : / mmHG Vent. Rate : 160 BPM Atrial Rate : 241 BPM P-R Int : 000 ms QRS Dur : 078 ms QT Int : 286 ms P-R-T Axes : 000 -05 054 degrees QTc Int : 466 ms Atrial fibrillation with rapid ventricular response Nonspecific T wave abnormality Poor anterior R wave progression Abnormal ECG When compared with ECG of 10-AUG-2019 09:26, Previous ECG has undetermined rhythm, needs review Nonspecific T wave abnormality now evident in Anterior leads Confirmed by DR. Jacob GARNER ([id number]) on 08/12/2019 9:28:12 AM Referred By: APRIL Confirmed By:DR. Jacob GARNER
[2019-08-12] MEDS ORDERED: Potassium Chloride 20 MEQ TAB PO SCH (10:30)
[2019-08-12] MEDS: Acetaminophen 500 MG TAB PO PRN (11:23)
--- NOTE | 2019-08-12 12:04 | PDOC.HOSPP ---
- Subjective Encounter Date: 08/12/19 Encounter Time: 12:02 Subjective: Ms. Green was seen today in follow-up of AFIB with RVR. She does not have any complaints this morning. - Objective Vital Signs & Weight: Vital Signs (12 hours) Temp Pulse Pulse Resp BP BP Pulse Ox 08/12/19 11:11 98.4 F 90 18 167/79 H 95 08/12/19 09:22 73 190/81 H 08/12/19 07:14 98.4 F 71 17 145/81 H 97 08/12/19 03:40 98.0 F 66 18 167/80 H 99 Pulse Ox 08/12/19 11:11 08/12/19 09:22 100 08/12/19 07:14 08/12/19 03:40 Weight Weight 142 lb 9 oz I&O: 08/11/19 08/12/19 08/13/19 06:59 06:59 06:59 Intake Total 2410 Output Total 300 Balance -300 2410 Result Diagrams: 08/11/19 08:27 08/11/19 08:26 Hospitalist ROS - Medication Medications: Active Medications Generic Name Dose Route Start Last Admin Trade Name Freq PRN Reason Stop Dose Admin Acetaminophen 1,000 mg 08/11/19 18:00 08/12/19 11:23 Tylenol PO 1,000 mg Q6H PRN Administration Moderate to Severe Pain (6-10) Enoxaparin Sodium 60 mg 08/11/19 09:00 08/12/19 09:01 Lovenox SC 60 mg 0900,2100 KOBI Administration Famotidine 20 mg 08/10/19 21:00 08/11/19 20:27 Pepcid PO 20 mg 2100 KOBI Administration Lisinopril/HCTZ 1 tab 08/06/19 21:00 08/12/19 09:00 Prinizide 20-12.5 PO 1 tab BID KOBI Administration Hydralazine HCl 10 mg 08/06/19 13:05 08/10/19 01:18 Apresoline SLOW IVP 10 mg Q4H PRN Administration SBP > 170 or DBP > 100 Metoprolol Tartrate 50 mg 08/11/19 21:00 08/12/19 09:00 Lopressor PO 50 mg BID KOBI Administration Mirtazapine 15 mg 08/06/19 21:00 08/11/19 20:27 Remeron PO 15 mg HS KOBI Administration Montelukast Sodium 10 mg 08/06/19 21:00 08/11/19 20:27 Singulair PO 10 mg HS KOBI Administration Ondansetron HCl 4 mg 08/06/19 13:05 08/10/19 00:28 Zofran IVP 4 mg Q6H PRN Administration Nausea/Vomiting Potassium Chloride 40 meq 08/12/19 10:30 08/12/19 11:23 K-Dur PO 08/12/19 13:00 40 meq NOW KOBI Administration Tramadol HCl 100 mg 08/11/19 19:49 08/12/19 08:59 Ultram PO 100 mg Q8H PRN Administration Moderate Pain (4-6) Valacyclovir HCl 500 mg 08/07/19 09:00 08/12/19 09:00 Valtrex PO 500 mg DAILY KOBI Administration - Exam Eye: PERRL Heart: RRR, no murmur, no gallops, no rubs, normal peripheral pulses Respiratory: CTAB, no wheezes, no rales, no ronchi, normal chest expansion, no tachypnea, normal percussion Gastrointestinal: soft, non-tender, non-distended, normal bowel sounds, no palpable masses, no hepatomegaly Extremities: no cyanosis, no edema Hosp A/P (1) Atrial fibrillation Code(s): I48.91 - UNSPECIFIED ATRIAL FIBRILLATION Status: Acute (2) History of DVT (deep vein thrombosis) Code(s): Z86.718 - PERSONAL HISTORY OF OTHER VENOUS THROMBOSIS AND EMBOLISM Status: Chronic (3) Colovaginal fistula Code(s): N82.4 - OTHER FEMALE INTESTINAL-GENITAL TRACT FISTULAE Status: Acute (4) HTN (hypertension) Code(s): I10 - ESSENTIAL (PRIMARY) HYPERTENSION Status: Chronic - Plan * Atrial fibrillation- she remains in sinus * Echo reviewed * HTN- blood pressure is stable * Stable for discharge from [facility]
--- NOTE | 2019-08-12 12:51 | DIS ---
DATE OF ADMISSION: 08/06/2019 DATE OF DISCHARGE: 08/12/2019 DISCHARGE DISPOSITION: Home. DISCHARGE DIAGNOSES: 1. History of colovaginal fistula. 2. Takedown of colostomy. 3. Hypertension. 4. Atrial fibrillation. 5. Multiple myeloma. 6. History of deep vein thrombosis, on Eliquis. DISCHARGE MEDICATIONS: Include; 1. Metoprolol 50 mg p.o. twice daily. 2. Tramadol 50 mg q.6 as needed. 3. Iron sulfate 325 mg daily. 4. Valtrex 500 mg daily. 5. Prilosec 20 mg daily. 6. Multivitamin once a day. 7. Singulair 10 mg daily. 8. Dulera 120 two puffs twice daily. 9. Mirtazapine 15 mg at bedtime. 10. Lisinopril/hydrochlorothiazide 20/12.5 one tablet twice daily. 11. Calcitriol 0.25 mcg daily. 12. Eliquis 2.5 mg twice a day. 13. Alprazolam 0.25 mg at bedtime. CODE STATUS: Full code. ALLERGIES: HYDROCODONE. PROCEDURES DONE DURING ADMISSION: The patient had a takedown of a colostomy with lysis of adhesions, small bowel resection with anastomosis, and repair of an enterotomy. The patient also had an echocardiogram, which demonstrated an ejection fraction of 60% to 65%, and E/A flow reversal suggestive of diastolic dysfunction. HOSPITAL COURSE: Ms. Green is a pleasant 79-year-old female who was admitted to the hospital for an elective colostomy takedown. She had an uneventful postoperative course until about 4 days into her hospitalization when she developed atrial fibrillation with rapid ventricular response. This was found inadvertently during checks of her vital signs. She was completely asymptomatic with this. She was moved to telemetry and before Cardizem could be started she actually converted. She was placed on oral Cardizem. Cardiology was consulted and she was recommended to start back on metoprolol 50 mg twice daily. The Cardizem was discontinued. She had already been on Eliquis for DVT. On 08/12/2019, once she was stable, she was able to be discharged home with followup as per General Surgery. Job ID: [id number]
--- NOTE | 2019-08-12 15:49 | PDOC.CPN ---
- Subjective Date: 08/12/19 Time: 15:57 Interval history: The pt seen and examined. No overnight events. No cardiac complaints. - Objective Allergies/Adverse Reactions: Allergies Allergy/AdvReac Type Severity Reaction Status Date / Time hydrocodone bitartrate Allergy Intermediate Emesis Verified 08/03/19 13:27 [From Vicodin] Visit Medications: Current Medications Acetaminophen (Tylenol) 1,000 mg PO Q6H PRN PRN Reason: Moderate to Severe Pain (6-10) Last Admin: 08/12/19 11:23 Dose: 1,000 mg Albuterol/Ipratropium (Duoneb) 3 ml NEB Q4H PRN PRN Reason: Wheezing Enoxaparin Sodium (Lovenox) 60 mg SC 0900,2099 [facility] Last Admin: 08/12/19 09:01 Dose: 60 mg Famotidine (Pepcid) 20 mg PO 2099 [facility] Last Admin: 08/11/19 20:27 Dose: 20 mg Lisinopril/HCTZ (Prinizide 20-12.5) 1 tab PO BID [facility] Last Admin: 08/12/19 09:00 Dose: 1 tab Hydralazine HCl (Apresoline) 10 mg SLOW IVP Q4H PRN PRN Reason: SBP > 170 or DBP > 100 Last Admin: 08/10/19 01:18 Dose: 10 mg Ibuprofen (Motrin) 600 mg PO Q6H PRN PRN Reason: Mild-Moderate Pain (1-5) Metoprolol Tartrate (Lopressor) 50 mg PO BID [facility] Last Admin: 08/12/19 09:00 Dose: 50 mg Mirtazapine (Remeron) 15 mg PO [facility] Last Admin: 08/11/19 20:27 Dose: 15 mg Mometasone Furoate/Formoterol Fumar (Dulera 200 Mcg/5 Mcg Inhaler) 2 puff INH BIDPRN PRN PRN Reason: ASTHMA SYMPTOMS Montelukast Sodium (Singulair) 10 mg PO [facility] Last Admin: 08/11/19 20:27 Dose: 10 mg Ondansetron HCl (Zofran) 4 mg IVP Q6H PRN PRN Reason: Nausea/Vomiting Last Admin: 08/10/19 00:28 Dose: 4 mg Sodium Chloride (Flush - Normal Saline) 10 ml IVF PRN PRN PRN Reason: Saline Flush Tramadol HCl (Ultram) 100 mg PO Q8H PRN PRN Reason: Moderate Pain (4-6) Last Admin: 08/12/19 08:59 Dose: 100 mg Valacyclovir HCl (Valtrex) 500 mg PO DAILY [facility] Last Admin: 08/12/19 09:00 Dose: 500 mg Vital Signs & Weight: Vital Signs Temp Pulse Pulse Resp BP BP Pulse Ox 08/12/19 11:11 98.4 F 90 18 167/79 H 95 08/12/19 09:22 73 190/81 H 08/12/19 07:14 98.4 F 71 17 145/81 H 97 Pulse Ox 08/12/19 11:11 08/12/19 09:22 100 08/12/19 07:14 Weight 142 lb 9 oz - Physical Exam General: alert & oriented x3 HEENT: mucus membranes moist Neck: supple neck Cardiac: regular rate and rhythm, S1/S2 Lungs: clear to auscultation - Labs Result Diagrams: 08/11/19 08:27 08/11/19 08:26 - Telemetry Sinus rhythms and dysrhythmias: sinus rhythm - Assessment/Plan Assessment/Plan: 1. Afib with RVR - remains in SR since the pt was tx to Tele floor; On Metoprolol BID and Eliquis 2.5mg BID at home 2. HTN - will start Norvasc 5mg qd from today 3. Chronic Anemia - 4. hx of Lt leg DVT - On Eliquis 2.5mg BID at home 5. hx of asthma - 6. CKD - MAR reviewed * From Cardiac standpoint, the pt will be d/roger home once her VS is stable * The pt will f/u with Dr Young's office within 2-4 wks. * The prescription of Norvasc 5mg qd was sent to her pharmacy.
[2019-08-12] MEDS ORDERED: Amlodipine 5 MG TAB PO SCH (16:00)
[2019-08-12 16:36] VITALS: BP 149/71; TEMP 98.1
--- NOTE | 2019-08-12 17:53 | PRG ---
DATE OF SERVICE: 08/12/2019 SUBJECTIVE: Delisa Green is doing well today. She was to be discharged home today, but Cardiology made some medication adjustments and discharge postponed until tomorrow. Dr. Juanito Lindo has dictated her discharge summary to go home on Eliquis, amlodipine, p.r.n. ibuprofen, Tylenol, and tramadol. Amlodipine was ordered today 5 mg a day, and pending her clinical course tomorrow, she probably can be discharged home. Overall, she is tolerating her diet, having good bowel function. OBJECTIVE: LUNGS: Clear to auscultation. CARDIAC: Regular rate and rhythm without murmur or gallop. ABDOMEN: Soft and nontender. ASSESSMENT AND PLAN: New onset atrial fibrillation, rapid ventricular response, seen by Cardiology, possibly discharged home tomorrow per Medical. Job ID: [id number]
[2019-08-13] MEDS ORDERED: Amlodipine 5 MG TAB PO SCH (09:00)
== END 2019-08-12 19:29 | disposition home or self-care (01) | DRG 330 ==
LOC: SURG A 08-06 05:52 → 2NO 08-10 20:17
PROVIDERS: ADMIT Surgery; ATTEND Surgery
PROC: 0D1E0Z4 Bypass Large Intestine to Cutaneous, Open Approach (ICD-10-PCS; principal; 2019-08-06)
PROC: 0DNU0ZZ Release Omentum, Open Approach (ICD-10-PCS; 2019-08-06)
PROC: 0DB80ZZ Excision of Small Intestine, Open Approach (ICD-10-PCS; 2019-08-06)
PROC: 0T778DZ Dilation of Left Ureter with Intraluminal Device, Via Natural or Artificial Opening Endoscopic (ICD-10-PCS; 2019-08-06)
DX: Z43.3 Encounter for attention to colostomy (principal); K57.92 Diverticulitis of intestine, part unspecified, without perforation or abscess without bleeding; C90.00 Multiple myeloma not having achieved remission; N82.4 Other female intestinal-genital tract fistulae; K56.7 Ileus, unspecified; E87.1 Hypo-osmolality and hyponatremia; I13.0 Hypertensive heart and chronic kidney disease with heart failure and stage 1 through stage 4 chronic kidney disease, or unspecified chronic kidney disease; I50.32 Chronic diastolic (congestive) heart failure; D50.9 Iron deficiency anemia, unspecified; J45.909 Unspecified asthma, uncomplicated; Z96.612 Presence of left artificial shoulder joint; Z96.611 Presence of right artificial shoulder joint; I48.0 Paroxysmal atrial fibrillation; N18.3 Chronic kidney disease, stage 3 (moderate); Z88.8 Allergy status to other drugs, medicaments and biological substances; Z90.710 Acquired absence of both cervix and uterus; Z79.01 Long term (current) use of anticoagulants; Z86.718 Personal history of other venous thrombosis and embolism
CPT/HCPCS: 36415; 36416; 36430; 74018; 80048; 83036; 84439; 84443; 85025; 86850; 86900; 86901; 87324; 87449; 88307; 93005; 93010; 93306; C1758; J0131; J0360; J0670; J0694; J1100; J1650; J1885; J2001; J2250; J2405; J2550; J2704; J3010; J3490; P9016; S0020; S0028

== ENCOUNTER 2019-08-03 12:46 | Outpatient (CLI) | payer MEDICARE ==
[2019-08-03 14:21] LABS: #Eosinphils 0.2 thou/uL (0.0-0.7); #Lymphocytes 0.7 thou/uL (1.20-3.40); #Monocytes 0.6 thou/uL (0.11-0.59); #Neutrophils 4.9 thou/uL (1.40-6.50); %Basophils 0.6 % (0.0-1.0); %Eosinophils 2.5 % (0.0-10.0); %Lymphocytes 11.4 % (21.0-51.0); %Monocytes 9.5 % (0.0-10.0); %Neutrophils 75.9 % (42.0-75.0); Hemoglobin 9.4 g/dL (12.0-16.0); Mean Corpuscular HGB CONC 32.6 g/dL (32.0-36.0); Mean Corpuscular Volume 95.1 fL (78.0-98.0); Mean Platelet Volume 7.3 fL (7.4-10.4); Platelet Count 200 thou/uL (130-400); RBC Distribution Width 15.1 % (11.5-14.5); Red Blood Cell (RBC) Count 3.02 mill/uL (4.20-5.40); White Blood Cell (WBC) Count 6.5 thou/uL (4.8-10.8)
[2019-08-03 14:30] LABS: Anion Gap 11 mmol/L (10-20); BUN (Urea Nitrogen) 12 mg/dL (9.8-20.1); Calc. Creatinine Clearance 0 mL/min (70-130); Calcium 7.5 mg/dL (7.8-10.44); Carbon Dioxide 22 mmol/L (23-31); Chloride 103 mmol/L (98-107); Estimated GFR-MDRD 48; Glucose 99 mg/dL (83-110); Potassium 3.7 mmol/L (3.5-5.1); Sodium 132 mmol/L (136-145)
== END 2019-08-03 12:47 | disposition home or self-care (01) ==
LOC: LABBT 12:46
PROVIDERS: ATTEND Surgery
DX: Z01.812 Encounter for preprocedural laboratory examination (principal); K57.92 Diverticulitis of intestine, part unspecified, without perforation or abscess without bleeding
CPT/HCPCS: 80048; 83036; 85025

== ENCOUNTER 2019-09-07 07:15 | Outpatient (CLI) | payer MEDICARE ==
--- NOTE | 2019-09-07 08:11 | ULT ---
Sonogram abdomen complete HISTORY: Abnormal liver function tests. FINDINGS: Gallbladder is surgically absent. Common duct is 0.3 cm. Liver is unremarkable without focal mass or intrahepatic biliary dilatation. No free fluid. Calcified granulomata throughout the spleen, consistent with healed granulomatous disease. Diffuse thinning of the cortex involving each kidney. Cysts the superior pole of the left kidney is 1.6 cm. Visualized portions of abdominal aorta, IVC, and pancreas are unremarkable. IMPRESSION: Status post cholecystectomy. No evidence of acute biliary obstruction. No hepatic abnorma lities evident. Small left renal cyst. Diffuse renal cortical thinning. No evidence of urinary tract obstruction.
== END 2019-09-07 07:16 | disposition home or self-care (01) ==
LOC: ULT 07:15
PROVIDERS: ATTEND Internal Medicine Medical Oncology
DX: R74.8 Abnormal levels of other serum enzymes (principal); C90.00 Multiple myeloma not having achieved remission; C79.51 Secondary malignant neoplasm of bone; D50.8 Other iron deficiency anemias; N18.4 Chronic kidney disease, stage 4 (severe); D63.1 Anemia in chronic kidney disease; N28.1 Cyst of kidney, acquired; N28.89 Other specified disorders of kidney and ureter; Z90.49 Acquired absence of other specified parts of digestive tract
CPT/HCPCS: 93975

== ENCOUNTER 2019-10-05 06:10 | Day surgery (SDC) | payer MEDICARE ==
[2019-10-02 15:00] VITALS: BMI 20.3
[2019-10-05] MEDS ORDERED: Iothalamate Meglumine 60% 50 ML VIAL FS ONE (08:39)
[2019-10-05 08:41] LABS: #Eosinphils 0.1 thou/uL (0.0-0.7); #Monocytes 0.6 thou/uL (0.11-0.59); #Neutrophils 3.8 thou/uL (1.40-6.50); %Basophils 0.5 % (0.0-1.0); %Eosinophils 2.3 % (0.0-10.0); %Lymphocytes 18.2 % (21.0-51.0); %Neutrophils 69.1 % (42.0-75.0); Hemoglobin 9.6 g/dL (12.0-16.0); Mean Corpuscular HGB CONC 31.1 g/dL (32.0-36.0); Mean Corpuscular Hemoglobin 31.6 pg (27.0-31.0); Mean Platelet Volume 7.7 fL (7.4-10.4); Platelet Count 210 thou/uL (130-400); RBC Distribution Width 16.9 % (11.5-14.5); Red Blood Cell (RBC) Count 3.05 mill/uL (4.20-5.40); White Blood Cell (WBC) Count 5.5 thou/uL (4.8-10.8)
[2019-10-05] MEDS ORDERED: Midazolam HCl 2 mg/2 ml Vial ONE (08:44)
[2019-10-05] MEDS ORDERED: Fentanyl 100 MCG/2 ML VIAL ONE (08:44)
[2019-10-05 09:06] LABS: Anion Gap 12 mmol/L (10-20); BUN (Urea Nitrogen) 18 mg/dL (9.8-20.1); Calc. Creatinine Clearance 43 mL/min (70-130); Calcium 8.3 mg/dL (7.8-10.44); Carbon Dioxide 23 mmol/L (23-31); Chloride 107 mmol/L (98-107); Estimated GFR-MDRD 48; Glucose 97 mg/dL (83-110); Potassium 4.5 mmol/L (3.5-5.1); Sodium 137 mmol/L (136-145)
[2019-10-05] MEDS ORDERED: Ondansetron PF 4 MG/2 ML Vial ONE (09:27)
[2019-10-05] MEDS ORDERED: PROPOFOL 200 MG/20 ML VIAL ONE (09:27)
[2019-10-05] MEDS ORDERED: Lidocaine 1% PF 5 ML VIAL ONE (09:27)
--- NOTE | 2019-10-05 09:37 | RAD ---
EXAM: Retrograde IVP HISTORY: Left ureteral stent for hydronephrosis COMPARISON: None FINDINGS/IMPRESSION: Limited intraoperative fluoroscopic views of the retrograde IVP were submitted f or interpretation. There is moderate left-sided hydronephrosis. No obvious filling defects are seen.
--- NOTE | 2019-10-05 14:28 | OP ---
DATE OF PROCEDURE: 10/05/2019 PREOPERATIVE DIAGNOSES: 1. Left ureteral stent. 2. History of left ureteral injury. POSTOPERATIVE DIAGNOSES: 1. Left ureteral stent. 2. History of left ureteral injury. PROCEDURES PERFORMED: 1. Cystoscopy. 2. Removal of left stent. 3. Left retrograde. ANESTHETIC: General. ESTIMATED BLOOD LOSS: Minimal. FINDINGS: She had no evidence of bladder tumor, foreign body, or stone. No urethral stenosis. The stent was in good condition. The retrograde study did not show any extravasation nor did it show any persistent filling defect or any evidence of obstruction along the course of the left ureter. She had the stent left out for this reason. DESCRIPTION OF PROCEDURE: After obtaining written and verbal consent from the patient after receiving IV antibiotics, she was taken to the operating suite. She was placed in a supine position on the treatment table. PlexiPulses were placed on her lower extremities and turned on. She was given a general anesthetic and oral obturator intubation. She was placed in the dorsal lithotomy position. She was sterilely prepped and draped. The fluoroscopy unit was brought over her and positioned, so that we could see the left ureter from the bladder to the kidney. Cystoscopy was performed with a 22-Syrian sheath. This was well lubricated and passed under direct vision through the female urethra into the urinary bladder with aid of a 30 lens and video camera and monitor. The bladder was examined with both the 30- and the 70-degree lens. She had no evidence of tumor, foreign body, or stone. She had a little area perhaps of some scar tissue up on the anterior wall/dome of the bladder. At this point, we went ahead and removed the indwelling double-J stent by grasping it with a flexible grasping forceps and removing it entirely. A 5-Syrian Pollack catheter was then flushed with contrast and placed into the left ureteral orifice and contrast was injected about 15 mL in a retrograde manner, filling out the left ureter and upper collecting system. The Pollack catheter was then removed and we then watched endoscopically as her left ureter effluxed clear contrast and we watched fluoroscopically as her left ureter emptied. There did not appear to be any point of obstruction or any filling defect noted. At this point, the bladder was drained. The instruments were removed. She was taken out of the dorsal lithotomy position. She was awakened. She was extubated and taken by stretcher to recovery room. Job ID: [id number]
== END 2019-10-05 11:35 | disposition home or self-care (01) ==
LOC: SDC 06:10
PROVIDERS: ATTEND Urology
PROC: 0TJB8ZZ Inspection of Bladder, Via Natural or Artificial Opening Endoscopic (ICD-10-PCS; principal; 2019-10-05)
DX: Z46.6 Encounter for fitting and adjustment of urinary device (principal); I10 Essential (primary) hypertension; D64.9 Anemia, unspecified; K21.9 Gastro-esophageal reflux disease without esophagitis; Z88.5 Allergy status to narcotic agent
CPT/HCPCS: 74420; 80048; 85025; J0690; J2001; J2250; J2405; J2704; J3010

== ENCOUNTER 2020-05-15 22:23 | Inpatient (IN) | payer MEDICARE, OTHER ==
[2020-05-16 00:05] LABS: #Lymphocytes 0.6 thou/uL (1.20-3.40); #Monocytes 0.7 thou/uL (0.11-0.59); %Basophils 0.1 % (0.0-1.0); %Eosinophils 0.3 % (0.0-10.0); %Lymphocytes 7.8 % (21.0-51.0); %Monocytes 9.8 % (0.0-10.0); Hemoglobin 10.9 g/dL (12.0-16.0); Mean Corpuscular HGB CONC 32.2 g/dL (32.0-36.0); Mean Corpuscular Hemoglobin 32.3 pg (27.0-31.0); Mean Platelet Volume 8.3 fL (7.4-10.4); Platelet Count 132 thou/uL (130-400); RBC Distribution Width 15.2 % (11.5-14.5); Red Blood Cell (RBC) Count 3.36 mill/uL (4.20-5.40); White Blood Cell (WBC) Count 7.3 thou/uL (4.8-10.8)
[2020-05-16 00:32] LABS: ALT (SGPT) 39 U/L (8-55); AST (SGOT) 42 U/L (5-34); Albumin 3.7 g/dL (3.4-4.8); Alkaline Phosphatase 234 U/L (40-110); Anion Gap 15 mmol/L (10-20); BUN (Urea Nitrogen) 26 mg/dL (9.8-20.1); Bilirubin, Total 0.3 mg/dL (0.2-1.2); Calc. Creatinine Clearance 0 mL/min (70-130); Carbon Dioxide 21 mmol/L (23-31); Chloride 106 mmol/L (98-107); Estimated GFR-MDRD 36; Globulin 3.5 g/dL (2.4-3.5); Glucose 132 mg/dL (83-110); Potassium 4.1 mmol/L (3.5-5.1); Protein, Total 7.2 g/dL (6.0-8.3); Sodium 138 mmol/L (136-145)
[2020-05-16 01:18] LABS: Bilirubin Negative (Negative); Blood, Urine Negative (Negative); Clarity Clear (Clear); Glucose, Urine (Dipstick) Normal (Negative); Ketone, Urine Negative (Negative); Leukocyte Negative Leu/uL (Negative); Nitrite Negative (Negative); Protein, Urine (Dipstick) Negative (Neg-Trace); Specific Gravity, Urine 1.005 (1.002-1.036); Urobilinogen Normal mg/dL (Less than 2)
[2020-05-16] MEDS ORDERED: Labetalol HCl 100 MG/20 ML VIAL ONE (01:52)
--- NOTE | 2020-05-16 04:01 | PDOC.HHP ---
Hospitalist HPI - History of Present Illness Left leg weakness History of Present Illness: 79-year-old woman with a history of multiple myeloma on active treatment, history of paroxysmal atrial fibrillation initially anticoagulated with Eliquis but has been off anticoagulation over the past 4 months due to bleeding episodes presented to the emergency department with a complaint of sudden onset of leg pain which started yesterday. Patient stated the leg weakness resolved but then later became intermittent during the course of the day. She stated the weakness became worse last night, could not bear weight on the left leg. She was concerned about stroke and therefore presented to the ED for evaluation. CT head done in the ED is negative for acute stroke. Patient stated her leg weakness got better whilst in the ED. EKG was unremarkable. Initial troponin negative. Patient reports residual numbness and mild weakness in the left lower extremity. Patient suspected to have had a TIA versus acute stroke. She is hospitalized for further stroke work-up.. Hospitalist ROS - Review of Systems Other: Except as documented, all other systems reviewed and negative. - Medication Medications: Medication Instructions Recorded Confirmed Type Multivitamin [Multivitamins] 1 cap PO DAILY 11/17/14 10/02/19 History Omeprazole [Prilosec] 20 mg PO DAILY 11/17/14 10/02/19 History Ferrous Sulfate [Feosol] 65 mg PO BID-WM #60 tab 12/14/17 10/02/19 Rx ALPRAZolam 1 tab PO HS 03/24/19 10/02/19 History Montelukast Sodium [Singulair] 1 tab PO HS 03/24/19 10/02/19 History valACYclovir [Valtrex] 1 tab PO DAILY 03/24/19 10/02/19 History Acetaminophen [Tylenol Regular 650 mg PO Q6H PRN tab 04/17/19 10/02/19 Rx Strength] traMADol HCl [Ultram] 50 mg PO Q6H PRN tab 04/17/19 10/02/19 Rx Calcitriol 0.25 mcg PO DAILY 08/03/19 10/02/19 History Mirtazapine 1 tab PO HS 08/03/19 10/02/19 History Hospitalist History - Past Medical History Other Medical History: Multiple myeloma, asthma, paroxysmal atrial fibrillation, 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 Asthma, gastritis, iron deficiency anemia. - Past Surgical History Other Surgical History: Sigmoid colectomy, hysterectomy, cholecystectomy, lumbar spine surgery, cervical spine surgery, cataract removal, open sigmoid colectomy and end colostomy with reversal, repair of bladder. - Family History Other Family History: Father had prostate cancer. Mother had breast cancer, daughter had colon cancer. - Social History Smoking Status: Never smoker Alcohol: reports: None Drugs: reports: none - Exam General Appearance: NAD, awake alert Eye: PERRL, anicteric sclera ENT: normocephalic atraumatic, no oropharyngeal lesions, moist mucosa Neck: supple, symmetric, no thyromegaly Heart: RRR, no murmur, no gallops Respiratory: CTAB, no wheezes, no rales Gastrointestinal: soft, non-tender, normal bowel sounds Extremities: no cyanosis, no edema Skin: normal turgor, no rashes Neurological: cranial nerve grossly intact, no weakness, no focal deficits Musculoskeletal: normal tone, normal strength Psychiatric: normal affect, normal behavior, A&O x 3 Hospitalist Results - Labs Result Diagrams: 05/15/20 23:40 05/15/20 23:40 Lab results: WBC 7.3 thou/uL (4.8-10.8) 05/15/20 23:40 Hgb 10.9 g/dL (12.0-16.0) L 05/15/20 23:40 Hct 33.7 % (36.0-47.0) L 05/15/20 23:40 MCV 100.0 fL (78.0-98.0) H 05/15/20 23:40 Plt Count 132 thou/uL (130-400) 05/15/20 23:40 Neutrophils % 82.0 % (42.0-75.0) H 05/15/20 23:40 Sodium 138 mmol/L (136-145) 05/15/20 23:40 Potassium 4.1 mmol/L (3.5-5.1) 05/15/20 23:40 Chloride 106 mmol/L (98-107) 05/15/20 23:40 Carbon Dioxide 21 mmol/L (23-31) L 05/15/20 23:40 BUN 26 mg/dL (9.8-20.1) H 05/15/20 23:40 Creatinine 1.40 mg/dL (0.6-1.1) H 05/15/20 23:40 Glucose 132 mg/dL (83-110) H 05/15/20 23:40 Calcium 9.0 mg/dL (7.8-10.44) 05/15/20 23:40 Total Bilirubin 0.3 mg/dL (0.2-1.2) 05/15/20 23:40 AST 42 U/L (5-34) H 05/15/20 23:40 ALT 39 U/L (8-55) 05/15/20 23:40 Alkaline Phosphatase 234 U/L (40-110) H 05/15/20 23:40 Troponin I 0.011 ng/mL (< 0.028) 05/15/20 23:40 Serum Total Protein 7.2 g/dL (6.0-8.3) 05/15/20 23:40 Albumin 3.7 g/dL (3.4-4.8) 05/15/20 23:40 Urine Ketones Negative mg/dL (Negative) 05/16/20 00:55 Urine Blood Negative (Negative) 05/16/20 00:55 Urine Nitrite Negative (Negative) 05/16/20 00:55 Ur Leukocyte Esterase Negative Radha/uL (Negative) 05/16/20 00:55 - Radiology Interpretation CT scan - head Status: image reviewed by me (No acute intracranial process) Hospitalist H&P A/P - Problem (1) TIA (transient ischemic attack) Code(s): G45.9 - TRANSIENT CEREBRAL ISCHEMIC ATTACK, UNSPECIFIED Status: Acute (2) Left leg weakness Code(s): R29.898 - [facility] SYMPTOMS AND SIGNS INVOLVING THE MUSCULOSKELETAL SYSTEM Status: Acute Assessment and Plan: History of sciatica. Acute CVA versus radiculopathy. (3) Anemia Code(s): D64.9 - ANEMIA, UNSPECIFIED Status: Chronic Qualifiers: Anemia type: iron deficiency Iron deficiency anemia type: unspecified iron deficiency Qualified Code(s): D50.9 - Iron deficiency anemia, unspecified (4) Chronic renal disease, stage 3, moderately decreased glomerular filtration rate (GFR) between 30-59 mL/min/1.73 square meter Code(s): N18.3 - CHRONIC KIDNEY DISEASE, STAGE 3 (MODERATE) Status: Chronic (5) Paroxysmal atrial fibrillation Code(s): I48.0 - PAROXYSMAL ATRIAL FIBRILLATION Status: Chronic (6) History of DVT (deep vein thrombosis) Code(s): Z86.718 - PERSONAL HISTORY OF OTHER VENOUS THROMBOSIS AND EMBOLISM Status: Chronic (7) Multiple myeloma Code(s): C90.00 - MULTIPLE MYELOMA NOT HAVING ACHIEVED REMISSION Status: Chronic - Plan Plan: Placed under observation. Continue stroke work-up with MRI of the brain and echocardiogram. Patient started on aspirin and Lipitor. Check lipid profile. Blood pressure control. Permissive hypertension to keep systolic blood pressure between 140-160. Obtain MRI of the lumbar spine to assess for radiculopathy/nerve co mpression/lytic lesions which could cause peripheral neuropathy. Continue home medications for multiple myeloma. Patient would eventually need full anticoagulation with Eliquis again to reduce his risk of further strokes. Consults to neurology.
[2020-05-16] MEDS: Sodium Chloride 0.9% 1,000 ML IV SCH ×2 (04:27→14:40)
[2020-05-16 05:08] LABS: PTT 28.9 sec (22.9-36.1); Prothrombin Time 13.4 sec (12.0-14.7)
--- NOTE | 2020-05-16 06:43 | PDOC.FMACP ---
Advance Care Planning - Problem (1) TIA (transient ischemic attack) Status: Acute Code(s): G45.9 - TRANSIENT CEREBRAL ISCHEMIC ATTACK, UNSPECIFIED (2) Left leg weakness Status: Acute Code(s): R29.898 - OT SYMPTOMS AND SIGNS INVOLVING THE MUSCULOSKELETAL SYSTEM (3) Anemia Status: Chronic Code(s): D64.9 - ANEMIA, UNSPECIFIED Qualifiers: Anemia type: iron deficiency Iron deficiency anemia type: unspecified iron deficiency Qualified Code(s): D50.9 - Iron deficiency anemia, unspecified (4) Chronic renal disease, stage 3, moderately decreased glomerular filtration rate (GFR) between 30-59 mL/min/1.73 square meter Status: Chronic Code(s): N18.3 - CHRONIC KIDNEY DISEASE, STAGE 3 (MODERATE) (5) Paroxysmal atrial fibrillation Status: Chronic Code(s): I48.0 - PAROXYSMAL ATRIAL FIBRILLATION (6) History of DVT (deep vein thrombosis) Status: Chronic Code(s): Z86.718 - PERSONAL HISTORY OF OTHER VENOUS THROMBOSIS AND EMBOLISM (7) Multiple myeloma Status: Chronic Code(s): C90.00 - MULTIPLE MYELOMA NOT HAVING ACHIEVED REMISSION - Note Summary: Advanced Care Planning was discussed. The diagnosis, prognosis and goals of care were discussed. Appropriate forms and documentation to accomplish the goals of care were discussed. All questions were answered. Patient want to remain full code. Her is the surrogate decision maker. Time Spent (mins): 18
--- NOTE | 2020-05-16 07:51 | CT ---
PRELIMINARY REPORT/[facility]/EMERGENCY AFTER HOURS PROCEDURE EXAM: CT Head Without Intravenous Contrast. CLINICAL HISTORY: ER 2... PT REPORTS WEAKNESS IN HER LEFT LEG THAT STARTED THIS MORNING AND LASTED APPROX 5 MIN. PT REP ORTS NOT BEING ABLE TO PUT WEIGHT ON IT AND REPORTS NUMBNESS AND TINGLING. TECHNIQUE: Axial computed tomography images of the head/brain without intravenous contrast. COMPARISON: None provided. FINDINGS: BRAIN: No acute intraparenchymal hemorrhage. No mass lesion. No CT evidence for acute territorial infarct. N o midline shift or extra-axial collection. VENTRICLES: No hydrocephalus. ORBITS: The orbits are unremarkable. SINUSES AND MASTOIDS: The paranasal sinuses and mastoid air cells are clear. SOFT TISSUES: No significant facial or scalp soft tissue swelling evident. No radiopaque foreign body is seen. BONES: No acute skull fracture. IMPRESSION: No acute intracranial abnormality. ELECTRONICALLY SIGNED BY: Matthew Florez DO May 16, 2020 12:14:59 AM CDT This report is intended for review by the ordering physician only, in accordance of law. If you recei ve this report in error, please call [facility] at [phone]. FINAL REPORT Final report by Dr. Ann Emergency after-hours study CT BRAIN NONCONTRAST: DATE: 05/16/2020 12:05 AM HISTORY: 79-year-old female with acute stroke symptoms: Left lower extremity acute onset weakness. FINDINGS: There is no evidence of acute intra-axial or extra-axial hemorrhage. There is no midline shift or any other mass effect. There is no extra-axial fluid collection. There is no evidence of obstructive hydrocephalus. Calvarium is intact. There is diffuse brain parenchymal volume loss. There are low att enuation areas in the white matter. These are nonspecific, but in a patient of this age, they are probably chronic ischemic white matter changes due to microvascular atherosclerosis. Agree with preli minary report by [facility]. IMPRESSION: 1) No acute intracranial findings. 2) involutional changes and chronic ischemic white matter changes. Transcribed Date/Time: 05/16/2020 7:58 AM
--- NOTE | 2020-05-16 08:39 | CT ---
PRELIMINARY REPORT/[facility]/EMERGENCY AFTER HOURS PROCEDURE: EXAM: CTA Head and Neck with Intravenous Contrast. CLINICAL HISTORY: ER 2... PT REPORTS WEAKNESS IN HER LEFT LEG THAT STARTED THIS MORNING AND LASTED AP PROX 5 MIN. PT REPORTS NOT BEING ABLE TO PUT WEIGHT ON IT AND REPORTS NUMBNESS AND TINGLING. TECHNIQUE: Axial CTA images of the head and neck performed with intravenous contrast. Two-dimensional MIP and/or three-dimensional MIP and volume rendered reformations were performed. Note: Per PQRS, the description of internal carotid artery percent stenosis, including 0 percent or normal exam, is b ased on [place] Symptomatic Carotid Endarterectomy Trial (NASCET) criteria. CONTRAST: With; ISOVUE 370, 60ML COMPARISON: None provided. FINDINGS: CTA NECK COMMON CAROTID ARTERIES No significant stenosis. No dissection or occlusion. INTERNAL CAROTID ARTERIES No stenosis by NASCET criteria. No dissection or occlusion. VERTEBRAL ARTERIES No significant stenosis. No dissection or occlusion. CTA HEAD: ANTERIOR CEREBRAL ARTERIES No significant stenosis. No occlusion. No aneurysm. MIDDLE CEREBRAL ARTERIES No significant stenosis. No occlusion. No aneurysm. POSTERIOR CEREBRAL ARTERIES No significant stenosis. No occlusion. No aneurysm. BASILAR ARTERY Lucency at the junction of the intracranial vertebral arteries/proximal basilar artery probably represents a fenestration. No significant stenosis. No occlusion. No aneurysm. OTHER: SOFT TISSUES No acute finding. No masses or lymphadenopathy. BONES No acute osseous abnormality. IMPRESSION: Unremarkable CTA of the head and neck. ELECTRONICALLY SIGNED BY: Ceci Vigil MD May 16, 2020 1:23:52 AM CDT FINAL REPORT EMERGENCY AFTER HOURS STUDY: CT ANGIOGRAM NECK WITH CONTRAST CT ANGIOGRAM BRAIN WITH CONTRAST: DATE: 05/16/2020 TIME: 1:01 AM. HISTORY: A 79-year-old female with acute stroke symptoms: Sudden onset left lower extremity weakness. TECHNIQUE: After IV contrast injection, arterial bolus chasing technique scan performed from AP window to vertex of head. Coronal and sagittal 3-D MIP reconstructions. FINDINGS: Agree with preliminary report by [facility]. IMPRESSION: No evidence of high-grade stenosis, dissection, occlusion, or thrombosis, of major arteries of neck, or central arteries of [place]. Transcribed Date/Time: 05/16/2020 8:46 AM
[2020-05-16] MEDS ORDERED: Enoxaparin Sodium 40 MG/0.4 ML SYRINGE SC SCH (09:00)
[2020-05-16] MEDS ORDERED: Iopamidol 370 76% 100 ML VIAL ONE (09:01)
--- NOTE | 2020-05-16 09:13 | MRI ---
MRI BRAIN WITHOUT CONTRAST: HISTORY: Weakness in the left leg CORRELATION: CT scan from 05/16/2020. FINDINGS: No restricted diffusion is seen. The ventricular size is appropriate and the basilar cisterns are pat ent. No evidence of acute infarct, hemorrhage, midline shift or abnormal extra-axial fluid collections is seen. There is mild mucosal disease in the paranasal sinuses. IMPRESSION: No evidence of acute intracranial process.
--- NOTE | 2020-05-16 09:37 | MRI ---
MRI Lumbar Spine Noncontrast: HISTORY: Weakness and left lower extremity for 2 days. History of sciatica and multiple myeloma. COMPARISON: 04/16/2019 FINDINGS: Again noted are increased T2-weighted signal intensity lesions seen in the left kidney statistically likely representing cysts. There is a lobulated appearance of each kidney which may be related to lobulation. Remainder of the visualized retroperitoneal structures demonstrate a grossly normal nonenhanced MRI appearance. Conus medullaris is normal in morphology and terminates at the L1 level. Again noted are focal areas of increased T1 and T2-weighted signal intensity seen within the T11, L1, and L3 vertebral bodies most compatible with hemangiomas. Left convex scoliosis lumbar spine is present with multilevel degenerative changes again seen.. T12-L1: Mild broad-based disc osteophyte complex without significant central canal or neural foramina l narrowing. L1-2: Loss of intervertebral disc height. Mild broad-based disc osteophyte complex is again seen with out significant central canal or neural foraminal narrowing. L2-3: Loss of intervertebral disc height with endplate degenerative changes. Broad-based disc osteoph yte complex and mild facet hypertrophic changes are present. Mild generalized narrowing of the central spinal canal is present with mild bilateral neural foraminal narrowing. L3-4: Loss of intervertebral disc height with mild endplate changes. Broad-based disc osteophyte comp shivam and facet hypertrophic changes are again seen. Mild generalized narrowing of the central spinal canal is present. Moderate to severe right-sided neural foraminal narrowing is present with mild to m oderate left-sided neural foraminal narrowing. Degree of neural foraminal narrowing is overall similar to the prior study. L4-5: Again, there is grade 1 anterolisthesis of L4 on L5. Broad-based disc osteophyte complex is pre sent with prominent facet hypertrophic changes at this level. Severe central canal narrowing is again present with severe narrowing of the lateral recesses. Moderate to severe left and severe right -sided neural foraminal narrowing is present. L5-S1: Loss of intervertebral disc height. No significant disc bulge or disc herniation is present. T here are prominent facet hypertrophic changes at this level. Mild bilateral neural foraminal narrowing is present greater on the left. IMPRESSION: 1. Multilevel degenerative changes lumbar spine greatest involving the lower lumbar spine with with t he greatest degree neural foraminal narrowing present at the L4-5 level where there is severe right and moderate to severe left-sided neural foraminal narrowing related to grade 1 anterolisthesis, disc osteophyte complex and prominent facet hypertrophic changes. There is also severe narrowing of the central spinal canal and lateral recesses at this level. Additional levels of neural foraminal narrow ing are present as described above. 2. Left convex scoliosis lumbar spine.
[2020-05-16] MEDS ORDERED: Enoxaparin Sodium 40 MG/0.4 ML SYRINGE ONE (10:10)
[2020-05-16] MEDS ORDERED: Aspirin Chewable 81 MG TAB ONE (10:10)
[2020-05-16] MEDS ORDERED: Acetaminophen 325 MG TAB ONE (10:34)
[2020-05-16] MEDS ORDERED: Acetaminophen 325 MG Suppository ONE (10:34)
[2020-05-16] MEDS: Acetaminophen 325 MG TAB PO PRN ×2 (10:40→23:20)
[2020-05-16] MEDS: Aspirin 81 mg Enteric Coated Tablet PO SCH (10:40)
--- NOTE | 2020-05-16 12:52 | CON ---
NEUROLOGY CONSULTATION DATE OF CONSULTATION: 05/16/2020 REASON FOR CONSULTATION: Left leg weakness. HISTORY OF PRESENT ILLNESS: Ms. Delisa Green is a 79-year-old female with history significant for multiple myeloma on chemotherapy, history of paroxysmal atrial fibrillation, has been off Eliquis since the last 4 months because of bleeding issues, presented with progressive left leg weakness. Per the patient, she has been undergoing chemotherapy but felt her left leg has been feeling heavy for the last several months, but since this morning, she felt as if she is dragging her left leg and decided to come to the emergency and she could not bear weight on her leg, so she decided to come to the emergency room for further evaluation. She also has pain radiating from the lower back to the left flank. She had a concern about sciatica, for which she has never been treated. The patient does have residual numbness and mild weakness in the left lower extremity per the patient, she had back surgery in , and at that time, her left leg became numb and weak, and she has to go through therapy. She was admitted for therapy. The patient denies focal numbness, focal paresthesias, nausea, vomiting, headache, chest pain, abdominal pain, problems with speech or swallowing associated with leg weakness. REVIEW OF SYSTEMS: All 14 systems were reviewed and were negative except the pertinent positive and negative mentioned in the HPI. HOME MEDICATIONS: 1. Multivitamin one capsule daily. 2. Prilosec 20 mg daily. 3. Ferrous sulfate 65 mg p.o. daily. 4. Alprazolam 1 tablet p.o. at bedtime. 5. Singulair 1 tablet p.o. daily. 6. Acetaminophen 650 mg p.o. q.6 hours p.r.n. 7. Tramadol 50 mg p.o. q.6 hours. 8 . Mirtazapine p.o. at bedtime. 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 PAST SURGICAL HISTORY: Sigmoid colectomy, hysterectomy, cholecystectomy, lumbar spine surgery, cervical spine surgery, cataract removal, open sigmoid colectomy, end colostomy with reversal, repair of bladder. FAMILY HISTORY: The father has history of prostate cancer. Mother had history of breast cancer. Daughter has colon cancer. SOCIAL HISTORY: Denies smoking, alcohol, or illegal drug use. ALLERGIES: Hydrocodone PHYSICAL EXAMINATION: 140/86 77 18 General Appearance: NAD, awake alert Eye: PERRL, anicteric sclera ENT: normocephalic atraumatic, no oropharyngeal lesions, moist mucosa Neck: supple, symmetric, no thyromegaly Heart: RRR, no murmur, no gallops Respiratory: CTAB, no wheezes, no rales Gastrointestinal: soft, non-tender, normal bowel sounds Extremities: no cyanosis, no edema Skin: normal turgor, no rashes Neurological: Mental status; the patient is alert and oriented to person, place, and time. Recent and remote memory, clear. Speech is clear. Cranial nerves 2 through 12 intact. Motor; muscle tone and bulk are normal. Strength 5/5 bilaterally except left lower extremity 3+/5. Cerebellar; finger-nose testing intact. Sensory; decreased sensation to light touch in the left lower extremity. Gait deferred due to the patient's safety reason. DATA REVIEWED: I reviewed the labs, which were significant for anemia with hemoglobin of 10.9, hematocrit of 33.7, and renal insufficiency with BUN of 26 and creatinine of 1.4 and hyperglycemia 132. 05/15/20 23:40 Lab results: WBC 7.3 thou/uL (4.8-10.8) 05/15/20 23:40 Hgb 10.9 g/dL (12.0-16.0) L 05/15/20 23:40 Hct 33.7 % (36.0-47.0) L 05/15/20 23:40 MCV 100.0 fL (78.0-98.0) H 05/15/20 23:40 Plt Count 132 thou/uL (130-400) 05/15/20 23:40 Neutrophils % 82.0 % (42.0-75.0) H 05/15/20 23:40 Sodium 138 mmol/L (136-145) 05/15/20 23:40 Potassium 4.1 mmol/L (3.5-5.1) 05/15/20 23:40 Chloride 106 mmol/L (98-107) 05/15/20 23:40 Carbon Dioxide 21 mmol/L (23-31) L 05/15/20 23:40 BUN 26 mg/dL (9.8-20.1) H 05/15/20 23:40 Creatinine 1.40 mg/dL (0.6-1.1) H 05/15/20 23:40 Glucose 132 mg/dL (83-110) H 05/15/20 23:40 Calcium 9.0 mg/dL (7.8-10.44) 05/15/20 23:40 Total Bilirubin 0.3 mg/dL (0.2-1.2) 05/15/20 23:40 AST 42 U/L (5-34) H 05/15/20 23:40 ALT 39 U/L (8-55) 05/15/20 23:40 Alkaline Phosphatase 234 U/L (40-110) H 05/15/20 23:40 Troponin I 0.011 ng/mL (< 0.028) 05/15/20 23:40 Serum Total Protein 7.2 g/dL (6.0-8.3) 05/15/20 23:40 Albumin 3.7 g/dL (3.4-4.8) 05/15/20 23:40 Urine Ketones Negative mg/dL (Negative) 05/16/20 00:55 Urine Blood Negative (Negative) 05/16/20 00:55 Urine Nitrite Negative (Negative) 05/16/20 00:55 Ur Leukocyte Esterase Negative Radha/uL (Negative) 05/16/20 00:55 - Radiology Interpretation CT scan - head Status: image reviewed by me (No acute intracranial process) ASSESSMENT AND PLAN: (1)Left leg weakness Code(s): R29.898 - OTH SYMPTOMS AND SIGNS INVOLVING THE MUSCULOSKELETAL SYSTEM Status: Acute Assessment and Plan: History of sciatica. Acute CVA versus radiculopathy. (2) Multiple myeloma Code(s): C90.00 - MULTIPLE MYELOMA NOT HAVING ACHIEVED REMISSION Status: Chronic (3) Anemia Code(s): D64.9 - ANEMIA, UNSPECIFIED Status: Chronic Qualifiers: Anemia type: iron deficiency Iron deficiency anemia type: unspecified iron deficiency Qualified Code(s): D50.9 - Iron deficiency anemia, unspecified (4) Chronic renal disease, stage 3, moderately decreased glomerular filtration rate (GFR) between 30-59 mL/min/1.73 square meter Code(s): N18.3 - CHRONIC KIDNEY DISEASE, STAGE 3 (MODERATE) Status: Chronic (5) Paroxysmal atrial fibrillation Code(s): I48.0 - PAROXYSMAL ATRIAL FIBRILLATION Status: Chronic (6) History of DVT (deep vein thrombosis) Code(s): Z86.718 - PERSONAL HISTORY OF OTHER VENOUS THROMBOSIS AND EMBOLISM Status: Chronic MsJc Green is a 79-year-old female, who was consulted for left lower extremity weakness. Per the patient, this is an ongoing issue, but it became worse to an extent that she could not bear weight, so decided to come to the emergency room for further evaluation. MRI of the brain did not reveal any acute intracranial pathology. Lumbar spine MRI showed chronic degenerative changes, so most likely left leg weakness is secondary to back issues. Consider Neurosurgery input. Pain control with gabapentin 100 mg p.o. b.i.d. Neuro checks every 4 hours. PT/OT Evaluation. Continue home medications. Continue medical management per Primary Team. We will continue to follow. Thank you for the consult. Job ID: [id number] [facility]ITALJohnny
[2020-05-16 14:28] VITALS: BMI 21.8
[2020-05-16] MEDS: Labetalol HCl 100 MG/20 ML VIAL SLOW IVP PRN ×2 (14:40→23:43)
[2020-05-16] MEDS: hydrALAZINE 25 MG TAB PO PRN (18:47)
[2020-05-16 19:12] LABS: SARS-CoV-2 MS2 Positive; SARS-CoV-2 N Gene Negative; SARS-CoV-2 S Gene Negative; SARS-CoV-2 by NAA Not Detected (NotDetected); SARS-CoV-2 orf1ab Negative
[2020-05-16] MEDS ORDERED: Gabapentin 100 MG CAP PO SCH (21:00)
[2020-05-16] MEDS: Rosuvastatin 20 MG TAB PO SCH (22:36)
[2020-05-16] MEDS ORDERED: Mirtazapine 15 MG TAB PO SCH (23:15)
--- NOTE | 2020-05-16 23:21 | ULT ---
EXAM: Bilateral lower extremity venous ultrasound HISTORY: Previous deep vein thrombus. Bilateral extremity pain. COMPARISON: 12/29/2018 TECHNIQUE: Multiplanar grayscale and color Doppler images were obtained in a bilateral lower extremit y venous ultrasound. Spectral analysis of the Doppler waveforms were performed. FINDINGS: Right lower extremity: common femoral vein, profunda femoral vein, superficial femoral vein , and popliteal vein are normal in appearance without visible thrombus. These vessels demonstrate normal compression, flow, and augmentation. 1.4 x 1.2 x 1.2 cm mid calf cyst. 4.3 x 1.4 x 2.5 cm Bake r cyst. Left lower extremity: Partial compressibility of the common femoral vein. The femoral vein, popliteal vein, profunda femoral vein demonstrate normal compression, flow and augmentation. 1.3 x 1.5 x 3.8 cm Gamboa's cyst. The bilateral posterior tibial veins are patent without evidence of DVT. IMPRESSION: 1. Partial thrombus involving the left common femoral vein. Previous report states there was a thromb us in the left common femoral vein, profunda femoral vein and superficial femoral vein. Partial thrombus in the popliteal vein was reported.
[2020-05-17] MEDS: hydrALAZINE 25 MG TAB PO PRN (01:45)
[2020-05-17] MEDS ORDERED: traMADol HCl 50 MG TAB PO SCH (03:30)
[2020-05-17] MEDS: Sodium Chloride 0.9% 1,000 ML IV SCH ×2 (03:32→16:42)
[2020-05-17] MEDS: Labetalol HCl 100 MG/20 ML VIAL SLOW IVP PRN (04:21)
[2020-05-17 05:31] LABS: #Eosinphils 0.1 thou/uL (0.0-0.7); #Monocytes 0.8 thou/uL (0.11-0.59); #Neutrophils 4.5 thou/uL (1.40-6.50); %Basophils 0.2 % (0.0-1.0); %Eosinophils 0.8 % (0.0-10.0); %Lymphocytes 15.6 % (21.0-51.0); %Monocytes 13.1 % (0.0-10.0); %Neutrophils 70.3 % (42.0-75.0); Hemoglobin 10.6 g/dL (12.0-16.0); Mean Corpuscular Volume 99.8 fL (78.0-98.0); Mean Platelet Volume 8.6 fL (7.4-10.4); Platelet Count 135 thou/uL (130-400); RBC Distribution Width 15.6 % (11.5-14.5); White Blood Cell (WBC) Count 6.4 thou/uL (4.8-10.8)
[2020-05-17 05:57] LABS: Anion Gap 15 mmol/L (10-20); BUN (Urea Nitrogen) 30 mg/dL (9.8-20.1); Calc. Creatinine Clearance 37 mL/min (70-130); Calcium 9.7 mg/dL (7.8-10.44); Carbon Dioxide 21 mmol/L (23-31); Cardiac Risk 2.5 (Less than 4.5); Chloride 109 mmol/L (98-107); Cholesterol 149 mg/dl (< 200 Desired); Estimated GFR-MDRD 37; Glucose 106 mg/dL (83-110); HDL Cholesterol 60 mg/dL (>60 Neg Risk); LDL Cholesterol, Calculated 61 mg/dL; Potassium 3.7 mmol/L (3.5-5.1); Sodium 141 mmol/L (136-145); Triglycerides 142 mg/dL (Less than 150)
[2020-05-17] MEDS: Metoprolol Tartrate 50 MG TAB PO SCH ×2 (08:18→21:13)
[2020-05-17] MEDS: Aspirin 81 mg Enteric Coated Tablet PO SCH (08:18)
[2020-05-17] MEDS: Calcitriol 0.25 MCG CAP PO SCH (08:18)
[2020-05-17] MEDS: Gabapentin 100 MG CAP PO SCH (08:18)
[2020-05-17] MEDS ORDERED: hydrALAZINE 25 MG TAB PO SCH ×2 (09:00→16:45)
[2020-05-17] MEDS ORDERED: FLU VACC QS2020-21(65YR UP)/PF 240 MCG/0.7 ML SYRINGE IM ONE (09:00)
[2020-05-17] MEDS ORDERED: Apixaban 5 MG TAB PO SCH (09:00)
--- NOTE | 2020-05-17 09:29 | CT ---
CT lumbar spine without contrast: HISTORY: Bilateral lower extremity weakness and pain that extends into bilateral hips. History multiple myelom a. COMPARISON: MRI lumbar spine on 04/16/[address] abdomen on 04/28/2019. FINDINGS: Superior pole left renal cyst is again noted. There is a lobulated appearance of each kidney which is also a stable finding and may related to lobulation. Calcified granulomata are seen in the liver and spleen. Postcholecystectomy changes are seen. There is evidence of intra and extrahepatic b iliary duct dilatation. The common duct measures approximately 11 mm. This is stable from prior CT exam is probably due to reservoir effect. Vascular calcifications are seen in the abdominal aorta and iliac arteries. Postoperative changes of loops of bowel in the pelvis are partially imaged. There is left convex scoliosis of the lumbar spine. There is grade 1 anterolisthesis of L4 on L5 whic h measures approximately 6 mm. There is also left lateral subluxation of L4 on L5. Prominent multilevel degenerative changes are seen in the spine. No fracture is seen. There is a circumscribed lucency seen in the L1 vertebral body unchanged from prior CT examination. T12-L1: Vacuum phenomenon in the intervertebral disc. Laminectomy defect is present at this level. Mi ld disc osteophyte complex is present. Central spinal canal and neural foramina are patent. L1-2: Loss of intervertebral disc height with vacuum phenomenon in the intervertebral disc. Mild broa d-based disc osteophyte complex slightly effaces the anterior aspect of thecal sac. Neural foramina are patent. L2-3: Severe loss of intervertebral disc height. Osteophytes are seen anteriorly. There is broad-base d disc osteophyte complex present with facet hypertrophic changes. Generalized mild narrowing of the central spinal canal is present. Mild bilateral neural foraminal narrowing is present. L3-4: Severe loss of intervertebral disc height. Vacuum phenomenon is seen. Mild endplate changes. Br oad-based disc osteophyte complex is present with facet degenerate changes and ligamentous thickening. Generalized narrowing of the central spinal canal is present. Moderate to severe right-si ded neural foraminal with mild left-sided neural foraminal narrowing. L4-5: Grade 1 anterolisthesis with loss of intervertebral disc height, vacuum phenomenon in the inter vertebral disc, and endplate degenerative changes. There is a broad-based disc osteophyte complex at this level. There are severe facet hypertrophic changes as well as calcification of the dura poste riorly. Severe central canal narrowing and lateral recess narrowing is present at this level. Severe bilateral neural foraminal narrowing is present. L5-S1: Severe loss of intervertebral disc height. Endplate degenerative changes and facet degenerativ e changes are seen at this level. Left laminotomy defect is seen. There is minimal disc osteophyte complex present. Canal is again mild bilateral neural foraminal narrowing. IMPRESSION: 1. Left convex scoliosis lumbar spine. 2. Grade 1 anterolisthesis of L4 on L5 as well as left lateral subluxation of L4 on L5. 3. Multilevel degenerative changes throughout the lumbar spine with varying degrees of neural foramin al narrowing greatest at the L4-5 level where there is severe bilateral neural foraminal narrowing as well as severe narrowing of the lateral recesses and severe central canal narrowing. 4. Postoperative changes related to laminectomy defect at the T12-L1 level and a left laminotomy defe ct at the L5-S1 level.
[2020-05-17] MEDS: traMADol HCl 50 MG TAB PO PRN ×2 (12:27→21:13)
--- NOTE | 2020-05-17 12:50 | CT ---
PRELIMINARY REPORT/[facility]/EMERGENCY AFTER HOURS PROCEDURE: EXAM: CTA Head and Neck with Intravenous Contrast. CLINICAL HISTORY: ER 2... PT REPORTS WEAKNESS IN HER LEFT LEG THAT STARTED THIS MORNING AND LASTED AP PROX 5 MIN. PT REPORTS NOT BEING ABLE TO PUT WEIGHT ON IT AND REPORTS NUMBNESS AND TINGLING. TECHNIQUE: Axial CTA images of the head and neck performed with intravenous contrast. Two-dimensional MIP and/or three-dimensional MIP and volume rendered reformations were performed. Note: Per PQRS, the description of internal carotid artery percent stenosis, including 0 percent or normal exam, is b ased on [place] Symptomatic Carotid Endarterectomy Trial (NASCET) criteria. CONTRAST: With; ISOVUE 370, 60ML COMPARISON: None provided. FINDINGS: CTA NECK COMMON CAROTID ARTERIES No significant stenosis. No dissection or occlusion. INTERNAL CAROTID ARTERIES No stenosis by NASCET criteria. No dissection or occlusion. VERTEBRAL ARTERIES No significant stenosis. No dissection or occlusion. CTA HEAD: ANTERIOR CEREBRAL ARTERIES No significant stenosis. No occlusion. No aneurysm. MIDDLE CEREBRAL ARTERIES No significant stenosis. No occlusion. No aneurysm. POSTERIOR CEREBRAL ARTERIES No significant stenosis. No occlusion. No aneurysm. BASILAR ARTERY Lucency at the junction of the intracranial vertebral arteries/proximal basilar artery probably represents a fenestration. No significant stenosis. No occlusion. No aneurysm. OTHER: SOFT TISSUES No acute finding. No masses or lymphadenopathy. BONES No acute osseous abnormality. IMPRESSION: Unremarkable CTA of the head and neck. ELECTRONICALLY SIGNED BY: Ceci Vigil MD May 16, 2020 1:23:52 AM CDT FINAL REPORT EMERGENCY AFTER HOURS STUDY: CT ANGIOGRAM NECK WITH CONTRAST CT ANGIOGRAM BRAIN WITH CONTRAST: DATE: 05/16/2020 TIME: 1:01 AM. HISTORY: A 79-year-old female with acute stroke symptoms: Sudden onset left lower extremity weakness. TECHNIQUE: After IV contrast injection, arterial bolus chasing technique scan performed from AP window to vertex of head. Coronal and sagittal 3-D MIP reconstructions. FINDINGS: Agree with preliminary report by [facility]. IMPRESSION: No evidence of high-grade stenosis, dissection, occlusion, or thrombosis, of major arteries of neck, or central arteries of [place]. Transcribed Date/Time: 05/17/2020 12:50 PM
--- NOTE | 2020-05-17 13:09 | PDOC.HOSPP ---
- Subjective Encounter Date: 05/17/20 Encounter Time: 07:30 Subjective: Patient seen for follow-up regarding deep vein thrombosis. Denies any chest pain or shortness of breath. - Objective Vital Signs & Weight: Vital Signs (12 hours) Temp Pulse Resp BP BP Pulse Ox 05/17/20 11:00 97.5 F L 68 16 172/79 H 98 05/17/20 08:17 80 092/97 H 05/17/20 07:00 97.8 F 80 16 192/97 H 98 05/17/20 04:21 75 184/82 H 05/17/20 03:52 96.5 F L 73 16 183/83 H 97 05/17/20 01:45 89 180/79 H Weight Weight 152 lb 1 oz I&O: 05/16/20 05/17/20 05/18/20 06:59 06:59 06:59 Intake Total 1820 Balance 1820 Result Diagrams: 05/17/20 04:54 05/17/20 04:54 Additional Labs: I reviewed patient's labs and MAR EKG Reviewed by me: Yes (Telemetry: Normal sinus rhythm) Hospitalist ROS - Review of Systems Cardiovascular: denies: chest pain, palpitations, orthopnea, paroxysmal noc. dyspnea, edema, light headedness Gastrointestinal: denies: nausea, vomiting, abdominal pain, diarrhea, constipation, melena, hematochezia Neurological: reports: weakness - Medication Medications: Active Medications Generic Name Dose Route Start Last Admin Trade Name Freq PRN Reason Stop Dose Admin Acetaminophen 650 mg 05/16/20 03:48 05/16/20 23:20 Acetaminophen 325 Mg Tab PO 650 mg Q4H PRN Administration Headache/Fever/Mild Pain (1-3) Aspirin 162 mg 05/16/20 09:00 05/17/20 08:18 Aspirin 81 Mg Enteric Coated Tablet PO 162 mg DAILY KOBI Administration Calcitriol 0.25 mcg 05/17/20 09:00 05/17/20 08:18 Calcitriol 0.25 Mcg Cap PO 0.25 mcg DAILY KOBI Administration Gabapentin 100 mg 05/17/20 09:00 05/17/20 08:18 Gabapentin 100 Mg Cap PO 100 mg DAILY KOBI Administration Hydralazine HCl 25 mg 05/16/20 17:11 05/17/20 01:45 Hydralazine 25 Mg Tab PO 25 mg TID PRN Administration SBP Greater Than 170 Hydralazine HCl 50 mg 05/17/20 09:00 05/17/20 08:17 Hydralazine 25 Mg Tab PO 50 mg BID KOBI Administration Sodium Chloride 1,000 mls @ 75 mls/hr 05/16/20 04:00 05/17/20 03:32 Normal Saline 0.9% IV 1,000 mls .[id number] KOBI Administration Labetalol HCl 10 mg 05/16/20 03:48 05/17/20 04:21 Labetalol Hcl 100 Mg/20 Ml Vial SLOW IVP 10 mg Q4H PRN Administration SBP Greater Than 180 Metoprolol Tartrate 50 mg 05/17/20 09:00 05/17/20 08:18 Metoprolol Tartrate 50 Mg Tab PO 50 mg BID KOBI Administration Rosuvastatin Calcium 40 mg 05/16/20 21:00 05/16/20 22:36 Rosuvastatin 20 Mg Tab PO 40 mg HS KOBI Administration Sodium Chloride 10 ml 05/16/20 03:48 05/16/20 23:43 Flush - Normal Saline 10 Ml Syringe IVF 10 ml PRN PRN Administration Saline Flush Tramadol HCl 50 mg 05/17/20 12:00 05/17/20 12:27 Tramadol Hcl 50 Mg Tab PO 50 mg Q6H PRN Administration Moderate to Severe Pain (6-10) - Exam General Appearance: awake alert Eye: anicteric sclera ENT: moist mucosa Neck: supple Heart: RRR Respiratory: CTAB Gastrointestinal: soft, non-tender Extremities: no edema Skin: no rashes Neurological - other findings: Left lower extremity weakness Psychiatric: normal affect Hosp A/P (1) DVT (deep venous thrombosis) Code(s): I82.409 - ACUTE EMBOLISM AND THOMBOS UNSP DEEP VN UNSP LOWER EXTREMITY Status: Acute (2) Left leg weakness Code(s): R29.898 - OTH SYMPTOMS AND SIGNS INVOLVING THE MUSCULOSKELETAL SYSTEM Status: Acute (3) Multiple myeloma Code(s): C90.00 - MULTIPLE MYELOMA NOT HAVING ACHIEVED REMISSION Status: Chronic (4) Atrial fibrillation Code(s): I48.91 - UNSPECIFIED ATRIAL FIBRILLATION Status: Chronic (5) HTN (hypertension) Code(s): I10 - ESSENTIAL (PRIMARY) HYPERTENSION Status: Chronic - Plan Patient has a history of bleeding with anticoagulation, will likely need inferior vena cava filter. Consult CV surgery. Stroke work-up unremarkable. Patient to follow-up with neurosurgery as outpatient for spinal stenosis. Physical therapy evaluation and treatment pending. Add hydralazine for hypertensive urgency.
--- NOTE | 2020-05-17 15:00 | PDOC.EVN ---
Event Note - Event Note Event Note: [facility] that [facility] meets [facility] criteria. Will change status to inpatient.
[2020-05-17] MEDS: Lactated Ringer's 1,000 ML IV SCH (16:42)
[2020-05-17] MEDS ORDERED: hydrALAZINE 25 MG TAB PO PRN (16:45)
[2020-05-17] MEDS ORDERED: Mirtazapine 15 MG TAB PO SCH (21:00)
[2020-05-17] MEDS: Rosuvastatin 20 MG TAB PO SCH (21:11)
[2020-05-17] MEDS: hydrALAZINE 25 MG TAB PO SCH (21:12)
--- NOTE | 2020-05-17 23:09 | CON ---
DATE OF CONSULTATION: HISTORY OF PRESENT ILLNESS: This is a pleasant 79-year-old female with two episodes of numbness in her left leg that prompted admission to the hospital. She has had a workup for possible lumbar spine disease and will be seeing the Neurosurgery as an outpatient. She had an episode of DVT in 2017 that was evidently unprovoked and treated by Dr. Coyle with anticoagulation. 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 In any event, she underwent repair of her colovesical fistula with a colostomy and then colostomy closure. Repeat venous ultrasound in 2018 demonstrated some residual thrombus in the common femoral and popliteal vein. Repeat ultrasound on this admission showed similar findings in the left leg; although, there is some confusion in reading the report as to which leg is the culprit, but we do know from the patient's history is the left. PAST MEDICAL HISTORY: Otherwise remarkable for perhaps paroxysmal atrial fibrillation, currently untreated; multiple myeloma for which she is seeing Dr. Coyle. She also has a history of hypertension, asthma, and gastritis on endoscopy at the time of her colovesical fistula repair. PAST SURGICAL HISTORY: Besides the surgical history noted above, she has had a cholecystectomy and hysterectomy as well as some previous back surgery. SOCIAL HISTORY: She is . She is a nonsmoker, nondrinker, and watches television for recreation. PHYSICAL EXAMINATION: GENERAL: She is alert, cooperative lady, in no distress. NECK: No carotid bruits. CARDIAC: Currently sinus rhythm. No murmurs. ABDOMEN: Soft. Well-healed scar. Nontender. EXTREMITIES: She has palpable femoral, popliteal, and dorsalis pedis pulses bilaterally. She has no pitting edema or swelling in the left leg; although, the left calf appears slightly larger than the right calf. At this time, the patient has completed a greater than 6 months course of anticoagulation for an episode of DVT dating back to June 2018. She has had two subsequent venous ultrasounds showing some small amount of residual thrombus in the left common and popliteal veins and no additional treatment is needed at this time. Should she developed DVT in the future, I think anticoagulation would be the most appropriate initial course rather than an IVC filter since she seems to be able to take her anticoagulation without difficulty until she may have had some bleeding related to her colovesical fistula. Job ID: [id number]
--- NOTE | 2020-05-17 23:15 | CON ---
DATE OF CONSULTATION: 05/17/20 Ms. Green is a 79-year-old white female with known history of chronic renal failure from hypertensive nephropathy, multiple myeloma-in remission and was admitted for left leg weakness. We are now being consulted for her acute kidney injury on top of her chronic renal failure. Workup of the left lower leg weakness was suggestive that this may be secondary to significant neural foraminal stenosis at L4-L5. Imaging of the brain-MRI and CAT scan and CT angio was essentially negative. REVIEW OF SYSTEMS: Left lower leg weakness. No chest pain. No shortness of breath. No nausea. No vomiting. No syncopal episode. No productive cough. No fever or chills. No dysuria. No urinary frequency. No constipation. PAST MEDICAL HISTORY: Includes longstanding hypertension, chronic renal failure from hypertensive nephropathy, multiple myeloma in remission, status post small bowel obstruction, chronic iron deficiency, status post rotator cuff injury, secondary hyperparathyroidism, GERD, history of status post DVT. PAST SURGICAL HISTORY: The patient is status post colonoscopy, status post L5- S1 laminectomy, status post bilateral shoulder replacement, status post tumor removal of the right side of the spine, status post anterior cervical diskectomy and fusion, status post exploratory laparotomy secondary to a bowel obstruction, status post hysterectomy, status post left ORIF of the proximal humerus, status post hardware removal with reverse shoulder arthroplasty, status post bone marrow biopsy. SOCIAL HISTORY: The patient lives in [facility]. 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 , lives with her , one child. Status post blood transfusion. No history of smoking. No IV drug abuse. No alcohol use. FAMILY HISTORY: No family history of ESRD. ALLERGIES: HYDROCODONE. TRAUMA: None. IMMUNIZATION: Up-to-date. HOSPITALIZATIONS: Please see past medical history. PHYSICAL EXAMINATION: VITAL SIGNS: Blood pressure 180/79, heart rate 69, respiratory rate 16, temperature 97.9, O2 saturation 95%. GENERAL: Awake, alert, comfortable, not in overt distress. SKIN: Adequate turgor. HEENT: Pinkish conjunctivae. Anicteric sclerae. NECK: No neck mass. No carotid bruits. No JVD. CHEST: No deformities. LUNGS: Clear breath sounds. HEART: Normal sinus rhythm. No murmur. No gallops. No rubs. ABDOMEN: Globular. Soft, nontender. No masses. EXTREMITIES: No edema. No deformities. NEUROLOGICAL: The patient is awake, alert, oriented to 3 spheres. Moving all extremities. No tremors. No asterixis. MEDICATIONS: Of May 17, 2020: 1. Tylenol 650 mg q.4 p.r.n. 2. Ecotrin 162 mg daily. 3. Calcitriol 0.25 mcg tab daily. 4. Neurontin 100 mg p.o. daily. 5. Hydralazine 50 mg p.o. b.i.d. 6. Lopressor 50 mg p.o. b.i.d. 7. Crestor 40 mg at bedtime. 8. Tramadol 50 mg q.6 p.r.n. LABORATORY DATA: Of May 17, 2020; white count 6.4, hemoglobin 10.6, sodium 141, potassium 3.7, chloride 109, carbon dioxide 21, BUN 30, creatinine 1.38, glucose 106, calcium 9.7. ASSESSMENT AND PLAN: 1. Acute kidney injury on top of her chronic renal failure-her lowest creatinine was noted 1.17. She has underlying hypertensive nephropathy. Creatinine 1.38, slightly higher than baseline. My bias is to continue IV hydration-lactated Ringer's at 75 mL/hour. No indication for any dialytic intervention. 2. Left leg weakness-much improved-secondary to most likely stenosis of the neural foramina. Continue supportive care. Left leg is improving in strength. 3. Hypertension. I would suggest we increase hydralazine from 50 mg p.o. b.i.d. to a t.i.d. dosing. There is no indication for any dialytic intervention with this patient. Agree with current management. Job ID: [id number] [facility]
[2020-05-18 06:24] LABS: #Eosinphils 0.3 thou/uL (0.0-0.7); #Monocytes 0.9 thou/uL (0.11-0.59); #Neutrophils 5.9 thou/uL (1.40-6.50); %Basophils 0.4 % (0.0-1.0); %Eosinophils 3.7 % (0.0-10.0); %Lymphocytes 11.8 % (21.0-51.0); %Monocytes 11.2 % (0.0-10.0); Hemoglobin 11.1 g/dL (12.0-16.0); Mean Corpuscular HGB CONC 32.8 g/dL (32.0-36.0); Mean Corpuscular Hemoglobin 32.8 pg (27.0-31.0); Mean Corpuscular Volume 99.7 fL (78.0-98.0); Mean Platelet Volume 8.9 fL (7.4-10.4); Platelet Count 167 thou/uL (130-400); RBC Distribution Width 15.7 % (11.5-14.5); Red Blood Cell (RBC) Count 3.38 mill/uL (4.20-5.40); White Blood Cell (WBC) Count 8.1 thou/uL (4.8-10.8)
[2020-05-18 06:38] LABS: Anion Gap 15 mmol/L (10-20); BUN (Urea Nitrogen) 31 mg/dL (9.8-20.1); Calc. Creatinine Clearance 39 mL/min (70-130); Calcium 9.2 mg/dL (7.8-10.44); Carbon Dioxide 22 mmol/L (23-31); Chloride 102 mmol/L (98-107); Estimated GFR-MDRD 40; Glucose 99 mg/dL (83-110); Potassium 4.4 mmol/L (3.5-5.1); Sodium 135 mmol/L (136-145)
[2020-05-18] MEDS: Lactated Ringer's 1,000 ML IV SCH (08:54)
[2020-05-18] MEDS: Calcitriol 0.25 MCG CAP PO SCH (08:55)
[2020-05-18] MEDS: Gabapentin 100 MG CAP PO SCH (08:55)
[2020-05-18] MEDS: hydrALAZINE 25 MG TAB PO SCH (08:55)
[2020-05-18] MEDS: Aspirin 81 mg Enteric Coated Tablet PO SCH (08:55)
[2020-05-18] MEDS: Metoprolol Tartrate 50 MG TAB PO SCH (08:56)
--- NOTE | 2020-05-18 09:12 | PRG ---
DATE OF SERVICE: 05/18/2020 SUBJECTIVE: Ms. Green is a 79-year-old female, who was seen by the Renal Service for her acute kidney injury on top of her chronic renal failure. She was started on lactated Ringer's. Creatinine is slightly improved from baseline. She voices no new complaints. The patient denies any chest pain or shortness of breath. In addition, she was initially admitted for left leg weakness. Workup for CVA was essentially negative. It was felt that this was related to spinal stenosis. The patient doing well overall. No new complaints. OBJECTIVE: VITAL SIGNS: Blood pressure is 139/71, heart rate 76, respiratory rate 16, temperature 98.1, O2 saturation 93%. GENERAL: The patient is awake, alert, comfortable, not in distress. SKIN: Adequate turgor. HEENT: Pinkish conjunctivae. Anicteric sclerae. No neck mass. No carotid bruits. No JVD. CHEST: No deformities. LUNGS: Clear breath sounds. No wheezing. No crackles. HEART: Normal sinus rhythm. No murmurs. No gallops. No rubs. ABDOMEN: Globular, soft, nontender. No masses. EXTREMITIES: No edema. No deformities. MEDICATIONS: May 18, 2020, were reviewed. LABORATORY DATA: May 18, 2020; white count 8.1, hemoglobin 11.1, hematocrit 33.7. Sodium 135, potassium 4.4, chloride 102, carbon dioxide 22, BUN 31, creatinine 1.29, GFR 40 mL/minute, and calcium 9.2. ASSESSMENT AND PLAN: 1. Acute kidney injury on top of her chronic renal failure, slightly improving renal function with IV hydration. Continue lactated Ringer's. No indication for any acute dialytic intervention. 2. Chronic renal failure. This is secondary to her underlying hypertensive nephropathy. 3. Hypertension, slightly improved with increased dose of hydralazine to 50 mg p.o. t.i.d. 4. Recheck CBC and base metabolic panel if the patient is still here tomorrow. Job ID: [id number] [facility]
[2020-05-18] MEDS: traMADol HCl 50 MG TAB PO PRN (11:00)
[2020-05-18] MEDS: Acetaminophen 325 MG TAB PO PRN (11:03)
[2020-05-18 11:47] VITALS: BP 122/60; TEMP 97.7
--- NOTE | 2020-05-20 09:02 | DIS ---
DATE OF ADMISSION: 05/17/2020 DATE OF DISCHARGE: 05/18/2020 PRIMARY CARE PROVIDER: WILFRID Martinez. DISCHARGE DIAGNOSES: 1. Left lower extremity weakness. 2. Lumbar spinal stenosis. 3. Chronic kidney disease, stage 3. 4. Neuropathic pain. CONSULTATIONS DURING THIS HOSPITALIZATION: 1. Neurology, Dr. Mendoza. 2. Nephrology, Dr. Abebe. HOSPITAL COURSE: Ms. Green is a pleasant 79-year-old lady, who was admitted to [facility] for recent worsening of chronic left lower extremity pain and weakness. MRI of the lumbar spine showed multilevel degenerative changes of the lumbar spine, greatest involving the lower lumbar spine with the greatest degree neural foraminal narrowing present at L4-L5 level where there is severe right and moderate to severe left-sided neural foraminal narrowing related to grade 1 anterolisthesis, disk osteophyte complex and prominent facet hypertrophic changes. There is also severe narrowing of the central spinal canal and lateral recesses at this level. CT scan of the lumbar spine on May 17, 2020, showed left convex scoliosis of lumbar spine, grade 1 anterolisthesis of L4 on L5 as well as left lateral subluxation of L4 on L5 and multilevel degenerative changes throughout the lumbar spine with varying degrees of neural foraminal narrowing, greatest in the L4-L5 level where there is severe bilateral neural foraminal narrowing as well as severe narrowing of the lateral recesses and severe central canal narrowing. MRI of the brain did not show any evidence of acute intracranial process. CT angiogram of [place] and neck was also done, CT angiogram of head and neck was unremarkable. 2D echocardiogram showed left ventricular ejection fraction of 55% to 60% and trace mitral regurgitation. The patient was seen by Neurology Service and by Physical Therapy Service. She has been cleared for discharge. She was also seen by Nephrology Service for chronic kidney disease. She had lower extremity Dopplers, which showed partial thrombus involving the left common femoral vein. I consulted Cardiovascular Surgery in case she needed IVC filter given her history of bleed while on apixaban. Cardiovascular Surgery notified me that this is an old thrombus and she did not need anticoagulation. The patient was started on hydralazine for blood pressure spikes. She was also started on gabapentin, as mentioned earlier. She is being discharged home in a stable condition. DISCHARGE MEDICATIONS: 1. Hydralazine 50 mg 3 times a day. 2. Gabapentin 100 mg daily as new medication. Otherwise, no change was made to her pre-admission home medications. POST ACUTE CARE FOLLOWUP: With primary care provider in 3 days and with Neurosurgery Service in 1 week. ACTIVITY: As tolerated. DIET: Renal and heart healthy. DISCHARGE DESTINATION: Home. TIME SPENT: Total amount of time spent coordinating this discharge: 25 minutes. Job ID: [id number]
== END 2020-05-18 14:22 | disposition home or self-care (01) | DRG 552 ==
LOC: ERS 22:23 → ERHOLD 05-16 03:41 → 2SE 05-16 13:47 → OBSVTOIN 05-17 15:00
PROVIDERS: ADMIT Internal Medicine; ATTEND Internal Medicine
DX: M48.061 Spinal stenosis, lumbar region without neurogenic claudication (principal); C90.00 Multiple myeloma not having achieved remission; N17.9 Acute kidney failure, unspecified; I82.502 Chronic embolism and thrombosis of unspecified deep veins of left lower extremity; I48.0 Paroxysmal atrial fibrillation; D50.0 Iron deficiency anemia secondary to blood loss (chronic); J45.909 Unspecified asthma, uncomplicated; N18.30 Chronic kidney disease, stage 3 unspecified; R29.898 Other symptoms and signs involving the musculoskeletal system; I12.9 Hypertensive chronic kidney disease with stage 1 through stage 4 chronic kidney disease, or unspecified chronic kidney disease; Z96.612 Presence of left artificial shoulder joint; Z96.611 Presence of right artificial shoulder joint; Z79.899 Other long term (current) drug therapy; Z90.49 Acquired absence of other specified parts of digestive tract; Z90.710 Acquired absence of both cervix and uterus; Z98.890 Other specified postprocedural states; Z92.21 Personal history of antineoplastic chemotherapy; Z20.828 Contact with and (suspected) exposure to other viral communicable diseases
CPT/HCPCS: 36415; 70450; 70496; 70498; 70551; 72131; 72148; 80048; 80053; 80061; 81003; 83735; 84484; 85025; 85610; 85652; 85730; 87635; 90471; 90662; 90732; 93005; 93306; 93970; 96372; 96376; G0008; G0009; G0378; J1650; Q9967; U0003

== ENCOUNTER 2020-07-22 06:52 | Outpatient (CLI) | payer MEDICARE ==
[2020-07-22 23:10] LABS: SARS-CoV-2 MS2 Positive; SARS-CoV-2 N Gene Negative; SARS-CoV-2 S Gene Negative; SARS-CoV-2 by NAA Not Detected (NotDetected); SARS-CoV-2 orf1ab Negative
== END 2020-07-22 06:53 | disposition home or self-care (01) ==
LOC: LABBT 06:52
PROVIDERS: ATTEND Neurological Surgery
DX: Z01.818 Encounter for other preprocedural examination (principal); M48.062 Spinal stenosis, lumbar region with neurogenic claudication; Z20.828 Contact with and (suspected) exposure to other viral communicable diseases
CPT/HCPCS: 87635; U0003

== ENCOUNTER 2020-07-27 06:26 | Day surgery (SDC) | payer MEDICARE ==
[2020-07-26 11:48] VITALS: BMI 22.6
--- NOTE | 2020-07-26 22:13 | HP ---
HISTORY OF PRESENT ILLNESS: Ms. Green is a very pleasant 80-year-old woman, who has a known lumbar stenosis, who presents at my request for hospital followup after admission for development of left lower extremity weakness, though this is improved. She reports very convincing symptoms with neurogenic claudication in the past. She has treated ongoing back pain with injections and therapy. Both of these have failed to continue to provide relief. MRI from [facility] reveals grade 1 slip at L4-L5 with associated profound central canal stenosis that is most certainly her trouble. PAST MEDICAL HISTORY: Significant for multiple myeloma, atrial fibrillation, hypertension, asthma, iron deficiency anemia. PAST SURGICAL HISTORY: Colectomy, hysterectomy, cholecystectomy, unspecified lumbar and cervical spine procedures, cataract resection, bladder repair. CURRENT MEDICATIONS: 1. Omeprazole. 2. Iron. 3. Alprazolam. 4. Montelukast. 5. Valacyclovir. 6. Tylenol [id number]. 7. Tramadol. 8. Calcitriol. 9. Mirtazapine. PHYSICAL EXAMINATION: Deferred for telehealth visit. ASSESSMENT: Lumbar spinal stenosis with spondylolisthesis. PLAN: Dr. Jim met with the patient, reviewed imaging, advocated for L4-L5 decompression and fusion. He explained to the patient the risks, benefits, and alternatives to the procedure. The patient expressed understanding and elected to move forward with surgery as discussed. I do believe that the patient is mentally competent and capable of making medical decisions for herself. We will move forward with surgery as planned. Job ID: [id number]
[2020-07-27] MEDS ORDERED: Bupivacaine PF 0.5% 30 ML VIAL ONE (08:30)
[2020-07-27] MEDS ORDERED: EPINEPHrine 1 MG/ML AMP ONE (08:30)
[2020-07-27] MEDS ORDERED: Fentanyl 100 MCG/2 ML VIAL ONE ×4 (09:15→12:20)
[2020-07-27] MEDS ORDERED: PROPOFOL 200 MG/20 ML VIAL ONE (10:05)
[2020-07-27] MEDS ORDERED: ePHEDrine 50 MG/ML VIAL ONE (10:05)
[2020-07-27] MEDS ORDERED: Ondansetron PF 4 MG/2 ML Vial ONE (10:05)
[2020-07-27] MEDS ORDERED: Dexamethasone 20 MG/5 ML VIAL ONE (10:05)
[2020-07-27] MEDS ORDERED: PHENYLEPHRINE-NS 100 MCG/ML 10 ML SYRINGE ONE (10:05)
[2020-07-27] MEDS ORDERED: Lidocaine 1% PF 5 ML VIAL ONE (10:05)
[2020-07-27] MEDS ORDERED: Rocuronium Bromide 10 MG/ML (10ML VIAL) ONE (10:05)
[2020-07-27] MEDS ORDERED: SUGAMMADEX SODIUM 200 MG/2 ML VIAL ONE (11:26)
[2020-07-27] MEDS ORDERED: HYDROmorphone 2 MG/ML VIAL SLOW IVP PRN (11:31)
[2020-07-27] MEDS ORDERED: Promethazine HCl 25 MG/ML VIAL SLOW IVP PRN (11:31)
[2020-07-27] MEDS ORDERED: PACU-Morphine 4MG/ML VIAL SLOW IVP PRN (11:31)
[2020-07-27] MEDS ORDERED: Promethazine HCl 25 MG/ML VIAL IM PRN (11:31)
[2020-07-27] MEDS ORDERED: Ondansetron HCl/PF 4 MG/2 ML Vial IVP PRN (11:31)
[2020-07-27] MEDS ORDERED: Morphine Sulfate 2 MG/ML SYRINGE SLOW IVP PRN (11:31)
--- NOTE | 2020-07-27 12:04 | OP ---
DATE OF PROCEDURE: 07/27/2020 ARTIST RELATIONSHIP MANAGER: Jose Welsh PA-C INDICATION: Pain. DIAGNOSES: Lumbar spondylolisthesis with lumbar stenosis with lumbar radiculopathy. PROCEDURES PERFORMED: L4-L5 bilateral facetectomies, bilateral posterolateral instrumented fusion, placement of allograft, and placement of autograft. ANESTHESIA: General. DESCRIPTION OF PROCEDURE: The patient was brought into the operating room and placed under general anesthesia. She was flipped from the supine to prone position on the operating room table. A linear incision was planned spanning L4-L5 segments. After prepping and draping and after an appropriate preoperative pause, the incision was created. The underlying soft tissues were swept away from midline and a self-retaining retractor was placed. C-arm images were obtained to confirm the appropriate levels. Bilateral facetectomies as well as laminectomy was performed at the L4-L5 segment of the central canal as well as the lateral recesses of exiting L4 and descending L5 nerve roots were well decompressed. Pedicle screws were then placed bilaterally at L4 and L5 with the aid of C-arm fluoroscopy. Rods were then placed across the screw heads and final tightened. Allograft and autograft material were placed within the lateral confines of the instrumentation construct. A subfascial drain was placed and brought out through a separate puncture site from within the skin. The wound was irrigated. Hemostasis was maintained throughout. The wound was then closed in anatomic layers, and a pressure dressing was applied. There were no known procedural complications. Job ID: [id number]
[2020-07-27] MEDS ORDERED: HYDROmorphone 0.5 MG/0.5 ML SYRINGE ONE ×3 (12:51→13:51)
[2020-07-27] MEDS ORDERED: Promethazine HCl 25 MG/ML VIAL ONE (12:57)
[2020-07-27] MEDS ORDERED: HYDROcodone/Acetaminophen 5/325 mg Tablet ONE (14:49)
[2020-07-27] MEDS ORDERED: traMADol HCl 50 MG TAB ONE (14:53)
[2020-07-27] MEDS ORDERED: Acetaminophen 325 MG TAB ONE (17:31)
[2020-07-27] MEDS ORDERED: Morphine 2 MG/ML VIAL ONE (19:35)
[2020-07-27] MEDS ORDERED: Sodium Chloride 0.9% 10 ML ONE (19:36)
== END 2020-07-27 20:50 | disposition home or self-care (01) ==
LOC: SDC 06:26
PROVIDERS: ATTEND Neurological Surgery
PROC: 0SG00AJ Fusion of Lumbar Vertebral Joint with Interbody Fusion Device, Posterior Approach, Anterior Column, Open Approach (ICD-10-PCS; principal; 2020-07-27)
PROC: 0SB20ZZ Excision of Lumbar Vertebral Disc, Open Approach (ICD-10-PCS; 2020-07-27)
DX: M48.061 Spinal stenosis, lumbar region without neurogenic claudication (principal); M43.16 Spondylolisthesis, lumbar region; M54.16 Radiculopathy, lumbar region; I48.91 Unspecified atrial fibrillation; I10 Essential (primary) hypertension; D50.9 Iron deficiency anemia, unspecified; J45.909 Unspecified asthma, uncomplicated; K21.9 Gastro-esophageal reflux disease without esophagitis; M19.90 Unspecified osteoarthritis, unspecified site; Z79.899 Other long term (current) drug therapy; Z88.5 Allergy status to narcotic agent
CPT/HCPCS: 20930; 20936; 22612; 22853; 76000; C1713 ×3; C1768; J2270; J0171; J0690; J1100; J1170; J2405; J2550; J2704; J3010; J3490; S0020

== ENCOUNTER 2020-11-14 18:02 | Outpatient (CLI) | payer MEDICARE ==
[2020-11-14 18:45] LABS: #Monocytes 0.9 10x3/uL (0.0-1.1); #Neutrophils 7.3 10x3/uL (1.5-8.4); %Basophils 0.1 % (0.0-2.0); %Eosinophils 0.1 % (0.0-6.0); %Monocytes 9.7 % (0.0-10.0); %Neutrophils 77.2 % (40.0-75.0); Hemoglobin 10.2 g/dL (12.0-15.5); Mean Corpuscular HGB CONC 31.4 g/dL (32.0-36.0); Mean Corpuscular Hemoglobin 30.6 pg (27.0-33.0); Mean Corpuscular Volume 97.6 fl (81.6-98.3); Mean Platelet Volume 9.4 fl (7.4-10.4); Platelet Count 202 10x3/uL (150-450); RBC Distribution Width 15.9 % (11.5-14.5); Red Blood Cell (RBC) Count 3.33 10x6/uL (3.90-5.03); White Blood Cell (WBC) Count 9.5 10x3/uL (3.5-10.5)
[2020-11-14 18:52] LABS: Anion Gap 15 mmol/L (10-20); BUN (Urea Nitrogen) 24 mg/dL (9.8-20.1); Calc. Creatinine Clearance 0 mL/min (70-130); Calcium 8.5 mg/dL (7.8-10.44); Carbon Dioxide 25 mmol/L (23-31); Chloride 107 mmol/L (98-107); Glucose 92 mg/dL (83-110); Potassium 4.3 mmol/L (3.5-5.1); Sodium 143 mmol/L (136-145)
[2020-11-15 05:53] LABS: SARS-CoV-2 PCR by NAA Not Detected (NotDetected)
== END 2020-11-14 18:03 | disposition home or self-care (01) ==
LOC: LABBT 18:02
PROVIDERS: ATTEND Surgery
DX: Z01.812 Encounter for preprocedural laboratory examination (principal); Z20.822 Contact with and (suspected) exposure to COVID-19; I88.9 Nonspecific lymphadenitis, unspecified
CPT/HCPCS: 80048; 85025; U0003; U0005; 87635

== ENCOUNTER 2020-11-16 11:02 | Day surgery (SDC) | payer MEDICARE ==
[2020-11-15 11:04] VITALS: BMI 23.6
[2020-11-16] MEDS ORDERED: Bupivacaine 0.25% HCL 30 ML VIAL ONE (14:24)
[2020-11-16] MEDS ORDERED: Lidocaine 2% w/Epinephrine 1:200K 20 ML VIAL ONE (14:24)
[2020-11-16] MEDS ORDERED: Fentanyl 100 MCG/2 ML VIAL ONE ×2 (15:13→16:50)
[2020-11-16] MEDS ORDERED: Ondansetron PF 4 MG/2 ML Vial ONE (15:29)
[2020-11-16] MEDS ORDERED: Lidocaine 1% PF 5 ML VIAL ONE (15:29)
[2020-11-16] MEDS ORDERED: PROPOFOL 200 MG/20 ML VIAL ONE (15:29)
[2020-11-16] MEDS ORDERED: hydrALAZINE 20 MG/ML VIAL ONE (16:29)
== END 2020-11-16 18:30 | disposition home or self-care (01) ==
LOC: SDC 11:02
PROVIDERS: ATTEND Surgery
PROC: 0HBCXZZ Excision of Left Upper Arm Skin, External Approach (ICD-10-PCS; principal; 2020-11-16)
PROC: 07B60ZX Excision of Left Axillary Lymphatic, Open Approach, Diagnostic (ICD-10-PCS; 2020-11-16)
DX: L04.2 Acute lymphadenitis of upper limb (principal); C44.619 Basal cell carcinoma of skin of left upper limb, including shoulder; I12.9 Hypertensive chronic kidney disease with stage 1 through stage 4 chronic kidney disease, or unspecified chronic kidney disease; N18.4 Chronic kidney disease, stage 4 (severe); C90.00 Multiple myeloma not having achieved remission; D50.9 Iron deficiency anemia, unspecified; J45.909 Unspecified asthma, uncomplicated; K21.9 Gastro-esophageal reflux disease without esophagitis; M19.90 Unspecified osteoarthritis, unspecified site; Z79.82 Long term (current) use of aspirin; Z79.899 Other long term (current) drug therapy; Z88.5 Allergy status to narcotic agent
CPT/HCPCS: 88305; 93005; 93010; J0360; J0690; J2405; J2704; J3010; S0020

== ENCOUNTER 2021-04-21 14:48 | Outpatient (CLI) | payer MEDICARE | END 2021-04-21 14:49 | disposition home or self-care (01) | LOC: BICMAMMO 14:48 | PROVIDERS: ATTEND Physician Assistant | DX: Z12.31 Encounter for screening mammogram for malignant neoplasm of breast (principal); Z13.820 Encounter for screening for osteoporosis; Z78.0 Asymptomatic menopausal state; Z80.3 Family history of malignant neoplasm of breast; M85.852 Other specified disorders of bone density and structure, left thigh | CPT/HCPCS: 77063; 77067; 77080 ==

== ENCOUNTER 2021-09-21 16:03 | Outpatient (CLI) | payer MEDICARE | END 2021-09-21 16:04 | disposition home or self-care (01) | LOC: ULT 16:03 | PROVIDERS: ATTEND Internal Medicine Medical Oncology | DX: M79.89 Other specified soft tissue disorders (principal); M79.605 Pain in left leg; M79.604 Pain in right leg; I82.4Y2 Acute embolism and thrombosis of unspecified deep veins of left proximal lower extremity | CPT/HCPCS: 93970 ==

== ENCOUNTER 2022-09-19 15:17 | Inpatient (IN) | payer MEDICARE ==
[2022-09-19] MEDS ORDERED: methylPREDNISolone Sod Succ/PF 125 MG/2 ML VIAL ONE (15:22)
[2022-09-19] MEDS ORDERED: Magnesium 2 GM/50 ML BAG (IN WATER) ONE (15:23)
[2022-09-19] MEDS ORDERED: Ipratropium/Albuterol 3 ML NEB ONE (15:25)
[2022-09-19 15:37] LABS: Hemoglobin 10.4 g/dL (12.0-16.0); Mean Corpuscular HGB CONC 31.9 g/dL (32.0-36.0); Mean Corpuscular Hemoglobin 32.5 pg (27.0-31.0); Mean Platelet Volume 9.6 fL (7.4-10.4); Platelet Count 235 10x3/uL (130-400); RBC Distribution Width 16.3 % (11.5-14.5); Red Blood Cell (RBC) Count 3.19 mill/uL (4.20-5.40); White Blood Cell (WBC) Count 20.1 10x3/uL (4.8-10.8)
[2022-09-19 15:43] LABS: Actual Bicarbonate (HCO3a) 17.2 mEq/L (22-28); Analyzer IN Cardio ER; Base Excess (BEa) -6.1 mEq/L (-2.0 to +3.0); CO2 Tension 26.9 mmHg (35.0-45.0); Calcium, Ionized (arterial) 1.01 mmol/L (1.12-1.30); Carboxyhemoglobin (COHb) 0.3 gm% (0.0-3.0); Hemoglobin (Hb) 10.4 g/dL (12.0-16.0); O2 Tension (PaO2), arterial 525.6 mmHg (> 60.0); Potassium - ABG Lab 3.22 mmol/L (3.70-5.30); pH, Arterial 7.42 (7.35-7.45)
[2022-09-19] MEDS ORDERED: Cefepime 2 GM VIAL ONE (15:46)
[2022-09-19 15:51] LABS: INR-International Normal Ratio 1.2
[2022-09-19 15:52] LABS: PTT 29.7 sec (22.9-36.1)
[2022-09-19 15:53] LABS: Anisocytosis SLIGHT = 6-15 cells (100X) (0-5/hpf); Band 12 % (5-11); Lymphocytes 6 % (21-51); MDiff Complete? YES; Macrocytosis SLIGHT = 6-15 cells (100X) (0-5/hpf); Metamyelocyte 2 % (0-0); Monocytes 5 % (0-10); Neutrophil 75 % (42-75); Platelet Morphology Comment Appears Adequate; Polychromasia SLIGHT = 2-3 cells (100X) (0-2/hpf)
[2022-09-19 15:54] LABS: Puncture Site LRA
[2022-09-19 15:55] LABS: ALV-art Gradient 153.775 mmHg (0-20)
[2022-09-19] MEDS ORDERED: Vancomycin 1 GM/200 ML (FROZEN) BAG ONE (16:07)
[2022-09-19 16:11] LABS: ALT (SGPT) 20 U/L (8-55); AST (SGOT) 69 U/L (5-34); Albumin 3.1 g/dL (3.4-4.8); Alkaline Phosphatase 145 U/L (40-110); Anion Gap 19 mmol/L (10-20); BUN (Urea Nitrogen) 43 mg/dL (9.8-20.1); Calc. Creatinine Clearance 0 mL/min (70-130); Calcium 7.9 mg/dL (7.8-10.44); Carbon Dioxide 18 mmol/L (23-31); Chloride 101 mmol/L (98-107); Estimated GFR 11; Globulin 3.9 g/dL (2.4-3.5); Glucose 130 mg/dL (83-110); Potassium 3.8 mmol/L (3.5-5.1); Sodium 134 mmol/L (136-145)
[2022-09-19 17:01] LABS: SARS-CoV-2 NAA Rapid Test Not Detected (NotDetected)
[2022-09-19] MEDS ORDERED: Lidocaine 1% w/Epinephrine 1:100K 20 ML VIAL ONE (17:16)
[2022-09-19] MEDS ORDERED: Digoxin 0.5 MG/2 ML AMP ONE (17:25)
[2022-09-19] MEDS ORDERED: Vancomycin HCl 750 MG in Sodium Chloride 0.9% 250 ML 250 ML IVPB SCH ×2 (17:30→21:00)
[2022-09-19] MEDS ORDERED: Digoxin 0.5 MG/2 ML AMP SLOW IVP SCH (17:30)
[2022-09-19] MEDS ORDERED: Vancomycin Dose by Levels Sliding Scale (Wt 71-99) FS SCH (17:45)
[2022-09-19 18:36] LABS: BF Color Yellow; Body Fluid Source Synovial Fluid; Clarity Cloudy/Turbid (Clear); RBC Count-Automated (BF) 6930 /cu.mm; Tube # EDTA; WBC/Nucleated-Auto (BF) 17141 /cu.mm
[2022-09-19 18:38] LABS: BF Segmented Neutrophils 90 %; Cell Count Non Hematic 9 %; Lymphocytes 1 %
[2022-09-19 20:15] LABS: Bacteria/HPF 4+ HPF (None Seen); Bilirubin Negative (Negative); Blood, Urine 3+ (Negative); CAUTI Indications for Culture Alt mental st,lethar; Clarity Turbid (Clear); Glucose, Urine (Dipstick) Normal (Negative); Ketone, Urine Negative (Negative); Leukocyte 250 Leu/uL (Negative); Nitrite Negative (Negative); Protein, Urine (Dipstick) 100 mg/dL (Neg-Trace); RBC/HPF Greater than 50 HPF (0-3); Renal Epithelial 0-3 HPF (None Seen); Squamous Epithelial 0-3 HPF (0-3); pH, Urine 5.5 (5.0-9.0)
[2022-09-19 20:18] LABS: Lactic Acid 1.1 mmol/L (0.5-2.2)
[2022-09-19 20:28] LABS: Troponin I 0.087 ng/mL (< 0.028)
[2022-09-19] MEDS ORDERED: Piperacillin/Tazobactam 3.375 GM in Sodium Chloride 0.9% 100 ML IVPB SCH (20:30)
[2022-09-19] MEDS: Sodium Chloride 0.9% 1,000 ML IV SCH (20:34)
[2022-09-19 20:36] LABS: White Blood Cell Cast 0-3 LPF (None Seen)
[2022-09-19 20:40] LABS: Waxy Cast 0-3 LPF (None Seen)
[2022-09-19 20:42] LABS: UA Pathologist Review? Waxy Cast
[2022-09-19 20:46] LABS: Urine Culture Reflex Yes Yes
[2022-09-19] MEDS ORDERED: Famotidine/PF 20 mg/2ml Vial SLOW IVP SCH (21:00)
[2022-09-19] MEDS ORDERED: Piperacillin/Tazobactam 2.25 GM in Sodium Chloride 0.9% 100 ML IVPB SCH (22:00)
[2022-09-19 22:49] LABS: Troponin I 0.072 ng/mL (< 0.028)
[2022-09-20] MEDS ORDERED: Heparin 25,000 units/D5W 500 ML IVPB SCH ×2 (00:30→11:45)
[2022-09-20] MEDS ORDERED: Piperacillin/Tazobactam 3.375 GM in Sodium Chloride 0.9% 100 ML IVPB SCH (01:00)
[2022-09-20 01:07] LABS: Platelet Count 159 10x3/uL (130-400)
[2022-09-20] MEDS: Heparin 10,000 UNITS/ 10 ML VIAL SLOW IVP SCH ×2 (01:26→17:35)
[2022-09-20] MEDS: Sodium Chloride 0.9% 1,000 ML IV SCH ×5 (01:29→23:41)
[2022-09-20 04:12] LABS: #Lymphocytes 0.5 thou/uL (1.20-3.40); #Monocytes 0.4 thou/uL (0.11-0.59); #Neutrophils 13.8 thou/uL (1.40-6.50); %Basophils 0.1 % (0.0-1.0); %Eosinophils 0.1 % (0.0-10.0); %Lymphocytes 3.3 % (21.0-51.0); %Monocytes 2.5 % (0.0-10.0); Hemoglobin 11.3 g/dL (12.0-16.0); Mean Corpuscular HGB CONC 32.1 g/dL (32.0-36.0); Mean Corpuscular Hemoglobin 32.5 pg (27.0-31.0); Mean Platelet Volume 10.1 fL (7.4-10.4); Platelet Count 163 10x3/uL (130-400); RBC Distribution Width 16.3 % (11.5-14.5); Red Blood Cell (RBC) Count 3.47 mill/uL (4.20-5.40); White Blood Cell (WBC) Count 14.7 10x3/uL (4.8-10.8)
[2022-09-20 04:34] LABS: ALT (SGPT) 34 U/L (8-55); AST (SGOT) 110 U/L (5-34); Albumin 2.5 g/dL (3.4-4.8); Alkaline Phosphatase 118 U/L (40-110); Anion Gap 17 mmol/L (10-20); BUN (Urea Nitrogen) 48 mg/dL (9.8-20.1); Bilirubin, Total 0.7 mg/dL (0.2-1.2); Calc. Creatinine Clearance 18 mL/min (70-130); Calcium 7.3 mg/dL (7.8-10.44); Carbon Dioxide 15 mmol/L (23-31); Chloride 106 mmol/L (98-107); Estimated GFR 13; Globulin 3.2 g/dL (2.4-3.5); Glucose 184 mg/dL (83-110); Potassium 3.5 mmol/L (3.5-5.1); Protein, Total 5.7 g/dL (5.8-8.1); Sodium 134 mmol/L (136-145)
[2022-09-20] MEDS: Piperacillin/Tazobactam 3.375 GM in Sodium Chloride 0.9% 100 ML IVPB SCH ×2 (05:39→16:18)
[2022-09-20 07:49] LABS: PTT 167.9 sec (22.9-36.1)
[2022-09-20] MEDS ORDERED: FLU VACC QS2022-23(65YR UP)/PF 240 MCG/0.7 ML SYRINGE IM ONE (09:00)
[2022-09-20] MEDS: Metoprolol Tartrate 50 MG TAB PO SCH ×3 (10:59→20:01)
[2022-09-20] MEDS: Acetaminophen 325 MG TAB PO PRN ×2 (13:22→18:25)
[2022-09-20] MEDS ORDERED: Digoxin 0.25 MG TAB PO SCH (13:45)
[2022-09-20] MEDS ORDERED: Pantoprazole 40 MG VIAL IVP SCH (14:15)
[2022-09-20] MEDS: Heparin 25,000 units/D5W 500 ML IVPB SCH ×2 (15:45→21:08)
[2022-09-20 17:10] LABS: Vancomycin, Random 17.7 ug/mL (See Comment)
[2022-09-20] MEDS ORDERED: Vancomycin HCl 500 MG in Sodium Chloride 0.9% 100 ML IV SCH (17:15)
[2022-09-20] MEDS: Pantoprazole 40 MG VIAL IVP SCH (20:01)
[2022-09-20] MEDS ORDERED: Vancomycin 1 GM in Premix Bag 1 BAG IVPB SCH (21:00)
[2022-09-20] MEDS ORDERED: Gabapentin 100 MG CAP PO SCH (21:15)
[2022-09-20 23:09] LABS: Campy jejuni + coli by PCR Negative (Negative); STEC Shiga Toxin 1+2 Negative (Negative); Salmonella spp. by PCR Negative (Negative); Shigella spp + EIEC by PCR Negative (Negative)
[2022-09-21 00:50] LABS: PTT 238.3 sec (22.9-36.1)
[2022-09-21] MEDS: Acetaminophen 325 MG TAB PO PRN ×2 (04:19→15:05)
[2022-09-21] MEDS: Piperacillin/Tazobactam 3.375 GM in Sodium Chloride 0.9% 100 ML IVPB SCH ×2 (04:20→18:11)
[2022-09-21] MEDS: Sodium Chloride 0.9% 1,000 ML IV SCH ×3 (04:24→18:13)
[2022-09-21 05:27] LABS: Digoxin 1.26 ng/mL (0.8-2.0)
[2022-09-21] MEDS ORDERED: Lidocaine 1% (PF) 30 ML VIAL ONE (07:39)
[2022-09-21] MEDS ORDERED: Digoxin 0.25 MG TAB PO SCH (09:00)
[2022-09-21] MEDS: Digoxin 0.125 MG TAB PO SCH (09:09)
[2022-09-21] MEDS: Metoprolol Tartrate 50 MG TAB PO SCH ×2 (09:09→22:01)
[2022-09-21] MEDS: Gabapentin 100 MG CAP PO SCH ×2 (09:10→22:01)
[2022-09-21] MEDS: Pantoprazole 40 MG VIAL IVP SCH ×2 (09:11→22:01)
[2022-09-21 09:30] LABS: Hemoglobin 10.8 g/dL (12.0-16.0); Mean Corpuscular HGB CONC 31.8 g/dL (32.0-36.0); Mean Corpuscular Hemoglobin 32.7 pg (27.0-31.0); Mean Platelet Volume 10.4 fL (7.4-10.4); Platelet Count 169 10x3/uL (130-400); RBC Distribution Width 16.3 % (11.5-14.5); Red Blood Cell (RBC) Count 3.31 mill/uL (4.20-5.40); White Blood Cell (WBC) Count 15.1 10x3/uL (4.8-10.8)
[2022-09-21 09:44] LABS: Anion Gap 15 mmol/L (10-20); BUN (Urea Nitrogen) 64 mg/dL (9.8-20.1); Calc. Creatinine Clearance 21 mL/min (70-130); Calcium 7.2 mg/dL (7.8-10.44); Carbon Dioxide 13 mmol/L (23-31); Chloride 108 mmol/L (98-107); Estimated GFR 14; Glucose 119 mg/dL (83-110); Sodium 132 mmol/L (136-145)
[2022-09-21] MEDS ORDERED: Iopamidol 370 76% 100 ML VIAL ONE (10:19)
[2022-09-21 10:22] LABS: Band 17 % (5-11); Burr Cells MODERATE= 6-15 cells (100X) (0-1/hpf); Lymphocytes 6 % (21-51); MDiff Complete? YES; Monocytes 2 % (0-10); Neutrophil 75 % (42-75); Polychromasia SLIGHT = 2-3 cells (100X) (0-2/hpf)
[2022-09-21] MEDS: Sodium Bicarbonate Tab 325 MG TAB PO SCH ×2 (13:36→22:01)
[2022-09-21 18:17] LABS: Vancomycin, Random 19.3 ug/mL (See Comment)
[2022-09-21] MEDS ORDERED: Vancomycin HCl 500 MG in Sodium Chloride 0.9% 100 ML IV SCH (19:15)
[2022-09-21] MEDS ORDERED: Vancomycin 1 GM in Premix Bag 1 BAG IVPB SCH (21:00)
[2022-09-22 00:58] LABS: Platelet Count 144 10x3/uL (130-400)
[2022-09-22] MEDS: Sodium Chloride 0.9% 1,000 ML IV SCH ×5 (05:55→19:55)
[2022-09-22] MEDS: Piperacillin/Tazobactam 3.375 GM in Sodium Chloride 0.9% 100 ML IVPB SCH ×2 (05:55→16:59)
[2022-09-22 06:32] LABS: #Lymphocytes 0.6 thou/uL (1.20-3.40); #Monocytes 0.5 thou/uL (0.11-0.59); #Neutrophils 7.4 thou/uL (1.40-6.50); %Basophils 0.2 % (0.0-1.0); %Eosinophils 0.3 % (0.0-10.0); %Lymphocytes 6.6 % (21.0-51.0); %Monocytes 6.3 % (0.0-10.0); %Neutrophils 86.6 % (42.0-75.0); Hemoglobin 10.3 g/dL (12.0-16.0); Mean Corpuscular HGB CONC 32.9 g/dL (32.0-36.0); Mean Corpuscular Hemoglobin 33.4 pg (27.0-31.0); Mean Platelet Volume 9.7 fL (7.4-10.4); Platelet Count 151 10x3/uL (130-400); RBC Distribution Width 16.5 % (11.5-14.5); Red Blood Cell (RBC) Count 3.09 mill/uL (4.20-5.40); White Blood Cell (WBC) Count 8.5 10x3/uL (4.8-10.8)
[2022-09-22 07:28] LABS: BUN (Urea Nitrogen) 66 mg/dL (9.8-20.1); Calc. Creatinine Clearance 22 mL/min (70-130); Carbon Dioxide 13 mmol/L (23-31); Chloride 112 mmol/L (98-107); Estimated GFR 15; Glucose 93 mg/dL (83-110); Potassium 4.2 mmol/L (3.5-5.1); Sodium 135 mmol/L (136-145)
[2022-09-22] MEDS: Sodium Bicarbonate Tab 325 MG TAB PO SCH ×3 (08:30→21:45)
[2022-09-22] MEDS: Gabapentin 100 MG CAP PO SCH ×2 (08:30→21:46)
[2022-09-22] MEDS: Digoxin 0.125 MG TAB PO SCH (08:30)
[2022-09-22] MEDS: Pantoprazole 40 MG VIAL IVP SCH ×2 (08:31→21:46)
[2022-09-22] MEDS: Metoprolol Tartrate 50 MG TAB PO SCH ×2 (08:31→21:46)
[2022-09-22] MEDS ORDERED: Metoprolol Tartrate 25 MG TAB PO SCH (09:15)
[2022-09-22] MEDS: Acetaminophen 325 MG TAB PO PRN (10:27)
[2022-09-22 11:58] LABS: Campy jejuni + coli by PCR Negative (Negative); STEC Shiga Toxin 1+2 Negative (Negative); Salmonella spp. by PCR Negative (Negative); Shigella spp + EIEC by PCR Negative (Negative)
[2022-09-22 13:19] LABS: Anion Gap 14 mmol/L (10-20)
[2022-09-22 20:33] LABS: Vancomycin, Random 19.9 ug/mL (See Comment)
[2022-09-22] MEDS ORDERED: Vancomycin HCl 500 MG in Sodium Chloride 0.9% 100 ML IV SCH (21:00)
[2022-09-23] MEDS: Sodium Chloride 0.9% 1,000 ML IV SCH ×2 (05:55→15:57)
[2022-09-23] MEDS: Piperacillin/Tazobactam 3.375 GM in Sodium Chloride 0.9% 100 ML IVPB SCH ×2 (06:00→15:50)
[2022-09-23 07:10] LABS: #Eosinphils 0.1 thou/uL (0.0-0.7); #Lymphocytes 0.5 thou/uL (1.20-3.40); #Monocytes 0.4 thou/uL (0.11-0.59); %Basophils 0.4 % (0.0-1.0); %Eosinophils 1.2 % (0.0-10.0); %Lymphocytes 7.4 % (21.0-51.0); %Monocytes 5.7 % (0.0-10.0); %Neutrophils 85.3 % (42.0-75.0); Hemoglobin 10.7 g/dL (12.0-16.0); Mean Corpuscular HGB CONC 33.2 g/dL (32.0-36.0); Mean Corpuscular Hemoglobin 33.8 pg (27.0-31.0); Mean Platelet Volume 9.6 fL (7.4-10.4); Platelet Count 152 10x3/uL (130-400); RBC Distribution Width 16.5 % (11.5-14.5); Red Blood Cell (RBC) Count 3.17 mill/uL (4.20-5.40); White Blood Cell (WBC) Count 7.1 10x3/uL (4.8-10.8)
[2022-09-23 07:31] LABS: Digoxin 1.29 ng/mL (0.8-2.0)
[2022-09-23 07:36] LABS: Anion Gap 13 mmol/L (10-20); BUN (Urea Nitrogen) 70 mg/dL (9.8-20.1); Calc. Creatinine Clearance 26 mL/min (70-130); Calcium 8.6 mg/dL (7.8-10.44); Carbon Dioxide 15 mmol/L (23-31); Chloride 115 mmol/L (98-107); Estimated GFR 18; Glucose 90 mg/dL (83-110); Potassium 4.6 mmol/L (3.5-5.1); Sodium 138 mmol/L (136-145)
[2022-09-23] MEDS: Pantoprazole 40 MG VIAL IVP SCH ×2 (11:25→21:24)
[2022-09-23] MEDS: Digoxin 0.125 MG TAB PO SCH (11:25)
[2022-09-23] MEDS: Sodium Bicarbonate Tab 325 MG TAB PO SCH ×3 (11:25→21:18)
[2022-09-23] MEDS: Metoprolol Tartrate 50 MG TAB PO SCH ×2 (11:26→21:18)
[2022-09-23] MEDS: Gabapentin 100 MG CAP PO SCH ×2 (11:30→21:18)
[2022-09-23] MEDS: Acetaminophen 325 MG TAB PO PRN (11:31)
[2022-09-23 21:16] LABS: Vancomycin, Trough 19.7 ug/mL
[2022-09-23] MEDS ORDERED: Vancomycin HCl 500 MG in Sodium Chloride 0.9% 100 ML IV SCH (22:00)
[2022-09-24 01:01] LABS: Hemoglobin 10.6 g/dL (12.0-16.0); Platelet Count 156 10x3/uL (130-400)
[2022-09-24] MEDS: Sodium Chloride 0.9% 1,000 ML IV SCH ×2 (02:00→17:36)
[2022-09-24 04:57] LABS: #Eosinphils 0.1 thou/uL (0.0-0.7); #Lymphocytes 0.6 thou/uL (1.20-3.40); #Monocytes 0.4 thou/uL (0.11-0.59); #Neutrophils 7.1 thou/uL (1.40-6.50); %Eosinophils 1.7 % (0.0-10.0); %Lymphocytes 7.7 % (21.0-51.0); %Monocytes 4.4 % (0.0-10.0); %Neutrophils 86.2 % (42.0-75.0); Hemoglobin 11.3 g/dL (12.0-16.0); Mean Corpuscular HGB CONC 32.9 g/dL (32.0-36.0); Mean Corpuscular Hemoglobin 33.4 pg (27.0-31.0); Mean Platelet Volume 9.6 fL (7.4-10.4); Platelet Count 158 10x3/uL (130-400); RBC Distribution Width 16.8 % (11.5-14.5); Red Blood Cell (RBC) Count 3.39 mill/uL (4.20-5.40); White Blood Cell (WBC) Count 8.3 10x3/uL (4.8-10.8)
[2022-09-24 05:20] LABS: Anion Gap 12 mmol/L (10-20); BUN (Urea Nitrogen) 65 mg/dL (9.8-20.1); Calc. Creatinine Clearance 29 mL/min (70-130); Calcium 8.9 mg/dL (7.8-10.44); Carbon Dioxide 18 mmol/L (23-31); Chloride 114 mmol/L (98-107); Estimated GFR 21; Glucose 97 mg/dL (83-110); Magnesium 1.7 mg/dL (1.6-2.6); Potassium 4.4 mmol/L (3.5-5.1); Sodium 140 mmol/L (136-145)
[2022-09-24] MEDS: Piperacillin/Tazobactam 3.375 GM in Sodium Chloride 0.9% 100 ML IVPB SCH ×3 (05:49→21:15)
[2022-09-24] MEDS: Gabapentin 100 MG CAP PO SCH ×2 (08:58→21:14)
[2022-09-24] MEDS: Digoxin 0.125 MG TAB PO SCH (08:58)
[2022-09-24] MEDS: Metoprolol Tartrate 50 MG TAB PO SCH ×2 (08:59→21:14)
[2022-09-24] MEDS: Sodium Bicarbonate Tab 325 MG TAB PO SCH ×3 (08:59→21:13)
[2022-09-24] MEDS ORDERED: Magnesium 2 GM/50 ML(in water) 2 GM in Premix Bag 1 BAG IVPB SCH (09:00)
[2022-09-24] MEDS: Pantoprazole 40 MG VIAL IVP SCH ×2 (09:00→21:15)
[2022-09-24 21:18] LABS: Vancomycin, Random 21.1 ug/mL (See Comment)
[2022-09-25 04:07] LABS: #Eosinphils 0.4 thou/uL (0.0-0.7); #Lymphocytes 0.8 thou/uL (1.20-3.40); #Monocytes 0.5 thou/uL (0.11-0.59); #Neutrophils 7.9 thou/uL (1.40-6.50); %Basophils 0.1 % (0.0-1.0); %Eosinophils 4.1 % (0.0-10.0); %Lymphocytes 8.5 % (21.0-51.0); %Neutrophils 82.3 % (42.0-75.0); Hemoglobin 10.7 g/dL (12.0-16.0); Mean Corpuscular HGB CONC 32.9 g/dL (32.0-36.0); Mean Platelet Volume 9.2 fL (7.4-10.4); Platelet Count 150 10x3/uL (130-400); RBC Distribution Width 16.4 % (11.5-14.5); Red Blood Cell (RBC) Count 3.25 mill/uL (4.20-5.40); White Blood Cell (WBC) Count 9.6 10x3/uL (4.8-10.8)
[2022-09-25 04:29] LABS: Anion Gap 12 mmol/L (10-20); BUN (Urea Nitrogen) 60 mg/dL (9.8-20.1); Calc. Creatinine Clearance 35 mL/min (70-130); Calcium 8.9 mg/dL (7.8-10.44); Carbon Dioxide 20 mmol/L (23-31); Chloride 113 mmol/L (98-107); Estimated GFR 24; Glucose 109 mg/dL (83-110); Magnesium 1.8 mg/dL (1.6-2.6); Potassium 4.1 mmol/L (3.5-5.1); Sodium 141 mmol/L (136-145)
[2022-09-25] MEDS: Piperacillin/Tazobactam 3.375 GM in Sodium Chloride 0.9% 100 ML IVPB SCH ×3 (05:27→20:52)
[2022-09-25] MEDS: Acetaminophen 325 MG TAB PO PRN (08:17)
[2022-09-25] MEDS: Gabapentin 100 MG CAP PO SCH ×2 (09:30→20:51)
[2022-09-25] MEDS: Metoprolol Tartrate 50 MG TAB PO SCH ×2 (09:31→20:51)
[2022-09-25] MEDS: Digoxin 0.125 MG TAB PO SCH (09:32)
[2022-09-25] MEDS: Pantoprazole 40 MG VIAL IVP SCH ×2 (09:33→20:52)
[2022-09-25] MEDS: Sodium Bicarbonate Tab 325 MG TAB PO SCH ×3 (10:08→20:51)
[2022-09-25] MEDS ORDERED: Vancomycin HCl 750 MG in Sodium Chloride 0.9% 250 ML 250 ML IVPB SCH (10:30)
[2022-09-25] MEDS: Sodium Chloride 0.9% 1,000 ML IV SCH (11:22)
[2022-09-25] MEDS ORDERED: Sodium Chloride 0.9% 1,000 ML IV SCH (14:00)
[2022-09-25 22:12] LABS: Norovirus GI Negative (Negative); Norovirus GII Negative (Negative)
[2022-09-26] MEDS: Acetaminophen 325 MG TAB PO PRN ×2 (04:32→10:05)
[2022-09-26] MEDS: Piperacillin/Tazobactam 3.375 GM in Sodium Chloride 0.9% 100 ML IVPB SCH (04:58)
[2022-09-26 05:18] LABS: Anion Gap 15 mmol/L (10-20); BUN (Urea Nitrogen) 54 mg/dL (9.8-20.1); Calc. Creatinine Clearance 46 mL/min (70-130); Calcium 8.9 mg/dL (7.8-10.44); Carbon Dioxide 17 mmol/L (23-31); Chloride 113 mmol/L (98-107); Estimated GFR 33; Glucose 101 mg/dL (83-110); Potassium 3.9 mmol/L (3.5-5.1); Sodium 141 mmol/L (136-145)
[2022-09-26 07:36] LABS: #Eosinphils 0.2 thou/uL (0.0-0.7); #Lymphocytes 0.7 thou/uL (1.20-3.40); #Monocytes 0.7 thou/uL (0.11-0.59); #Neutrophils 7.7 thou/uL (1.40-6.50); %Basophils 0.2 % (0.0-1.0); %Eosinophils 1.9 % (0.0-10.0); %Lymphocytes 7.8 % (21.0-51.0); %Monocytes 7.1 % (0.0-10.0); %Neutrophils 83.2 % (42.0-75.0); Hemoglobin 10.4 g/dL (12.0-16.0); Mean Corpuscular HGB CONC 32.3 g/dL (32.0-36.0); Mean Corpuscular Hemoglobin 32.6 pg (27.0-31.0); Platelet Count 142 10x3/uL (130-400); RBC Distribution Width 16.2 % (11.5-14.5); White Blood Cell (WBC) Count 9.3 10x3/uL (4.8-10.8)
[2022-09-26] MEDS ORDERED: Metoprolol Tartrate 5 MG/5 ML VIAL IVP SCH (09:15)
[2022-09-26] MEDS ORDERED: Metoprolol Tartrate 50 MG TAB PO SCH ×3 (09:16→21:00)
[2022-09-26] MEDS: Sodium Bicarbonate Tab 325 MG TAB PO SCH ×3 (10:08→20:37)
[2022-09-26] MEDS: Pantoprazole 40 MG VIAL IVP SCH ×2 (10:08→20:38)
[2022-09-26] MEDS: Digoxin 0.125 MG TAB PO SCH (10:09)
[2022-09-26] MEDS: Gabapentin 100 MG CAP PO SCH ×2 (10:10→20:46)
[2022-09-26] MEDS: Metoprolol Tartrate 50 MG TAB PO SCH (10:38)
[2022-09-26] MEDS: Amoxicillin/Potassium Clav 875 MG TAB PO SCH (20:38)
[2022-09-27] MEDS ORDERED: cloNIDine 0.1 MG TAB PO SCH (03:45)
[2022-09-27 04:41] LABS: #Eosinphils 0.4 thou/uL (0.0-0.7); #Lymphocytes 0.9 thou/uL (1.20-3.40); #Monocytes 0.7 thou/uL (0.11-0.59); #Neutrophils 6.6 thou/uL (1.40-6.50); %Basophils 0.1 % (0.0-1.0); %Eosinophils 4.4 % (0.0-10.0); %Lymphocytes 10.1 % (21.0-51.0); %Neutrophils 77.4 % (42.0-75.0); Mean Corpuscular Hemoglobin 33.3 pg (27.0-31.0); Mean Platelet Volume 9.1 fL (7.4-10.4); Platelet Count 129 10x3/uL (130-400); RBC Distribution Width 15.9 % (11.5-14.5); Red Blood Cell (RBC) Count 3.01 mill/uL (4.20-5.40); White Blood Cell (WBC) Count 8.6 10x3/uL (4.8-10.8)
[2022-09-27 05:01] LABS: ALT (SGPT) 21 U/L (8-55); AST (SGOT) 22 U/L (5-34); Albumin 2.2 g/dL (3.4-4.8); Alkaline Phosphatase 72 U/L (40-110); Anion Gap 13 mmol/L (10-20); BUN (Urea Nitrogen) 53 mg/dL (9.8-20.1); Bilirubin, Total 0.4 mg/dL (0.2-1.2); Calc. Creatinine Clearance 55 mL/min (70-130); Calcium 8.5 mg/dL (7.8-10.44); Carbon Dioxide 21 mmol/L (23-31); Chloride 112 mmol/L (98-107); Estimated GFR 41; Globulin 2.7 g/dL (2.4-3.5); Glucose 108 mg/dL (83-110); Magnesium 1.2 mg/dL (1.6-2.6); Potassium 3.5 mmol/L (3.5-5.1); Protein, Total 4.9 g/dL (5.8-8.1); Sodium 142 mmol/L (136-145)
[2022-09-27 05:02] LABS: Digoxin 0.97 ng/mL (0.8-2.0)
[2022-09-27] MEDS ORDERED: Potassium Bicarbonate/Cit Ac 20 MEQ TAB PO SCH (09:00)
[2022-09-27] MEDS ORDERED: Magnesium Sulfate In Water 4 GM in Premix Bag 1 BAG IVPB SCH (09:00)
[2022-09-27] MEDS: Sodium Bicarbonate Tab 325 MG TAB PO SCH ×3 (09:25→20:21)
[2022-09-27] MEDS: Digoxin 0.125 MG TAB PO SCH (09:26)
[2022-09-27] MEDS: Amoxicillin/Potassium Clav 875 MG TAB PO SCH ×2 (09:26→20:21)
[2022-09-27] MEDS: Metoprolol Tartrate 100 MG TAB PO SCH ×2 (09:26→20:22)
[2022-09-27] MEDS: Gabapentin 100 MG CAP PO SCH ×2 (09:27→20:22)
[2022-09-27] MEDS: Acetaminophen 325 MG TAB PO PRN (20:21)
[2022-09-28 05:25] LABS: #Eosinphils 0.3 thou/uL (0.0-0.7); #Lymphocytes 0.9 thou/uL (1.20-3.40); #Monocytes 0.7 thou/uL (0.11-0.59); #Neutrophils 6.4 thou/uL (1.40-6.50); %Basophils 0.2 % (0.0-1.0); %Eosinophils 4.1 % (0.0-10.0); %Lymphocytes 10.3 % (21.0-51.0); %Monocytes 8.2 % (0.0-10.0); %Neutrophils 77.2 % (42.0-75.0); Hemoglobin 9.9 g/dL (12.0-16.0); Mean Corpuscular HGB CONC 32.2 g/dL (32.0-36.0); Mean Corpuscular Hemoglobin 32.8 pg (27.0-31.0); Mean Platelet Volume 9.1 fL (7.4-10.4); Platelet Count 123 10x3/uL (130-400); RBC Distribution Width 16.2 % (11.5-14.5); Red Blood Cell (RBC) Count 3.01 mill/uL (4.20-5.40); White Blood Cell (WBC) Count 8.3 10x3/uL (4.8-10.8)
[2022-09-28 05:44] LABS: Anion Gap 13 mmol/L (10-20); BUN (Urea Nitrogen) 40 mg/dL (9.8-20.1); Calc. Creatinine Clearance 66 mL/min (70-130); Calcium 8.1 mg/dL (7.8-10.44); Carbon Dioxide 23 mmol/L (23-31); Chloride 110 mmol/L (98-107); Estimated GFR 50; Glucose 95 mg/dL (83-110); Magnesium 1.8 mg/dL (1.6-2.6); Potassium 3.5 mmol/L (3.5-5.1); Sodium 142 mmol/L (136-145)
[2022-09-28 05:57] LABS: Phosphorus 2.7 mg/dL (2.3-4.7)
[2022-09-28] MEDS: Acetaminophen 325 MG TAB PO PRN (06:52)
[2022-09-28] MEDS ORDERED: Potassium Chloride 20 MEQ TAB PO SCH (08:30)
[2022-09-28] MEDS ORDERED: Magnesium 2 GM/50 ML(in water) 2 GM in Premix Bag 1 BAG IVPB SCH (08:30)
[2022-09-28] MEDS: Sodium Bicarbonate Tab 325 MG TAB PO SCH ×3 (09:48→21:06)
[2022-09-28] MEDS: Digoxin 0.125 MG TAB PO SCH (09:48)
[2022-09-28] MEDS: Amlodipine 5 MG TAB PO SCH (09:49)
[2022-09-28] MEDS: Metoprolol Tartrate 100 MG TAB PO SCH ×2 (09:49→21:07)
[2022-09-28] MEDS: Amoxicillin/Potassium Clav 875 MG TAB PO SCH ×2 (09:49→21:07)
[2022-09-28] MEDS: oxyCODONE 5 MG TAB PO PRN ×2 (09:50→15:32)
[2022-09-28] MEDS ORDERED: Montelukast Sodium 10 mg Tablet PO SCH (21:00)
[2022-09-28] MEDS: Gabapentin 100 MG CAP PO SCH (21:06)
[2022-09-28] MEDS: Montelukast Sodium 10 mg Tablet PO SCH (21:07)
[2022-09-29 05:05] LABS: #Eosinphils 0.2 thou/uL (0.0-0.7); #Monocytes 0.7 thou/uL (0.11-0.59); #Neutrophils 6.2 thou/uL (1.40-6.50); %Basophils 0.1 % (0.0-1.0); %Eosinophils 2.3 % (0.0-10.0); %Monocytes 8.6 % (0.0-10.0); Hemoglobin 10.4 g/dL (12.0-16.0); Mean Corpuscular HGB CONC 33.8 g/dL (32.0-36.0); Mean Corpuscular Hemoglobin 33.9 pg (27.0-31.0); Platelet Count 137 10x3/uL (130-400); RBC Distribution Width 16.1 % (11.5-14.5); Red Blood Cell (RBC) Count 3.06 mill/uL (4.20-5.40)
[2022-09-29 05:23] LABS: Anion Gap 11 mmol/L (10-20); BUN (Urea Nitrogen) 38 mg/dL (9.8-20.1); Calc. Creatinine Clearance 76 mL/min (70-130); Calcium 8.2 mg/dL (7.8-10.44); Carbon Dioxide 25 mmol/L (23-31); Chloride 108 mmol/L (98-107); Estimated GFR 58; Glucose 102 mg/dL (83-110); Magnesium 1.7 mg/dL (1.6-2.6); Sodium 140 mmol/L (136-145)
[2022-09-29] MEDS: Digoxin 0.125 MG TAB PO SCH (08:46)
[2022-09-29] MEDS: Metoprolol Tartrate 100 MG TAB PO SCH ×2 (08:47→20:50)
[2022-09-29] MEDS: Sodium Bicarbonate Tab 325 MG TAB PO SCH ×3 (08:47→20:49)
[2022-09-29] MEDS: oxyCODONE 5 MG TAB PO PRN ×2 (08:47→17:36)
[2022-09-29] MEDS: Amoxicillin/Potassium Clav 875 MG TAB PO SCH ×2 (08:48→20:50)
[2022-09-29] MEDS: Amlodipine 5 MG TAB PO SCH (08:48)
[2022-09-29] MEDS ORDERED: Magnesium 2 GM/50 ML(in water) 2 GM in Premix Bag 1 BAG IVPB SCH (10:15)
[2022-09-29] MEDS ORDERED: Amlodipine 5 MG TAB PO SCH (10:15)
[2022-09-29] MEDS ORDERED: Metoprolol Tartrate 5 MG/5 ML VIAL IVP PRN (10:30)
[2022-09-29] MEDS: Montelukast Sodium 10 mg Tablet PO SCH (20:50)
[2022-09-29] MEDS: Gabapentin 100 MG CAP PO SCH (20:50)
[2022-09-29] MEDS: Acetaminophen 325 MG TAB PO PRN (20:55)
[2022-09-30 05:56] LABS: Anion Gap 12 mmol/L (10-20); BUN (Urea Nitrogen) 32 mg/dL (9.8-20.1); Calc. Creatinine Clearance 74 mL/min (70-130); Calcium 8.3 mg/dL (7.8-10.44); Carbon Dioxide 22 mmol/L (23-31); Chloride 108 mmol/L (98-107); Estimated GFR 57; Glucose 90 mg/dL (83-110); Magnesium 1.8 mg/dL (1.6-2.6); Potassium 4.4 mmol/L (3.5-5.1); Sodium 138 mmol/L (136-145)
[2022-09-30 07:40] VITALS: BMI 37.8
[2022-09-30] MEDS ORDERED: Amlodipine 5 MG TAB PO SCH (09:00)
[2022-09-30] MEDS: Sodium Bicarbonate Tab 325 MG TAB PO SCH ×2 (09:15→21:02)
[2022-09-30] MEDS: oxyCODONE 5 MG TAB PO PRN (09:15)
[2022-09-30] MEDS: Amlodipine 10 MG TAB PO SCH (09:16)
[2022-09-30] MEDS: Digoxin 0.125 MG TAB PO SCH (09:17)
[2022-09-30] MEDS: Amoxicillin/Potassium Clav 875 MG TAB PO SCH ×2 (09:17→21:02)
[2022-09-30] MEDS: Metoprolol Tartrate 100 MG TAB PO SCH ×2 (09:17→21:02)
[2022-09-30] MEDS: Montelukast Sodium 10 mg Tablet PO SCH (21:02)
[2022-09-30] MEDS: Gabapentin 100 MG CAP PO SCH (21:02)
[2022-10-01] MEDS: oxyCODONE 5 MG TAB PO PRN ×2 (04:15→20:15)
[2022-10-01 05:10] LABS: Anion Gap 11 mmol/L (10-20); BUN (Urea Nitrogen) 23 mg/dL (9.8-20.1); Calc. Creatinine Clearance 76 mL/min (70-130); Calcium 7.8 mg/dL (7.8-10.44); Carbon Dioxide 25 mmol/L (23-31); Chloride 105 mmol/L (98-107); Estimated GFR 60; Glucose 107 mg/dL (83-110); Magnesium 1.5 mg/dL (1.6-2.6); Potassium 3.6 mmol/L (3.5-5.1); Sodium 137 mmol/L (136-145)
[2022-10-01] MEDS ORDERED: Potassium Chloride 20 MEQ TAB PO SCH (08:30)
[2022-10-01] MEDS ORDERED: Magnesium Sulfate 3 GM in Sodium Chloride 0.9% 100 ML IVPB SCH (09:00)
[2022-10-01] MEDS: Metoprolol Tartrate 100 MG TAB PO SCH ×2 (09:04→20:14)
[2022-10-01] MEDS: Sodium Bicarbonate Tab 325 MG TAB PO SCH ×2 (09:04→20:14)
[2022-10-01] MEDS: Amoxicillin/Potassium Clav 875 MG TAB PO SCH ×2 (09:04→20:14)
[2022-10-01] MEDS: Amlodipine 10 MG TAB PO SCH (09:04)
[2022-10-01] MEDS: Digoxin 0.125 MG TAB PO SCH (09:04)
[2022-10-01] MEDS: Montelukast Sodium 10 mg Tablet PO SCH (20:14)
[2022-10-01] MEDS: Gabapentin 100 MG CAP PO SCH (20:14)
[2022-10-02] MEDS: oxyCODONE 5 MG TAB PO PRN (05:00)
[2022-10-02 05:43] LABS: Anion Gap 13 mmol/L (10-20); BUN (Urea Nitrogen) 25 mg/dL (9.8-20.1); Calc. Creatinine Clearance 73 mL/min (70-130); Calcium 8.2 mg/dL (7.8-10.44); Carbon Dioxide 22 mmol/L (23-31); Chloride 106 mmol/L (98-107); Estimated GFR 57; Glucose 105 mg/dL (83-110); Magnesium 1.9 mg/dL (1.6-2.6); Potassium 4.4 mmol/L (3.5-5.1); Sodium 137 mmol/L (136-145)
[2022-10-02] MEDS: Amlodipine 10 MG TAB PO SCH (09:22)
[2022-10-02] MEDS: Digoxin 0.125 MG TAB PO SCH (09:29)
[2022-10-02] MEDS: Sodium Bicarbonate Tab 325 MG TAB PO SCH (09:29)
[2022-10-02] MEDS: Metoprolol Tartrate 100 MG TAB PO SCH (09:29)
[2022-10-02 12:13] VITALS: BP 126/86; TEMP 97.6
== END 2022-10-02 12:05 | DRG 871 ==
LOC: ERS 15:17 → IMCU/EMU 16:55 → 2NO 09-23 18:43
PROVIDERS: ADMIT Internal Medicine; ATTEND Internal Medicine
PROC: 3E03329 Introduction of Other Anti-infective into Peripheral Vein, Percutaneous Approach (ICD-10-PCS; principal; 2022-09-19)
PROC: 30233N1 Transfusion of Nonautologous Red Blood Cells into Peripheral Vein, Percutaneous Approach (ICD-10-PCS; 2022-09-19)
PROC: 0S9D3ZX Drainage of Left Knee Joint, Percutaneous Approach, Diagnostic (ICD-10-PCS; 2022-09-19)
PROC: 5A09357 Assistance with Respiratory Ventilation, Less than 24 Consecutive Hours, Continuous Positive Airway Pressure (ICD-10-PCS; 2022-09-19)
PROC: 4A133R1 Monitoring of Arterial Saturation, Peripheral, Percutaneous Approach (ICD-10-PCS; 2022-09-19)
PROC: 06H03DZ Insertion of Intraluminal Device into Inferior Vena Cava, Percutaneous Approach (ICD-10-PCS; 2022-09-21)
PROC: B5191ZZ Fluoroscopy of Inferior Vena Cava using Low Osmolar Contrast (ICD-10-PCS; 2022-09-21)
PROC: 8E0ZXY6 Isolation (ICD-10-PCS; 2022-09-21)
DX: A41.9 Sepsis, unspecified organism (principal); J18.9 Pneumonia, unspecified organism; R65.21 Severe sepsis with septic shock; Z20.822 Contact with and (suspected) exposure to COVID-19; J96.01 Acute respiratory failure with hypoxia; C90.00 Multiple myeloma not having achieved remission; D62 Acute posthemorrhagic anemia; N17.9 Acute kidney failure, unspecified; I82.412 Acute embolism and thrombosis of left femoral vein; I82.432 Acute embolism and thrombosis of left popliteal vein; I82.442 Acute embolism and thrombosis of left tibial vein; I50.32 Chronic diastolic (congestive) heart failure; I13.0 Hypertensive heart and chronic kidney disease with heart failure and stage 1 through stage 4 chronic kidney disease, or unspecified chronic kidney disease; N39.0 Urinary tract infection, site not specified; K92.1 Melena; J44.0 Chronic obstructive pulmonary disease with (acute) lower respiratory infection; E87.20 Acidosis, unspecified; N18.9 Chronic kidney disease, unspecified; M25.462 Effusion, left knee; E86.0 Dehydration; R19.7 Diarrhea, unspecified; I48.0 Paroxysmal atrial fibrillation; M54.32 Sciatica, left side; M19.072 Primary osteoarthritis, left ankle and foot; Z96.612 Presence of left artificial shoulder joint; Z96.611 Presence of right artificial shoulder joint; E83.42 Hypomagnesemia; Z90.710 Acquired absence of both cervix and uterus; Z88.6 Allergy status to analgesic agent; Z98.890 Other specified postprocedural states; Z80.3 Family history of malignant neoplasm of breast; Z80.42 Family history of malignant neoplasm of prostate; Z80.0 Family history of malignant neoplasm of digestive organs; Z98.1 Arthrodesis status; Z79.899 Other long term (current) drug therapy; Z79.01 Long term (current) use of anticoagulants; Z90.49 Acquired absence of other specified parts of digestive tract
CPT/HCPCS: 36010; 36415; 36430; 36600; 37191; 71045; 74176; 80048; 80053; 80162; 80202; 80503; 81001; 82274; 82553; 82805; 82945; 83605; 83630; 83735; 83880; 84100; 84157; 84484; 85014; 85018; 85025; 85049; 85060; 85610; 85730; 86850; 86900; 86901; 87040; 87070; 87076; 87077; 87086; 87149; 87186; 87205; 87324; 87449; 87505; 87798; 87811; 89051; 89060; 93005; 93010; 93306; 94640; 94660; 96361; 96365; 96367; 96375; 97139; C1769; C1880; C1894; C9113; J0692; J1160; J1644; J2001; J2543; J2930; J3370; J3370-JW; J3475; J3490; J7050; J7620; P9016; Q9967

== ENCOUNTER 2022-11-25 16:33 | Inpatient (IN) | payer MEDICARE ==
[~2022-11-25 16:33] MED LIST: Iopamidol-370 76% 500 ML MDV (1 ML CHARGE) ONE
[2022-11-25 17:39] LABS: #Eosinphils 0.1 thou/uL (0.0-0.7); #Neutrophils 7.4 thou/uL (1.40-6.50); %Basophils 0.3 % (0.0-1.0); %Eosinophils 1.3 % (0.0-10.0); %Lymphocytes 19.3 % (21.0-51.0); %Monocytes 9.4 % (0.0-10.0); %Neutrophils 69.8 % (42.0-75.0); Hemoglobin 11.3 g/dL (12.0-16.0); Mean Corpuscular HGB CONC 33.9 g/dL (32.0-36.0); Mean Corpuscular Hemoglobin 34.3 pg (27.0-31.0); Mean Platelet Volume 7.8 fL (7.4-10.4); Platelet Count 137 10x3/uL (130-400); RBC Distribution Width 17.4 % (11.5-14.5); Red Blood Cell (RBC) Count 3.28 mill/uL (4.20-5.40); White Blood Cell (WBC) Count 10.6 10x3/uL (4.8-10.8)
[2022-11-25 18:01] LABS: ALT (SGPT) 11 U/L (8-55); AST (SGOT) 16 U/L (5-34); Albumin 3.6 g/dL (3.4-4.8); Alkaline Phosphatase 113 U/L (40-110); Anion Gap 16 mmol/L (10-20); BUN (Urea Nitrogen) 17 mg/dL (9.8-20.1); Bilirubin, Total 0.8 mg/dL (0.2-1.2); Calc. Creatinine Clearance 0 mL/min (70-130); Calcium 9.2 mg/dL (7.8-10.44); Carbon Dioxide 20 mmol/L (23-31); Chloride 106 mmol/L (98-107); Estimated GFR 37; Glucose 120 mg/dL (83-110); Potassium 3.9 mmol/L (3.5-5.1); Protein, Total 6.6 g/dL (5.8-8.1); Sodium 138 mmol/L (136-145)
[2022-11-25 19:14] LABS: PTT 27.4 sec (22.9-36.1); Prothrombin Time 13.6 sec (12.0-14.7)
[2022-11-25] MEDS ORDERED: Heparin 25,000 units/D5W 500 ML ONE (19:41)
[2022-11-25] MEDS ORDERED: Heparin 10,000 UNITS/ 10 ML VIAL ONE (19:41)
[2022-11-25] MEDS ORDERED: Ondansetron ODT 4 MG TAB PO PRN (20:23)
[2022-11-25] MEDS ORDERED: Acetaminophen 650 MG Suppository PR PRN (20:23)
[2022-11-25] MEDS ORDERED: Ondansetron PF 4 MG/2 ML Vial IVP PRN (20:23)
[2022-11-25 21:02] LABS: Troponin I 0.023 ng/mL (< 0.028)
[2022-11-25 23:39] VITALS: BMI 25.1
[2022-11-26 00:07] LABS: Troponin I 0.023 ng/mL (< 0.028)
[2022-11-26 02:31] LABS: PTT Greater than 250.0 sec (22.9-36.1)
[2022-11-26 05:07] LABS: #Eosinphils 0.1 thou/uL (0.0-0.7); #Lymphocytes 1.9 thou/uL (1.20-3.40); #Neutrophils 6.5 thou/uL (1.40-6.50); %Basophils 0.1 % (0.0-1.0); %Eosinophils 1.3 % (0.0-10.0); %Lymphocytes 20.3 % (21.0-51.0); %Monocytes 10.3 % (0.0-10.0); Hemoglobin 11.1 g/dL (12.0-16.0); Mean Corpuscular Hemoglobin 34.6 pg (27.0-31.0); Mean Platelet Volume 8.1 fL (7.4-10.4); Platelet Count 128 10x3/uL (130-400); RBC Distribution Width 17.4 % (11.5-14.5); Red Blood Cell (RBC) Count 3.21 mill/uL (4.20-5.40); White Blood Cell (WBC) Count 9.5 10x3/uL (4.8-10.8)
[2022-11-26 05:29] LABS: Anion Gap 16 mmol/L (10-20); BUN (Urea Nitrogen) 18 mg/dL (9.8-20.1); Calc. Creatinine Clearance 41 mL/min (70-130); Calcium 9.2 mg/dL (7.8-10.44); Carbon Dioxide 21 mmol/L (23-31); Chloride 106 mmol/L (98-107); Estimated GFR 38; Glucose 110 mg/dL (83-110); Potassium 3.6 mmol/L (3.5-5.1); Sodium 139 mmol/L (136-145)
[2022-11-26] MEDS: Acetaminophen 325 MG TAB PO PRN ×2 (06:26→20:32)
[2022-11-26] MEDS ORDERED: Heparin 10,000 UNITS/ 10 ML VIAL SLOW IVP SCH (08:00)
[2022-11-26] MEDS ORDERED: Heparin 25,000 units/D5W 500 ML IVPB SCH (08:00)
[2022-11-26] MEDS: Digoxin 0.125 MG TAB PO SCH (08:07)
[2022-11-26] MEDS: Gabapentin 100 MG CAP PO SCH ×3 (08:08→20:20)
[2022-11-26] MEDS: Ferrous Sulfate 325 MG TAB PO SCH ×2 (08:08→16:05)
[2022-11-26] MEDS: valACYclovir 500 MG TAB PO SCH (08:08)
[2022-11-26] MEDS: Calcitriol 0.25 MCG CAP PO SCH (08:08)
[2022-11-26] MEDS: Multivit, Therapeutic 1 TAB PO SCH (08:08)
[2022-11-26] MEDS: Metoprolol Tartrate 25 MG TAB PO SCH ×2 (08:09→20:21)
[2022-11-26] MEDS ORDERED: Heparin 25,000 units/D5W 500 ML IV SCH (13:45)
[2022-11-26] MEDS: Montelukast Sodium 10 mg Tablet PO SCH (20:21)
[2022-11-27 08:38] LABS: PTT 145.1 sec (22.9-36.1)
[2022-11-27] MEDS: Rivaroxaban 15 MG TAB PO SCH ×2 (08:44→20:46)
[2022-11-27] MEDS: Calcitriol 0.25 MCG CAP PO SCH (08:44)
[2022-11-27] MEDS: Gabapentin 100 MG CAP PO SCH ×3 (08:45→20:46)
[2022-11-27] MEDS: Multivit, Therapeutic 1 TAB PO SCH (08:45)
[2022-11-27] MEDS: Digoxin 0.125 MG TAB PO SCH (08:45)
[2022-11-27] MEDS: Ferrous Sulfate 325 MG TAB PO SCH ×2 (08:46→15:54)
[2022-11-27] MEDS: valACYclovir 500 MG TAB PO SCH (08:46)
[2022-11-27] MEDS: Metoprolol Tartrate 25 MG TAB PO SCH ×2 (08:46→20:46)
[2022-11-27] MEDS ORDERED: Diphenoxylate HCl/Atropine Tablet PO PRN (14:38)
[2022-11-27] MEDS: Montelukast Sodium 10 mg Tablet PO SCH (20:46)
[2022-11-28] MEDS: Metoprolol Tartrate 25 MG TAB PO SCH ×2 (08:25→20:28)
[2022-11-28] MEDS: Gabapentin 100 MG CAP PO SCH ×3 (08:26→20:27)
[2022-11-28] MEDS: Ferrous Sulfate 325 MG TAB PO SCH ×2 (08:26→17:24)
[2022-11-28] MEDS: Multivit, Therapeutic 1 TAB PO SCH (08:27)
[2022-11-28] MEDS: valACYclovir 500 MG TAB PO SCH (08:27)
[2022-11-28] MEDS: Calcitriol 0.25 MCG CAP PO SCH (08:27)
[2022-11-28] MEDS: Rivaroxaban 15 MG TAB PO SCH ×2 (08:27→20:28)
[2022-11-28] MEDS: Digoxin 0.125 MG TAB PO SCH (08:27)
[2022-11-28] MEDS: Acetaminophen 325 MG TAB PO PRN ×2 (14:38→20:34)
[2022-11-28] MEDS: Montelukast Sodium 10 mg Tablet PO SCH (20:28)
[2022-11-29 04:50] LABS: Digoxin 1.35 ng/mL (0.8-2.0)
[2022-11-29] MEDS: Digoxin 0.125 MG TAB PO SCH (09:15)
[2022-11-29] MEDS: Ferrous Sulfate 325 MG TAB PO SCH ×2 (09:15→16:55)
[2022-11-29] MEDS: Gabapentin 100 MG CAP PO SCH ×3 (09:15→21:47)
[2022-11-29] MEDS: Calcitriol 0.25 MCG CAP PO SCH (09:15)
[2022-11-29] MEDS: Rivaroxaban 15 MG TAB PO SCH ×2 (09:16→21:48)
[2022-11-29] MEDS: Multivit, Therapeutic 1 TAB PO SCH (09:16)
[2022-11-29] MEDS: valACYclovir 500 MG TAB PO SCH (09:16)
[2022-11-29] MEDS: Metoprolol Tartrate 25 MG TAB PO SCH ×2 (09:16→21:47)
[2022-11-29] MEDS: Acetaminophen 325 MG TAB PO PRN ×2 (13:17→21:51)
[2022-11-29] MEDS: Montelukast Sodium 10 mg Tablet PO SCH (21:47)
[2022-11-30] MEDS: Ferrous Sulfate 325 MG TAB PO SCH ×2 (09:29→15:06)
[2022-11-30] MEDS: Digoxin 0.125 MG TAB PO SCH (09:29)
[2022-11-30] MEDS: Gabapentin 100 MG CAP PO SCH ×3 (09:29→20:42)
[2022-11-30] MEDS: Calcitriol 0.25 MCG CAP PO SCH (09:29)
[2022-11-30] MEDS: valACYclovir 500 MG TAB PO SCH (09:30)
[2022-11-30] MEDS: Rivaroxaban 15 MG TAB PO SCH ×2 (09:30→20:41)
[2022-11-30] MEDS: Metoprolol Tartrate 25 MG TAB PO SCH ×2 (09:30→20:41)
[2022-11-30] MEDS: Multivit, Therapeutic 1 TAB PO SCH (09:30)
[2022-11-30] MEDS: Acetaminophen 325 MG TAB PO PRN (15:06)
[2022-11-30] MEDS: Montelukast Sodium 10 mg Tablet PO SCH (20:42)
[2022-12-01 04:56] LABS: #Eosinphils 0.3 thou/uL (0.0-0.7); #Lymphocytes 1.6 thou/uL (1.20-3.40); #Monocytes 0.8 thou/uL (0.11-0.59); #Neutrophils 4.9 thou/uL (1.40-6.50); %Basophils 0.3 % (0.0-1.0); %Eosinophils 3.7 % (0.0-10.0); %Lymphocytes 21.4 % (21.0-51.0); %Monocytes 10.7 % (0.0-10.0); %Neutrophils 63.8 % (42.0-75.0); Hemoglobin 10.3 g/dL (12.0-16.0); Mean Corpuscular HGB CONC 33.9 g/dL (32.0-36.0); Mean Corpuscular Hemoglobin 34.6 pg (27.0-31.0); Mean Platelet Volume 7.7 fL (7.4-10.4); Platelet Count 188 10x3/uL (130-400); RBC Distribution Width 16.8 % (11.5-14.5); Red Blood Cell (RBC) Count 2.96 mill/uL (4.20-5.40); White Blood Cell (WBC) Count 7.7 10x3/uL (4.8-10.8)
[2022-12-01 05:13] LABS: Anion Gap 16 mmol/L (10-20); BUN (Urea Nitrogen) 18 mg/dL (9.8-20.1); Calc. Creatinine Clearance 48 mL/min (70-130); Calcium 10.1 mg/dL (7.8-10.44); Carbon Dioxide 20 mmol/L (23-31); Chloride 106 mmol/L (98-107); Estimated GFR 45; Glucose 108 mg/dL (83-110); Potassium 3.9 mmol/L (3.5-5.1); Sodium 138 mmol/L (136-145)
[2022-12-01] MEDS: Digoxin 0.125 MG TAB PO SCH (10:14)
[2022-12-01] MEDS: Calcitriol 0.25 MCG CAP PO SCH (10:14)
[2022-12-01] MEDS: Metoprolol Tartrate 25 MG TAB PO SCH ×2 (10:14→20:54)
[2022-12-01] MEDS: Gabapentin 100 MG CAP PO SCH ×3 (10:15→20:54)
[2022-12-01] MEDS: Ferrous Sulfate 325 MG TAB PO SCH ×2 (10:15→16:54)
[2022-12-01] MEDS: valACYclovir 500 MG TAB PO SCH (10:15)
[2022-12-01] MEDS: Rivaroxaban 15 MG TAB PO SCH ×2 (10:15→20:55)
[2022-12-01] MEDS: Multivit, Therapeutic 1 TAB PO SCH (10:15)
[2022-12-01] MEDS: Acetaminophen 325 MG TAB PO PRN (10:20)
[2022-12-01] MEDS: Montelukast Sodium 10 mg Tablet PO SCH (20:54)
[2022-12-02] MEDS: valACYclovir 500 MG TAB PO SCH (08:25)
[2022-12-02] MEDS: Ferrous Sulfate 325 MG TAB PO SCH ×2 (08:26→16:11)
[2022-12-02] MEDS: Calcitriol 0.25 MCG CAP PO SCH (08:26)
[2022-12-02] MEDS: Multivit, Therapeutic 1 TAB PO SCH (08:26)
[2022-12-02] MEDS: Digoxin 0.125 MG TAB PO SCH (08:26)
[2022-12-02] MEDS: Gabapentin 100 MG CAP PO SCH ×3 (08:26→20:57)
[2022-12-02] MEDS: Metoprolol Tartrate 25 MG TAB PO SCH ×2 (08:26→20:58)
[2022-12-02] MEDS: Rivaroxaban 15 MG TAB PO SCH ×2 (08:27→20:58)
[2022-12-02] MEDS: Montelukast Sodium 10 mg Tablet PO SCH (20:58)
[2022-12-02] MEDS: Acetaminophen 325 MG TAB PO PRN (21:07)
[2022-12-03] MEDS: Multivit, Therapeutic 1 TAB PO SCH (09:09)
[2022-12-03] MEDS: Digoxin 0.125 MG TAB PO SCH (09:10)
[2022-12-03] MEDS: Calcitriol 0.25 MCG CAP PO SCH (09:11)
[2022-12-03] MEDS: valACYclovir 500 MG TAB PO SCH (09:12)
[2022-12-03] MEDS: Metoprolol Tartrate 25 MG TAB PO SCH ×2 (09:12→19:01)
[2022-12-03] MEDS: Rivaroxaban 15 MG TAB PO SCH ×2 (09:12→20:53)
[2022-12-03] MEDS: Gabapentin 100 MG CAP PO SCH ×3 (09:13→20:53)
[2022-12-03] MEDS: Ferrous Sulfate 325 MG TAB PO SCH ×2 (09:13→18:20)
[2022-12-03] MEDS: Montelukast Sodium 10 mg Tablet PO SCH (20:53)
[2022-12-03] MEDS: Acetaminophen 325 MG TAB PO PRN (20:55)
[2022-12-04] MEDS: Digoxin 0.125 MG TAB PO SCH (08:38)
[2022-12-04] MEDS: Calcitriol 0.25 MCG CAP PO SCH (08:38)
[2022-12-04] MEDS: Rivaroxaban 15 MG TAB PO SCH (08:39)
[2022-12-04] MEDS: Gabapentin 100 MG CAP PO SCH (08:39)
[2022-12-04] MEDS: Multivit, Therapeutic 1 TAB PO SCH (08:39)
[2022-12-04] MEDS: Ferrous Sulfate 325 MG TAB PO SCH (08:39)
[2022-12-04] MEDS: valACYclovir 500 MG TAB PO SCH (08:40)
[2022-12-04 08:41] VITALS: BP 165/84
[2022-12-04] MEDS ORDERED: hydrALAZINE 25 MG TAB PO SCH (09:00)
[2022-12-04 11:40] VITALS: TEMP 97.5
[2022-12-06] MEDS ORDERED: Dexamethasone 4 MG TAB PO SCH (08:00)
== END 2022-12-04 14:00 | disposition home or self-care (01) | DRG 299 ==
LOC: ERS 16:33 → 2NO 20:21 → OBSVTOIN 11-26 15:28
PROVIDERS: ADMIT Student in an Organized Health Care Education/Training Program; ATTEND Hospitalist
DX: I82.413 Acute embolism and thrombosis of femoral vein, bilateral (principal); I26.99 Other pulmonary embolism without acute cor pulmonale; I13.0 Hypertensive heart and chronic kidney disease with heart failure and stage 1 through stage 4 chronic kidney disease, or unspecified chronic kidney disease; N17.9 Acute kidney failure, unspecified; C90.00 Multiple myeloma not having achieved remission; I48.20 Chronic atrial fibrillation, unspecified; I82.432 Acute embolism and thrombosis of left popliteal vein; J84.10 Pulmonary fibrosis, unspecified; D63.1 Anemia in chronic kidney disease; N18.30 Chronic kidney disease, stage 3 unspecified; D50.9 Iron deficiency anemia, unspecified; I49.5 Sick sinus syndrome; I50.9 Heart failure, unspecified; Z88.7 Allergy status to serum and vaccine; Z88.5 Allergy status to narcotic agent; Z79.899 Other long term (current) drug therapy; Z90.710 Acquired absence of both cervix and uterus
CPT/HCPCS: 36415; 71275; 80048; 80053; 80162; 83880; 84484; 85025; 85379; 85610; 85730; 93005; 93306; 93970; 96374; G0378; J1644; Q9967

== ENCOUNTER 2023-05-05 14:20 | Inpatient (IN) | payer MEDICARE ==
[2023-05-05 14:56] LABS: #Eosinphils 0.1 thou/uL (0.0-0.7); #Neutrophils 8.2 thou/uL (1.40-6.50); %Basophils 0.2 % (0.0-1.0); %Eosinophils 1.1 % (0.0-10.0); %Monocytes 9.7 % (0.0-10.0); %Neutrophils 79.4 % (42.0-75.0); Hematocrit 35.6 % (36.0-47.0); Hemoglobin 11.7 g/dL (12.0-16.0); Mean Corpuscular HGB CONC 32.9 g/dL (32.0-36.0); Mean Corpuscular Hemoglobin 32.3 pg (27.0-31.0); Mean Corpuscular Volume 98.3 fl (78.0-98.0); Mean Platelet Volume 11.9 fL (7.4-10.4); Platelet Count 117 10x3/uL (130-400); RBC Distribution Width 16.1 % (11.5-14.5); Red Blood Cell (RBC) Count 3.62 mill/uL (4.20-5.40); White Blood Cell (WBC) Count 10.3 10x3/uL (4.8-10.8)
[2023-05-05] MEDS ORDERED: Aspirin Chewable 81 MG TAB ONE (15:02)
[2023-05-05 15:20] LABS: Troponin I 0.064 ng/mL (< 0.028)
[2023-05-05 15:21] LABS: Digoxin 0.72 ng/mL (0.8-2.0)
[2023-05-05 15:35] LABS: Albumin 3.2 g/dL (3.4-4.8)
[2023-05-05 15:36] LABS: Chloride 101 mmol/L (98-107)
[2023-05-05 15:37] LABS: Calcium 8.7 mg/dL (7.8-10.44); Potassium 3.3 mmol/L (3.5-5.1); Sodium 136 mmol/L (136-145)
[2023-05-05 15:38] LABS: Globulin 2.6 g/dL (2.4-3.5); Glucose 94 mg/dL (83-110); Protein, Total 5.8 g/dL (5.8-8.1)
[2023-05-05 15:39] LABS: Anion Gap 20 mmol/L (10-20); Carbon Dioxide 18 mmol/L (23-31)
[2023-05-05 15:40] LABS: Bilirubin, Total 7.7 mg/dL (0.2-1.2)
[2023-05-05 15:41] LABS: Alkaline Phosphatase 784 U/L (40-110); Calc. Creatinine Clearance 0 mL/min (70-130); Estimated GFR 22
[2023-05-05 15:42] LABS: BUN (Urea Nitrogen) 28 mg/dL (9.8-20.1)
[2023-05-05 15:43] LABS: AST (SGOT) 149 U/L (5-34)
[2023-05-05 15:44] LABS: ALT (SGPT) 113 U/L (8-55); Lipase 57 U/L (8-78)
[2023-05-05] MEDS ORDERED: Morphine 2 MG/ML VIAL ONE (17:33)
[2023-05-05] MEDS ORDERED: Sodium Chloride 0.9% 1,000 ML IV SCH (18:45)
[2023-05-05 18:52] LABS: Troponin I 0.056 ng/mL (< 0.028)
[2023-05-05] MEDS ORDERED: traMADol HCl 50 MG TAB PO PRN (19:23)
[2023-05-05 20:13] LABS: INR-International Normal Ratio 5.2; PTT 51.8 sec (22.9-36.1); Prothrombin Time 50.6 sec (12.0-14.7)
[2023-05-05 21:13] VITALS: BMI 22.9
[2023-05-05 22:34] LABS: Troponin I 0.056 ng/mL (< 0.028)
[2023-05-05] MEDS: Gabapentin 100 MG CAP PO SCH (23:24)
[2023-05-05] MEDS ORDERED: Montelukast Sodium 10 mg Tablet PO SCH (23:45)
[2023-05-06 00:40] LABS: Troponin I 0.049 ng/mL (< 0.028)
[2023-05-06] MEDS ORDERED: Heparin 10,000 UNITS/ 10 ML VIAL SLOW IVP SCH (03:45)
[2023-05-06 04:59] LABS: ALT (SGPT) 101 U/L (8-55); AST (SGOT) 135 U/L (5-34); Albumin 2.5 g/dL (3.4-4.8); Alkaline Phosphatase 552 U/L (40-110); Anion Gap 12 mmol/L (10-20); BUN (Urea Nitrogen) 27 mg/dL (9.8-20.1); Bilirubin, Total 4.9 mg/dL (0.2-1.2); Calc. Creatinine Clearance 28 mL/min (70-130); Calcium 7.8 mg/dL (7.8-10.44); Carbon Dioxide 18 mmol/L (23-31); Chloride 105 mmol/L (98-107); Estimated GFR 28; Globulin 2.6 g/dL (2.4-3.5); Glucose 77 mg/dL (83-110); Lipase 43 U/L (8-78); Potassium 3.4 mmol/L (3.5-5.1); Protein, Total 5.1 g/dL (5.8-8.1); Sodium 132 mmol/L (136-145)
[2023-05-06 07:21] LABS: #Eosinphils 0.3 thou/uL (0.0-0.7); #Monocytes 0.8 thou/uL (0.11-0.59); #Neutrophils 4.5 thou/uL (1.40-6.50); %Basophils 0.3 % (0.0-1.0); %Lymphocytes 8.7 % (21.0-51.0); %Neutrophils 72.4 % (42.0-75.0); Hematocrit 29.6 % (36.0-47.0); Hemoglobin 9.8 g/dL (12.0-16.0); Mean Corpuscular HGB CONC 33.1 g/dL (32.0-36.0); Mean Corpuscular Hemoglobin 32.1 pg (27.0-31.0); Mean Platelet Volume 11.1 fL (7.4-10.4); Platelet Count 94 10x3/uL (130-400); RBC Distribution Width 16.4 % (11.5-14.5); Red Blood Cell (RBC) Count 3.05 mill/uL (4.20-5.40); White Blood Cell (WBC) Count 6.2 10x3/uL (4.8-10.8)
[2023-05-06 07:51] LABS: Troponin I 0.046 ng/mL (< 0.028)
[2023-05-06] MEDS ORDERED: Heparin 25,000 units/D5W 500 ML IVPB SCH (09:00)
[2023-05-06] MEDS: Gabapentin 100 MG CAP PO SCH ×3 (10:16→21:09)
[2023-05-06 12:35] LABS: Bacteria/HPF None Seen HPF (None Seen); Bilirubin 2+ (Negative); Blood, Urine Negative (Negative); Clarity Clear (Clear); Glucose, Urine (Dipstick) Normal (Negative); Ketone, Urine Negative (Negative); Leukocyte 75 Leu/uL (Negative); Nitrite Negative (Negative); Protein, Urine (Dipstick) 30 mg/dL (Neg-Trace); Specific Gravity, Urine 1.045 (1.002-1.036); Urobilinogen 6 mg/dL (Less than 2); WBC/HPF 21-50 HPF (0-3); pH, Urine 5.5 (5.0-9.0)
[2023-05-06] MEDS: cefTRIAXone\\ROCEPHIN 1 GM in Sodium Chloride 0.9% 100 ML IVPB SCH (14:44)
[2023-05-06] MEDS: Ferrous Sulfate 325 MG TAB PO SCH (16:33)
[2023-05-06] MEDS: Montelukast Sodium 10 mg Tablet PO SCH (21:09)
[2023-05-07 05:51] LABS: INR-International Normal Ratio 1.3
[2023-05-07 06:12] LABS: ALT (SGPT) 81 U/L (8-55); AST (SGOT) 73 U/L (5-34); Albumin 2.3 g/dL (3.4-4.8); Alkaline Phosphatase 495 U/L (40-110); Anion Gap 15 mmol/L (10-20); BUN (Urea Nitrogen) 23 mg/dL (9.8-20.1); Bilirubin, Total 2.6 mg/dL (0.2-1.2); Calc. Creatinine Clearance 33 mL/min (70-130); Calcium 7.9 mg/dL (7.8-10.44); Carbon Dioxide 19 mmol/L (23-31); Chloride 107 mmol/L (98-107); Estimated GFR 35; Globulin 2.5 g/dL (2.4-3.5); Glucose 90 mg/dL (83-110); Potassium 3.4 mmol/L (3.5-5.1); Protein, Total 4.8 g/dL (5.8-8.1); Sodium 138 mmol/L (136-145)
[2023-05-07 06:44] LABS: PTT 36.9 sec (22.9-36.1)
[2023-05-07] MEDS: Gabapentin 100 MG CAP PO SCH ×3 (08:55→20:09)
[2023-05-07] MEDS: valACYclovir 500 MG TAB PO SCH (08:57)
[2023-05-07] MEDS: Multivit, Therapeutic 1 TAB PO SCH (08:57)
[2023-05-07] MEDS: Ferrous Sulfate 325 MG TAB PO SCH ×2 (08:57→17:17)
[2023-05-07] MEDS: Calcitriol 0.25 MCG CAP PO SCH (08:58)
[2023-05-07] MEDS ORDERED: Non-Formulary Item 1 EACH (Omeprazole [Omeprazole] 20 MG Tablet.Dr) PO SCH (09:00)
[2023-05-07] MEDS ORDERED: Digoxin 0.125 MG TAB PO SCH (09:00)
[2023-05-07] MEDS ORDERED: Non-Formulary Item 1 EACH (Multivitamin [Multivitamins] 1 CAP Capsule) PO SCH (09:00)
[2023-05-07] MEDS ORDERED: valACYclovir 500 MG TAB PO SCH (09:00)
[2023-05-07] MEDS: cefTRIAXone\\ROCEPHIN 1 GM in Sodium Chloride 0.9% 100 ML IVPB SCH (13:51)
[2023-05-07] MEDS: Montelukast Sodium 10 mg Tablet PO SCH (20:10)
[2023-05-08 03:54] LABS: #Eosinphils 0.2 thou/uL (0.0-0.7); #Monocytes 0.5 thou/uL (0.11-0.59); #Neutrophils 2.2 thou/uL (1.40-6.50); %Basophils 0.8 % (0.0-1.0); %Eosinophils 4.1 % (0.0-10.0); %Lymphocytes 19.9 % (21.0-51.0); %Monocytes 13.9 % (0.0-10.0); %Neutrophils 60.8 % (42.0-75.0); Hematocrit 27.5 % (36.0-47.0); Hemoglobin 8.9 g/dL (12.0-16.0); Mean Corpuscular HGB CONC 32.4 g/dL (32.0-36.0); Mean Corpuscular Hemoglobin 31.7 pg (27.0-31.0); Mean Corpuscular Volume 97.9 fl (78.0-98.0); Mean Platelet Volume 11.8 fL (7.4-10.4); Platelet Count 109 10x3/uL (130-400); RBC Distribution Width 16.5 % (11.5-14.5); Red Blood Cell (RBC) Count 2.81 mill/uL (4.20-5.40); White Blood Cell (WBC) Count 3.7 10x3/uL (4.8-10.8)
[2023-05-08 04:17] LABS: ALT (SGPT) 67 U/L (8-55); AST (SGOT) 48 U/L (5-34); Albumin 2.5 g/dL (3.4-4.8); Alkaline Phosphatase 482 U/L (40-110); Anion Gap 14 mmol/L (10-20); BUN (Urea Nitrogen) 17 mg/dL (9.8-20.1); Bilirubin, Total 1.7 mg/dL (0.2-1.2); Calc. Creatinine Clearance 37 mL/min (70-130); Calcium 8.8 mg/dL (7.8-10.44); Carbon Dioxide 21 mmol/L (23-31); Chloride 107 mmol/L (98-107); Estimated GFR 39; Globulin 2.5 g/dL (2.4-3.5); Glucose 104 mg/dL (83-110); Potassium 3.5 mmol/L (3.5-5.1); Sodium 138 mmol/L (136-145)
[2023-05-08] MEDS ORDERED: fentaNYL 50 mcg/mL 1 mL Vial ONE ×2 (10:57→12:45)
[2023-05-08] MEDS ORDERED: Indomethacin 50 MG SUPP ONE (10:58)
[2023-05-08] MEDS ORDERED: SUGAMMADEX SODIUM 200 MG/2 ML VIAL ONE (10:58)
[2023-05-08] MEDS ORDERED: Iopamidol 30 ML ONE (10:59)
[2023-05-08] MEDS ORDERED: Promethazine HCl 25 MG/ML VIAL IM PRN (11:09)
[2023-05-08] MEDS ORDERED: HYDROmorphone 2 MG/ML VIAL SLOW IVP PRN (11:09)
[2023-05-08] MEDS ORDERED: Ondansetron HCl/PF 4 MG/2 ML Vial IVP PRN (11:09)
[2023-05-08] MEDS ORDERED: Lidocaine 1% PF 5 ML VIAL ONE (11:21)
[2023-05-08] MEDS ORDERED: PROPOFOL 200 MG/20 ML VIAL ONE (11:21)
[2023-05-08] MEDS ORDERED: ePHEDrine Sulfate 50 MG/10 ML VIAL ONE (11:21)
[2023-05-08] MEDS ORDERED: Rocuronium Bromide 10 MG/ML (10ML VIAL) ONE (11:21)
[2023-05-08] MEDS ORDERED: cefTRIAXone (ROCEPHIN) 1 GM VIAL ONE (11:47)
[2023-05-08] MEDS: Ferrous Sulfate 325 MG TAB PO SCH ×2 (13:56→13:57)
[2023-05-08] MEDS: valACYclovir 500 MG TAB PO SCH (13:56)
[2023-05-08] MEDS: Multivit, Therapeutic 1 TAB PO SCH (13:56)
[2023-05-08] MEDS: Gabapentin 100 MG CAP PO SCH ×3 (13:56→21:00)
[2023-05-08] MEDS: Calcitriol 0.25 MCG CAP PO SCH (13:56)
[2023-05-08] MEDS: cefTRIAXone\\ROCEPHIN 1 GM in Sodium Chloride 0.9% 100 ML IVPB SCH (13:57)
[2023-05-08] MEDS: Montelukast Sodium 10 mg Tablet PO SCH (21:00)
[2023-05-09 04:12] LABS: #Eosinphils 0.1 thou/uL (0.0-0.7); #Monocytes 0.5 thou/uL (0.11-0.59); #Neutrophils 2.4 thou/uL (1.40-6.50); %Basophils 0.8 % (0.0-1.0); %Eosinophils 3.4 % (0.0-10.0); %Lymphocytes 18.9 % (21.0-51.0); %Monocytes 13.2 % (0.0-10.0); %Neutrophils 63.2 % (42.0-75.0); Hematocrit 25.8 % (36.0-47.0); Hemoglobin 8.3 g/dL (12.0-16.0); Mean Corpuscular HGB CONC 32.2 g/dL (32.0-36.0); Mean Corpuscular Volume 99.6 fl (78.0-98.0); Mean Platelet Volume 11.4 fL (7.4-10.4); Platelet Count 121 10x3/uL (130-400); RBC Distribution Width 16.7 % (11.5-14.5); Red Blood Cell (RBC) Count 2.59 mill/uL (4.20-5.40); White Blood Cell (WBC) Count 3.9 10x3/uL (4.8-10.8)
[2023-05-09 04:37] LABS: ALT (SGPT) 51 U/L (8-55); AST (SGOT) 34 U/L (5-34); Albumin 2.4 g/dL (3.4-4.8); Alkaline Phosphatase 429 U/L (40-110); Anion Gap 12 mmol/L (10-20); BUN (Urea Nitrogen) 17 mg/dL (9.8-20.1); Bilirubin, Total 0.9 mg/dL (0.2-1.2); Calc. Creatinine Clearance 37 mL/min (70-130); Calcium 8.5 mg/dL (7.8-10.44); Carbon Dioxide 23 mmol/L (23-31); Chloride 108 mmol/L (98-107); Estimated GFR 39; Globulin 2.4 g/dL (2.4-3.5); Glucose 98 mg/dL (83-110); Lipase 142 U/L (8-78); Potassium 3.6 mmol/L (3.5-5.1); Protein, Total 4.8 g/dL (5.8-8.1); Sodium 139 mmol/L (136-145)
[2023-05-09] MEDS ORDERED: Digoxin 0.125 MG TAB PO SCH (09:00)
[2023-05-09] MEDS: Ferrous Sulfate 325 MG TAB PO SCH (09:52)
[2023-05-09] MEDS: Gabapentin 100 MG CAP PO SCH ×2 (09:52→14:42)
[2023-05-09] MEDS: Calcitriol 0.25 MCG CAP PO SCH (09:52)
[2023-05-09] MEDS: valACYclovir 500 MG TAB PO SCH (09:52)
[2023-05-09] MEDS: Multivit, Therapeutic 1 TAB PO SCH (09:53)
[2023-05-09 11:50] VITALS: BP 157/82; TEMP 97.6
[2023-05-09] MEDS: cefTRIAXone\\ROCEPHIN 1 GM in Sodium Chloride 0.9% 100 ML IVPB SCH (14:42)
== END 2023-05-09 15:56 | disposition home or self-care (01) | DRG 445 ==
LOC: ERS 14:20 → ERHOLD 17:56 → 2SW 22:57 → OBSVTOIN 05-06 14:18
PROVIDERS: ADMIT Internal Medicine Nephrology; ATTEND Hospitalist
PROC: 0FC98ZZ Extirpation of Matter from Common Bile Duct, Via Natural or Artificial Opening Endoscopic (ICD-10-PCS; principal; 2023-05-08)
PROC: BF101ZZ Fluoroscopy of Bile Ducts using Low Osmolar Contrast (ICD-10-PCS; 2023-05-08)
PROC: BF151ZZ Fluoroscopy of Liver using Low Osmolar Contrast (ICD-10-PCS; 2023-05-08)
DX: K80.51 Calculus of bile duct without cholangitis or cholecystitis with obstruction (principal); C90.00 Multiple myeloma not having achieved remission; I13.0 Hypertensive heart and chronic kidney disease with heart failure and stage 1 through stage 4 chronic kidney disease, or unspecified chronic kidney disease; I50.32 Chronic diastolic (congestive) heart failure; N18.4 Chronic kidney disease, stage 4 (severe); N17.9 Acute kidney failure, unspecified; I48.20 Chronic atrial fibrillation, unspecified; J45.909 Unspecified asthma, uncomplicated; Z96.611 Presence of right artificial shoulder joint; Z96.612 Presence of left artificial shoulder joint; I95.9 Hypotension, unspecified; I49.5 Sick sinus syndrome; Z88.7 Allergy status to serum and vaccine; Z88.5 Allergy status to narcotic agent; Z86.711 Personal history of pulmonary embolism; Z79.899 Other long term (current) drug therapy; Z86.718 Personal history of other venous thrombosis and embolism; Z98.890 Other specified postprocedural states; Z90.710 Acquired absence of both cervix and uterus; Z79.01 Long term (current) use of anticoagulants
CPT/HCPCS: 36415; 71045; 71275; 74174; 74181; 74330; 76705; 80053; 80162; 81003; 81015; 83690; 84484; 85025; 85610; 85730; 93005; 93306; 96374; C1725; G0378; J0696; J1644; J2272; J2704; J3010; J3490; J7050; Q9967

== ENCOUNTER 2023-08-13 16:18 | Emergency (ER) | payer MEDICARE ==
[2023-08-13 17:08] LABS: #Basophils 0.1 thou/uL (0.0-0.2); #Eosinphils 0.2 thou/uL (0.0-0.7); #Monocytes 0.9 thou/uL (0.11-0.59); #Neutrophils 5.9 thou/uL (1.40-6.50); %Basophils 0.8 % (0.0-1.0); %Eosinophils 2.2 % (0.0-10.0); %Lymphocytes 20.7 % (21.0-51.0); %Monocytes 10.2 % (0.0-10.0); %Neutrophils 65.8 % (42.0-75.0); Hematocrit 35.2 % (36.0-47.0); Hemoglobin 11.1 g/dL (12.0-16.0); Mean Corpuscular HGB CONC 31.5 g/dL (32.0-36.0); Mean Corpuscular Hemoglobin 31.5 pg (27.0-31.0); Mean Platelet Volume 10.7 fL (7.4-10.4); Platelet Count 151 10x3/uL (130-400); RBC Distribution Width 16.6 % (11.5-14.5); Red Blood Cell (RBC) Count 3.52 mill/uL (4.20-5.40); White Blood Cell (WBC) Count 8.9 10x3/uL (4.8-10.8)
[2023-08-13 17:33] LABS: ALT (SGPT) 11 U/L (8-55); AST (SGOT) 16 U/L (5-34); Albumin 2.5 g/dL (3.4-4.8); Alkaline Phosphatase 140 U/L (40-110); Anion Gap 14 mmol/L (10-20); BUN (Urea Nitrogen) 14 mg/dL (9.8-20.1); Calc. Creatinine Clearance 0 mL/min (70-130); Calcium 7.6 mg/dL (7.8-10.44); Carbon Dioxide 23 mmol/L (23-31); Chloride 105 mmol/L (98-107); Estimated GFR 46; Globulin 2.9 g/dL (2.4-3.5); Glucose 130 mg/dL (83-110); Potassium 4.2 mmol/L (3.5-5.1); Protein, Total 5.4 g/dL (5.8-8.1); Sodium 138 mmol/L (136-145)
[2023-08-13 17:34] LABS: Troponin I 0.021 ng/mL (< 0.028)
== END 2023-08-13 20:25 | disposition home or self-care (01) ==
LOC: ERS 16:18
DX: L02.412 Cutaneous abscess of left axilla (principal); I48.91 Unspecified atrial fibrillation; I10 Essential (primary) hypertension; Z79.899 Other long term (current) drug therapy; Z79.01 Long term (current) use of anticoagulants
CPT/HCPCS: 36415; 71045; 80053; 84484; 85025; 93005

== ENCOUNTER 2023-09-27 11:16 | Inpatient (IN) | payer MEDICARE ==
[2023-09-27 11:39] LABS: #Eosinphils 0.2 thou/uL (0.0-0.7); #Monocytes 0.6 thou/uL (0.11-0.59); #Neutrophils 3.9 thou/uL (1.40-6.50); %Basophils 0.3 % (0.0-1.0); %Eosinophils 3.2 % (0.0-10.0); %Lymphocytes 19.9 % (21.0-51.0); %Monocytes 9.9 % (0.0-10.0); %Neutrophils 66.4 % (42.0-75.0); Hematocrit 28.3 % (36.0-47.0); Mean Corpuscular HGB CONC 31.8 g/dL (32.0-36.0); Mean Corpuscular Volume 106.8 fl (78.0-98.0); Mean Platelet Volume 10.6 fL (7.4-10.4); Platelet Count 220 10x3/uL (130-400); RBC Distribution Width 23.3 % (11.5-14.5); Red Blood Cell (RBC) Count 2.65 mill/uL (4.20-5.40); White Blood Cell (WBC) Count 5.9 10x3/uL (4.8-10.8)
[2023-09-27] MEDS ORDERED: Albuterol 2.5 MG (0.5 mL) NEB ONE (11:49)
[2023-09-27] MEDS ORDERED: dilTIAZem 25 MG/5 ML VIAL ONE (11:49)
[2023-09-27 11:51] LABS: INR-International Normal Ratio 3.5; Prothrombin Time 35.4 sec (12.0-14.7)
[2023-09-27] MEDS ORDERED: Ipratropium Bromide 2.5 ml Neb ONE (11:51)
[2023-09-27 11:52] LABS: PTT 53.1 sec (22.9-36.1)
[2023-09-27 12:38] LABS: Troponin I 0.015 ng/mL (< 0.028)
[2023-09-27 12:50] LABS: ALT (SGPT) 14 U/L (8-55); AST (SGOT) 19 U/L (5-34); Albumin 2.7 g/dL (3.4-4.8); Alkaline Phosphatase 152 U/L (40-110); Anion Gap 12 mmol/L (10-20); BUN (Urea Nitrogen) 28 mg/dL (9.8-20.1); Bilirubin, Total 0.6 mg/dL (0.2-1.2); Calc. Creatinine Clearance 0 mL/min (70-130); Calcium 8.3 mg/dL (7.8-10.44); Carbon Dioxide 23 mmol/L (23-31); Chloride 108 mmol/L (98-107); Estimated GFR 36; Globulin 2.8 g/dL (2.4-3.5); Glucose 86 mg/dL (83-110); Magnesium 1.6 mg/dL (1.6-2.6); Potassium 4.3 mmol/L (3.5-5.1); Protein, Total 5.5 g/dL (5.8-8.1); Sodium 139 mmol/L (136-145)
[2023-09-27 12:55] LABS: Influenza A by NAA Not Detected (NotDetected); Influenza B by NAA Not Detected (NotDetected); SARS-CoV-2 NAA Rapid Test Not Detected (NotDetected)
[2023-09-27] MEDS ORDERED: dilTIAZem 125 MG/25 ML SDV ONE (13:47)
[2023-09-27] MEDS ORDERED: Furosemide 40 MG (4 mL) VIAL ONE (13:47)
[2023-09-27] MEDS: Gabapentin 100 MG CAP PO SCH ×2 (16:45→20:01)
[2023-09-27] MEDS: Rivaroxaban 10 MG TAB PO SCH (16:45)
[2023-09-27] MEDS: Metoprolol Tartrate 25 MG TAB PO SCH (20:01)
[2023-09-28] MEDS: Acetaminophen 325 MG TAB PO PRN (02:46)
[2023-09-28 05:04] LABS: Anion Gap 11 mmol/L (10-20); BUN (Urea Nitrogen) 28 mg/dL (9.8-20.1); Calc. Creatinine Clearance 33 mL/min (70-130); Calcium 7.9 mg/dL (7.8-10.44); Carbon Dioxide 28 mmol/L (23-31); Chloride 108 mmol/L (98-107); Estimated GFR 35; Glucose 86 mg/dL (83-110); Sodium 143 mmol/L (136-145)
[2023-09-28] MEDS: Furosemide 40 MG TAB PO SCH (08:25)
[2023-09-28] MEDS: Rivaroxaban 10 MG TAB PO SCH (08:26)
[2023-09-28] MEDS: dilTIAZem 125 MG in Sodium Chloride 0.9% 100 ML IVPB SCH (14:50)
[2023-09-29 05:09] LABS: #Eosinphils 0.3 thou/uL (0.0-0.7); #Monocytes 0.5 thou/uL (0.11-0.59); #Neutrophils 3.2 thou/uL (1.40-6.50); %Basophils 0.2 % (0.0-1.0); %Eosinophils 6.1 % (0.0-10.0); %Lymphocytes 23.1 % (21.0-51.0); %Monocytes 9.2 % (0.0-10.0); %Neutrophils 61.2 % (42.0-75.0); Hematocrit 26.9 % (36.0-47.0); Hemoglobin 8.6 g/dL (12.0-16.0); Mean Corpuscular Hemoglobin 34.1 pg (27.0-31.0); Mean Corpuscular Volume 106.7 fl (78.0-98.0); Mean Platelet Volume 10.4 fL (7.4-10.4); Platelet Count 174 10x3/uL (130-400); RBC Distribution Width 22.5 % (11.5-14.5); Red Blood Cell (RBC) Count 2.52 mill/uL (4.20-5.40); White Blood Cell (WBC) Count 5.2 10x3/uL (4.8-10.8)
[2023-09-29 05:31] LABS: Anion Gap 8 mmol/L (10-20); BUN (Urea Nitrogen) 27 mg/dL (9.8-20.1); Calc. Creatinine Clearance 38 mL/min (70-130); Calcium 8.4 mg/dL (7.8-10.44); Carbon Dioxide 29 mmol/L (23-31); Chloride 106 mmol/L (98-107); Estimated GFR 41; Glucose 95 mg/dL (83-110); Potassium 3.7 mmol/L (3.5-5.1); Sodium 139 mmol/L (136-145)
[2023-09-29] MEDS: Rivaroxaban 15 MG TAB PO SCH (16:05)
[2023-09-29] MEDS: Ipratropium/Albuterol 3 ML NEB NEB SCH (22:49)
[2023-09-30 06:10] LABS: #Eosinphils 0.2 thou/uL (0.0-0.7); #Monocytes 0.5 thou/uL (0.11-0.59); #Neutrophils 3.2 thou/uL (1.40-6.50); %Basophils 0.2 % (0.0-1.0); %Eosinophils 4.2 % (0.0-10.0); %Monocytes 8.9 % (0.0-10.0); %Neutrophils 61.5 % (42.0-75.0); Hemoglobin 8.5 g/dL (12.0-16.0); Mean Corpuscular HGB CONC 31.5 g/dL (32.0-36.0); Mean Corpuscular Hemoglobin 33.2 pg (27.0-31.0); Mean Corpuscular Volume 105.5 fl (78.0-98.0); Mean Platelet Volume 10.7 fL (7.4-10.4); Platelet Count 182 10x3/uL (130-400); RBC Distribution Width 21.6 % (11.5-14.5); Red Blood Cell (RBC) Count 2.56 mill/uL (4.20-5.40); White Blood Cell (WBC) Count 5.3 10x3/uL (4.8-10.8)
[2023-09-30 06:25] LABS: Anion Gap 10 mmol/L (10-20); BUN (Urea Nitrogen) 29 mg/dL (9.8-20.1); Calc. Creatinine Clearance 37 mL/min (70-130); Calcium 8.2 mg/dL (7.8-10.44); Carbon Dioxide 29 mmol/L (23-31); Chloride 104 mmol/L (98-107); Estimated GFR 40; Glucose 104 mg/dL (83-110); Magnesium 1.6 mg/dL (1.6-2.6); Potassium 3.6 mmol/L (3.5-5.1); Sodium 139 mmol/L (136-145)
[2023-09-30] MEDS: Magnesium 2 GM/50 ML(in water) 2 GM in Premix 1 BAG IVPB SCH (15:04)
[2023-10-01 05:14] LABS: #Eosinphils 0.4 thou/uL (0.0-0.7); #Monocytes 0.5 thou/uL (0.11-0.59); #Neutrophils 3.1 thou/uL (1.40-6.50); %Basophils 0.4 % (0.0-1.0); %Eosinophils 6.9 % (0.0-10.0); %Lymphocytes 26.2 % (21.0-51.0); %Monocytes 9.6 % (0.0-10.0); %Neutrophils 56.7 % (42.0-75.0); Hematocrit 26.8 % (36.0-47.0); Hemoglobin 8.5 g/dL (12.0-16.0); Mean Corpuscular HGB CONC 31.7 g/dL (32.0-36.0); Mean Corpuscular Hemoglobin 34.1 pg (27.0-31.0); Mean Corpuscular Volume 107.6 fl (78.0-98.0); Mean Platelet Volume 10.8 fL (7.4-10.4); Platelet Count 176 10x3/uL (130-400); RBC Distribution Width 21.4 % (11.5-14.5); Red Blood Cell (RBC) Count 2.49 mill/uL (4.20-5.40); White Blood Cell (WBC) Count 5.4 10x3/uL (4.8-10.8)
[2023-10-01 05:41] LABS: Anion Gap 11 mmol/L (10-20); BUN (Urea Nitrogen) 33 mg/dL (9.8-20.1); Calc. Creatinine Clearance 33 mL/min (70-130); Calcium 7.7 mg/dL (7.8-10.44); Carbon Dioxide 29 mmol/L (23-31); Chloride 104 mmol/L (98-107); Estimated GFR 35; Glucose 104 mg/dL (83-110); Potassium 3.5 mmol/L (3.5-5.1); Sodium 140 mmol/L (136-145)
[2023-10-01] MEDS: Albuterol 200 PUFF (6.7GM INHALER) INH PRN (10:59)
[2023-10-01] MEDS: Ipratropium/Albuterol 3 ML NEB NEB PRN (15:15)
[2023-10-01] MEDS: Loperamide HCl 2 MG CAP PO PRN (21:30)
[2023-10-02 11:03] LABS: Anion Gap 9 mmol/L (10-20); BUN (Urea Nitrogen) 36 mg/dL (9.8-20.1); Calc. Creatinine Clearance 38 mL/min (70-130); Calcium 7.5 mg/dL (7.8-10.44); Carbon Dioxide 25 mmol/L (23-31); Chloride 106 mmol/L (98-107); Estimated GFR 46; Glucose 98 mg/dL (83-110); Magnesium 1.9 mg/dL (1.6-2.6); Potassium 3.9 mmol/L (3.5-5.1); Sodium 136 mmol/L (136-145)
[2023-10-02] MEDS ORDERED: dilTIAZem 30 MG TAB PO PRN (14:16)
[2023-10-02] MEDS: Metoprolol Tartrate 25 MG TAB PO SCH ×2 (15:17→21:03)
[2023-10-03 05:56] LABS: #Eosinphils 0.3 thou/uL (0.0-0.7); #Monocytes 0.5 thou/uL (0.11-0.59); #Neutrophils 3.2 thou/uL (1.40-6.50); %Basophils 0.2 % (0.0-1.0); %Eosinophils 5.2 % (0.0-10.0); %Lymphocytes 23.4 % (21.0-51.0); %Monocytes 9.8 % (0.0-10.0); %Neutrophils 61.2 % (42.0-75.0); Hematocrit 26.8 % (36.0-47.0); Hemoglobin 8.5 g/dL (12.0-16.0); Mean Corpuscular HGB CONC 31.7 g/dL (32.0-36.0); Mean Corpuscular Hemoglobin 34.1 pg (27.0-31.0); Mean Corpuscular Volume 107.6 fl (78.0-98.0); Mean Platelet Volume 10.2 fL (7.4-10.4); Platelet Count 153 10x3/uL (130-400); RBC Distribution Width 20.2 % (11.5-14.5); Red Blood Cell (RBC) Count 2.49 mill/uL (4.20-5.40); White Blood Cell (WBC) Count 5.2 10x3/uL (4.8-10.8)
[2023-10-03 06:29] LABS: Anion Gap 9 mmol/L (10-20); BUN (Urea Nitrogen) 33 mg/dL (9.8-20.1); Calc. Creatinine Clearance 36 mL/min (70-130); Calcium 7.4 mg/dL (7.8-10.44); Carbon Dioxide 25 mmol/L (23-31); Chloride 107 mmol/L (98-107); Estimated GFR 43; Glucose 99 mg/dL (83-110); Magnesium 1.7 mg/dL (1.6-2.6); Potassium 3.9 mmol/L (3.5-5.1); Sodium 137 mmol/L (136-145)
[2023-10-03] MEDS ORDERED: Magnesium Sulfate 3 GM in Sodium Chloride 0.9% 100 ML IVPB SCH (09:00)
[2023-10-03] MEDS ORDERED: Dronedarone HCl 400 MG TAB PO SCH (09:30)
[2023-10-03] MEDS: Calcitriol 0.25 MCG CAP PO SCH (09:36)
[2023-10-03] MEDS: Metoprolol Tartrate 25 MG TAB PO SCH (09:38)
[2023-10-03] MEDS: Magnesium Oxide 400 MG TAB PO SCH ×2 (11:05→20:16)
[2023-10-03] MEDS: Montelukast Sodium 10 mg Tablet PO SCH (20:15)
[2023-10-04 08:59] VITALS: BMI 20.2
[2023-10-04 11:02] LABS: Magnesium 1.9 mg/dL (1.6-2.6)
[2023-10-04] MEDS: Rivaroxaban 15 MG TAB PO SCH (14:00)
[2023-10-04] MEDS: Magnesium 2 GM/50 ML(in water) 2 GM in Premix 1 BAG IVPB SCH (15:28)
[2023-10-04] MEDS: dilTIAZem 25 MG/5 ML VIAL SLOW IVP SCH (15:28)
[2023-10-04] MEDS: dilTIAZem 125 MG in Sodium Chloride 0.9% 100 ML IVPB SCH (17:41)
[2023-10-05 06:05] LABS: #Eosinphils 0.3 thou/uL (0.0-0.7); #Monocytes 0.4 thou/uL (0.11-0.59); #Neutrophils 1.9 thou/uL (1.40-6.50); %Basophils 0.6 % (0.0-1.0); %Eosinophils 7.3 % (0.0-10.0); %Lymphocytes 26.8 % (21.0-51.0); %Monocytes 12.3 % (0.0-10.0); %Neutrophils 52.7 % (42.0-75.0); Hematocrit 25.6 % (36.0-47.0); Hemoglobin 8.2 g/dL (12.0-16.0); Mean Corpuscular Hemoglobin 34.5 pg (27.0-31.0); Mean Corpuscular Volume 107.6 fl (78.0-98.0); Mean Platelet Volume 10.9 fL (7.4-10.4); Platelet Count 155 10x3/uL (130-400); RBC Distribution Width 19.6 % (11.5-14.5); Red Blood Cell (RBC) Count 2.38 mill/uL (4.20-5.40); White Blood Cell (WBC) Count 3.6 10x3/uL (4.8-10.8)
[2023-10-05 06:29] LABS: Anion Gap 9 mmol/L (10-20); BUN (Urea Nitrogen) 34 mg/dL (9.8-20.1); Calc. Creatinine Clearance 37 mL/min (70-130); Calcium 8.3 mg/dL (7.8-10.44); Carbon Dioxide 24 mmol/L (23-31); Chloride 110 mmol/L (98-107); Estimated GFR 44; Glucose 107 mg/dL (83-110); Magnesium 2.3 mg/dL (1.6-2.6); Potassium 4.3 mmol/L (3.5-5.1); Sodium 139 mmol/L (136-145)
[2023-10-05] MEDS: Rivaroxaban 15 MG TAB PO SCH (17:13)
[2023-10-07 04:16] LABS: #Eosinphils 0.3 thou/uL (0.0-0.7); #Monocytes 0.5 thou/uL (0.11-0.59); #Neutrophils 2.3 thou/uL (1.40-6.50); %Basophils 0.5 % (0.0-1.0); %Eosinophils 6.9 % (0.0-10.0); %Monocytes 10.8 % (0.0-10.0); %Neutrophils 53.1 % (42.0-75.0); Hematocrit 27.2 % (36.0-47.0); Hemoglobin 8.6 g/dL (12.0-16.0); Mean Corpuscular HGB CONC 31.6 g/dL (32.0-36.0); Mean Corpuscular Hemoglobin 33.7 pg (27.0-31.0); Mean Corpuscular Volume 106.7 fl (78.0-98.0); Mean Platelet Volume 10.5 fL (7.4-10.4); Platelet Count 168 10x3/uL (130-400); RBC Distribution Width 18.9 % (11.5-14.5); Red Blood Cell (RBC) Count 2.55 mill/uL (4.20-5.40); White Blood Cell (WBC) Count 4.4 10x3/uL (4.8-10.8)
[2023-10-07 04:46] LABS: Anion Gap 11 mmol/L (10-20); BUN (Urea Nitrogen) 38 mg/dL (9.8-20.1); Calc. Creatinine Clearance 39 mL/min (70-130); Calcium 8.9 mg/dL (7.8-10.44); Carbon Dioxide 23 mmol/L (23-31); Chloride 105 mmol/L (98-107); Estimated GFR 48; Glucose 105 mg/dL (83-110); Magnesium 1.9 mg/dL (1.6-2.6); Sodium 135 mmol/L (136-145)
[2023-10-07] MEDS ORDERED: Heparin 10,000 UNITS/ 10 ML VIAL ONE (12:30)
[2023-10-07] MEDS ORDERED: Protamine Sulfate 50 MG/5 ML VIAL ONE (12:30)
[2023-10-07] MEDS ORDERED: DOPamine 400 MG/D5W 250 ML 250 ML ONE (12:47)
[2023-10-07] MEDS ORDERED: Gentamicin 80 MG/2 ML VIAL ONE (12:47)
[2023-10-07] MEDS ORDERED: Lidocaine 1% (PF) 30 ML VIAL ONE (12:47)
[2023-10-07] MEDS ORDERED: CEFAZOLIN 2 GM VIAL ONE (12:47)
[2023-10-07] MEDS ORDERED: Phenylephrine 10 MG/ML VIAL ONE (13:47)
[2023-10-07] MEDS ORDERED: fentaNYL 50 mcg/mL 1 mL Vial ONE (13:47)
[2023-10-07] MEDS ORDERED: Acetaminophen 325 MG TAB PO PRN (15:46)
[2023-10-07] MEDS: Cephalexin 250 MG CAP PO SCH (20:16)
[2023-10-08 15:30] VITALS: BP 144/80; TEMP 97.5
[2023-10-08] MEDS ORDERED: Rivaroxaban 15 MG TAB PO SCH (17:00)
== END 2023-10-08 16:55 | disposition home or self-care (01) | DRG 242 ==
LOC: ERS 11:16 → 2NO 13:51
PROVIDERS: ADMIT Internal Medicine; ATTEND Internal Medicine
PROC: 02583ZZ Destruction of Conduction Mechanism, Percutaneous Approach (ICD-10-PCS; principal; 2023-10-07)
PROC: 02HK3JZ Insertion of Pacemaker Lead into Right Ventricle, Percutaneous Approach (ICD-10-PCS; 2023-10-07)
PROC: 0JH607Z Insertion of Cardiac Resynchronization Pacemaker Pulse Generator into Chest Subcutaneous Tissue and Fascia, Open Approach (ICD-10-PCS; 2023-10-07)
PROC: 0JPT0PZ Removal of Cardiac Rhythm Related Device from Trunk Subcutaneous Tissue and Fascia, Open Approach (ICD-10-PCS; 2023-10-07)
DX: I13.0 Hypertensive heart and chronic kidney disease with heart failure and stage 1 through stage 4 chronic kidney disease, or unspecified chronic kidney disease (principal); I50.33 Acute on chronic diastolic (congestive) heart failure; I48.19 Other persistent atrial fibrillation; C90.00 Multiple myeloma not having achieved remission; E87.1 Hypo-osmolality and hyponatremia; N18.32 Chronic kidney disease, stage 3b; I12.9 Hypertensive chronic kidney disease with stage 1 through stage 4 chronic kidney disease, or unspecified chronic kidney disease; D63.8 Anemia in other chronic diseases classified elsewhere; Z96.611 Presence of right artificial shoulder joint; Z96.612 Presence of left artificial shoulder joint; I49.5 Sick sinus syndrome; N18.30 Chronic kidney disease, stage 3 unspecified; E87.6 Hypokalemia; Z98.890 Other specified postprocedural states; Z88.7 Allergy status to serum and vaccine; Z88.8 Allergy status to other drugs, medicaments and biological substances; Z79.899 Other long term (current) drug therapy; Z90.710 Acquired absence of both cervix and uterus; Z90.49 Acquired absence of other specified parts of digestive tract; Z86.718 Personal history of other venous thrombosis and embolism; Z95.0 Presence of cardiac pacemaker; Z88.0 Allergy status to penicillin; Z11.52 Encounter for screening for COVID-19
CPT/HCPCS: 33208; 33214; 33233; 36415; 71045; 80048; 80053; 83605; 83735; 83880; 84443; 84484; 85025; 85610; 85730; 87040; 93005; 93010; 93600; 93650; 94640; 94760; 96365; 96375; 96376; C1760; C1785; C1894; C1898; J1265; J1580; J1644; J1940; J2001; J2371; J2720; J3010; J3475; J3490; J7611; J7620

== ENCOUNTER 2023-10-11 13:12 | Emergency (ER) | payer MEDICARE ==
[2023-10-11 14:01] LABS: #Eosinphils 0.3 thou/uL (0.0-0.7); #Monocytes 0.6 thou/uL (0.11-0.59); %Basophils 0.3 % (0.0-1.0); %Eosinophils 4.5 % (0.0-10.0); %Lymphocytes 17.1 % (21.0-51.0); %Monocytes 8.6 % (0.0-10.0); %Neutrophils 68.9 % (42.0-75.0); Hematocrit 30.5 % (36.0-47.0); Hemoglobin 9.7 g/dL (12.0-16.0); Mean Corpuscular HGB CONC 31.8 g/dL (32.0-36.0); Mean Platelet Volume 9.6 fL (7.4-10.4); Platelet Count 226 10x3/uL (130-400); RBC Distribution Width 17.9 % (11.5-14.5); Red Blood Cell (RBC) Count 2.85 mill/uL (4.20-5.40); White Blood Cell (WBC) Count 7.2 10x3/uL (4.8-10.8)
[2023-10-11 14:16] LABS: ALT (SGPT) 10 U/L (8-55); AST (SGOT) 18 U/L (5-34); Albumin 3.2 g/dL (3.4-4.8); Alkaline Phosphatase 159 U/L (40-110); Anion Gap 17 mmol/L (10-20); BUN (Urea Nitrogen) 47 mg/dL (9.8-20.1); Bilirubin, Total 0.3 mg/dL (0.2-1.2); Calc. Creatinine Clearance 0 mL/min (70-130); Calcium 8.3 mg/dL (7.8-10.44); Carbon Dioxide 25 mmol/L (23-31); Chloride 102 mmol/L (98-107); Estimated GFR 22; Globulin 3.2 g/dL (2.4-3.5); Glucose 92 mg/dL (83-110); Potassium 5.1 mmol/L (3.5-5.1); Protein, Total 6.4 g/dL (5.8-8.1); Sodium 139 mmol/L (136-145)
[2023-10-11 14:26] LABS: Troponin I 0.372 ng/mL (< 0.028)
[2023-10-11 16:56] LABS: Critical Call Chem Troponin I ERS.ZC@1656
[2023-10-11] MEDS ORDERED: Aspirin Chewable 81 MG TAB ONE (17:12)
== END 2023-10-11 17:02 | disposition home or self-care (01) ==
LOC: ERS 13:12
DX: R07.9 Chest pain, unspecified (principal); I10 Essential (primary) hypertension; I48.91 Unspecified atrial fibrillation; Z79.899 Other long term (current) drug therapy
CPT/HCPCS: 36415; 71045; 80053; 83880; 84484; 85025; 93005

== ENCOUNTER 2023-12-07 08:52 | Inpatient (IN) | payer MEDICARE ==
[2023-12-07 10:27] LABS: #Basophils Less than 0.03 10x3/uL (0.0-0.2); %Basophils 0.4 % (0.0-1.0); %Eosinophils 3.2 % (0.0-10.0); %Monocytes 12.5 % (0.0-10.0); %Neutrophils 71.5 % (42.0-75.0); Hematocrit 31.2 % (36.0-47.0); Hemoglobin 9.6 g/dL (12.0-16.0); Mean Corpuscular HGB CONC 30.8 g/dL (32.0-36.0); Mean Corpuscular Volume 100.6 fL (78.0-98.0); Platelet Count 139 10x3/uL (130-400)
[2023-12-07 10:45] LABS: Anion Gap 11 mmol/L (10-20); Globulin 3.6 g/dL (2.4-3.5)
[2023-12-07 10:50] LABS: ALT (SGPT) 35 U/L (8-55); AST (SGOT) 52 U/L (5-34); Albumin 2.7 g/dL (3.4-4.8); Alkaline Phosphatase 240 U/L (40-110); BUN (Urea Nitrogen) 16 mg/dL (9.8-20.1); Bilirubin, Total 0.5 mg/dL (0.2-1.2); Calc. Creatinine Clearance 0 mL/min (70-130); Calcium 8.9 mg/dL (7.8-10.44); Carbon Dioxide 24 mmol/L (23-31); Chloride 107 mmol/L (98-107); Estimated GFR 52; Glucose 100 mg/dL (83-110); Potassium 4.2 mmol/L (3.5-5.1); Protein, Total 6.3 g/dL (5.8-8.1); Sodium 138 mmol/L (136-145)
[2023-12-07 10:53] LABS: Troponin I 0.016 ng/mL (< 0.028)
[2023-12-07] MEDS ORDERED: Iopamidol-370 76% 500 ML MDV (1 ML CHARGE) ONE (11:22)
[2023-12-07] MEDS ORDERED: Nitroglycerin 0.4 MG TAB 1 EACH ONE (11:46)
[2023-12-07] MEDS ORDERED: Acetaminophen 650 MG Suppository PR PRN (13:19)
[2023-12-07] MEDS ORDERED: Acetaminophen 500 MG TAB ONE (13:30)
[2023-12-07] MEDS ORDERED: Heparin 10,000 UNITS/ 10 ML VIAL SLOW IVP SCH (13:30)
[2023-12-07] MEDS ORDERED: Furosemide 20 MG (2 mL) VIAL ONE (13:30)
[2023-12-07] MEDS ORDERED: Gabapentin 300 MG CAP ONE (13:30)
[2023-12-07] MEDS ORDERED: Heparin 5,000 UNITS/ML VIAL ONE (13:30)
[2023-12-07] MEDS ORDERED: Heparin 25,000 units/D5W 500 ML IVPB SCH (13:30)
[2023-12-07] MEDS ORDERED: Furosemide 40 MG (4 mL) VIAL ONE (13:30)
[2023-12-07] MEDS ORDERED: Labetalol HCl 100 MG/20 ML VIAL ONE (13:31)
[2023-12-07] MEDS ORDERED: Aspirin Chewable 81 MG TAB ONE (13:31)
[2023-12-07] MEDS ORDERED: Heparin 25,000 units/D5W 500 ML ONE (13:31)
[2023-12-07 13:33] LABS: PTT 50.4 sec (22.9-36.1)
[2023-12-07] MEDS ORDERED: Morphine 4 MG/ML VIAL SLOW IVP PRN (13:33)
[2023-12-07] MEDS ORDERED: Morphine 2 MG/ML VIAL SLOW IVP PRN (13:33)
[2023-12-07] MEDS ORDERED: niCARdipine 25 MG/10 ML SDV ONE (13:43)
[2023-12-07] MEDS ORDERED: Ipratropium/Albuterol 3 ML NEB ONE (13:47)
[2023-12-07 14:05] LABS: Hematocrit 34.8 % (36.0-47.0); Hemoglobin 10.6 g/dL (12.0-16.0); Platelet Count 172 10x3/uL (130-400)
[2023-12-07 16:39] VITALS: BMI 23.3
[2023-12-07] MEDS: niCARdipine 25 MG in Sodium Chloride 0.9% 250 ML 250 ML IVPB SCH (19:16)
[2023-12-07] MEDS: Famotidine 20 MG TAB PO SCH (20:54)
[2023-12-07] MEDS: Metoprolol Tartrate 50 MG TAB PO SCH (20:54)
[2023-12-07] MEDS: Gabapentin 100 MG CAP PO PRN (21:45)
[2023-12-08 05:43] LABS: #Basophils Less than 0.03 10x3/uL (0.0-0.2); %Basophils 0.4 % (0.0-1.0); %Eosinophils 4.3 % (0.0-10.0); %Lymphocytes 13.9 % (21.0-51.0); %Monocytes 12.7 % (0.0-10.0); %Neutrophils 68.1 % (42.0-75.0); Hematocrit 31.4 % (36.0-47.0); Hemoglobin 9.6 g/dL (12.0-16.0); Mean Corpuscular HGB CONC 30.6 g/dL (32.0-36.0); Mean Corpuscular Hemoglobin 30.5 pg (27.0-31.0); Mean Corpuscular Volume 99.7 fL (78.0-98.0); Platelet Count 161 10x3/uL (130-400); RBC Distribution Width 17.2 % (11.5-14.5); Red Blood Cell (RBC) Count 3.15 mill/uL (4.20-5.40)
[2023-12-08 05:52] LABS: Anion Gap 12 mmol/L (10-20)
[2023-12-08 05:55] LABS: BUN (Urea Nitrogen) 18 mg/dL (9.8-20.1); Calc. Creatinine Clearance 48 mL/min (70-130); Calcium 9.1 mg/dL (7.8-10.44); Carbon Dioxide 24 mmol/L (23-31); Chloride 105 mmol/L (98-107); Estimated GFR 51; Glucose 98 mg/dL (83-110); Potassium 3.5 mmol/L (3.5-5.1); Sodium 137 mmol/L (136-145)
[2023-12-08] MEDS: Heparin 10,000 UNITS/ 10 ML VIAL SLOW IVP SCH (06:14)
[2023-12-08] MEDS: Pantoprazole DR 40 MG TAB PO SCH (09:05)
[2023-12-08] MEDS: NIFEdipine XL 60 MG ER.TAB PO SCH (09:40)
[2023-12-08] MEDS: Acetaminophen 325 MG TAB PO PRN (12:56)
[2023-12-08] MEDS: Ipratropium/Albuterol 3 ML NEB NEB PRN (13:26)
[2023-12-08] MEDS: Gabapentin 100 MG CAP PO PRN (15:56)
[2023-12-08] MEDS: Gabapentin 100 MG CAP PO SCH (21:58)
[2023-12-08] MEDS: Heparin 25,000 units/D5W 500 ML IV SCH (22:01)
[2023-12-09 03:28] LABS: #Basophils Less than 0.03 10x3/uL (0.0-0.2); %Basophils 0.2 % (0.0-1.0); %Eosinophils 2.5 % (0.0-10.0); %Lymphocytes 13.5 % (21.0-51.0); %Monocytes 11.2 % (0.0-10.0); %Neutrophils 72.1 % (42.0-75.0); Hematocrit 31.3 % (36.0-47.0); Hemoglobin 10.1 g/dL (12.0-16.0); Mean Corpuscular HGB CONC 32.3 g/dL (32.0-36.0); Mean Corpuscular Hemoglobin 30.8 pg (27.0-31.0); Mean Corpuscular Volume 95.4 fL (78.0-98.0); Mean Platelet Volume 9.9 fL (7.4-10.4); Platelet Count 124 10x3/uL (130-400); RBC Distribution Width 16.9 % (11.5-14.5); Red Blood Cell (RBC) Count 3.28 mill/uL (4.20-5.40)
[2023-12-09 03:42] LABS: Anion Gap 13 mmol/L (10-20)
[2023-12-09 03:46] LABS: BUN (Urea Nitrogen) 23 mg/dL (9.8-20.1); Calc. Creatinine Clearance 34 mL/min (70-130); Carbon Dioxide 22 mmol/L (23-31); Chloride 102 mmol/L (98-107); Estimated GFR 34; Glucose 113 mg/dL (83-110); Magnesium 1.8 mg/dL (1.6-2.6); Potassium 4.2 mmol/L (3.5-5.1); Sodium 133 mmol/L (136-145)
[2023-12-09] MEDS: NIFEdipine XL 60 MG ER.TAB PO SCH (08:20)
[2023-12-09] MEDS: Ferrous Sulfate 325 MG TAB PO SCH (08:20)
[2023-12-09] MEDS: Albuterol 200 PUFF (6.7GM INHALER) INH PRN (11:19)
[2023-12-09 12:59] LABS: Hematocrit 30.2 % (36.0-47.0); Hemoglobin 9.6 g/dL (12.0-16.0); Platelet Count 151 10x3/uL (130-400)
[2023-12-09] MEDS: Montelukast Sodium 10 mg Tablet PO SCH (20:08)
[2023-12-10 04:25] LABS: #Basophils Less than 0.03 10x3/uL (0.0-0.2); %Basophils 0.4 % (0.0-1.0); %Eosinophils 2.2 % (0.0-10.0); %Lymphocytes 17.7 % (21.0-51.0); %Monocytes 12.6 % (0.0-10.0); %Neutrophils 66.7 % (42.0-75.0); Mean Corpuscular Hemoglobin 30.5 pg (27.0-31.0); Mean Corpuscular Volume 98.3 fL (78.0-98.0); Mean Platelet Volume 10.5 fL (7.4-10.4); Platelet Count 142 10x3/uL (130-400); RBC Distribution Width 16.9 % (11.5-14.5); Red Blood Cell (RBC) Count 2.95 mill/uL (4.20-5.40)
[2023-12-10 04:43] LABS: Anion Gap 12 mmol/L (10-20)
[2023-12-10 04:47] LABS: BUN (Urea Nitrogen) 30 mg/dL (9.8-20.1); Calc. Creatinine Clearance 27 mL/min (70-130); Calcium 8.1 mg/dL (7.8-10.44); Carbon Dioxide 20 mmol/L (23-31); Chloride 100 mmol/L (98-107); Estimated GFR 27; Glucose 97 mg/dL (83-110); Magnesium 1.8 mg/dL (1.6-2.6); Sodium 128 mmol/L (136-145)
[2023-12-10] MEDS: Magnesium 2 GM/50 ML(in water) 2 GM in Premix 1 BAG IVPB SCH (09:10)
[2023-12-10] MEDS: Sodium Chloride 0.9% 1,000 ML IV SCH (16:31)
[2023-12-11 04:04] LABS: Bilirubin Negative (Negative); Blood, Urine Negative (Negative); Clarity Clear (Clear); Glucose, Urine (Dipstick) Normal (Negative); Ketone, Urine Negative (Negative); Leukocyte 500 Leu/uL (Negative); Nitrite Negative (Negative); Protein, Urine (Dipstick) Negative (Neg-Trace); RBC/HPF 0-3 HPF (0-3); Specific Gravity, Urine 1.004 (1.002-1.036); Squamous Epithelial 0-3 HPF (0-3); Urobilinogen Normal mg/dL (Less than 2); WBC/HPF 21-50 HPF (0-3)
[2023-12-11 04:09] LABS: Bacteria/HPF 1+ HPF (None Seen)
[2023-12-11 05:32] LABS: #Basophils Less than 0.03 10x3/uL (0.0-0.2); %Basophils 0.2 % (0.0-1.0); %Eosinophils 2.5 % (0.0-10.0); %Lymphocytes 17.4 % (21.0-51.0); %Monocytes 10.7 % (0.0-10.0); %Neutrophils 68.8 % (42.0-75.0); Hematocrit 32.5 % (36.0-47.0); Hemoglobin 10.4 g/dL (12.0-16.0); Mean Corpuscular Hemoglobin 29.9 pg (27.0-31.0); Mean Corpuscular Volume 93.4 fL (78.0-98.0); Mean Platelet Volume 10.4 fL (7.4-10.4); Platelet Count 139 10x3/uL (130-400); Red Blood Cell (RBC) Count 3.48 mill/uL (4.20-5.40)
[2023-12-11 06:01] LABS: Anion Gap 16 mmol/L (10-20); BUN (Urea Nitrogen) 27 mg/dL (9.8-20.1); Calc. Creatinine Clearance 33 mL/min (70-130); Calcium 8.1 mg/dL (7.8-10.44); Carbon Dioxide 20 mmol/L (23-31); Chloride 106 mmol/L (98-107); Estimated GFR 34; Glucose 97 mg/dL (83-110); Sodium 138 mmol/L (136-145)
[2023-12-11 13:27] LABS: Hemoglobin 10.3 g/dL (12.0-16.0); Platelet Count 165 10x3/uL (130-400)
[2023-12-11] MEDS: Gabapentin 300 MG CAP PO SCH (14:20)
[2023-12-11] MEDS: Aspirin 81 mg Enteric Coated Tablet PO SCH (16:25)
[2023-12-11] MEDS: Mometasone 200 MCG/Formoterol 5 MCG 120 PUFF INHALER INH SCH (20:43)
[2023-12-11] MEDS: Ciprofloxacin 500 MG TAB PO SCH (20:46)
[2023-12-12 04:35] LABS: #Basophils Less than 0.03 10x3/uL (0.0-0.2); %Eosinophils 1.7 % (0.0-10.0); %Lymphocytes 14.3 % (21.0-51.0); %Monocytes 10.8 % (0.0-10.0); %Neutrophils 72.8 % (42.0-75.0); Hematocrit 30.6 % (36.0-47.0); Hemoglobin 9.3 g/dL (12.0-16.0); Mean Corpuscular HGB CONC 30.4 g/dL (32.0-36.0); Mean Corpuscular Hemoglobin 29.7 pg (27.0-31.0); Mean Corpuscular Volume 97.8 fL (78.0-98.0); Mean Platelet Volume 11.1 fL (7.4-10.4); Platelet Count 142 10x3/uL (130-400); RBC Distribution Width 16.9 % (11.5-14.5); Red Blood Cell (RBC) Count 3.13 mill/uL (4.20-5.40)
[2023-12-12 05:01] LABS: Anion Gap 14 mmol/L (10-20); BUN (Urea Nitrogen) 24 mg/dL (9.8-20.1); Calc. Creatinine Clearance 37 mL/min (70-130); Calcium 7.8 mg/dL (7.8-10.44); Carbon Dioxide 17 mmol/L (23-31); Chloride 112 mmol/L (98-107); Estimated GFR 39; Glucose 98 mg/dL (83-110); Potassium 4.1 mmol/L (3.5-5.1); Sodium 139 mmol/L (136-145)
[2023-12-12] MEDS: Aspirin 81 mg Enteric Coated Tablet PO SCH (08:49)
[2023-12-12] MEDS: Sodium Bicarbonate 150 MEQ in Dextrose 5% in Water 1,000 ML IV SCH ×2 (08:54→12:02)
[2023-12-12] MEDS: Apixaban 2.5 MG TAB PO SCH ×2 (13:38→21:28)
[2023-12-13 05:14] LABS: #Basophils Less than 0.03 10x3/uL (0.0-0.2); %Basophils 0.5 % (0.0-1.0); %Eosinophils 2.7 % (0.0-10.0); %Lymphocytes 17.1 % (21.0-51.0); %Monocytes 11.4 % (0.0-10.0); %Neutrophils 67.8 % (42.0-75.0); Hematocrit 31.6 % (36.0-47.0); Hemoglobin 9.6 g/dL (12.0-16.0); Mean Corpuscular HGB CONC 30.4 g/dL (32.0-36.0); Mean Corpuscular Hemoglobin 29.6 pg (27.0-31.0); Mean Corpuscular Volume 97.5 fL (78.0-98.0); Mean Platelet Volume 10.2 fL (7.4-10.4); Platelet Count 154 10x3/uL (130-400); RBC Distribution Width 16.9 % (11.5-14.5); Red Blood Cell (RBC) Count 3.24 mill/uL (4.20-5.40)
[2023-12-13 05:46] LABS: Anion Gap 13 mmol/L (10-20); BUN (Urea Nitrogen) 21 mg/dL (9.8-20.1); Calc. Creatinine Clearance 42 mL/min (70-130); Calcium 8.4 mg/dL (7.8-10.44); Carbon Dioxide 21 mmol/L (23-31); Chloride 111 mmol/L (98-107); Estimated GFR 43; Glucose 101 mg/dL (83-110); Potassium 4.2 mmol/L (3.5-5.1); Sodium 141 mmol/L (136-145)
[2023-12-13] MEDS: Sodium Bicarbonate Tab 325 MG TAB PO SCH ×2 (11:51→20:29)
[2023-12-14 04:32] LABS: #Basophils Less than 0.03 10x3/uL (0.0-0.2); %Basophils 0.2 % (0.0-1.0); %Lymphocytes 14.5 % (21.0-51.0); %Monocytes 11.8 % (0.0-10.0); %Neutrophils 70.1 % (42.0-75.0); Hematocrit 33.5 % (36.0-47.0); Hemoglobin 10.2 g/dL (12.0-16.0); Mean Corpuscular HGB CONC 30.4 g/dL (32.0-36.0); Mean Corpuscular Hemoglobin 30.7 pg (27.0-31.0); Mean Corpuscular Volume 100.9 fL (78.0-98.0); Mean Platelet Volume 10.4 fL (7.4-10.4); Platelet Count 178 10x3/uL (130-400); RBC Distribution Width 17.2 % (11.5-14.5); Red Blood Cell (RBC) Count 3.32 mill/uL (4.20-5.40)
[2023-12-14 05:05] LABS: Anion Gap 12 mmol/L (10-20); BUN (Urea Nitrogen) 20 mg/dL (9.8-20.1); Calc. Creatinine Clearance 37 mL/min (70-130); Carbon Dioxide 20 mmol/L (23-31); Chloride 112 mmol/L (98-107); Estimated GFR 37; Glucose 94 mg/dL (83-110); Potassium 4.4 mmol/L (3.5-5.1); Sodium 140 mmol/L (136-145)
[2023-12-14] MEDS: NIFEdipine XL 90 MG ER.TAB PO SCH (08:05)
[2023-12-14] MEDS: Albumin 25% 25 GM (100 mL) BOT IVPB SCH ×2 (10:03→14:54)
[2023-12-14] MEDS: Furosemide 40 MG (4 mL) VIAL SLOW IVP SCH (12:42)
[2023-12-14] MEDS ORDERED: Sacubitril 24MG/Valsartan 26 MG TAB PO SCH (21:00)
[2023-12-14] MEDS: traMADol HCl 50 MG TAB PO SCH (23:01)
[2023-12-15] MEDS: hydrALAZINE 20 MG/ML VIAL SLOW IVP SCH (04:19)
[2023-12-15] MEDS ORDERED: NIFEdipine XL 60 MG ER.TAB PO SCH (06:30)
[2023-12-15 06:49] LABS: #Basophils Less than 0.03 10x3/uL (0.0-0.2); %Basophils 0.4 % (0.0-1.0); %Lymphocytes 15.9 % (21.0-51.0); %Monocytes 11.6 % (0.0-10.0); %Neutrophils 69.7 % (42.0-75.0); Hemoglobin 9.4 g/dL (12.0-16.0); Mean Corpuscular HGB CONC 30.3 g/dL (32.0-36.0); Mean Corpuscular Hemoglobin 29.9 pg (27.0-31.0); Mean Corpuscular Volume 98.7 fL (78.0-98.0); Mean Platelet Volume 9.9 fL (7.4-10.4); Platelet Count 153 10x3/uL (130-400); RBC Distribution Width 17.1 % (11.5-14.5); Red Blood Cell (RBC) Count 3.14 mill/uL (4.20-5.40)
[2023-12-15 07:18] LABS: Globulin 3.3 g/dL (2.4-3.5)
[2023-12-15 07:23] LABS: ALT (SGPT) 27 U/L (8-55); AST (SGOT) 43 U/L (5-34); Albumin 4.1 g/dL (3.4-4.8); Alkaline Phosphatase 181 U/L (40-110); Anion Gap 13 mmol/L (10-20); BUN (Urea Nitrogen) 22 mg/dL (9.8-20.1); Bilirubin, Total 0.7 mg/dL (0.2-1.2); Calc. Creatinine Clearance 38 mL/min (70-130); Calcium 9.9 mg/dL (7.8-10.44); Carbon Dioxide 21 mmol/L (23-31); Chloride 106 mmol/L (98-107); Estimated GFR 39; Glucose 99 mg/dL (83-110); Potassium 3.8 mmol/L (3.5-5.1); Protein, Total 7.4 g/dL (5.8-8.1); Sodium 136 mmol/L (136-145)
[2023-12-15] MEDS: NIFEdipine XL 60 MG ER.TAB PO SCH ×2 (08:01→20:23)
[2023-12-15] MEDS: Sodium Bicarbonate Tab 325 MG TAB PO SCH (14:31)
[2023-12-15] MEDS: Doxycycline 100 MG in Sodium Chloride 0.9% 100 ML IVPB SCH (14:32)
[2023-12-15] MEDS: hydrALAZINE 25 MG TAB PO SCH (20:23)
[2023-12-16 05:54] LABS: #Basophils Less than 0.03 10x3/uL (0.0-0.2); %Basophils 0.2 % (0.0-1.0); %Eosinophils 1.1 % (0.0-10.0); %Lymphocytes 16.6 % (21.0-51.0); %Monocytes 10.3 % (0.0-10.0); %Neutrophils 71.4 % (42.0-75.0); Hematocrit 30.4 % (36.0-47.0); Hemoglobin 9.5 g/dL (12.0-16.0); Mean Corpuscular HGB CONC 31.3 g/dL (32.0-36.0); Mean Corpuscular Hemoglobin 30.4 pg (27.0-31.0); Mean Corpuscular Volume 97.1 fL (78.0-98.0); Mean Platelet Volume 10.8 fL (7.4-10.4); Platelet Count 159 10x3/uL (130-400); RBC Distribution Width 17.3 % (11.5-14.5); Red Blood Cell (RBC) Count 3.13 mill/uL (4.20-5.40)
[2023-12-16 06:18] LABS: Globulin 3.6 g/dL (2.4-3.5)
[2023-12-16 06:23] LABS: ALT (SGPT) 33 U/L (8-55); AST (SGOT) 66 U/L (5-34); Albumin 3.8 g/dL (3.4-4.8); Alkaline Phosphatase 230 U/L (40-110); Anion Gap 17 mmol/L (10-20); BUN (Urea Nitrogen) 29 mg/dL (9.8-20.1); Bilirubin, Total 0.6 mg/dL (0.2-1.2); Calc. Creatinine Clearance 30 mL/min (70-130); Calcium 9.7 mg/dL (7.8-10.44); Carbon Dioxide 18 mmol/L (23-31); Chloride 108 mmol/L (98-107); Estimated GFR 31; Glucose 99 mg/dL (83-110); Potassium 4.8 mmol/L (3.5-5.1); Protein, Total 7.4 g/dL (5.8-8.1); Sodium 138 mmol/L (136-145)
[2023-12-16 10:05] VITALS: BMI 22.1
[2023-12-17 09:03] LABS: Anion Gap 13 mmol/L (10-20); BUN (Urea Nitrogen) 36 mg/dL (9.8-20.1); Calc. Creatinine Clearance 33 mL/min (70-130); Calcium 9.4 mg/dL (7.8-10.44); Carbon Dioxide 22 mmol/L (23-31); Chloride 109 mmol/L (98-107); Estimated GFR 35; Glucose 95 mg/dL (83-110); Potassium 4.3 mmol/L (3.5-5.1); Sodium 140 mmol/L (136-145)
[2023-12-17 09:34] LABS: #Basophils Less than 0.03 10x3/uL (0.0-0.2); %Basophils 0.5 % (0.0-1.0); %Eosinophils 2.1 % (0.0-10.0); %Lymphocytes 19.3 % (21.0-51.0); %Monocytes 14.6 % (0.0-10.0); %Neutrophils 63.2 % (42.0-75.0); Hematocrit 30.1 % (36.0-47.0); Hemoglobin 9.3 g/dL (12.0-16.0); Mean Corpuscular HGB CONC 30.9 g/dL (32.0-36.0); Mean Corpuscular Hemoglobin 29.5 pg (27.0-31.0); Mean Corpuscular Volume 95.6 fL (78.0-98.0); Mean Platelet Volume 10.3 fL (7.4-10.4); Platelet Count 148 10x3/uL (130-400); RBC Distribution Width 17.3 % (11.5-14.5); Red Blood Cell (RBC) Count 3.15 mill/uL (4.20-5.40)
[2023-12-17] MEDS ORDERED: traZODone HCl 50 MG TAB PO PRN (14:18)
[2023-12-17] MEDS: Lorazepam 0.5 MG TAB PO PRN (15:24)
[2023-12-17] MEDS: Doxycycline 100 MG CAP PO SCH (22:14)
[2023-12-18] MEDS: guaiFENesin/DM ER PO SCH ×2 (00:23→12:12)
[2023-12-18 05:17] LABS: #Basophils Less than 0.03 10x3/uL (0.0-0.2); %Basophils 0.2 % (0.0-1.0); %Eosinophils 1.5 % (0.0-10.0); %Lymphocytes 21.9 % (21.0-51.0); %Monocytes 15.2 % (0.0-10.0); Hematocrit 29.3 % (36.0-47.0); Hemoglobin 9.2 g/dL (12.0-16.0); Mean Corpuscular HGB CONC 31.4 g/dL (32.0-36.0); Mean Corpuscular Hemoglobin 30.4 pg (27.0-31.0); Mean Corpuscular Volume 96.7 fL (78.0-98.0); Mean Platelet Volume 11.3 fL (7.4-10.4); Platelet Count 146 10x3/uL (130-400); Red Blood Cell (RBC) Count 3.03 mill/uL (4.20-5.40)
[2023-12-18 05:25] LABS: Anion Gap 12 mmol/L (10-20); BUN (Urea Nitrogen) 34 mg/dL (9.8-20.1); Calc. Creatinine Clearance 39 mL/min (70-130); Calcium 9.4 mg/dL (7.8-10.44); Carbon Dioxide 22 mmol/L (23-31); Chloride 107 mmol/L (98-107); Estimated GFR 43; Glucose 95 mg/dL (83-110); Sodium 137 mmol/L (136-145)
[2023-12-18] MEDS: Albuterol 2.5 MG (3 mL) NEB NEB PRN (22:13)
[2023-12-19 05:08] LABS: #Basophils Less than 0.03 10x3/uL (0.0-0.2); %Basophils 0.5 % (0.0-1.0); %Eosinophils 2.3 % (0.0-10.0); %Lymphocytes 24.3 % (21.0-51.0); %Monocytes 14.1 % (0.0-10.0); %Neutrophils 58.5 % (42.0-75.0); Hematocrit 29.3 % (36.0-47.0); Hemoglobin 9.3 g/dL (12.0-16.0); Mean Corpuscular HGB CONC 31.7 g/dL (32.0-36.0); Mean Corpuscular Hemoglobin 29.8 pg (27.0-31.0); Mean Corpuscular Volume 93.9 fL (78.0-98.0); Mean Platelet Volume 10.6 fL (7.4-10.4); Platelet Count 147 10x3/uL (130-400); RBC Distribution Width 16.8 % (11.5-14.5); Red Blood Cell (RBC) Count 3.12 mill/uL (4.20-5.40)
[2023-12-19 05:22] LABS: Anion Gap 14 mmol/L (10-20); BUN (Urea Nitrogen) 36 mg/dL (9.8-20.1); Calc. Creatinine Clearance 36 mL/min (70-130); Calcium 9.1 mg/dL (7.8-10.44); Carbon Dioxide 21 mmol/L (23-31); Chloride 110 mmol/L (98-107); Estimated GFR 41; Glucose 95 mg/dL (83-110); Potassium 3.9 mmol/L (3.5-5.1); Sodium 141 mmol/L (136-145)
[2023-12-19] MEDS ORDERED: PROPOFOL 20 ML ONE (16:31)
[2023-12-19] MEDS ORDERED: Ketamine In 0.9 % NaCl 50 MG/5 ML SYRINGE ONE (16:31)
[2023-12-19] MEDS: Morphine 2 MG/ML VIAL SLOW IVP SCH (23:09)
[2023-12-20 03:54] LABS: #Basophils Less than 0.03 10x3/uL (0.0-0.2); %Basophils 0.4 % (0.0-1.0); %Eosinophils 2.2 % (0.0-10.0); %Lymphocytes 17.2 % (21.0-51.0); %Monocytes 11.6 % (0.0-10.0); %Neutrophils 68.2 % (42.0-75.0); Hematocrit 28.8 % (36.0-47.0); Hemoglobin 9.2 g/dL (12.0-16.0); Mean Corpuscular HGB CONC 31.9 g/dL (32.0-36.0); Mean Corpuscular Hemoglobin 30.9 pg (27.0-31.0); Mean Corpuscular Volume 96.6 fL (78.0-98.0); Mean Platelet Volume 10.4 fL (7.4-10.4); Platelet Count 145 10x3/uL (130-400); RBC Distribution Width 16.5 % (11.5-14.5); Red Blood Cell (RBC) Count 2.98 mill/uL (4.20-5.40)
[2023-12-20 04:24] LABS: Anion Gap 14 mmol/L (10-20); BUN (Urea Nitrogen) 33 mg/dL (9.8-20.1); Calc. Creatinine Clearance 35 mL/min (70-130); Calcium 8.8 mg/dL (7.8-10.44); Carbon Dioxide 21 mmol/L (23-31); Chloride 112 mmol/L (98-107); Estimated GFR 39; Glucose 97 mg/dL (83-110); Potassium 4.4 mmol/L (3.5-5.1); Sodium 143 mmol/L (136-145)
[2023-12-20 15:42] VITALS: BP 117/69; TEMP 98.2
== END 2023-12-20 16:58 | disposition home or self-care (01) | DRG 303 ==
LOC: SUATTDRO 08:52 → ERS 08:52 → CCU 15:09 → 2NO 12-11 06:07
PROVIDERS: ADMIT Family Medicine; ATTEND Internal Medicine
PROC: 30233J1 Transfusion of Nonautologous Serum Albumin into Peripheral Vein, Percutaneous Approach (ICD-10-PCS; principal; 2023-12-07)
DX: I51.3 Intracardiac thrombosis, not elsewhere classified (principal); I16.1 Hypertensive emergency; I48.21 Permanent atrial fibrillation; C90.00 Multiple myeloma not having achieved remission; E87.1 Hypo-osmolality and hyponatremia; N17.9 Acute kidney failure, unspecified; E87.21 Acute metabolic acidosis; I50.32 Chronic diastolic (congestive) heart failure; J44.1 Chronic obstructive pulmonary disease with (acute) exacerbation; I13.0 Hypertensive heart and chronic kidney disease with heart failure and stage 1 through stage 4 chronic kidney disease, or unspecified chronic kidney disease; J45.909 Unspecified asthma, uncomplicated; N18.30 Chronic kidney disease, stage 3 unspecified; I12.9 Hypertensive chronic kidney disease with stage 1 through stage 4 chronic kidney disease, or unspecified chronic kidney disease; M54.30 Sciatica, unspecified side; Z88.8 Allergy status to other drugs, medicaments and biological substances; Z79.899 Other long term (current) drug therapy; Z96.611 Presence of right artificial shoulder joint; Z96.612 Presence of left artificial shoulder joint; Z90.710 Acquired absence of both cervix and uterus; G47.30 Sleep apnea, unspecified
CPT/HCPCS: 36415; 36416; 71045; 71275; 74174; 80048; 80053; 81001; 82040; 82550; 83735; 83880; 84484; 85014; 85018; 85025; 85049; 85610; 85730; 93005; 93306; 93312; 94640; 96374; 96375; J0360; J1644; J1940; J2272; J2704; J3475; J3490; J7050; J7070; J7611; J7620; P9047; Q9967

== ENCOUNTER 2024-01-29 11:30 | Inpatient (IN) | payer MEDICARE ==
[2024-01-29 11:39] VITALS: BMI 22.3
[2024-01-29 11:56] LABS: Hematocrit 35.3 % (34.9-44.5); Hemoglobin 11.3 g/dL (12.0-15.5); Mean Corpuscular Hemoglobin 30.7 pg (27.0-33.0); Mean Corpuscular Volume 95.9 fL (81.6-98.3); Mean Platelet Volume 9.4 fL (7.4-10.4); Platelet Count 199 10x3/uL (150-450); RBC Distribution Width 20.2 % (11.5-14.5); Red Blood Cell (RBC) Count 3.68 10x6/uL (3.90-5.03); White Blood Cell (WBC) Count 6.1 10x3/uL (3.5-10.5)
[2024-01-29 12:05] LABS: INR-International Normal Ratio 1.1; PTT 30.2 sec (22.0-33.0); Prothrombin Time 11.5 sec (9.5-12.1)
[2024-01-29 12:14] LABS: Bilirubin Neg (Negative); Blood, Urine 25 (Negative); Clarity Cloudy (Clear); Glucose, Urine (Dipstick) Normal (Negative); Ketone, Urine Negative (Negative); Leukocyte 500 (Negative); Nitrite Negative (Negative); Protein, Urine (Dipstick) 30 mg/dl (Neg-Trace); Specific Gravity, Urine 1.015 (1.005-1.030); Urobilinogen Normal mg/dL (Less than 2)
[2024-01-29 12:26] LABS: ALT (SGPT) 40 U/L (8-55); AST (SGOT) 59 U/L (5-34); Alkaline Phosphatase 241 U/L (40-110); Anion Gap 12 mmol/L (10-20); BUN (Urea Nitrogen) 29 mg/dL (9.8-20.1); Bilirubin, Total 0.5 mg/dL (0.2-1.2); Calc. Creatinine Clearance 36 mL/min (70-130); Calcium 8.8 mg/dL (7.8-10.44); Carbon Dioxide 22 mmol/L (23-31); Chloride 106 mmol/L (98-107); Estimated GFR 38; Globulin 4.3 g/dL (2.4-3.5); Glucose 103 mg/dL (83-110); Potassium 4.4 mmol/L (3.5-5.1); Protein, Total 7.3 g/dL (5.8-8.1); Sodium 136 mmol/L (136-145)
[2024-02-05] MEDS ORDERED: Heparin 10,000 UNITS/ 10 ML VIAL ONE (06:52)
[2024-02-05] MEDS ORDERED: Protamine Sulfate 50 MG/5 ML VIAL ONE (06:52)
[2024-02-05] MEDS ORDERED: CEFAZOLIN 2 GM VIAL ONE (06:55)
[2024-02-05] MEDS ORDERED: fentaNYL 50 mcg/mL 1 mL Vial ONE (07:00)
[2024-02-05] MEDS ORDERED: PROPOFOL 20 ML ONE (07:00)
[2024-02-05] MEDS ORDERED: Ondansetron PF 4 MG/2 ML Vial ONE (07:01)
[2024-02-05] MEDS ORDERED: SUGAMMADEX SODIUM 200 MG/2 ML VIAL ONE (07:01)
[2024-02-05] MEDS ORDERED: Rocuronium Bromide 10 MG/ML (10ML VIAL) ONE (07:01)
[2024-02-05] MEDS ORDERED: Dexamethasone 4 mg/ml Vial ONE (07:01)
[2024-02-05] MEDS ORDERED: Phenylephrine 10 MG/ML VIAL ONE (07:11)
[2024-02-05] MEDS ORDERED: Iopamidol 370 76% 100 ML VIAL ONE (12:00)
== END 2024-02-05 13:15 | disposition home or self-care (01) | DRG 274 ==
LOC: SURG A 02-05 05:29 → EDSTATUS 02-05 11:30
PROVIDERS: ADMIT Internal Medicine Cardiovascular Disease; ATTEND Internal Medicine Cardiovascular Disease
PROC: 02L73DK Occlusion of Left Atrial Appendage with Intraluminal Device, Percutaneous Approach (ICD-10-PCS; principal; 2024-02-05)
PROC: B245ZZ4 Ultrasonography of Left Heart, Transesophageal (ICD-10-PCS; 2024-02-05)
DX: I48.11 Longstanding persistent atrial fibrillation (principal); Z00.6 Encounter for examination for normal comparison and control in clinical research program; I50.32 Chronic diastolic (congestive) heart failure; I13.0 Hypertensive heart and chronic kidney disease with heart failure and stage 1 through stage 4 chronic kidney disease, or unspecified chronic kidney disease; J44.9 Chronic obstructive pulmonary disease, unspecified; N18.30 Chronic kidney disease, stage 3 unspecified; Z79.01 Long term (current) use of anticoagulants; D63.8 Anemia in other chronic diseases classified elsewhere; I51.3 Intracardiac thrombosis, not elsewhere classified; I44.2 Atrioventricular block, complete; Z88.5 Allergy status to narcotic agent; Z79.899 Other long term (current) drug therapy; Z95.0 Presence of cardiac pacemaker
CPT/HCPCS: 33340; 80053; 81003; 85027; 85347; 85610; 85730; 86850; 86900; 86901; 93306; 93312; C1759; C1760; C1894; J1100; J1644; J2371; J2405; J2704; J2720; J3010

== ENCOUNTER 2024-05-07 08:45 | Outpatient (CLI) | payer MEDICARE | END 2024-05-07 08:46 | disposition home or self-care (01) | LOC: PET 08:45 | PROVIDERS: ATTEND Internal Medicine | DX: C90.00 Multiple myeloma not having achieved remission (principal); C79.51 Secondary malignant neoplasm of bone | CPT/HCPCS: 78815; A9552 ==

== ENCOUNTER 2025-04-08 10:15 | Outpatient (CLI) | payer OTHER | END 2025-04-08 10:16 | disposition home or self-care (01) | LOC: PET 10:15 | PROVIDERS: ATTEND Internal Medicine | DX: Z78.0 Asymptomatic menopausal state (principal); D50.8 Other iron deficiency anemias; C90.00 Multiple myeloma not having achieved remission; N18.4 Chronic kidney disease, stage 4 (severe); D63.1 Anemia in chronic kidney disease; C79.51 Secondary malignant neoplasm of bone; I82.4Y2 Acute embolism and thrombosis of unspecified deep veins of left proximal lower extremity; Z79.899 Other long term (current) drug therapy | CPT/HCPCS: 78815; A9552 ==